=== PATIENT | male | born 1975 | race Caucasian/White ===

== ENCOUNTER → 2020-03-12 16:21 | Outpatient (BNVA) | payer OTHER, SELFPAY | PROVIDERS: PCP Physician Assistant; Referring Provider Physician Assistant; Visit Provider Nurse Practitioner | DX: K22.10 Ulcer of esophagus without bleeding (principal); R19.7 Diarrhea, unspecified; K29.40 Chronic atrophic gastritis without bleeding; F10.10 Alcohol abuse, uncomplicated; K92.1 Melena | CPT/HCPCS: 99214 ==

== ENCOUNTER 2020-07-31 14:32 | Outpatient (REF) | payer OTHER, SELFPAY ==
--- NOTE | ~2020-07-31 | US_ITS ---
EXAMINATION: US ABDOMEN LIMITED CLINICAL INFORMATION: Palpable fullness over right mid abdomen, best appreciated with the patient standing COMPARISON: None TECHNIQUE: Real-time imaging of the right periumbilical region FINDINGS: There is a small right periumbilical hernia which appears to contain bowel. This measures 1.6 cm. US/US abdomen limited IMPRESSION: Small right periumbilical hernia containing bowel.
== END 2020-07-31 14:33 | disposition home or self-care (01) ==
LOC: HO.HMGCX 14:32
PROVIDERS: PCP Physician Assistant; Visit Provider Physician Assistant
DX: K46.9 Unspecified abdominal hernia without obstruction or gangrene (principal)
CPT/HCPCS: 76705

== ENCOUNTER 2020-08-08 09:02 | Outpatient (REF) | payer OTHER, SELFPAY ==
[2020-08-08 09:59] LABS: MANUAL DIFF FLAG NO
[2020-08-08 10:14] LABS: INTERNATIONAL NORM RATIO 0.9 (0.9-1.1); Prothrombin Time 10.6 SEC (10.8-13.0)
[2020-08-08 10:27] LABS: Basophils Absolute Auto 0.1 X10*3/uL (0.0-0.2); Basophils Percent Auto 0.7 % (0-2); Eosinophils Absolute Auto 0.1 X10*3/uL (0.0-0.4); Hematocrit 51.9 % (42-52); Hemoglobin 17.4 g/dl (14.0-18.0); Imm Gran Abs Auto 0.09 X10*3/uL (0.00-0.03); Imm Gran Pct Auto 0.8 % (0.0-0.4); Lymphocytes Percent Auto 17.9 % (20-40); Mean Corpuscular HGB Conc 33.5 g/dl (31.0-36.0); Mean Corpuscular Volume 92.3 fL (80-98); Mean Platelet Volume 9.7 fL (9.4-12.4); Monocytes Absolute Auto 0.9 X10*3/uL (0.1-1.2); Monocytes Percent Auto 7.5 % (2-11); Neutrophils Absolute Auto 8.2 X10*3/uL (2.0-8.3); Neutrophils Percent Auto 72.1 % (45-73); Platelet Count 318 X10*3/uL (160-400); Red Blood Count 5.62 X10*6/uL (4.60-5.80); Red Cell Distribution Width 13.2 % (11.0-16.0); White Blood Count 11.4 X10*3/uL (4.8-10.8)
[2020-08-08 10:49] LABS: Alanine Aminotransferase 15 U/L (0-40); Albumin Level 4.3 g/dL (3.5-5.0); Alkaline Phosphatase 90 U/L (39-117); Anion Gap 14 (12-20); Aspartate Amino Transferase 27 U/L (5-37); Bilirubin Total 0.4 mg/dL (0.0-1.0); Blood Urea Nitrogen 5 mg/dL (9-16); Calcium 9.3 mg/dL (8.4-10.2); Carbon Dioxide 26 mmol/L (22-29); Chloride 101 mmol/L (96-108); Cholesterol 206 mg/dL; Estimated Glomerular Filt Rate > 60; Glucose Fasting 101 mg/dL (60-99); HDL Cholesterol 56 mg/dL; LDL Cholesterol Calculated 128 mg/dl; Potassium 5.6 mmol/L (3.3-5.1); Sodium 135 mmol/L (135-145); Total Protein 7.1 g/dL (6.5-8.0); Triglycerides 113 mg/dL
[2020-08-08 10:55] LABS: Ethanol < 10 mg/dL
[2020-08-08 11:13] LABS: TSH reflex Free T4 0.85 uIU/mL (0.32-4.0)
== END 2020-08-08 09:03 | disposition home or self-care (01) ==
LOC: HO.LAB 09:02
PROVIDERS: PCP Physician Assistant; Visit Provider Nurse Practitioner
DX: I10 Essential (primary) hypertension (principal); F10.10 Alcohol abuse, uncomplicated; K92.1 Melena; R19.7 Diarrhea, unspecified; Z13.29 Encounter for screening for other suspected endocrine disorder; Z13.220 Encounter for screening for lipoid disorders
CPT/HCPCS: 36415; 80053; 80061; 80320; 84443; 85025; 85027; 85610

== ENCOUNTER → 2020-08-12 13:47 | Outpatient (BNVA) | payer OTHER, SELFPAY | PROVIDERS: PCP Physician Assistant; Visit Provider Surgery | DX: K43.2 Incisional hernia without obstruction or gangrene (principal) | CPT/HCPCS: 99202 ==

== ENCOUNTER 2020-08-28 08:55 | Day surgery (SDC) | payer OTHER, SELFPAY ==
[2020-08-24 12:50] VITALS: BMI 25.0
--- NOTE | 2020-08-24 14:08 | HO.ANESPROP2 ---
Documented by User: Danni Roma 08/27/20 09:07 HPI - Anesthesia Eval Consult details Narrative: 45yo M for Hernia Repair Incisional with Mesh Hyperkalemia noted by pcp, questioning lab error? Repeat DOS. +ETOH PMFSH Active Problems Active Problems: All Active Problems (Updated 08/12/20 @ 14:21 by Cuate Blank MD) Incisional hernia (Acute) Peptic ulcer disease (Acute) Gastritis (Acute) Anxiety (Acute) Allergic (Acute) Annual physical exam (Acute) Screening for hypothyroidism (Acute) Screening for hypercholesterolemia (Acute) Abdominal hernia (Acute) Hematochezia (Acute) Diarrhea (Acute) Erosive gastritis (Acute) Atrophic gastritis (Acute) Anxiety (Acute) Genital warts (Acute) Erosive esophagitis (Acute) Smoker (Acute) Alcohol abuse (Acute) Lumbar disc disease with radiculopathy (Acute) Past Medical History Medical History Anxiety Foreign body in stomach Gastritis Incisional hernia Peptic ulcer disease Perforated duodenal ulcer Family History Family History Father CAD (coronary artery disease) NIDDY (non-insulin dependent diabetes mellitus in young) Hypertension Mother CAD (coronary artery disease) Hypertension Surgical History Surgical History H/O Spinal surgery History of esophagogastroduodenoscopy (EGD) History of gastric surgery Social History Social History Alcohol intake: current Alcohol intake frequency: a few times a month Smoking Status: Current every day smoker Advance Directives Information Provided: No Current occupational status: unemployed 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 Meds Allergies Allergy/AdvReac Type Severity Reaction Status Date / Time cat dander [cats] Allergy Unknown Unknown Verified 08/24/20 12:47 Home Medications Medication Instructions Recorded Confirmed Last Taken Type famotidine 40 mg tablet 40 mg PO DAILY 07/28/20 08/24/20 Unknown History Exam Exam Date and Time: August 24, 2020 1408 Height,Weight and Vital Signs: Height 6 ft Weight 83.915 kg Pertinent Lab Results Pertinent Lab Results: Laboratory Tests 08/08/20 09:38 WBC 11.4 H Hgb 17.4 Hct 51.9 Plt Count 318 Laboratory Tests 08/08/20 09:38 BUN 5 L Creatinine 0.81 Repeat lytes DOS Assessment and Plan Assessment Anesthesia Assessment: Chart Reviewed Documented by User: Shelby Rojo 08/28/20 13:03 PMFSH Past Medical History Medical History Anxiety Foreign body in stomach Gastritis Incisional hernia Peptic ulcer disease Perforated duodenal ulcer Family History Family History Father CAD (coronary artery disease) NIDDY (non-insulin dependent diabetes mellitus in young) Hypertension Mother CAD (coronary artery disease) Hypertension Surgical History Surgical History H/O Spinal surgery History of esophagogastroduodenoscopy (EGD) History of gastric surgery Social History Social History Alcohol intake: current Alcohol intake frequency: a few times a month Smoking Status: Current every day smoker Advance Directives Information Provided: No Current occupational status: unemployed 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 Meds Allergies Allergy/AdvReac Type Severity Reaction Status Date / Time cat dander [cats] Allergy Unknown Unknown Verified 08/24/20 12:47 Home Medications Medication Instructions Recorded Confirmed Last Taken Type famotidine 40 mg tablet 40 mg PO DAILY 07/28/20 08/24/20 Unknown History Exam Airway Mallampati Class: II TM Dist: >3cm Neck ROM: Full Assessment and Plan Assessment Anesthesia Assessment: Anesthesia Plan Discussed and Chart Reviewed Final Anesthetic Review NPO: Yes ASA Class: II Final Preanesthetic Review: No Changes in Pt Med Stat, Meds/Allgs Chart Reviewed and Consent Obtained/Reviewed Patient Risk: Low Procedure Risk: Low Assessment/Block/Sedation in SS: Assess/Block/Sedation-SS Anesthetic Plan Anesthetic Plan: GA Disposition: Standard PACU
[2020-08-28] VITALS (16 sets, daily range): BP systolic 117–146; BP diastolic 59–89; PULSE 51–65; RESP 16–20; TEMP 36.6–36.8; O2SAT 93–100
[2020-08-28 10:19] LABS: Anion Gap 17 (12-20); Carbon Dioxide 22 mmol/L (22-29); Chloride 101 mmol/L (96-108); Potassium 4.5 mmol/L (3.3-5.1); Sodium 135 mmol/L (135-145)
[2020-08-28] MEDS: Lactated Ringers 1,000 ML 100 ML IVCONT (11:00)
--- NOTE | 2020-08-28 13:15 | MHC.SHP ---
Pre-Procedural Eval Section B Chief Complaint: Incisional Hernia Allergies: Allergies Allergy/AdvReac Type Severity Reaction Status Date / Time cat dander [cats] Allergy Unknown Unknown Verified 08/24/20 12:47 Plan I have reviewed the history and physical and performed a pertinent physical examination on my patient. No changes have occurred unless specified.
--- NOTE | 2020-08-28 14:28 | PM.OP ---
Brief Operative Note Date of Service: 08/28/20 Pre-op diagnosis: incisional hernia Post-op diagnosis: same Procedure: repair of incisional hernia poss. mesh Implants: mesh Surgeon: Cuate Blank MD Anesthesia: GLMA Estimated blood loss (mL): 5 Pathology: other (sac) Condition: stable Disposition: PACU
--- NOTE | 2020-08-28 14:31 | P.OP_ITS ---
Operative Note Operative Note Date of Service: 08/28/20 Narrative: Preop diagnosis: Incisional hernia Postop diagnoses: Incisional hernia Procedure: Repair of incisional hernia with Ventralex mesh Surgeon: Cuate Blank MD cardiology physician assistant: CYRUS Kline The patient is a 45-year-old male with reducible mass to the right of the umbilicus consistent with a hernia. He has a long laparotomy incision from before for surgery for perforated ulcer. In view of symptoms with hernia, he wanted to proceed with repair. He understood the technique of the procedure as well as the risks, benefits and alternatives. He was brought to the operative room placed supine table under general anesthesia via laryngeal mask airway. The abdomen is prepped and draped in the usual sterile fashion. A surgical time-out was done and the patient received cefazolin 2 g IV preoperatively. I infiltrated the planned line of incision with lidocaine 1%. I had made incision in the skin using blade 15. This was carried down through the full- thickness of the skin and subcutaneous fat with sharp dissection using electrocautery until was able to visualize the hernia. Hernia sac was carefully dissected off of the rest of the subcutaneous layer sharply with Metzenbaum scissors. We continue to do careful dissection to define the hernia down to the fascia. The fascial edges were not well defined so I opened the hernia sac carefully with Metzenbaum scissors. The peritoneal cavity was therefore entered. I applied a grasper the fascial edge and carefully excised the hernia sac with electrocautery. This was sent as specimen. By doing so we were able to clearly define the fascial defect. The fascial defect was about 2.5 cm in diameter. I palpated the underside of the defect to make sure that there were no adhesions. There were no bowel loops adherent around the defect. This appeared clear so I used a small-sized Ventralex mesh. This was positioned under the fascia and flattened. I secured the mesh with Prolene 2-0 sutures the fascia using the Prolene straps. The straps on both sites were then trimmed flush on the fascial level. I then closed the fascial defect with a figure- eight Maxon 1 stitch. The subcutaneous layer was reapposed with Dexon 3-0 interrupted sutures. Skin closure was achieved with Dexon 4-0 subcuticular stitch. Steri-Strips and dressings were applied. The area was infiltrated with Marcaine 0.5% for postop analgesia. The procedure was then completed. The patient tolerated procedure well without complication noted. Initial and final counts of sponges and instruments were correct. Estimated blood loss about 5 cc. Basis extubated without difficulty and transferred to the recovery room with stable vital signs.
[2020-08-28] MEDS: Acetaminophen 325 MG TABLET 650 MG PO (14:37)
[2020-08-28] MEDS: oxyCODONE HCl Immed Release 5 MG TABLET PO ×2 (14:37→16:10)
[2020-08-28] MEDS: fentaNYL citrate/PF 100 MCG/2 ML VIAL 50 MCG IVPUSH ×4 (14:57→15:26)
== END 2020-08-28 11:25 | disposition home or self-care (01) ==
PROVIDERS: Nurse Practitioner; PCP Physician Assistant; Visit Provider Surgery
PROC: (CPT 49560; principal; 2020-08-28 12:50)
DX: K43.2 Incisional hernia without obstruction or gangrene (principal); K29.70 Gastritis, unspecified, without bleeding; Z87.11 Personal history of peptic ulcer disease; Z79.899 Other long term (current) drug therapy
CPT/HCPCS: 49560; 49568; 36415; 80051; 88302; C1781; J0690; J1100; J2250; J2405; J3010

== ENCOUNTER → 2020-09-10 12:50 | Outpatient (BNVA) | payer OTHER, SELFPAY | PROVIDERS: PCP Physician Assistant; Visit Provider Surgery | DX: K43.2 Incisional hernia without obstruction or gangrene (principal) | CPT/HCPCS: 99212 ==

== ENCOUNTER 2020-12-04 06:01 | Emergency (ER) | payer OTHER, SELFPAY ==
--- NOTE | ~2020-12-04 | CT_ITS ---
EXAMINATION: CT ABDOMEN AND PELVIS WITH CONTRAST CLINICAL INFORMATION: Vomiting. Right lower quadrant pain. Evaluate for small bowel obstruction. COMPARISON: None TECHNIQUE: Multidetector volumetric images were obtained from the superior aspect of the liver through the pubic symphysis following administration 85 mL of Omnipaque 350 intravenous contrast. Sagittal and coronal reformatted images were obtained on the technologist's workstation. Oral contrast: Yes This CT examination was performed using dose optimization techniques as appropriate, variously including the following: *Automated exposure control *Adjustment of mA and/or kV according to patient size (this includes techniques or standardized protocols for targeted exams where dose is matched to indication/reason for exam; i.e. extremities or head) *Use of iterative reconstruction technique DLP: 533 mGy-cm FINDINGS: LUNG BASES: The visualized lung bases are unremarkable. LIVER, GALLBLADDER, AND BILIARY TREE: The liver is normal in size, shape, and attenuation. No focal hepatic lesion or biliary ductal dilatation is present. The gallbladder is unremarkable with no evidence of radiopaque gallstones, gallbladder wall thickening, or obvious pericholecystic inflammatory changes. PANCREAS: Unremarkable. SPLEEN: Unremarkable. ADRENAL GLANDS: Unremarkable. KIDNEYS AND URETERS: There is a small left renal cyst. The kidneys are normal unremarkable. BLADDER: Unremarkable. GASTROINTESTINAL TRACT: There are fluid-filled loops of nondilated small bowel suggestive of an ileus. There are no dilated loops of bowel to suggest obstruction. There are postsurgical changes to the right periumbilical abdominal wall and small bowel loops about this region. No hernia in this area is seen. There is mild diverticulosis of the colon. Large bowel is otherwise unremarkable. The appendix is not seen. The stomach is normal. ABDOMINAL WALL: There is a small upper midline or supraumbilical hernia containing fat. This is 3 cm superior to the umbilicus. There are postsurgical changes to the abdominal wall in the periumbilical region slightly to the right of midline. There are small bowel loops seen just deep to this region. LYMPH NODES: Normal. VASCULAR: Unremarkable. PELVIC VISCERA: Unremarkable. OSSEOUS STRUCTURES: There may be a transitional vertebral body segment. There is lower lumbar spine spondylosis and degenerative disc disease. There is a lower thoracic spine and mild old compression fracture versus Schmorl's node. CT/CT abdomen pelvis w con IMPRESSION: Small bowel ileus. Postsurgical change to the abdominal wall in the periumbilical region to the right of midline. There are small bowel loops seen abutting this region. No hernia in this region is seen or evidence of bowel obstruction. Small 1 cm supraumbilical hernia containing fat. Centimeters above the umbilicus. Left renal cyst.
[2020-12-04 06:23] VITALS: BP 145/100; PULSE 73; RESP 16; TEMP 37; O2SAT 100; BMI 24.4
--- NOTE | 2020-12-04 07:02 | ED_ITS ---
HPI - Abdominal Pain General Chief Complaint: Abdominal Pain Stated Complaint: vomiting/ABD pain Time Seen by Provider: 12/04/20 06:47 Source: patient Mode of arrival: ambulatory Limitations: no limitations History of Present Illness HPI narrative: 45-year-old male who presents emergency department for evaluation nausea, vomiting, abdominal pain x9 days. Patient states that over the last 9 days he has had severe nausea. He states that he has not been able to eat or drink. States that he has vomiting up stomach acid . He has not been able to hold down food or fluid for 6 days. He has been taking ondansetron without relief his symptoms. he is also complaining of abdominal pain, he points to his right lower quadrant, describes the pain as a constant, nausea like pain that is moderate in intensity. States that he has had no bowel movement 6 days. He denies feeling distended. He has felt hot at home but did not take his fever, he has had sweats at home as well. He denied frequency urgency or dysuria. Past surgical history is significant for a hernia repair with mesh placed in the right lower quadrant [address] Hargrove. he also had a perforated stomach ulcer 2 years prior. He states that he had an appendectomy when he was a child. Related Data Home Medications Medication Instructions Recorded Confirmed famotidine 40 mg tablet 40 mg PO DAILY 07/28/20 09/22/20 Previous Rx's Medication Instructions Recorded sertraline 100 mg tablet 100 mg PO DAILY #30 tab 04/13/20 hydroxyzine HCl 25 mg tablet 25 mg PO BEDTIME PRN #60 tab 05/22/20 pantoprazole 40 mg tablet,delayed 40 mg PO DAILY #30 tab 05/22/20 release clonidine HCl 0.2 mg tablet 0.2 mg PO BID #60 tab 06/30/20 albuterol sulfate 90 mcg/actuation 1 inh INHALATION Q4-6H PRN 30 Days 08/12/20 breath activated powder #1 ea inhaler,sensor oxycodone-acetaminophen [Percocet] 1 - 2 tab PO Q4-6H PRN #30 tab 08/28/20 oxycodone-acetaminophen 5 mg-325 1 tab PO TID PRN #20 tab 09/10/20 mg tablet tramadol 50 mg tablet 50 mg PO Q8H 30 Days #90 tab 10/15/20 ondansetron HCl 4 mg tablet 4 mg PO Q8H 5 Days #15 tab 11/30/20 diphenhydramine HCl 50 mg PO Q6H #30 cap 12/04/20 metoclopramide HCl [Reglan] 10 mg PO Q6H PRN #14 tab 12/04/20 morphine 15 mg PO Q4-6H PRN #10 tab 12/04/20 Allergies Allergy/AdvReac Type Severity Reaction Status Date / Time cat dander [cats] Allergy Unknown Unknown Verified 08/24/20 12:47 Review of Systems Review of Systems Yes all other systems are reviewed and are negative Physical Exam Vital Signs: Vital Signs: Last Vital Signs Temp 98.6 F 12/04/20 06:23 Pulse 86 12/04/20 10:08 Resp 16 12/04/20 10:08 BP 145/100 H 12/04/20 06:23 Pulse Ox 96 12/04/20 10:08 Body Mass Index 24.4 Const: General: cooperative Orientation/consciousness: oriented to person and oriented to place Limitations: no limitations HENMT: Head: Yes normal to inspection, Yes normocephalic and Yes atraumatic Ears: external ears normal General nose exam: Normal external nose present Face and sinus: Yes normal facial exam Mouth: Normal oral and palatal mucosa present Throat: Yes posterior oropharynx normal Eyes: Periorbital: periorbital findings normal Eyelids: Yes eyelids normal Conjunctivae: conjunctivae normal Sclerae: sclerae normal Corneas: corneas normal Pupils: Equal, round and reactive pupils present Direct Ophthalmoscopy: normal light reflex Neck: Neck: Yes full ROM, Yes no lymphadenopathy, Yes no meningeal signs, Yes trachea midline and Yes supple Chest: Chest palpation & inspection: normal inspection of the chest and normal palpation of entire chest wall Resp: Effort & Inspection: normal respiratory effort and able to speak in complete sentences Auscultation: clear to auscultation bilaterally Cardio: Rate: regular rate Rhythm: regular rhythm Heart sounds: S1 normal heart sound present, S2 normal heart sound present and no murmurs GI: Inspection: Yes normal to inspection and No distended Palpation (GI): Soft to palpation, Tenderness to palpation present (GI) in the RLQ ( Moderate), no guarding, not rigid and No hepatosplenomegaly present Auscultation: Hypoactive bowel sounds present : General: Yes no CVA tenderness Back/Spine/Pelvis: Back: no CVA tenderness Cervical Spine: normal cervical lordosis Thoracic/Lumbar Spine: thoracic and lumbar spine normal to inspection Skin: Lesions: no lesions Rashes: no rashes Wounds: no wounds Neuro: General: oriented to person, oriented to place and no meningeal signs Cranial nerves: Yes CN's II-XII intact bilaterally and Yes Equal, round and reactive pupils present Cognition (Neuro): normal cognition Motor exam (neuro): 5/5 motor strength present throughout Extrem: General: Yes normal to inspection and Yes full ROM Psych: Appearance: well kempt Mental Status: mental status grossly normal Speech and movement: Normal speech and movement present Affect: normal affect Attitude: cooperative Thought process: Normal thought process present Thought content: Normal thought content present Course Course Course Narrative: 45-year-old male who presents emergency department for evaluation of 9 days of persistent nausea and 6 days vomiting, and no bowel movements with no oral intake. Vital signs revealed hypertension with a blood pressure of 145/100 otherwise unremarkable. the patient's physical examination did reveal right lower quadrant tenderness and hypoactive bowel sounds otherwise was unremarkable. Given the patient's history of perforation, appendectomy and right lower quadrant her her 3 months prior, I am concerned that the patient might have a small bowel obstruction. I ordered a CBC, CMP, lipase, lactic acid, PT / INR, PTT urinalysis and a CT scan of the abdomen pelvis with IV contrast. Patient's pain was treated with morphine 4 mg IV. Patient's nausea and vomiting was treated with Reglan 10 mg IV and Benadryl 50 mg IV. Patient was ordered to get normal saline IV x2 L. 11 11: The patient's pain improved after receiving 2 doses of morphine IV. He required a dose of Zofran 4 mg IV as well to help with his nausea. Laboratory evaluation was unremarkable except for slight elevation in his AST and ALT which is most likely caused by his alcohol use. CT scan of the abdomen pelvis is consistent with an ileus with no clear transition zone or bowel obstruction. The patient was able to drink fluid here in the emergency department hold it down. The patient would like to go home and does not want to be hospitalized. I did discuss this with the covering surgeon, and the patient will follow-up with the surgical office next week for re-evaluation. Patient was given a prescription for Reglan, Benadryl and morphine. Given his daily alcohol use, I do not think that Tylenol and ibuprofen be appropriate for his pain. The patient was given verbal and printed instructions prior to discharge. The patient was advised to follow-up with their PCP in 2 days and to return to the emergency department if their symptoms get worse or if they develop any new symptoms that are concerning to them. MDM - Abdominal Pain Lab Data Result diagrams: 12/04/20 07:14 12/04/20 07:14 Labs: Lab Results 12/04/20 12/04/20 12/04/20 Range/Units 07:13 07:14 07:14 WBC 7.5 (4.8-10.8) X10*3/uL RBC 5.49 (4.60-5.80) X10*6/uL Hgb 17.4 (14.0-18.0) g/dl Hct 50.1 (42-52) % MCV 91.3 (80-98) fL MCH 31.7 (27.0-33.0) pg MCHC 34.7 (31.0-36.0) g/dl RDW 13.4 (11.0-16.0) % Plt Count 290 (160-400) X10*3/uL MPV 9.3 L (9.4-12.4) fL Immature Gran % (Auto) 0.5 H (0.0-0.4) % Neut % (Auto) 64.2 (45-73) % Lymph % (Auto) 23.1 (20-40) % Twiggs % (Auto) 11.2 H (2-11) % Eos % (Auto) 0.5 (0-4) % Baso % (Auto) 0.5 (0-2) % Lymph # (Auto) 1.7 (1.2-4.9) X10*3/uL Twiggs # (Auto) 0.8 (0.1-1.2) X10*3/uL Eos # (Auto) 0.0 (0.0-0.4) X10*3/uL Baso # (Auto) 0.0 (0.0-0.2) X10*3/uL Abs Immat Gran (auto) 0.04 H (0.00-0.03) X10*3/uL Absolute Neuts (auto) 4.8 (2.0-8.3) X10*3/uL Absolute Nucleated RBC 0.000 (0.0-0.012) X10*3/uL Nucleated RBC % (auto) 0.0 (0.0-0.2) /100WBC PT 11.0 (10.8-13.0) SEC INR 0.9 (0.9-1.1) APTT 29.9 (24.1-38.0) SEC Sodium (135-145) mmol/L Potassium (3.3-5.1) mmol/L Chloride (96-108) mmol/L Carbon Dioxide (22-29) mmol/L Anion Gap (12-20) BUN (9-16) mg/dL Creatinine (0.5-1.4) mg/dL Estim Creat Clear Calc Estimated GFR Random Glucose (60-115) mg/dL Lactic Acid (0.5-2.0) mmol/L Calcium (8.4-10.2) mg/dL Total Bilirubin (0.0-1.0) mg/dL AST (5-37) U/L ALT (0-40) U/L Alkaline Phosphatase (39-117) U/L Total Protein (6.5-8.0) g/dL Albumin (3.5-5.0) g/dL Lipase (8-78) U/L Ethyl Alcohol < 10 mg/dL 12/04/20 12/04/20 Range/Units 07:14 07:14 WBC (4.8-10.8) X10*3/uL RBC (4.60-5.80) X10*6/uL Hgb (14.0-18.0) g/dl Hct (42-52) % MCV (80-98) fL MCH (27.0-33.0) pg MCHC (31.0-36.0) g/dl RDW (11.0-16.0) % Plt Count (160-400) X10*3/uL MPV (9.4-12.4) fL Immature Gran % (Auto) (0.0-0.4) % Neut % (Auto) (45-73) % Lymph % (Auto) (20-40) % Twiggs % (Auto) (2-11) % Eos % (Auto) (0-4) % Baso % (Auto) (0-2) % Lymph # (Auto) (1.2-4.9) X10*3/uL Twiggs # (Auto) (0.1-1.2) X10*3/uL Eos # (Auto) (0.0-0.4) X10*3/uL Baso # (Auto) (0.0-0.2) X10*3/uL Abs Immat Gran (auto) (0.00-0.03) X10*3/uL Absolute Neuts (auto) (2.0-8.3) X10*3/uL Absolute Nucleated RBC (0.0-0.012) X10*3/uL Nucleated RBC % (auto) (0.0-0.2) /100WBC PT (10.8-13.0) SEC INR (0.9-1.1) APTT (24.1-38.0) SEC Sodium 138 (135-145) mmol/L Potassium 5.4 H (3.3-5.1) mmol/L Chloride 102 (96-108) mmol/L Carbon Dioxide 26 (22-29) mmol/L Anion Gap 15 (12-20) BUN 6 L (9-16) mg/dL Creatinine 1.13 (0.5-1.4) mg/dL Estim Creat Clear Calc 88.7 Estimated GFR > 60 Random Glucose 107 (60-115) mg/dL Lactic Acid 1.9 (0.5-2.0) mmol/L Calcium 9.7 (8.4-10.2) mg/dL Total Bilirubin 1.0 (0.0-1.0) mg/dL AST 119 H (5-37) U/L ALT 54 H (0-40) U/L Alkaline Phosphatase 117 D (39-117) U/L Total Protein 7.2 (6.5-8.0) g/dL Albumin 4.1 (3.5-5.0) g/dL Lipase 28 (8-78) U/L Ethyl Alcohol mg/dL Discharge Plan Discharge Clinical Impression: Ileus, Vomiting, Dehydration Patient Disposition: Home, Self-Care Instructions: Ileus (ED) Additional Instructions: Your laboratory evaluation was unremarkable. The CT scan of your abdomen revealed an ileus ( increased gas in the small bowel ) with no clear bowel obstruction. Take Reglan ( metoclopramide ) 10 mg 1 pill every 6 hours as needed for nausea and vomiting. With Reglan take Benadryl 25 mg pills, 2 pills every 6 hours. For pain take morphine 15 mg pills, 1 pill every 4-6 hours as needed for pain. This is a narcotic medication and can be addicting. If your concerned about addiction do not get this prescription filled. Also you can ask the pharmacist for less pills than prescribed. This medication will make you sleepy, do not drive or work while taking this medication. Stop taking your tramadol and oxycodone while you are taking morphine. Follow-up with your Dr. Blank in 1 week, call today to make an appointment. Please return to the emergency department if your symptoms get worse or if you develop any symptoms that are concerning to you. Prescriptions: New morphine 15 mg tablet 15 mg PO Q4-6H PRN (Reason: pain) Qty: 10 RF: 0 metoclopramide HCl [Reglan] 10 mg tablet 10 mg PO Q6H PRN (Reason: nausea and vomiting) Qty: 14 RF: 0 diphenhydramine HCl 25 mg capsule 50 mg PO Q6H Qty: 30 RF: 0 No Action sertraline 100 mg tablet 100 mg PO DAILY Qty: 30 RF: 8 pantoprazole 40 mg tablet,delayed release (DR/EC) 40 mg PO DAILY Qty: 30 RF: 3 hydroxyzine HCl 25 mg tablet 25 mg PO BEDTIME PRN (Reason: sleep) Qty: 60 RF: 3 clonidine HCl 0.2 mg tablet 0.2 mg PO BID Qty: 60 RF: 6 tramadol 50 mg tablet 50 mg PO Q8H 30 Days Qty: 90 RF: 1 ondansetron HCl [Zofran] 4 mg tablet 4 mg PO Q8H 5 Days Qty: 15 RF: 0 oxycodone-acetaminophen [Percocet] 5-325 mg tablet 1 - 2 tab PO Q4-6H PRN (Reason: pain) Qty: 30 RF: 0 Proair Digihaler 90 mcg/actuation aero powdr breath act w/sensor 1 inh inhalation Q4-6H PRN (Reason: shortness of breath or wheezing) 30 Days Qty: 1 RF: 3 famotidine 40 mg tablet 40 mg PO DAILY RF: 0 oxycodone-acetaminophen [Percocet] 5-325 mg tablet 1 tab PO TID PRN (Reason: pain) Qty: 20 RF: 0 PMFSH Past Medical History PMFSH Narrative: Social history: The patient does smoke 1 pack of cigarettes per day times 30 years, he drinks 4 beers per day, he denies drug use. Medical History Anxiety Foreign body in stomach Gastritis Incisional hernia Peptic ulcer disease Perforated duodenal ulcer Surgical History H/O Spinal surgery History of esophagogastroduodenoscopy (EGD) History of gastric surgery Family History Family History Father CAD (coronary artery disease) NIDDY (non-insulin dependent diabetes mellitus in young) Hypertension Mother CAD (coronary artery disease) Hypertension Social History Social History Alcohol intake: current Alcohol intake frequency: 3 or more drinks per day Alcohol type: beer Patient Tobacco Use Status: Current everyday Tobacco user Use of substances other than those prescribed or required for medical reasons: No Advance Directives: No Current occupational status: unemployed 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
[2020-12-04 07:18] LABS: MANUAL DIFF FLAG NO
[2020-12-04 07:21] LABS: Basophils Percent Auto 0.5 % (0-2); Eosinophils Percent Auto 0.5 % (0-4); Hematocrit 50.1 % (42-52); Hemoglobin 17.4 g/dl (14.0-18.0); Imm Gran Abs Auto 0.04 X10*3/uL (0.00-0.03); Imm Gran Pct Auto 0.5 % (0.0-0.4); Lymphocytes Absolute Auto 1.7 X10*3/uL (1.2-4.9); Lymphocytes Percent Auto 23.1 % (20-40); Mean Corpuscular HGB Conc 34.7 g/dl (31.0-36.0); Mean Corpuscular Hemoglobin 31.7 pg (27.0-33.0); Mean Corpuscular Volume 91.3 fL (80-98); Mean Platelet Volume 9.3 fL (9.4-12.4); Monocytes Absolute Auto 0.8 X10*3/uL (0.1-1.2); Monocytes Percent Auto 11.2 % (2-11); Neutrophils Absolute Auto 4.8 X10*3/uL (2.0-8.3); Neutrophils Percent Auto 64.2 % (45-73); Platelet Count 290 X10*3/uL (160-400); Red Blood Count 5.49 X10*6/uL (4.60-5.80); Red Cell Distribution Width 13.4 % (11.0-16.0); White Blood Count 7.5 X10*3/uL (4.8-10.8)
[2020-12-04] MEDS: 0.9 % Sodium Chloride 1,000 ML 999 ML IV ×2 (07:21→07:22)
[2020-12-04] MEDS: diphenhydrAMINE HCL 50 MG/ML VIAL IVPUSH (07:22)
[2020-12-04] MEDS: Metoclopramide HCl 10 MG/2 ML VIAL IVPUSH (07:22)
[2020-12-04] MEDS: Morphine Sulfate 4 MG/ML CARTRIDGE IVPUSH ×2 (07:22→09:42)
[2020-12-04 07:27] LABS: INTERNATIONAL NORM RATIO 0.9 (0.9-1.1)
[2020-12-04 07:30] LABS: Partial Thromboplastin Time 29.9 SEC (24.1-38.0)
[2020-12-04 07:39] LABS: Lactic Acid 1.9 mmol/L (0.5-2.0)
[2020-12-04 07:41] LABS: Ethanol < 10 mg/dL
[2020-12-04 07:47] LABS: Alanine Aminotransferase 54 U/L (0-40); Albumin Level 4.1 g/dL (3.5-5.0); Alkaline Phosphatase 117 U/L (39-117); Anion Gap 15 (12-20); Aspartate Amino Transferase 119 U/L (5-37); Blood Urea Nitrogen 6 mg/dL (9-16); Calcium 9.7 mg/dL (8.4-10.2); Carbon Dioxide 26 mmol/L (22-29); Chloride 102 mmol/L (96-108); Creatinine Clr Calc Pharmacy 88.7; Estimated Glomerular Filt Rate > 60; Glucose Random 107 mg/dL (60-115); Lipase 28 U/L (8-78); Potassium 5.4 mmol/L (3.3-5.1); Sodium 138 mmol/L (135-145); Total Protein 7.2 g/dL (6.5-8.0)
[2020-12-04] MEDS: iohexoL 350 MG/ML 100 ML INFUS..BTL IV (09:36)
[2020-12-04] MEDS: ondansetron HCL 4 MG/2 ML VIAL IVPUSH (09:42)
[2020-12-04 10:08] VITALS: PULSE 86; RESP 16; O2SAT 96
== END 2020-12-04 13:16 | disposition home or self-care (01) ==
PROVIDERS: Emergency Provider Emergency Medicine Emergency Medical Services; PCP Physician Assistant
DX: K56.7 Ileus, unspecified (principal); R11.2 Nausea with vomiting, unspecified; E86.0 Dehydration; R10.9 Unspecified abdominal pain; F17.210 Nicotine dependence, cigarettes, uncomplicated
CPT/HCPCS: 36415; 74177; 80053; 82077; 83605; 83690; 85025; 85610; 85730; 96361; 96374; 96375; 96376; 99284; J1200; J2270; J2405; J2765; Q9967

== ENCOUNTER → 2021-02-23 14:16 | Outpatient (BNVA) | payer OTHER, SELFPAY | PROVIDERS: PCP Physician Assistant; Visit Provider Nurse Practitioner ==

== ENCOUNTER 2021-03-11 09:46 | Outpatient (REF) | payer OTHER, SELFPAY ==
--- NOTE | ~2021-03-11 | FL_ITS ---
PROCEDURE: XR UPPER GI SERIES WITH SMALL BOWEL CLINICAL INFORMATION: History of perforated ulcer. Ileus. COMPARISON: None. TECHNIQUE: Upper GI was performed using thin and thick barium and effervescent granules. Subsequently, small bowel follow-through was performed. FINDINGS: The esophagus is normal-appearing. No hernia or reflux is seen. There is diffuse fold thickening of the stomach and duodenum. No mass, stricture or ulcer is seen. There is normal small bowel transit with contrast reaching the large bowel at 1 hour and 45 minutes. There is fold thickening of the jejunum. The ileum is normal. No mass, stricture or fistula is seen. FLUOROSCOPY TIME: 1.7 minutes DOSE AREA PRODUCT: 19 uGycm2 SAVED FLUOROSCOPIC IMAGES: 24 FL/FL upper GI small bowel IMPRESSION: Fold thickening of the stomach, duodenum and proximal jejunum. Differential would include Marvin-Gomez syndrome, Menetrier's disease, eosinophilic gastroenteritis, and malabsorption.
== END 2021-03-11 09:47 | disposition home or self-care (01) ==
LOC: HO.XRAY 09:46
PROVIDERS: PCP Physician Assistant; Visit Provider Nurse Practitioner
DX: K56.7 Ileus, unspecified (principal)
CPT/HCPCS: 74240; 74248

== ENCOUNTER 2021-05-13 10:22 | Day surgery (SDC) | payer OTHER, SELFPAY ==
[2021-05-07 08:49] VITALS: BMI 25.0
--- NOTE | 2021-05-12 10:15 | HO.ANESPROP2 ---
Documented by User: Danni Brandon NP 05/12/21 10:18 HPI - Anesthesia Eval Consult details Narrative: 46yo M for Upper Endoscopy and Colonoscopy ETOH abuse PMFSH Active Problems Active Problems: All Active Problems (Updated 05/07/21 @ 08:48 by Polly Braden RN) Lumbar disc disease with radiculopathy (Acute) Alcohol abuse (Acute) Smoker (Acute) Erosive esophagitis (Acute) Genital warts (Acute) Anxiety (Acute) Atrophic gastritis (Acute) Erosive gastritis (Acute) Diarrhea (Acute) Hematochezia (Acute) Abdominal hernia (Acute) Screening for hypercholesterolemia (Acute) Screening for hypothyroidism (Acute) Annual physical exam (Acute) Allergic (Acute) Change in bowel habits (Acute) Ileus (Acute) Colon cancer screening (Acute) Incisional hernia (Acute) Anxiety (Acute) Past Medical History Medical History Anxiety Foreign body in stomach Incisional hernia Peptic ulcer disease Perforated duodenal ulcer Family History Family History Father CAD (coronary artery disease) NIDDY (non-insulin dependent diabetes mellitus in young) Hypertension Mother CAD (coronary artery disease) Hypertension Surgical History Surgical History H/O Spinal surgery History of esophagogastroduodenoscopy (EGD) History of gastric surgery History of incisional hernia repair Social History Social History Housing: House Alcohol intake: current Alcohol intake frequency: 3 or more drinks per day Alcohol type: beer Patient Tobacco Use Status: Current everyday Tobacco user Cigarettes Per Day: 5 e-Cigarette/Vaping Use: Never Used Second Hand Smoke Exposure: No Advance Directives: No Advance Directives Information Provided: Yes service: No Current occupational status: unemployed 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 [facility] Past Medical History Medical History Anxiety Foreign body in stomach Incisional hernia Peptic ulcer disease Perforated duodenal ulcer Functional capacity: independent ambulation Family History Family History Father CAD (coronary artery disease) NIDDY (non-insulin dependent diabetes mellitus in young) Hypertension Mother CAD (coronary artery disease) Hypertension Family history of problems with anesthesia: No Surgical History Surgical History H/O Spinal surgery History of esophagogastroduodenoscopy (EGD) History of gastric surgery History of incisional hernia repair History of Problems with Anesthesia: No Social History Social History Housing: House Alcohol intake: current Alcohol intake frequency: 3 or more drinks per day Alcohol type: beer Patient Tobacco Use Status: Current everyday Tobacco user Cigarettes Per Day: 5 e-Cigarette/Vaping Use: Never Used Second Hand Smoke Exposure: No Advance Directives: No Advance Directives Information Provided: Yes service: No Current occupational status: unemployed 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 Meds Allergies Allergy/AdvReac Type Severity Reaction Status Date / Time cat dander [cats] Allergy Unknown Unknown Verified 02/23/21 14:17 Exam Airway Mallampati Class: II TM Dist: >3cm Neck ROM: Full Partial: Lower Loose/Missing/Broken Teeth: Yes Heart: rrr Lungs: bl breath sounds Assessment and Plan Final Anesthetic Review Family History of Problems with Anesthesia: No History of Problems with Anesthesia: No NPO: Yes ASA Class: II Final Preanesthetic Review: Meds/Allgs Chart Reviewed Patient Risk: Intermediate Procedure Risk: Intermediate Anesthetic Plan Anesthetic Plan: MAC: Disposition: Standard PACU
--- NOTE | 2021-05-13 10:41 | MHC.SHP ---
Pre-Procedural Eval Section A Date of Service: 05/13/21 Section B Chief Complaint: Ileus,Unspecified, Screening Details of Present Illness: epigastric pain and hx of perforated duodenal ulcer Relevant Family History (Specify if Yes): No Relevant Social History: Tobacco Use (alcohol use as well) Present Medications: see Short Stay Collaborative assessment Medical History: Significant History (Anxiety Foreign body in stomach Incisional hernia Peptic ulcer disease Perforated duodenal ulcer) History of Previous Operations: Relevant previous surgery/procedure and date(s) (H/O Spinal surgery History of esophagogastroduodenoscopy (EGD) History of gastric surgery History of incisional hernia repair) Allergies: Allergies Allergy/AdvReac Type Severity Reaction Status Date / Time cat dander [cats] Allergy Unknown Unknown Verified 02/23/21 14:17 Review of Systems Sugical H&P ROS: Negative: Constitution, Cardiovascular, Respiratory, Neurological, Psychiatric, Hem-Onc, Allergic/Immunologic, Gastrointestinal, Genitourinary, Musculoskeletal, Integumentary, Endocrine and Eyes/Ears/Nose/Throat Exam Surgical H&P Exam: Normal: HEENT, Normal: Heart, Normal: Lungs, Normal: Extremities, Normal: Abdomen, Normal: Skin and Normal: Neurological Plan Diagnosis/Plan: Unchanged I have reviewed the history and physical and performed a pertinent physical examination on my patient. No changes have occurred unless specified. EGD and colonoscopy for assessment of abdominal pain, bloody stools.
[2021-05-13 11:01] LABS: Anion Gap 15 (12-20); Carbon Dioxide 24 mmol/L (22-29); Chloride 104 mmol/L (96-108); Potassium 5.3 mmol/L (3.3-5.1); Sodium 138 mmol/L (135-145)
[2021-05-13 11:09] VITALS: BP 118/83; PULSE 67; RESP 16; TEMP 36.6; O2SAT 97; BMI 24.4
[2021-05-13] MEDS: Lactated Ringers 1,000 ML 100 ML IVCONT (11:19)
--- NOTE | 2021-05-13 11:25 | PC.NURSE ---
Dr Garrido, Anesthesia, aware of lab results. Continue with IV LR for now, Anesthesia may change IV solution during procedure ( per Dr Garrido)
--- NOTE | 2021-05-13 11:54 | P.OP_ITS ---
Operative Note Operative Note Date of Service: 05/13/21 Narrative: Operative Information Procedure Description: EGD, Colonoscopy FLEXIBLE TRANSORAL UPPER GASTROINTESTINAL ENDOSCOPY AND COLONOSCOPY PROCEDURE NOTE UPPER ENDOSCOPY Consent: Indications for the procedure and potential complications of bleeding, perforation, reaction to medications and missed diagnosis were discussed with the patient and informed consent was obtained. Instrument: Olympus GIF H 190 J mid size upper endoscope Monitoring: Vital signs and clinical assessment, continuous EKG monitoring, Pulse oximetry, Carbon Dioxide monitoring and blood pressure monitoring were done throughout the procedure. Procedure: The patient was placed in the left lateral decubitis position and pre-procedure medications were administered and a bite block was placed. The endoscope was inserted into the mouth and advanced under direct vision to the third part of duodenum. A careful inspection was made as the upper endoscope was withdrawn including a retroflexed examination of the proximal stomach; Findings and interventions are described below. Findings: Larynx:normal Esophagus: GE junction at 40 cm, diaphragm hiatus at 43 cm, consistent with 3 cm sliding hiatal hernia. Erosive esophagitis noted as well as possible barretts esophagus, bx taken. also random esophageal bx taken due to ridging of mucosa. Schatzki ring noted. Stomach: Patchy atrophic gastritis. Biopsies were obtained. Grade 2 flap valve on retroflexed examination of the cardia. Duodenum: erosive duodenitis and patchy duodenitis, bx taken, x 2 retained sutures noted with erosions around the base of them. one of them was removed and the other dislodged with water jet. Jejunum: mild patchy erythema, bx taken Intervention: Biopsies as noted above COLONOSCOPY Instrument: Olympus variable stiffness pediatric scope 190L Colonoscopy Monitoring: Vital signs and clinical assessment, continuous EKG monitoring, Pulse oximetry, Carbon Dioxide monitoring and blood pressure monitoring were done throughout the procedure. Colon withdrawal time was 20 minutes. Procedure: The patient was placed in the left lateral decubitis position and pre-procedure medications were administered. After a digital rectal examination of the ano-rectum, the video colonoscope was inserted into the rectum and advanced through the colon to the cecum/TI. The colonoscope was slowly withdrawn in a retrograde panoramic fashion and the colon mucosa was carefully examined including a retroflexed view of the rectum. Findings and interventions are described below. Procedure Difficulty: easy Findings: Terminal Ileum- normal--bx taken Random bx taken in separate jars from right colon, left colon and rectum Cecum:normal Ascending Colon: normal Transverse Colon -normal Descending Colon:normal Sigmoid Colon:14 mm pedunculated polyp removed with cold snare and 4 clips applied for hemostasis Rectum: Retroflexion with moderate sized internal hemorrhoids, grade I Anorectum - normal Colon preparation: [place] Bowel Preparation Scale Right colon; 2 Transverse colon: 3 Left colon; 2 (0 = Unprepared colon segment with mucosa not seen due to solid stool that can not be cleared. 1 = Portion of mucosa of the colon segment seen, but other areas of the colon segment not well seen due to staining, residual stool and/or opaque liquid. 2 = Minor amount of residual staining, small fragments of stool and/or opaque liquid, but mucosa of colon segment seen well. 3 = Entire mucosa of colon segment seen well with no residual staining, small fragments of stool or opaque liquid) Impression and Post Procedure Diagnosis: Endoscopy Findings: schatzki ring erosive esophagitis hiatal hernia gastritis erosive duodenitis enteritis Colonoscopy Findings: polyp internal hemorrhoids Plan: Await Pathology results Repeat Colonoscopy in 3 years due to large polyp today or earlier if clinically indicated High fiber diet leaflet avoid straining at stool, epsom salts and sitz bath, anusol supps or cream ensure compliant with PPI, repeat EGD in 3 months after high dose PPI Above findings were reviewed with the patient and relevant handouts were provided if indicated.
--- NOTE | 2021-05-13 11:54 | P.BOP_ITS ---
Brief Operative Note Date of Service: 05/13/21 Pre-op diagnosis: abdo pain, blood in stools, hx of PUD Post-op diagnosis: same Procedure: see op note Surgeon: Jeffery Srivastava MD Anesthesia: MAC Was an Fence Manufacture Supervisor used for this Procedure?: No Estimated blood loss (mL): 0 Condition: stable Disposition: PACU
[2021-05-13 12:27] VITALS: BP 104/79; PULSE 93; RESP 18; TEMP 36.3; O2SAT 97
[2021-05-13 12:42] VITALS: BP 112/82; PULSE 84; RESP 18; O2SAT 96
[2021-05-13 12:57] VITALS: BP 118/86; PULSE 71; RESP 18; O2SAT 94
[2021-05-13 13:12] VITALS: BP 114/82; PULSE 72; RESP 18; O2SAT 95
[2021-05-13] MEDS: oxyCODONE HCl Immed Release 5 MG TABLET PO (13:21)
[2021-05-13 13:53] VITALS: TEMP 36.6
== END 2021-05-13 14:20 | disposition home or self-care (01) ==
PROVIDERS: Nurse Practitioner; PCP Physician Assistant; Visit Provider Internal Medicine Gastroenterology
PROC: (CPT 45385; principal; 2021-05-13 11:50)
DX: Z12.11 Encounter for screening for malignant neoplasm of colon (principal); D12.5 Benign neoplasm of sigmoid colon; K64.0 First degree hemorrhoids; R93.3 Abnormal findings on diagnostic imaging of other parts of digestive tract; K56.7 Ileus, unspecified; K22.2 Esophageal obstruction; K52.9 Noninfective gastroenteritis and colitis, unspecified; K29.40 Chronic atrophic gastritis without bleeding; K22.10 Ulcer of esophagus without bleeding; K27.9 Peptic ulcer, site unspecified, unspecified as acute or chronic, without hemorrhage or perforation; K29.80 Duodenitis without bleeding; Z18.89 Other specified retained foreign body fragments; K44.9 Diaphragmatic hernia without obstruction or gangrene; F10.10 Alcohol abuse, uncomplicated; F41.1 Generalized anxiety disorder; F17.210 Nicotine dependence, cigarettes, uncomplicated; Z79.899 Other long term (current) drug therapy
CPT/HCPCS: 45385; 45380; 43239; 36415; 80051; 88305; 88342; J2250

== ENCOUNTER 2021-07-07 15:17 | Outpatient (REF) | payer OTHER, SELFPAY ==
--- NOTE | ~2021-07-07 | XR_ITS ---
EXAMINATION: XR RIBS, RIGHT CLINICAL INFORMATION: Pleurodynia. COMPARISON: None. TECHNIQUE: 3 views of the right ribs were obtained. FINDINGS: Lungs are clear. No consolidation, pneumothorax, or pleural effusion. The cardiomediastinal silhouette and pulmonary vasculature are normal. Osseous structures are unremarkable. Ribs are intact. No fractures are identified. XR/XR ribs RT min 3V w CXR1V IMPRESSION: Unremarkable chest exam. Unremarkable right rib series.
== END 2021-07-07 15:18 | disposition home or self-care (01) ==
LOC: HO.XRAY 15:17
PROVIDERS: PCP Physician Assistant; Visit Provider Nurse Practitioner Family
DX: R07.81 Pleurodynia (principal)
CPT/HCPCS: 71101

== ENCOUNTER 2021-10-15 11:37 | Outpatient (REF) | payer OTHER, SELFPAY ==
[2021-10-15 12:31] LABS: C Reactive Protein 0.04 mg/dL (< or = 0.50); Cholesterol 183 mg/dL; HDL Cholesterol 59 mg/dL; LDL Cholesterol Calculated 84 mg/dl; Triglycerides 200 mg/dL
[2021-10-15 12:49] LABS: Erythrocyte Sedimentation Rate 1 MM/HR (0-15)
[2021-10-15 12:54] LABS: TSH reflex Free T4 1.25 uIU/mL (0.32-4.0)
[2021-10-20 07:55] LABS: Gliadin Deamidated IgA Ab 2.8 U/mL; Transglutaminase Ab IgG <1.0 U/mL; Transglutaminase IgA <1.0 U/mL
== END 2021-10-15 11:38 | disposition home or self-care (01) ==
LOC: HO.LAB 11:37
PROVIDERS: Absent Provider Physician Assistant; PCP Physician Assistant; Visit Provider Internal Medicine Gastroenterology
DX: Z13.220 Encounter for screening for lipoid disorders (principal); Z13.29 Encounter for screening for other suspected endocrine disorder; K56.7 Ileus, unspecified; G89.29 Other chronic pain; K29.80 Duodenitis without bleeding; R10.33 Periumbilical pain
CPT/HCPCS: 36415; 80061; 84443; 85652; 86140; 86258; 86364

== ENCOUNTER 2021-11-23 14:12 | Outpatient (REF) | payer OTHER, SELFPAY ==
--- NOTE | ~2021-11-23 | US_ITS ---
EXAMINATION: ULTRASOUND PENILE CLINICAL INFORMATION: Lump and pain. Rule out malignancy. COMPARISON: None TECHNIQUE: Doppler color and grayscale evaluation of the penis using a linear transducer. FINDINGS: There is a small 1 mm echogenic focus 5 mm deep to the skin questionable for small calcification. Small soft tissue foreign body could've similar appearance Surrounding this there is a hypoechoic area in the mid dorsal penis. This demonstrates minimal increased vascularity. This has ill-defined margins. This measures 1.5 x 0.4 x 2.4 cm. This is just deep to the skin. This may represent a small abscess. US/US penile IMPRESSION: 1 mm echogenic focus in the area of palpable abnormality just deep to the skin probably representing calcification. Soft tissue foreign body could have similar appearance. There is a subtle slightly hypoechoic area surrounding this measuring up to 1.5 x 0.4 x 2.4 cm with slight increased vascularity. Differential would include early Peyronie's disease and possible small abscess. Urology consultation recommended.
== END 2021-11-23 14:13 | disposition home or self-care (01) ==
LOC: HO.US 14:12
PROVIDERS: PCP Physician Assistant; Visit Provider Physician Assistant
DX: C60.2 Malignant neoplasm of body of penis (principal)
CPT/HCPCS: 76857

== ENCOUNTER 2022-01-19 13:51 | Outpatient (REF) | payer OTHER, SELFPAY ==
--- NOTE | ~2022-01-19 | XR_ITS ---
EXAMINATION: XR SPINE, THORACIC XR SPINE, LUMBAR CLINICAL INFORMATION: Degenerative disc changes COMPARISON: Cervical radiographs 01/19/2022, CT abdomen and pelvis 12/04/2020, radiographs lumbar spine 01/14/2020. TECHNIQUE: Thoracic spine is imaged in AP and lateral views. The lumbar spine is imaged in 3 views. There are total of 5 views. FINDINGS: Thoracic: There is normal thoracic segmentation with 12 rib-bearing thoracic vertebrae. There is normal thoracic kyphosis. Again, there is superior endplate depression at T11 consistent with Schmorl's node on prior CT. There is accentuated inferior endplate concavity at T12 since prior imaging. There is no destructive process or paraspinal soft tissue swelling. There is mild anterior vertebral spurring lower thoracic spine. Recommend correlation with patient's symptoms and clinical exam. No erosive changes or significant disc narrowing or spondylolisthesis. Lumbar: There is transitional vertebrae at S1 with right sarah lumbarization. Degenerative disc changes are again present at L5-S1 with vacuum disc, disc narrowing, and mild vertebral spurring. There is no lumbar vertebral compression or spondylolisthesis. No destructive process. The SI joints and visualized sacrum are unremarkable. XR/XR thoracic spine 2V IMPRESSION: Thoracic: -Accentuated endplate concavity T12, new from CT abdomen 2020. No paraspinal soft tissue swelling. Recommend correlation with patient's symptoms and clinical exam. -Mild depression superior endplate T11, stable and consistent with Schmorl's node. Lumbar: -Transitional vertebrae at S1 with right sarah lumbarization. -Degenerative disc changes again noted L5-S1. -No vertebral compression, spondylolisthesis, or vertebral compression.
--- NOTE | ~2022-01-19 | XR_ITS ---
EXAMINATION: XR CERVICAL SPINE CLINICAL INFORMATION: Degenerative disc changes. COMPARISON: None TECHNIQUE: 4 views of the cervical spine were obtained. FINDINGS: Vertebral bodies are normal in height and there is normal cervical lordosis. There is no cervical vertebral compression, destructive process, spondylolisthesis, or prevertebral soft tissue swelling. The odontoid appears intact. There are degenerative disc changes C3-C4 and C5-C6 with disc narrowing and anterior and posterior vertebral spurring. There are also some mild degenerative changes between anterior arch C1 and the dens. There is no perched facet. No cervical rib. XR/XR cervical spine 3V IMPRESSION: -Degenerative disc changes C3-C4 and C5-C6 with disc narrowing and anterior and posterior vertebral spurring.
--- NOTE | ~2022-01-19 | XR_ITS ---
EXAMINATION: XR SPINE, THORACIC XR SPINE, LUMBAR CLINICAL INFORMATION: Degenerative disc changes COMPARISON: Cervical radiographs 01/19/2022, CT abdomen and pelvis 12/04/2020, radiographs lumbar spine 01/14/2020. TECHNIQUE: Thoracic spine is imaged in AP and lateral views. The lumbar spine is imaged in 3 views. There are total of 5 views. FINDINGS: Thoracic: There is normal thoracic segmentation with 12 rib-bearing thoracic vertebrae. There is normal thoracic kyphosis. Again, there is superior endplate depression at T11 consistent with Schmorl's node on prior CT. There is accentuated inferior endplate concavity at T12 since prior imaging. There is no destructive process or paraspinal soft tissue swelling. There is mild anterior vertebral spurring lower thoracic spine. Recommend correlation with patient's symptoms and clinical exam. No erosive changes or significant disc narrowing or spondylolisthesis. Lumbar: There is transitional vertebrae at S1 with right sarah lumbarization. Degenerative disc changes are again present at L5-S1 with vacuum disc, disc narrowing, and mild vertebral spurring. There is no lumbar vertebral compression or spondylolisthesis. No destructive process. The SI joints and visualized sacrum are unremarkable. XR/XR lumbar spine 2-3V IMPRESSION: Thoracic: -Accentuated endplate concavity T12, new from CT abdomen 2020. No paraspinal soft tissue swelling. Recommend correlation with patient's symptoms and clinical exam. -Mild depression superior endplate T11, stable and consistent with Schmorl's node. Lumbar: -Transitional vertebrae at S1 with right sarah lumbarization. -Degenerative disc changes again noted L5-S1. -No vertebral compression, spondylolisthesis, or vertebral compression.
== END 2022-01-19 13:52 | disposition home or self-care (01) ==
LOC: HO.XRAY 13:51
PROVIDERS: PCP Physician Assistant; Visit Provider Physician Assistant
DX: M99.01 Segmental and somatic dysfunction of cervical region (principal); M51.35 Other intervertebral disc degeneration, thoracolumbar region
CPT/HCPCS: 72040; 72070; 72100

== ENCOUNTER 2022-04-15 14:44 | Outpatient (REF) | payer OTHER, SELFPAY ==
[2022-04-15 15:25] LABS: Hematocrit 48.3 % (42.0-52.0); Hemoglobin 16.1 g/dl (14.0-18.0); Mean Corpuscular HGB Conc 33.3 g/dl (31.0-36.0); Mean Corpuscular Hemoglobin 31.9 pg (27.0-33.0); Mean Corpuscular Volume 95.8 fL (80.0-98.0); Mean Platelet Volume 10.1 fL (9.4-12.4); Platelet Count 255 X10*3/uL (160-400); Red Blood Count 5.04 X10*6/uL (4.60-5.80); Red Cell Distribution Width 13.5 % (11.0-16.0); White Blood Count 12.7 X10*3/uL (4.8-10.8)
[2022-04-15 15:42] LABS: INTERNATIONAL NORM RATIO 0.8 (0.9-1.1); Prothrombin Time 9.6 SEC (10.0-13.1)
[2022-04-15 16:17] LABS: Anion Gap 19 (12-20); Blood Urea Nitrogen 5 mg/dL (9-16); Carbon Dioxide 19 mmol/L (22-29); Chloride 94 mmol/L (96-108); Estimated Glomerular Filt Rate > 60; Glucose Random 128 mg/dL (60-115); Potassium 5.3 mmol/L (3.3-5.1); Sodium 127 mmol/L (135-145)
== END 2022-04-15 14:45 | disposition home or self-care (01) ==
LOC: HO.LAB 14:44
PROVIDERS: PCP Physician Assistant; Visit Provider Physician Assistant
DX: I10 Essential (primary) hypertension (principal); E87.5 Hyperkalemia
CPT/HCPCS: 36415; 80048; 85027; 85610

== ENCOUNTER 2022-05-11 12:37 | Outpatient (REF) | payer OTHER, SELFPAY ==
--- NOTE | ~2022-05-11 | CT_ITS ---
EXAMINATION: CT CHEST WITHOUT CONTRAST CLINICAL INFORMATION: Pneumoconiosis COMPARISON: None TECHNIQUE: Multidetector volumetric CT imaging of the chest was done. Axial MIP volume rendering provided. Sagittal and coronal reformatted images were obtained. This CT examination was performed using dose optimization techniques as appropriate, variously including the following: *Automated exposure control *Adjustment of mA and/or kV according to patient size (this includes techniques or standardized protocols for targeted exams where dose is matched to indication/reason for exam; i.e. extremities or head) *Use of iterative reconstruction technique DLP: 337 mGy-cm FINDINGS: The heart is normal in size. There is no pericardial effusion. No appreciable coronary artery calcifications. A few normal-sized mediastinal lymph nodes are noted. No gross hilar lymphadenopathy appreciated on today's noncontrast imaging. No pathologically enlarged axillary lymph nodes. Central airways are patent. Lungs are well aerated. Mild to moderate emphysematous changes are noted. There is no lobar consolidation. There is some mild lingular atelectasis. No pleural effusion or pneumothorax. 5 mm subpleural nodule the medial right lower lobe (image 40/703, series 6). 3 mm right middle lobe pulmonary nodule (image 490). A few other smaller calcified and noncalcified pulmonary nodules are noted throughout the lungs. Visualized portions of the upper abdomen demonstrate a small inferior splenule. Mild diffuse degenerative changes of the spine. CT/CT chest wo IV con IMPRESSION: 1. Mild to moderate emphysematous changes of the lungs. 2. A few small pulmonary nodules are noted, largest measuring 5 mm. According to the UPDATED 2017 Fleischner Society recommendations, the advised follow-up imaging for solid nodules < 6 mm is: LOW RISK PATIENT: No routine follow-up. HIGH RISK PATIENT: Optional CT at 12 months.
== END 2022-05-11 12:38 | disposition home or self-care (01) ==
LOC: HO.CT 12:37
PROVIDERS: PCP Physician Assistant; Visit Provider Physician Assistant
DX: J62.8 Pneumoconiosis due to other dust containing silica (principal)
CPT/HCPCS: 71250

== ENCOUNTER → 2022-08-29 13:11 | Outpatient (BNVA) | payer OTHER, SELFPAY | PROVIDERS: PCP Physician Assistant; Visit Provider Internal Medicine | DX: M54.81 Occipital neuralgia (principal) | CPT/HCPCS: 99202 ==

== ENCOUNTER 2022-08-29 14:53 | Outpatient (REF) | payer OTHER, SELFPAY ==
--- NOTE | ~2022-08-29 | XR_ITS ---
EXAMINATION: XR HAND, RIGHT CLINICAL INFORMATION: Fracture. COMPARISON: None available. TECHNIQUE: PA, lateral, and oblique views of the right hand. FINDINGS: Bony mineralization is normal. An oblique, mildly displaced fracture is seen of the distal shaft of the right fifth metacarpal bone. Tiny comminution fragments are noted. There is slight overriding of fracture fragments. No dislocation is seen. There is adjacent soft tissue swelling. No foreign body is noted. XR/XR hand RT 2V IMPRESSION: Findings are consistent with an oblique, mildly displaced fracture of the distal right fifth metacarpal shaft.
== END 2022-08-29 14:54 | disposition home or self-care (01) ==
LOC: HO.XRAY 14:53
PROVIDERS: PCP Physician Assistant; Visit Provider Physician Assistant
DX: M54.81 Occipital neuralgia (principal); S62.91XA Unspecified fracture of right hand, initial encounter for closed fracture; X58.XXXA Exposure to other specified factors, initial encounter; Y93.9 Activity, unspecified; Y92.9 Unspecified place or not applicable; Y99.9 Unspecified external cause status; Z79.899 Other long term (current) drug therapy
CPT/HCPCS: 64405; 64450; 73120

== ENCOUNTER 2022-09-01 12:10 | Outpatient (REF) | payer OTHER, SELFPAY ==
--- NOTE | ~2022-09-01 | XR_ITS ---
EXAMINATION: XR HAND, RIGHT CLINICAL INFORMATION: Pain right hand. COMPARISON: Right hand the TECHNIQUE: PA, lateral, and oblique views of the right hand. FINDINGS: Again visualized is an oblique fracture distal fifth metacarpal with mild displacement. No dislocation. No additional fracture seen. The joints is maintained normal. The carpal bones are normal. Mild soft tissue swelling distal fifth metacarpal. XR/XR hand RT min 3V IMPRESSION: Mildly displaced oblique fracture distal fifth metacarpal with mild soft tissue swelling. No change compared to previous exam 08/29/2022.
== END 2022-09-01 12:11 | disposition home or self-care (01) ==
LOC: HO.HOSX 12:10
PROVIDERS: Visit Provider Physician Assistant
DX: S62.91XA Unspecified fracture of right hand, initial encounter for closed fracture (principal)
CPT/HCPCS: 73130; 99202

== ENCOUNTER 2022-09-05 07:51 | Day surgery (SDC) | payer OTHER, SELFPAY ==
--- NOTE | 2022-09-02 10:44 | HO.ANESPROP2 ---
HPI - Anesthesia Eval Consult details Narrative: 47yo M for Right Metacarpal CRPP vs ORIF ETOH daily +smoker PMFSH Active Problems Active Problems: All Active Problems (Updated 08/29/22 @ 14:29 by Lucas Yao PA-C) Right hand fracture (Acute) Cervical stenosis of spine (Acute) Silicosis (Acute) Hyperkalemia (Acute) Fungal dermatitis (Acute) Thoracic spine pain (Acute) Cervical (neck) region somatic dysfunction (Acute) HTN (hypertension) (Acute) Malignant neoplasm of shaft of penis (Acute) MDD (major depressive disorder), recurrent episode, moderate (Acute) GERD with esophagitis (Acute) Tobacco dependence (Acute) Alcohol dependence (Acute) Weak urinary stream (Acute) Lumbar degenerative disc disease (Acute) Rib pain on right side (Acute) Grief reaction (Acute) Duodenitis (Acute) Lumbar disc disease with radiculopathy (Acute) Alcohol abuse (Acute) Smoker (Acute) Erosive esophagitis (Acute) Genital warts (Acute) Anxiety (Acute) Atrophic gastritis (Acute) Erosive gastritis (Acute) Diarrhea (Acute) Hematochezia (Acute) Abdominal hernia (Acute) Screening for hypercholesterolemia (Acute) Screening for hypothyroidism (Acute) Annual physical exam (Acute) Allergic (Acute) Change in bowel habits (Acute) Ileus (Acute) Colon cancer screening (Acute) Incisional hernia (Acute) Anxiety (Acute) Past Medical History Medical History Anxiety Foreign body in stomach Incisional hernia Peptic ulcer disease Perforated duodenal ulcer Family History Family History Father CAD (coronary artery disease) NIDDY (non-insulin dependent diabetes mellitus in young) Hypertension Mother CAD (coronary artery disease) Hypertension Family history of problems with anesthesia: No Surgical History Surgical History H/O Spinal surgery History of colonoscopy History of endoscopy History of esophagogastroduodenoscopy (EGD) History of gastric surgery History of incisional hernia repair History of Problems with Anesthesia: No Social History Social History Housing: House Alcohol intake: current Alcohol intake frequency: a few times a week Alcohol type: beer Patient Tobacco Use Status: Current everyday Tobacco user Tobacco use type: Cigarette Cigarette Packs Per Day: 1 Cigarettes Per Day: 3 Years Smoked: 30 e-Cigarette/Vaping Use: Never Used Second Hand Smoke Exposure: No service: No Current occupational status: unemployed 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
[2022-09-05] VITALS (9 sets, daily range): BP systolic 106–147; BP diastolic 77–98; PULSE 66–73; RESP 10–16; TEMP 36.3–36.6; O2SAT 95–98; BMI 25.6
--- NOTE | ~2022-09-05 | FL_ITS ---
EXAMINATION: FL FLUOROSCOPY WITH IMAGES CLINICAL INFORMATION: 5th distal metacarpal fracture. COMPARISON: Right hand 09/01/2022 TECHNIQUE: Fluoroscopy Supervised By: Kalli Russo Fluoroscopy Time: 34.60 Cumulative Dose: 0.7916 mGy-cm DAP: 0.0478 Gy-cm2. Images: 5. FINDINGS: 5 digital images revealing stabilization of oblique fracture distal 5th metacarpal with pins in satisfactory alignment. No other bony abnormality seen. FL/FL guidance in OR IMPRESSION: Stabilized oblique fracture distal 5th metacarpal with 2 pins in satisfactory alignment.
[2022-09-05] MEDS: Lactated Ringers 1,000 ML 100 ML IVCONT (08:40)
[2022-09-05 08:58] LABS: Anion Gap 10 (12-20); Blood Urea Nitrogen 8 mg/dL (9-16); Calcium 9.3 mg/dL (8.4-10.2); Carbon Dioxide 26 mmol/L (22-29); Chloride 103 mmol/L (96-108); Creatinine Clr Calc Pharmacy 132.5; Estimated Glomerular Filt Rate > 60; Glucose Fasting 99 mg/dL (60-99); Potassium 4.5 mmol/L (3.3-5.1); Sodium 134 mmol/L (135-145)
--- NOTE | 2022-09-05 09:24 | P.CONAN_ITS ---
[facility] Active Problems Active Problems: All Active Problems (Updated 08/29/22 @ 14:29 by Lucas Yao PA-C) Right hand fracture (Acute) Cervical stenosis of spine (Acute) Silicosis (Acute) Hyperkalemia (Acute) Fungal dermatitis (Acute) Thoracic spine pain (Acute) Cervical (neck) region somatic dysfunction (Acute) HTN (hypertension) (Acute) Malignant neoplasm of shaft of penis (Acute) MDD (major depressive disorder), recurrent episode, moderate (Acute) GERD with esophagitis (Acute) Tobacco dependence (Acute) Alcohol dependence (Acute) Weak urinary stream (Acute) Lumbar degenerative disc disease (Acute) Rib pain on right side (Acute) Grief reaction (Acute) Duodenitis (Acute) Lumbar disc disease with radiculopathy (Acute) Alcohol abuse (Acute) Smoker (Acute) Erosive esophagitis (Acute) Genital warts (Acute) Anxiety (Acute) Atrophic gastritis (Acute) Erosive gastritis (Acute) Diarrhea (Acute) Hematochezia (Acute) Abdominal hernia (Acute) Screening for hypercholesterolemia (Acute) Screening for hypothyroidism (Acute) Annual physical exam (Acute) Allergic (Acute) Change in bowel habits (Acute) Ileus (Acute) Colon cancer screening (Acute) Incisional hernia (Acute) Anxiety (Acute) Past Medical History Medical History Anxiety Foreign body in stomach Incisional hernia Peptic ulcer disease Perforated duodenal ulcer Family History Family History Father CAD (coronary artery disease) NIDDY (non-insulin dependent diabetes mellitus in young) Hypertension Mother CAD (coronary artery disease) Hypertension Family history of problems with anesthesia: No Surgical History Surgical History H/O Spinal surgery History of colonoscopy History of endoscopy History of esophagogastroduodenoscopy (EGD) History of gastric surgery History of incisional hernia repair History of Problems with Anesthesia: No Social History Social History Housing: House Alcohol intake: current Alcohol intake frequency: a few times a week Alcohol type: beer Patient Tobacco Use Status: Current everyday Tobacco user Tobacco use type: Cigarette Cigarette Packs Per Day: 1 Cigarettes Per Day: 3 Years Smoked: 30 e-Cigarette/Vaping Use: Never Used Second Hand Smoke Exposure: No Use of substances other than those prescribed or required for medical reasons: Yes Substance Use Frequency: Occasionally Are you DNR?: No Advance Directives: No Advance Directives Information Provided: Yes Advance Directives on File: No service: No Current occupational status: unemployed 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, 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 Cognitive needs: No Hearing needs: No Vision needs: No Meds Allergies Allergy/AdvReac Type Severity Reaction Status Date / Time cat dander [cats] Allergy Unknown Unknown Verified 08/30/22 07:31 Active Medications: Current Medications Lactated Ringer's (Lr) 1,000 mls @ 100 mls/hr IVCONT .Q10H REBECCA Last Admin: 09/05/22 08:40 Dose: 100 mls/hr Exam Exam Date and Time: September 05, 2022 0924 Height,Weight and Vital Signs: Height 6 ft Weight 85.729 kg Last Vital Signs Temp 97.3 F 09/05/22 08:39 Pulse 70 09/05/22 08:39 Resp 16 09/05/22 08:39 BP 106/77 09/05/22 08:39 Pulse Ox 97 09/05/22 08:39 O2 Del Method Room Air 09/05/22 08:39 Pertinent Lab Results Pertinent Lab Results: Laboratory Tests 09/05/22 08:28 Sodium 134 L Potassium 4.5 Chloride 103 Carbon Dioxide 26 Anion Gap 10 L BUN 8 L Creatinine 0.74 Estim Creat Clear Calc 132.5 Estimated GFR > 60 Fasting Glucose 99 Calcium 9.3 Airway Mallampati Class: II TM Dist: >3cm Neck ROM: Full Denture: Upper and Lower Heart: RRR Lungs: CTA Assessment and Plan Final Anesthetic Review Family History of Problems with Anesthesia: No History of Problems with Anesthesia: No NPO: Yes ASA Class: III Final Preanesthetic Review: Meds/Allgs Chart Reviewed, Consent Obtained/Reviewed and Anes Risks/Benef Reviewed Patient Risk: Intermediate Procedure Risk: Low Anesthetic Plan Anesthetic Plan: GA Disposition: Standard PACU
[2022-09-05] MEDS: Albuterol Sulfate 90 MCG 8 GM INHALER 2 PUFF INHALE (09:27)
--- NOTE | 2022-09-05 09:42 | MHC.SHP ---
Pre-Procedural Eval Section A Date of Service: 09/05/22 The patient is an INPATIENT: No Changes since office visit: No Cold of Flu in the past 2 weeks, No New Medical Problems, No Changes in Medication and No Patient answered all questions The History & Physical has been completed within 30 days and I have reviewed it.: Yes Section B Chief Complaint: Right 5th metacarpal fracture Allergies: Allergies Allergy/AdvReac Type Severity Reaction Status Date / Time cat dander [cats] Allergy Unknown Unknown Verified 08/30/22 07:31 Exam Exam Comment: I met the patient in preop hold and evaluated his right hand injury. He has some swelling and resolving ecchymosis. Most tender about the distal aspect of the 5th metacarpal with visible deformity and focal swelling. He has a 2-3 mm diameter dried scab over the dorsal aspect of the distal 5th metacarpal. It is not clear whether this could have been an open injury. He can actively flex and extend the digit. Of interest, he has some kind of chronic injury to the skin of the dorsal aspect of the PIP joint. There is a chronic transverse cracking of the skin that he says was related to a blister about 3 months ago. There is no drainage in again he has good active extension of the joint. The skin around this area somewhat falcon in color.. There is no erythema warmth or drainage. The patient says it has had trouble healing. Plan I have reviewed the history and physical and performed a pertinent physical examination on my patient. No changes have occurred unless specified. Assessment and plan: 1. Right 5th metacarpal neck/ shaft fracture with displacement Date of injury estimated by patient to be 08/25/2022 Small scab in near area of injury, unclear if possible open fracture at time of injury. Patient does not recall being placed on antibiotics. No current evidence of infection. 2. Right small finger PIP joint dorsal skin chronic wound Estimated about 3 months following some kind of blister. Appears almost as a transverse laceration with difficulty healing. No erythema warmth or drainage. Good active extension I educated him about these conditions. I am recommending surgery and the patient agrees. The risks and benefits of operative treatment were discussed with the patient and the patient wishes to proceed with surgery. These risks include, but are not limited to risk of damage to blood vessels, nerves, tendons, infection, recurrence, incomplete relief of preoperative symptoms, persistent pain, possible need for further surgery and the risks associated with regional blocks and anesthesia. The plan is to take the patient to the operating room today for the following procedures: 1. Right 5th metacarpal fracture closed versus open reduction internal fixation All of the preoperative paperwork including the consent was filled out today and signed. All the patient's questions were answered. Time Spent With Patient Time: Total time managing care of this patient today ____ minutes.
--- NOTE | 2022-09-05 09:52 | W.PM.OPN ---
Operative Note Operative Note Date of Service: 09/05/22 Narrative: Operative Note Narrative: Preop diagnosis: 1. Right 5th Metacarpal neck/shaft fracture Postop diagnosis: 1.? Right open 5th?Metacarpal? neck/shaft? fracture Procedure: 1. Right 5th Metacarpal fracture open reduction internal fixation 2. I and D open 5th metacarpal fracture 50051 3. Ulnar nerve block Surgeon: Kalli Russo MD Anesthesia: General Anesthesia Findings: Right 5th Metacarpal fracture Scabbed over wound on dorsum of hand contiguous with deeper wound extending down to fracture site Watery fluid in area of fracture Patient also with chronic transverse wound over small finger PIP joint with no drainage or erythema, and good active extension in preop hold. Implants: 0.062 K-wires times 2 Tourniquet time: 32 minutes EBL: Minimal Specimen: Cultures taken of open fracture site Drains: None Complications: None Disposition: Brought to the recovery room in stable condition Plan: Oral Augmentin x7 days Follow-up in 10-14 days for a wound check, postop radiographs and to check culture results. Anticipate placement in a short-arm finger spica cast holding the small finger PIP in extension to facilitate healing of chronic wound over PIP joint Anticipate K-wire removal in 4 weeks based on interval bony healing Educate the patient that full fracture healing anticipated in approximately 8-12 weeks. Indications: The patient is 47 years old with a right 5th metacarpal neck/shaft fracture following a fall on 08/25/2022. The patient had a 2-3 mm diameter scab directly over the dorsal aspect of the fracture site, and it does not appear the patient had been placed on antibiotics. He also has an unrelated chronic wound over the dorsal aspect of the small finger PIP joint. He had good active extension of the joint, and no redness or drainage from any of the wounds. . The risks and benefits of operative treatment, including but not limited to risk of damage to blood vessels, nerves, tendons, infection, recurrence, delayed or nonunion of fracture, persistent pain or numbness, incomplete resolution of preoperative symptoms, or need for further surgery were discussed with the patient and they wished to proceed with surgery. Procedure: Once consent was obtained patient was brought back to the operating suite and placed in the operating table in a supine position. Perioperative antibiotics and general anesthesia was administered by the anesthesia team. A tourniquet was applied to the proximal aspect of the right upper extremity and the limb was prepped and draped in a standard surgical fashion. The FluoroScan was used during the case to assist with our fracture reduction and placement of all implants. Upon palpating over the scab to wound on the dorsal aspect of the 5th metacarpal while reducing the fracture, it was evident to me that there was fracture motion beneath this area and this was very likely an open fracture. At this point I decided to proceed with an open reduction internal fixation as well as an I and D of this open fracture. The limb was elevated and exsanguinated with an Esmarch bandage and the tourniquet inflated to 250 mmHg for a total tourniquet time of 32 minutes. I made a 2.5 cm dorsal longitudinal incision centered over though fracture site of the 5th metacarpal. I placed a Tegaderm over the dorsal aspect of the small finger PIP joint to protect our operative site from this chronic wound. An Incision was made through the skin the subcutaneous tissues using a 15. Blade. It was evident to me that this had been an open fracture as there was a wound passing directly from the healed scab area down to the fracture site through the layers of soft tissue. I followed this wound ulnar to the extensor tendon through the periosteal layer down to the fracture site. There was some watery fluid in this area and cultures were taken. An I and D of this open fracture was then performed by using a rongeur and a curette to clean the fracture site. The fracture was then copiously irrigated with normal saline. I then performed an open reduction of our 5th metacarpal fracture. I placed a single 0.062 K-wire retrograde through the head of the 5th metacarpal, advancing it proximally across the fracture site to the base of the metacarpal. A 2nd 0.062 K-wire was placed transversely through the neck of the 5th metacarpal extending into the head and neck of the 4th metacarpal. Fracture alignment was assessed for both angular and rotational malalignment. Once satisfied with our fracture reduction and implant placement, the K-wires were bent and cut short and pin caps applied. Final fluoroscopic images were then obtained. The wound was again copiously irrigated with normal saline. The skin edges were reapproximated with some 5 0 Prolene suture material. An ulnar nerve block was then performedby infiltrating about the ulnar nerve at the wrist with some 1% lidocaine with epinephrine for postop pain control. A Sterile dressing was applied. At this point the Tegaderm was removed from the dorsal aspect of the small finger PIP joint. That wound was again copiously irrigated and a small amount of antibiotic ointment and a dressing was applied. A volar splint extending from the tips of the small and ring fingers to the volar forearm was applied. The patient appears to have tolerated the procedure well and with no complications. All digits were well vascularized at the conclusion of the case.
--- NOTE | 2022-09-05 11:56 | HO.POSTANES ---
Post Anesthesia Evaluation Post Anesthesia Evaluation Vital Signs: Vital Signs Temp Pulse Resp BP Pulse Ox O2 Del Method O2 Flow Rate 09/05/22 11:20 73 10 L 126/89 95 Nasal Cannula with ETCO2 2 09/05/22 11:40 68 11 L 133/90 H 96 Nasal Cannula with ETCO2 2 09/05/22 11:25 70 10 L 126/90 H 96 Nasal Cannula with ETCO2 2 09/05/22 11:15 71 11 L 145/98 H 96 Nasal Cannula with ETCO2 2 09/05/22 11:10 97.7 F 70 16 147/93 H 98 Nasal Cannula with ETCO2 2 09/05/22 08:39 97.3 F 70 16 106/77 97 Room Air Anesthesia: General LMA Mental Status: Awake Pain Control: Satisfactory Nausea/Vomiting: None Hydration: Adequate Anesthesia-Related Issues: No Anes. Related Issues
== END 2022-09-05 13:00 | disposition home or self-care (01) ==
PROVIDERS: Nurse Practitioner; PCP Physician Assistant; Visit Provider Orthopaedic Surgery
PROC: (CPT 26615; principal; 2022-09-05 09:40)
DX: S62.396B Other fracture of fifth metacarpal bone, right hand, initial encounter for open fracture (principal); W01.0XXA Fall on same level from slipping, tripping and stumbling without subsequent striking against object, initial encounter; Y93.9 Activity, unspecified; Y92.9 Unspecified place or not applicable; Y99.8 Other external cause status; F10.90 Alcohol use, unspecified, uncomplicated; K27.9 Peptic ulcer, site unspecified, unspecified as acute or chronic, without hemorrhage or perforation; F41.1 Generalized anxiety disorder; M43.22 Fusion of spine, cervical region; Z98.890 Other specified postprocedural states; F17.210 Nicotine dependence, cigarettes, uncomplicated
CPT/HCPCS: 26615; 11012; 36415; 80048; 87070; 87205; J0690; J1100; J1885; J2250; J2405; J2795; J3010

== ENCOUNTER 2022-09-13 09:28 | Outpatient (REF) | payer OTHER, SELFPAY ==
--- NOTE | ~2022-09-13 | XR_ITS ---
EXAMINATION: XR HAND, RIGHT CLINICAL INFORMATION: Pain COMPARISON: Previous x-ray most recent intraoperative fluoroscopy fluoroscopy September 05 2022 TECHNIQUE: PA, lateral, and oblique views of the right hand. FINDINGS: There is a comminuted minimally displaced fracture of the distal shaft of the fifth metacarpal bone. Fracture line still seen. Alignment is unchanged. No appreciable bony callus formation. There is a single transverse K wire or pin across the distal fourth and fifth metacarpal bones that appears unchanged. The other a K wire or pin across the fifth MCP joint is not seen. No other fracture. Overlying soft tissue swelling.. XR/XR hand RT min 3V IMPRESSION: ORIF of right fifth metacarpal fracture.
== END 2022-09-13 09:29 | disposition home or self-care (01) ==
LOC: HO.HOSX 09:28
PROVIDERS: Visit Provider Orthopaedic Surgery
DX: L03.113 Cellulitis of right upper limb (principal); S62.306B Unspecified fracture of fifth metacarpal bone, right hand, initial encounter for open fracture
CPT/HCPCS: 73130; 99212

== ENCOUNTER 2022-09-13 17:11 | Inpatient (IN) | payer OTHER, SELFPAY ==
--- OUTSIDE RECORDS SUMMARY | 2022-09-13 18:56 | XMS_ITS | Continuity of Care Document ---
Author Name Unknown Organization [facility] Address [address] [place] [address]- Care Team Providers Care Chemical Dependency Therapist Name Role Phone Lucas Higginbotham Primary Care Physician Encounter [facility] Date(s): 09/11/22 - 09/12/[address] [address]- Discharge Disposition: A-D/C Home Attending Physician: Lucas Salazar MD Admitting Physician: Lucas Salazar MD Referring Physician: Not on Staff, Referring MD Allergies, Adverse Reactions, Alerts No Known Allergies Immunizations Given and Recorded Vaccine Date Status Refusal Reason tetanus/diphtheria/pertussis, acel(Tdap) 01/26/19 Given Medications cefadroxil 500 mg oral capsule 2 capsule = 1,000 mg, By Mouth, Every 12 hours, for 10 days, # 40 capsule, 0 Refills, Acute 09/21/22 23:48:00 EDT, 09/11/22 23:48:00 EDT, Capsule, [id number], Partial fill upon patient request if the prescription is for a schedule II opioid . Start Date: 09/11/22 Stop Date: 09/21/22 Status: Ordered Clonidine = 0.1 mg, By Mouth, 2 times a day, 0 Refills, Maintenance, 01/26/19 18:38:33 EDT Start Date: 01/26/19 Status: Ordered Gabapentin 300, By Mouth, 3 times a day, 0 Refills, Maintenance, 09/12/19 19:51:00 EDT Start Date: 09/12/19 Status: Ordered nicotine 14 mg/24 hr transdermal film, extended release 1 patch, Topically, Daily, Maintenance, 02/13/19 15:31:55 EDT, Patch Start Date: 02/13/19 Status: Ordered pantoprazole 20 mg oral delayed release tablet 1 tablet = 20 mg, By Mouth, Daily, # 30 tablet, 0 Refills, Maintenance, 04/16/20 17:54:00 EST, CR Tablet, 180, cm, 04/16/20 15:53:00 EST, Height, 82.4, kg, 04/16/20 15:53:00 EST, Dry Weight Start Date: 04/16/20 Status: Ordered sertraline 50 mg oral tablet 1 tablet = 50 mg, By Mouth, Daily, # 30 tablet, 0 Refills, Maintenance, 04/16/19 18:35:23 EST, Tablet Start Date: 04/16/19 Stop Date: 05/16/19 Status: Ordered traMADol 50 mg oral tablet 1 tablet = 50 mg, By Mouth, Every 4 hours, PRN as needed for pain, 0 Refills, Maintenance, 04/23/1910:34:02 EST, Tablet Start Date: 04/23/19 Status: Ordered Zofran ODT 4 mg oral tablet, disintegrating 1 tablet = 4 mg, By Mouth, Every 8 hours, PRN as needed for nausea/vomiting, # 15 tablet, 0 Refills, Maintenance, 04/16/19 18:35:36 EST, DIS Tablet Start Date: 04/16/19 Stop Date: 04/21/19 Status: Ordered Problem List Condition Confirmation Course Effective Dates Status Health St atus Informant Moderate alcohol use disorder Confirmed Active Chronic back pain Confirmed Active Tobacco abuse Confirmed Active Results Radiology Reports * Exam Date Time Procedure Performing Provider Status 09/11/22 11:04 PM Hand Min 3 Views Right Georgina Boucher T; Auth (Verified) Notes: (Hand Min 3 Views Right) Reason For Exam: Pain RESULT: Hand Min 3 Views Right Hand Min 3 Views Right, 3 views HX OF PRESENT ILLNESS: Pt reports that he had surgery on this past monday to repair his fractured hand. Pins placed and cast applied. Pt was washing dishes today when his cast 'fell apart' and came off. Also noticed some pus at incision site. Surgery was at [facility]; Reason: Pain; Clinical Question(s): Other: COMPARISON: 08/25/2022 FINDINGS: There is been interval fixation with 2 Gerri wires of the distal fifth metacarpal fracture. Thewires do not appear to adequately transfix the fracture fragments, both extending through the distal fracture fragment but not clearly through the proximal fracture fragment. Radial displacement of the distal fracture fragment is slightly increased from prior. A fracture line is still visible without significant callus formation. There is overlying soft tissue swelling. No new fracture. IMPRESSION: Postsurgical changes as above, the K wires do not appear to adequately transfix the fracture, with increased displacement compared to prior. WSN: [id number] Ordering Physician: Lucas Salazar Dictated By: Valente Barnes MD Dictated Date/Time: 09/11/22 11:10 p Reviewed By: Valente Barnes MD Signed By: Valente Barnes MD Signed Date/Time: 09/11/22 11:10 pm Transcribed By: NAOMY Transcribed Date/Time: 09/11/22 11:09 pm Vital Signs Most recent to oldest [Reference Range]: 1 2 3 Height 183 cm (09/12/22 12:14 AM) 183 cm (09/11/22 10:36 PM) Weight 83.8 kg (09/12/22 12:14 AM) 83.8 kg (09/11/22 10:36 PM) 83.8 kg (09/11/22 10:33 PM) Oxygen Saturation [94-100 %] 97 % (09/11/22 10:33 PM) Pulse Rate [55-90 bpm] 78 bpm (09/11/22 10:33 PM) Blood Pressure [90-138/55-84 mm Hg] 149/89mm Hg *H* (09/11/22 10:33 PM) Respiratory Rate [16-30 br/min] 18 br/min (09/11/22 10:33 PM) Temperature [96.8-100.4 DegF] 96.9 DegF (09/11/22 10:33 PM) Mode of Delivery (Oxygen) Room air (09/11/22 10:33 PM) Blood pressure sites Arm, left (09/11/22 10:33 PM) Temperature Route Temporal (09/11/22 10:33 PM) Dry Weight 83.8 kg (09/12/22 12:14 AM) 83.8 kg (09/11/22 10:36 PM) 83.8 kg (09/11/22 10:33 PM) Weight Obtained Via Standing scale (09/11/22 10:33 PM) Dry Weight Obtained Via Standing scale (09/11/22 10:33 PM) Social History Social History Type Response Tobacco Use: 4 or less cigar ettes(less than 1/4 pack)/day in last 30 days. Sex Note * Lucas Salazar MD: PERFORM Event Display: Patient Education Leaflets Authored Date: [id number] Fiberglass Splint Care ?? [id number] Fiberglass Splint Care Follow these guidelines when caring for your splint: ??? It will take up to??2??hours for your fiberglass splint to fully harden. Don???t put any pressure on it during that time or it may break. ??? To prevent swelling under the splint, do this for thefirst 2 days (48 hours): o For a splint on your??arm, keep it in a sling or raised to shoulder level when you are sitting or standing. Rest it on your chest or on a pillow at your side when you are lying down. o For a splint on your??foot, keep it propped up above the level of your heart when sitting or lying. Avoid crutch walking as much as possible during this time. ??? Keep the splint dry at all times. Bathe with your splint well out of the water. Protect it with 2 large plastic bags and tape each bag separately at the top end. If a fiberglass splint gets wet, you can dry it with a hairspring setter on the cool setting. ??? Put an ice pack on the injured area. Do this for 20 minutes every 1 to 2 hours the first day for pain relief. To make an ice pack, put ice cubes in a plastic bag that seals at the top. As the ice melts, be careful that the splint doesn???t get wet. Keep using the ice pack 3 to 4 times a day for the next 2 days. Then use it as needed to ease pain and swelling. ??? Your healthcare provider may prescribe medicines for pain or swelling. Follow your provider???s instructions for taking these medicines. If no pain medicine was prescribed, you may use acetaminophen or ibuprofen to control pain. If you have chronic liver or kidney disease, talk with your provider before using these medicines. Also talk with your provider if you???ve had a stomach ulcer, gastrointestinal bleeding, or take a blood thinner. ??? Don't stick anything inside the splint, such as a coat hangersmith. Don't apply any powders or creams. If itching continues, call your provider. ??? Look at the skin near the cast regularly. If skin becomes red or raw, call your provider. Follow-up care Follow up with your healthcare provider as advised. ?? When to get medical advice Call your healthcare provider right away??if any of these occur: ??? Bad odor from the splint or wound fluid stains the splint ??? The splint cracks or stays wet for more than 24 hours ??? Tightness or pressure under the splint gets worse ??? Fingers or toes become swollen, cold, blue, numb, or tingly ??? You can???t move your fingers or toes ??? Pain under the splint gets worse ??? The skin around the splint becomes red, irritated, or swollen ??? Fever of more than 100.4??F (38??C) or higher, or as advised ??? Chills ?? Last Reviewed Date: 2021 ?? [id number] [employer]. All rights reserved. This information is not intended as a substitute for professional medical care. Always follow your healthcare professional's instructions. ?? XR Hand - right GE 3 Views * BHSPowers[employer] , JOHN S: TRANSCRIBE Molly HEWITT, Valente S: VERIFY Event Display: Result: Authored Date: [id number] Hand Min 3 Views Right, 3 views HX OF PRESENT ILLNESS: Pt reports that he had surgery on this past monday to repair his fractured hand. Pins placed and cast applied. Pt was washing dishes today when his cast 'fell apart' and came off. Also noticed some pus at incision site. Surgery was at [facility]; Reason: Pain; Clinical Question(s): Other: COMPARISON: 08/25/2022 FINDINGS: There is been interval fixation with 2 Gerri wires of the distal fifth metacarpal fracture. Thewires do not appear to adequately transfix the fracture fragments, both extending through the distal fracture fragment but not clearly through the proximal fracture fragment. Radial displacement of the distal fracture fragment is slightly increased from prior. A fracture line is still visible without significant callus formation. There is overlying soft tissue swelling. No new fracture. IMPRESSION: Postsurgical changes as above, the K wires do not appear to adequately transfix the fracture, with increased displacement compared to prior. WSN: [id number] Ordering Physician: Lucas Salazar Dictated By: Valente Barnes MD Dictated Date/Time: 09/11/22 11:10 p Reviewed By: Valente Barnes MD Signed By: Valente Barnes MD Signed Date/Time: 09/11/22 11:10 pm Transcribed By: NAOMY Transcribed Date/Time: 09/11/22 11:09 pm Patient Care team information Care Team Personnel Name: Lucas Higginbotham Position: Reference Physician Member Role: PCP Address: Address: [address] [place] [address] [address] [place] [address]- Name: Taylor Rivero RN Position: [facility] RN Member Role: Primary Care Nurse Name: Crystal Caro RN Position: [facility] RN Member Role: Primary Care Nurse Name: Binat Guthrie Position: [facility] ED RN W/OE and Tasks Member Role: Patient Care Provider Name: Lucas Salazar MD Position: [facility] ED Medicine MD Member Role: ED Attending Physician Address: Address: [address] [place] [address]- [place] [address]- Name: Mayi Bonilla Position: [facility] ED OA Care Team Related Persons Name: RUDDY PEREZ Address: home [address] [place], [place] Name: ABRAHAM PEREZ Address: home [address] [place] [address]
--- OUTSIDE RECORDS SUMMARY | 2022-09-13 18:56 | XMS_ITS | Continuity of Care Document ---
Author Name Unknown Organization [facility] Address [address] [place] [address] [address] [place] [address]- Care Team Providers Care Impregnator Carbon Products Name Role Phone Lucas Higginbotham Primary Care Physician [phone] Encounter [facility] Date(s): 12/11/19 - 01/10/[address] [place] [address]- [facility] Attending Physician: Smiley Sal Admitting Physician: Smiley Sal Referring Physician: AdmtrSmiley Allergies, Adverse Reactions, Alerts Substance Reaction Severity Status Cats Active Immunizations Given and Recorded Vaccine Date Status Refusal Reason tetanus/diphtheria/pertussis, acel(Tdap) 01/26/19 Given Medications busPIRone 15 mg oral tablet 2 tablet = 30 mg, By Mouth, 2 times a day Start Date: 02/13/19 Status: Ordered Carafate 1 gm/10 ml oral suspension 10 mL = 1 Gm, By Mouth, 3 times a day before meals and bedtime, 0 Refills, Maintenance, 09/12/19 19:51:00 EDT Start Date: 09/12/19 Status: Ordered Carafate 1 gm/10 ml oral suspension 10 mL = 1 Gm, By Mouth, 3 times a day before meals and bedtime, # 400 mL, 3 Refills, Maintenance, 09/12/19 22:18:00 EDT, [facility]/pharmacy #[id number], 175, cm, 09/12/19 19:47:00 EDT, Height, 75, kg, 09/12/19 19:47:00 EDT, Dry Weight Start Date: 09/12/19 Stop Date: 10/22/19 Status: Ordered Clonidine = 0.1 mg, By Mouth, 2 times a day, 0 Refills, Maintenance, 01/26/19 18:38:33 EDT Start Date: 01/26/19 Status: Ordered Famotidine 0 Refills, Maintenance, 09/12/19 19:50:00 EDT Start Date: 09/12/19 Status: Ordered Gabapentin 300, By Mouth, 3 times a day, 0 Refills, Maintenance, 09/12/19 19:51:00 EDT Start Date: 09/12/19 Status: Ordered nicotine 14 mg/24 hr transdermal film, extended release 1 patch, Topically, Daily, Maintenance, 02/13/19 15:31:55 EDT, Patch Start Date: 02/13/19 Status: Ordered sertraline 50 mg oral tablet 1 tablet = 50 mg, By Mouth, Daily, # 30 tablet, 0 Refills, Maintenance, 04/16/19 18:35:23 EST, Tablet Start Date: 04/16/19 Stop Date: 05/16/19 Status: Ordered tiZANidine 4 mg oral tablet 8 mg, 2, tablet, By Mouth, Every 8 hours, Refills 0, Maintenance, 04/23/19 10:33:28 EST Start Date: 04/23/19 Status: Ordered traMADol 50 mg oral tablet [...] Date: 04/21/19 Status: Ordered Problem List Condition Effective Dates Status Health Status Inform ant Moderate alcohol use disorder(Confirmed) Active Chronic back pain(Confirmed) Active Tobacco abuse(Confirmed) Active Social History Social History Type Response Tobacco Use: 4 or less cigar ettes(less than 1/4 pack)/day in last 30 days. Sex
--- OUTSIDE RECORDS SUMMARY | 2022-09-13 18:56 | XMS_ITS | Continuity of Care Document ---
Author Name Unknown Organization [facility] Address [address] [place] [address]- Care Team Providers Care Radio Installer Automobile Name Role Phone Lucas Higginbotham Primary Care Physician Encounter [facility] Date(s): 09/02/20 - 09/02/[address] [address]- Discharge Disposition: A-D/C Home Attending Physician: Gutierrez HEWITT, Cori Nolasco Admitting Physician: Cori Whitley MD Referring Physician: Not on Staff, Referring MD Allergies, Adverse Reactions, Alerts Substance Reaction Severity Status Cats Active Immunizations Given and Recorded Vaccine Date Status Refusal Reason tetanus/diphtheria/pertussis, acel(Tdap) 01/26/19 Given Medications acetaminophen-oxyCODONE 325 mg-5 mg oral tablet 1, tablet, By Mouth, Every 4 hours, PRN, Causes sedation, do not drive or drink alcohol while taking., # 20 tablet, Refills 0, Tot. Refills 0, Acute, as needed for pain, 09/05/20 5:00:00 EDT, 09/02/20 5:26:00 EDT, [facility] Start Date: 09/[facility]20 Stop Date: 09/05/20 Status: Ordered busPIRone 15 mg oral tablet 2 tablet [...] mL, 3 Refills, Maintenance, 09/12/19 22:18:00 EDT, [facility]/pharmacy #[id number], 175, cm, 09/12/19 19:47:00 EDT, Height, 75, kg, 09/12/19 19:47:00 EDT, Dry Weight Start Date: 09/12/19 Stop Date: 10/22/19 Status: Ordered Clonidine = 0.1 mg, By Mouth, 2 times a day, 0 Refills, Maintenance, 01/26/19 18:38:33 EDT Start Date: 01/26/19 Status: Ordered Famotidine 0 Refills, Maintenance, 09/12/19 19:50:00 EDT Start Date: 09/12/19 Status: Ordered famotidine 20 mg oral tablet 20 mg, 1, tablet, By Mouth, Daily, take at a different time than pantoprazole, # 30 tablet, Refills0, Tot. Refills 0, Maintenance, 04/16/20 17:55:00 EST, Route to Pharmacy Electronically, [facility]/pharmacy #[id number], Partial fill upon patient request, 180, cm... Start Date: 04/16/20 Status: Ordered Gabapentin 300, By Mouth, 3 times a day, 0 Refills, Maintenance, 09/12/19 19:51:00 EDT Start Date: 09/12/19 Status: Ordered HYDROmorphone Inj 1 mg, Injection, IV Push Slowly, Every hour, Hold for: SBP <100, respiratory depression, AMS, PRN for Pain , Severe, DAMIÁN, 09/02/20 4:04:00 EDT Start Date: 09/02/20 Stop Date: 09/02/20 Status: Discontinued nicotine 14 mg/24 hr transdermal film, extended release 1 patch, Topically, Daily, Maintenance, 02/13/19 15:31:55 EDT, Patch Start Date: 02/13/19 Status: Ordered ondansetron 4 mg oral tablet, disintegrating 1 tablet = 4 mg, By Mouth, Every 8 hours, PRN Nausea & Vomiting, # 15 tablet, 0 Refills, Acute 09/05/20 5:00:00 EDT, 09/02/20 5:27:00 EDT, Tablet, [facility]/pharmacy #[id number], May substitute tablet form if necessary., 183, cm, 09/02/20 0:50:00 EDT, Height, 84.... Start Date: 09/02/20 Stop Date: 09/05/20 Status: Ordered pantoprazole 20 mg oral delayed [...] Chronic back pain(Confirmed) Active Tobacco abuse(Confirmed) Active Vital Signs Most recent to oldest [Reference Range]: 1 2 3 Height 183 cm (09/02/20 5:29 AM) 183 cm (09/02/20 12:50 AM) Weight 84.2 kg (09/02/20 5:29 AM) 84.2 kg (09/02/20 12:50 AM) Oxygen Saturation [94-100 %] 99 % (09/02/20 5:29 AM) 100 % (09/02/20 12:50 AM) Pulse Rate [55-90 bpm] 71 bpm (09/02/20 5:29 AM) 64 bpm (09/02/20 12:50 AM) Body Mass Index [18.5-24.99] 25.14 *H* (09/02/20 5:29 AM) Blood Pressure [90-138/55-84 mm Hg] 129/96mm Hg (09/02/20 5:29 AM) 154/109mm Hg *H* (09/02/20 12:50 AM) Respiratory Rate [16-30 br/min] 19 br/min (09/02/20 5:29 AM) 18 br/min (09/02/20 4:41 AM) 20 br/min (09/02/20 4:11 AM) Temperature [96.8-100.4 DegF] 97.8 DegF (09/02/20 12:50 AM) Liters per Minute 0 L/min (09/02/20:29 AM) Mode of Delivery (Oxygen) Room air (09/02/20 5:29 AM) Room air (09/02/20 12:50 AM) Blood pressure sites Arm, left (09/02/20 5:29 AM) Arm, right (09/02/20 12:50 AM) Temperature Route Oral (09/02/20 12:50 AM) Dry Weight 84.2 kg (09/02/20 5:29 AM) 84.2 kg (09/02/20 12:50 AM) Social History Social History Type Response Tobacco Use: 4 or less cigar ettes(less than 1/4 pack)/day in last 30 days. Sex
--- OUTSIDE RECORDS SUMMARY | 2022-09-13 18:56 | XMS_ITS | Continuity of Care Document ---
Author Name Unknown Organization [facility] Address [address] [place] [address] [address] [place] [address]- Care Team Providers Care Survey Technologist Name Role Phone Lucas Higginbotham Primary Care Physician Encounter [facility] Date(s): 12/11/19 - 12/18/[address] [place] [address]- [facility] Attending Physician: Lynda Henson MD Allergies, Adverse Reactions, Alerts Substance Reaction [...] mL, 3 Refills, Maintenance, 09/12/19 22:18:00 EDT[id number], 175, cm, 09/12/19 19:47:00 EDT, Height, [...]
--- OUTSIDE RECORDS SUMMARY | 2022-09-13 18:56 | XMS_ITS | Continuity of Care Document ---
Author Name Unknown Organization [facility] Address [address] [place] [address]- Care Team Providers Care Communication Signals Intelligence Name Role Phone Lucas Higginbotham Primary Care Physician [place] [facility] Date(s): 04/12/22 - 06/30/[address] [address] Attending Physician: Barney Ann MD Referring Physician: Barney Ann MD Allergies, Adverse Reactions, Alerts Substance Reaction [...] mL, 3 Refills, Maintenance, 09/12/19 22:18:00 EDT, [facility]/pharmacy #[id number], 175, cm, 09/12/19 19:47:00 EDT, Height, [...] 04/16/20 17:55:00 EST, Route to Pharmacy Electronically, [facility]/pharmacy #[id number], Partial fill upon patient request, 180, [...] 10:33:28 EST Start Date: 04/23/19 Status: Ordered Topamax Tablet By Mouth, 2 times a day, Refills 0, Maintenance, 11/12/21 22:51:00 EDT, Partial fill upon patient request if the prescription is for a schedule II opioid drug. Start Date: 11/12/21 Status: Ordered traMADol 50 mg oral tablet [...] pain Confirmed Active Tobacco abuse Confirmed Active Social History Social History Type Response Tobacco Use: 4 or less cigar ettes(less than 1/4 pack)/day in last 30 days. Sex Patient Care team information Care Team Personnel Name: Lucas Higginbotham Position: Reference Physician Member Role: PCP Address: Address: [address] [place] [address]- Name: Taylor Rivero RN Position: S RN Member Role: Primary Care Nurse Name: Crystal Caro RN Position: S RN Member Role: Primary Care Nurse Care Team Related Persons Name: RUDDY PREEZ Address: home [address] [place] [address] Name: ABRAHAM PEREZ Address: [address] [place] [address]
--- OUTSIDE RECORDS SUMMARY | 2022-09-13 18:56 | XMS_ITS | Continuity of Care Document ---
Author Name Unknown Organization [facility] Address [address] [place] [address]- Care Team Providers Care Forensic Ballistics Expert Name Role Phone Lucas Higginbotham Primary Care Physician Encounter [facility] Date(s): 11/12/21 - 11/13/[address] [address]- Discharge Disposition: A-D/C Home Attending Physician: Cori Whitley MD Admitting Physician: Cori Whitley MD Referring Physician: [...] 04/16/20 17:55:00 EST, Route to Pharmacy Electronically, [facility]/pharmacy #[id number], Partial fill upon patient request, 180, [...] oldest [Reference Range]: 1 2 3 Height 184 cm (11/13/21 12:37 AM) 184 cm (11/12/21 10:45 PM) 184 cm (11/12/21 10:44 PM) Weight 81.3 kg (11/12/21 10:45 PM) 81.3 kg (11/12/21 10:44 PM) Oxygen Saturation [94-100 %] 97 % (11/13/21 12:37 AM) 97 % (11/12/21 10:44 PM) Pulse Rate [55-90 bpm] 68 bpm (11/13/21 12:37 AM) 75 bpm (11/12/21 10:44 PM) Body Mass Index [18.5-24.99] 24.01 (11/12/21 10:44 PM) Blood Pressure [90-138/55-84 mm Hg] 118/94mm Hg (11/13/21 12:37 AM) 122/76mm Hg (11/12/21 10:44 PM) Respiratory Rate [16-30 br/min] 15 br/min *L* (11/12/21 10:44 PM) Temperature [96.8-100.4 DegF] 97.5 DegF (11/13/21 12:37 AM) 98.2 DegF (11/12/21 10:44 PM) Mode of Delivery (Oxygen) Room air (11/13/21 12:37 AM) Room air (11/12/21 10:44 PM) Blood pressure sites Arm, left (11/13/21 12:37 AM) Arm, right (11/12/21 10:44 PM) Temperature Route Oral (11/13/21 12:37 AM) Oral (11/12/21 10:44 PM) Dry Weight 81.3 kg (11/12/21 10:45 PM) 81.3 kg (11/12/21 10:44 PM) Social History Social History Type Response Tobacco Use: 4 or less cigar ettes(less than 1/4 pack)/day in last 30 days. Sex
[2022-09-13 20:23] VITALS: BMI 24.5
[2022-09-13] MEDS: oxyCODONE HCl Immed Release 5 MG TABLET PO (20:29)
[2022-09-13 20:42] LABS: COVID-19 Test Negative (Negative); IDNOW Serial# 08D9AD1C
[2022-09-13 20:48] LABS: Creatinine Clr Calc Pharmacy 127.3; Estimated Glomerular Filt Rate > 60
[2022-09-13 20:53] VITALS: BP 143/73; PULSE 79; RESP 18; TEMP 36.6; O2SAT 96
[2022-09-13] MEDS: vancomycin/NS 2,000 MG/500 ML PLAST..BAG 250 MG IV (21:57)
[2022-09-13 22:31] VITALS: BMI 24.5
[2022-09-14 03:47] VITALS: BP 132/82; PULSE 61; RESP 18; TEMP 36.1; O2SAT 98
[2022-09-14 07:24] VITALS: BP 136/84; PULSE 66; RESP 16; TEMP 36.2; O2SAT 97
[2022-09-14 08:38] LABS: Estimated Glomerular Filt Rate > 60
--- NOTE | 2022-09-14 09:34 | MHC.CM.PN ---
PATIENT LVIES WITH ADULT DAUGHTER BROTHER, ABRAHAM, IS REPORTEDLY HCP COPY REQUESTED AND THIS SUPERVISOR [employer] CAN ASSIST WITH NEW DOCUMENT HERE IF PATIENT CHOOSES NO DME OR VNA SERVICES POSSIBLE HOME WITH IV ABX FOLLOWING O.R. FOR HAND SURGERY. CASE MANAGEMENT FOLLOWING FOR DC PLANS.
[2022-09-14] MEDS: oxyCODONE HCl Immed Release 5 MG TABLET PO ×2 (09:46→19:28)
[2022-09-14] MEDS: vancomycin HCL 1,250 MG in 0.9 % Sodium Chloride 250 ML 166.67 MG IV (09:47)
--- NOTE | 2022-09-14 10:07 | PM.EVENT ---
Event Note Date of Service: 09/14/22 Event Note: Patient pending surgery with Dr. Russo tomorrow. Should be NPO after midnight Continue IV abx ID consult placed Splint is to be kept c/d/i Elevate throughout the day Perform gentle finger ROM Time Spent With Patient Time: Total time managing care of this patient today ____ minutes.
[2022-09-14] MEDS: Acetaminophen 325 MG TABLET 650 MG PO (11:41)
[2022-09-14 16:00] VITALS: BP 149/89; PULSE 60; RESP 18; TEMP 36.4; O2SAT 99
--- NOTE | 2022-09-14 16:06 | P.CNID_ITS ---
History of Present Illness Data of Consult Service Date: 09/14/22 Requesting physician: Kalli Russo Primary Care Provider: Lucas Yao PA-C HPI Reason for consult: concern over hand infection He presents to hospital with right hand pain. He was usual state of health until 08/25 when went to [facility] ER and saw Dr Bang Whiting ER doctor after falling on deck at home. He was using alcohol then. Area showed old wound dorsum right fifth finger and fracture right fifth metacarpal. Patient was given po Keflex 500 mg qid ,#28 which he didnt roller picker at pharmacy [facility]. [facility] went to [facility]opedic, Dr Kalli Russo,here. He had ORIF fifth metacarpal done here on 09/[address] Russo and received Vancomycin for surgery preop and then po Augmentin for a week which he did take. He had pins over fifth metacarpal and on 09/11 washing dishes in sink and splint fell apart and pin was sticking up he says over incision. [place] [facility] [place] pin unattached to bone fell out by their report. Proximal pin was still in place. He received presciption for Cefadroxil 1 g bid every 12 hours,forty and did take one dose he thinks but didnt finish since he was seeing Dr Russo on 09/13. He went to office yesterday and recommended come to hospital for admission concern over infection. He complains of pain up arm and discomfort incision,serous drainage. Review of Systems Review of Systems: Yes all other systems are reviewed and are negative PMFSH Past Medical History Medical History Anxiety Foreign body in stomach Incisional hernia Peptic ulcer disease Perforated duodenal ulcer Family History Family History Father CAD (coronary artery disease) NIDDY (non-insulin dependent diabetes mellitus in young) Hypertension Mother CAD (coronary artery disease) Hypertension Family history: reviewed and not pertinent Surgical History Surgical History H/O Spinal surgery History of colonoscopy History of endoscopy History of esophagogastroduodenoscopy (EGD) History of gastric surgery History of incisional hernia repair Social History Social History Household Members: Children Housing: Apartment Do you presently have visiting nurse or other home services: No Alcohol intake: current Alcohol intake frequency: a few times a week Alcohol type: beer Patient Tobacco Use Status: Former Tobacco user Quit Date: yesterday Tobacco use type: Cigarette Cigarette Packs Per Day: 1 Cigarettes Per Day: 3 Years Smoked: 30 e-Cigarette/Vaping Use: Never Used Second Hand Smoke Exposure: No Substance Use Type: Marijuana service: No Current occupational status: unemployed 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, 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 Cognitive needs: No Hearing needs: No Vision needs: No Meds Allergies Allergy/AdvReac Type Severity Reaction Status Date / Time cat dander [cats] Allergy Unknown Unknown Verified 09/13/22 15:10 Active Medications: Current Medications Acetaminophen (Acetaminophen 325 Mg Tablet) 650 mg PO Q6H PRN PRN Reason: Pain, Mild (Pain Scale 1-3) Last Admin: 09/14/22 11:41 Dose: 650 mg Albuterol Sulfate (Albuterol Sulfate 90 Mcg 8 Gm Inhaler) 1 puff INHALE RQID [facility] Last Admin: 09/14/22 15:59 Dose: Not Given Baclofen (Baclofen 20 Mg Tablet) 20 mg PO DAILY [facility] Clonidine HCl (Clonidine Hcl 0.2 Mg Tablet) 0.2 mg PO BID [facility]; Protocol Gabapentin (Gabapentin 400 Mg Capsule) 800 mg PO TID [facility] Vancomycin HCl 1,250 mg/ (Sodium Chloride) 250 mls @ 166.667 mls/hr IV Q12H [facility] Last Infusion: 09/14/22 11:19 Dose: Infused Morphine Sulfate (Morphine Sulfate 2 Mg/Ml Cartridge) 2 mg IVPUSH Q6H PRN; Protocol PRN Reason: Pain, Severe (Pain Scale 7-10) Oxycodone HCl (Oxycodone Hcl Immed Release 5 Mg Tablet) 5 mg PO Q6H PRN PRN Reason: Pain, Moderate (Pain Scale 4-6 Pharmacy Consult (Consult Rx Vancomycin Dosing) 1 each MISCELLANE DAILY PRN PRN Reason: Consult order Pharmacy Consult (Consult Rx Perform Med Rec) 1 each MISCELLANE ONCE PRN PRN Reason: Consult order Pharmacy Consult (Consult Rx Etoh Phenob Im/Po) 1 each MISCELLANE ONCE PRN; Protocol PRN Reason: Consult order Tramadol HCl (Tramadol Hcl 50 Mg Tablet) 100 mg PO TID [facility] Home Medications Medication Instructions Recorded Confirmed Last Taken Type cefadroxil 500 mg capsule 1,000 mg PO BID 09/13/22 09/13/22 Unknown History oxycodone-acetaminophen 5 mg-325 1 - 2 tab PO Q6H PRN pain 09/13/22 09/13/22 Unknown History mg tablet Physical Exam Vital Signs: Vital Signs: Last Vital Signs Temp 97.1 F 09/14/22 07:24 Pulse 66 09/14/22 07:24 Resp 16 09/14/22 07:24 BP 136/84 09/14/22 07:24 Pulse Ox 97 09/14/22 07:24 O2 Del Method Room Air 09/14/22 07:24 BMI result Body Mass Index 24.5 Const: General: cooperative HEENT: Head: Yes normal to inspection Face and sinus: Yes normal facial exam Mouth: Normal oral and palatal mucosa present Teeth and gingiva: dentition normal Eyes: General: appearance normal, both eyes and all related structures Pupils: Equal, round and reactive pupils present Resp: Effort & Inspection: normal respiratory effort Cardio: Rate: regular rate Rhythm: regular rhythm GI: Palpation (GI): Soft to palpation and nontender : General: Yes no CVA tenderness Back/Spine/Pelvis: Back: no CVA tenderness Skin: General skin exam: no rashes or lesions noted Neuro: General: moves all extremities Cranial nerves: Yes Equal, round and reactive pupils present Extrem: Other: right hand wrapped Psych: Appearance: grossly normal Results Labs 09/14/22 08:08 Labs: BMP 09/13/22 09/14/22 20:29 08:08 Creatinine 0.77 0.76 Assessment and Plan (1) Cellulitis of right hand: Status: Acute (2) Open fracture of fifth metacarpal bone of right hand: Status: Acute Organisms associated with open fracture could include staph or strep or gram negative or even anerobe Fungus is less likely. (3) Right hand fracture: Qualifiers: Encounter type: initial encounter Fracture type: closed Qualified Code(s): S62.91XA - Unspecified fracture of right wrist and hand, initial encounter for closed fracture Status: Acute Plan Would continue Vancomycin Add piperacillin/tazobactam or Cefepiime and metronidazole Await culture He may need IV or po course of antibiotics based on culture and sensitivities Time Spent With Patient Time: Total time managing care of this patient today ____ minutes.
--- NOTE | 2022-09-14 16:17 | HO.PM.IMCN ---
History of Present Illness Data of Consult Service Date: 09/14/22 Primary Care Provider: Lucas Yao PA-C HPI 47-year-old male with a past medical history significant for cervical stenosis, lumbar spine stenosis, hypertension, former smoker, peptic ulcer disease. He recently suffered a right hand injury due to a fall resulting in a fracture of his right 5th digit and mid hand. He is been followed by Ortho Review of Systems Review of Systems: no tremors, pain in the hand.. all other systems reviewed and negative [facility] Medical History Anxiety Foreign body in stomach Incisional hernia Peptic ulcer disease Perforated duodenal ulcer Family History Father CAD (coronary artery disease) NIDDY (non-insulin dependent diabetes mellitus in young) Hypertension Mother CAD (coronary artery disease) Hypertension Surgical History H/O Spinal surgery History of colonoscopy History of endoscopy History of esophagogastroduodenoscopy (EGD) History of gastric surgery History of incisional hernia repair Social History Household Members: Children Housing: Apartment Do you presently have visiting nurse or other home services: No Alcohol intake: current Alcohol intake frequency: does not drink Alcohol type: beer Patient Tobacco Use Status: Former Tobacco user Quit Date: yesterday Tobacco use type: Cigarette Cigarette Packs Per Day: 1 Cigarettes Per Day: 3 Years Smoked: 30 e-Cigarette/Vaping Use: Never Used Second Hand Smoke Exposure: No Substance Use Type: Marijuana service: No Current occupational status: unemployed 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, 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 Cognitive needs: No Hearing needs: No Vision needs: No Meds Allergies Allergy/AdvReac Type Severity Reaction Status Date / Time cat dander [cats] Allergy Unknown Unknown Verified 09/13/22 15:10 Active Medications: Current Medications Acetaminophen (Acetaminophen 325 Mg Tablet) 650 mg PO Q6H PRN PRN Reason: Pain, Mild (Pain Scale 1-3) Last Admin: 09/14/22 11:41 Dose: 650 mg Albuterol Sulfate (Albuterol Sulfate 90 Mcg 8 Gm Inhaler) 1 puff INHALE RQID [facility] Last Admin: 09/14/22 15:59 Dose: Not Given Baclofen (Baclofen 20 Mg Tablet) 20 mg PO DAILY [facility] Clonidine HCl (Clonidine Hcl 0.2 Mg Tablet) 0.2 mg PO BID [facility]; Protocol Gabapentin (Gabapentin 400 Mg Capsule) 800 mg PO TID [facility] Vancomycin HCl 1,250 mg/ (Sodium Chloride) 250 mls @ 166.667 mls/hr IV Q12H [facility] Last Infusion: 09/14/22 11:19 Dose: Infused Morphine Sulfate (Morphine Sulfate 2 Mg/Ml Cartridge) 2 mg IVPUSH Q6H PRN; Protocol PRN Reason: Pain, Severe (Pain Scale 7-10) Oxycodone HCl (Oxycodone Hcl Immed Release 5 Mg Tablet) 5 mg PO Q6H PRN PRN Reason: Pain, Moderate (Pain Scale 4-6 Pharmacy Consult (Consult Rx Vancomycin Dosing) 1 each MISCELLANE DAILY PRN PRN Reason: Consult order Pharmacy Consult (Consult Rx Perform Med Rec) 1 each MISCELLANE ONCE PRN PRN Reason: Consult order Pharmacy Consult (Consult Rx Etoh Phenob Im/Po) 1 each MISCELLANE ONCE PRN; Protocol PRN Reason: Consult order Tramadol HCl (Tramadol Hcl 50 Mg Tablet) 100 mg PO TID [facility] Home Medications Medication Instructions Recorded Confirmed Last Taken Type cefadroxil 500 mg capsule 1,000 mg PO BID 09/13/22 09/13/22 Unknown History oxycodone-acetaminophen 5 mg-325 1 - 2 tab PO Q6H PRN pain 09/13/22 09/13/22 Unknown History mg tablet Physical Exam Vital Signs and Narrative: Vital Signs: Last Vital Signs Temp 97.5 F 09/14/22 16:00 Pulse 60 09/14/22 16:00 Resp 18 09/14/22 16:00 BP 149/89 H 09/14/22 16:00 Pulse Ox 99 09/14/22 16:00 O2 Del Method Room Air 09/14/22 16:00 BMI result Body Mass Index 24.5 Const: Other: General: AO X 3, no acute distress Resp: CTA bilateral CVS: S1,S2,RRR GI: +BS, NT, no distention Skin: infected right hand Neuro: motor grossly intact Psych: appropriate affect Results Labs 09/14/22 08:08 Labs: Laboratory Results - last 24 hr 09/13/22 09/13/22 09/14/22 20:15 20:29 08:08 Estim Creat Clear Calc 127.3 129.0 Estimated GFR > 60 > 60 COVID-19 ([facility]EL) Negative COVID-19 Clin Com See Note Assessment and Plan (1) Cellulitis of right hand: Status: Acute (2) Open fracture of fifth metacarpal bone of right hand: Status: Acute Plan Infected hand.. IV Abx, ortho felipe operate on him. Pain control with morphine, oxycodone Concern of alcohol withdrawal--he presently is not exhibiting and sings of symptoms of alcohol withdrawal. Will maintain on CIWA and closely monitor Time Spent With Patient Time: Total time managing care of this patient today ____ minutes.
[2022-09-14] MEDS: cefEPime HCl 1 GM in 0.9 % Sodium Chloride 50 ML IV (16:51)
[2022-09-14] MEDS: Morphine Sulfate 2 MG/ML CARTRIDGE IVPUSH ×2 (16:52→23:17)
[2022-09-14] MEDS: metroNIDAZOLE/NS 500 MG/100 ML PIGGYBACK 100 MG IV (17:26)
[2022-09-14] MEDS: PHENobarbitaL sodium 130 MG/ML IM ONCE 248 MG IM (19:20)
[2022-09-14] MEDS: Albuterol Sulfate 90 MCG 8 GM INHALER 1 PUFF INHALE (19:41)
[2022-09-14 19:44] VITALS: PULSE 75; RESP 16
[2022-09-14 20:00] VITALS: BP 142/89; PULSE 58; RESP 18; TEMP 36.4; O2SAT 97
[2022-09-14 20:40] LABS: Vancomycin Random 8.4 mcg/mL (15-20)
[2022-09-14] MEDS: traMADoL HCL 50 MG TABLET 100 MG PO (22:03)
[2022-09-14] MEDS: cloNIDine HCL 0.2 MG TABLET PO (22:03)
[2022-09-14] MEDS: Gabapentin 400 MG CAPSULE 800 MG PO (22:04)
[2022-09-14] MEDS: vancomycin HCL 1,500 MG in 0.9 % Sodium Chloride 500 ML 333.33 MG IV (22:04)
[2022-09-14] MEDS: PHENobarbitaL sodium 130 MG/ML VIAL IM Q3Hx2 186 MG IM (22:04)
[2022-09-15] VITALS (13 sets, daily range): BP systolic 112–133; BP diastolic 63–92; PULSE 59–90; RESP 16–20; TEMP 36–36.6; O2SAT 94–99
[2022-09-15] MEDS: PHENobarbitaL sodium 130 MG/ML VIAL IM Q3Hx2 186 MG IM (01:14)
[2022-09-15] MEDS: cefEPime HCl 1 GM in 0.9 % Sodium Chloride 50 ML IV ×3 (01:15→21:10)
[2022-09-15] MEDS: metroNIDAZOLE/NS 500 MG/100 ML PIGGYBACK 100 MG IV ×3 (01:21→21:10)
[2022-09-15 07:03] LABS: Creatinine Clr Calc Pharmacy 134.3; Estimated Glomerular Filt Rate > 60
[2022-09-15] MEDS: PHENobarbitaL 30 MG TABLET 60 MG PO ×2 (07:25→21:11)
[2022-09-15] MEDS: Morphine Sulfate 2 MG/ML CARTRIDGE IVPUSH ×2 (07:25→15:50)
--- NOTE | 2022-09-15 08:16 | HO.ANESPROP2 ---
[facility] Active Problems Active Problems: All Active Problems (Updated 09/13/22 @ 17:40 by Kalli Russo MD) Cellulitis of right hand (Acute) Open fracture of fifth metacarpal bone of right hand (Acute) Right hand fracture (Acute) Cervical stenosis of spine (Acute) Silicosis (Acute) Hyperkalemia (Acute) Fungal dermatitis (Acute) Thoracic spine pain (Acute) Cervical (neck) region somatic dysfunction (Acute) HTN (hypertension) (Acute) Malignant neoplasm of shaft of penis (Acute) MDD (major depressive disorder), recurrent episode, moderate (Acute) GERD with esophagitis (Acute) Tobacco dependence (Acute) Alcohol dependence (Acute) Weak urinary stream (Acute) Lumbar degenerative disc disease (Acute) Rib pain on right side (Acute) Grief reaction (Acute) Duodenitis (Acute) Lumbar disc disease with radiculopathy (Acute) Alcohol abuse (Acute) Smoker (Acute) Erosive esophagitis (Acute) Genital warts (Acute) Anxiety (Acute) Atrophic gastritis (Acute) Erosive gastritis (Acute) Diarrhea (Acute) Hematochezia (Acute) Abdominal hernia (Acute) Screening for hypercholesterolemia (Acute) Screening for hypothyroidism (Acute) Annual physical exam (Acute) Allergic (Acute) Change in bowel habits (Acute) Ileus (Acute) Colon cancer screening (Acute) Incisional hernia (Acute) Anxiety (Acute) Past Medical History Medical History Anxiety Foreign body in stomach Incisional hernia Peptic ulcer disease Perforated duodenal ulcer Family History Family History Father CAD (coronary artery disease) NIDDY (non-insulin dependent diabetes mellitus in young) Hypertension Mother CAD (coronary artery disease) Hypertension Family history of problems with anesthesia: No Surgical History Surgical History H/O Spinal surgery History of colonoscopy History of endoscopy History of esophagogastroduodenoscopy (EGD) History of gastric surgery History of incisional hernia repair History of Problems with Anesthesia: No Social History Social History Household Members: Children Housing: Apartment Do you presently have visiting nurse or other home services: No Alcohol intake: current Alcohol intake frequency: does not drink Alcohol type: beer Patient Tobacco Use Status: Former Tobacco user Quit Date: yesterday Tobacco use type: Cigarette Cigarette Packs Per Day: 1 Cigarettes Per Day: 3 Years Smoked: 30 e-Cigarette/Vaping Use: Never Used Second Hand Smoke Exposure: No Substance Use Type: Marijuana service: No Current occupational status: unemployed 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, 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 Cognitive needs: No Hearing needs: No Vision needs: No Meds Allergies Allergy/AdvReac Type Severity Reaction Status Date / Time cat dander [cats] Allergy Unknown Unknown Verified 09/13/22 15:10 Active Medications: Current Medications Acetaminophen (Acetaminophen 325 Mg Tablet) 650 mg PO Q6H PRN PRN Reason: Pain, Mild (Pain Scale 1-3) Last Admin: 09/14/22 11:41 Dose: 650 mg Albuterol Sulfate (Albuterol Sulfate 90 Mcg 8 Gm Inhaler) 1 puff INHALE RQID [facility] Last Admin: 09/14/22 19:41 Dose: 1 puff Baclofen (Baclofen 20 Mg Tablet) 20 mg PO DAILY [facility] Clonidine HCl (Clonidine Hcl 0.2 Mg Tablet) 0.2 mg PO BID [facility]; Protocol Last Admin: 09/14/22 22:03 Dose: 0.2 mg Gabapentin (Gabapentin 400 Mg Capsule) 800 mg PO TID [facility] Last Admin: 09/14/22 22:04 Dose: 800 mg Cefepime HCl 1 gm/ Sodium (Chloride) 50 mls @ 100 mls/hr IV Q8H [facility] Last Infusion: 09/15/22 01:46 Dose: Infused Metronidazole (Flagyl) 500 mg in 100 mls @ 100 mls/hr IV Q8H [facility] Last Infusion: 09/15/22 02:47 Dose: Infused Vancomycin HCl 1,500 mg/ (Sodium Chloride) 500 mls @ 333.333 mls/hr IV Q12H [facility] Last Infusion: 09/14/22 23:39 Dose: Infused Morphine Sulfate (Morphine Sulfate 2 Mg/Ml Cartridge) 2 mg IVPUSH Q6H PRN; Protocol PRN Reason: Pain, Severe (Pain Scale 7-10) Last Admin: 09/15/22 07:25 Dose: 2 mg Oxycodone HCl (Oxycodone Hcl Immed Release 5 Mg Tablet) 5 mg PO Q6H PRN PRN Reason: Pain, Moderate (Pain Scale 4-6 Last Admin: 09/14/22 19:28 Dose: 5 mg Pharmacy Consult (Consult Rx Vancomycin Dosing) 1 each MISCELLANE DAILY PRN PRN Reason: Consult order Pharmacy Consult (Consult Rx Perform Med Rec) 1 each MISCELLANE ONCE PRN PRN Reason: Consult order Pharmacy Consult (Consult Rx Etoh Phenob Im/Po) 1 each MISCELLANE ONCE PRN; Protocol PRN Reason: Consult order Phenobarbital (Phenobarbital 30 Mg Tablet) 60 mg PO BID [facility] Stop: 09/16/22 21:01 Last Admin: 09/15/22 07:25 Dose: 60 mg Phenobarbital (Phenobarbital 30 Mg Tablet) 30 mg PO BID [facility] Stop: 09/18/22 21:01 Phenobarbital (Phenobarbital 15 Mg Tablet) 15 mg PO DAILY [facility] Stop: 09/20/22 09:01 Tramadol HCl (Tramadol Hcl 50 Mg Tablet) 100 mg PO TID [facility] Last Admin: 09/14/22 22:03 Dose: 100 mg Home Medications Medication Instructions Recorded Confirmed Last Taken Type cefadroxil 500 mg capsule 1,000 mg PO BID 09/13/22 09/13/22 Unknown History oxycodone-acetaminophen 5 mg-325 1 - 2 tab PO Q6H PRN pain 09/13/22 09/13/22 Unknown History mg tablet Exam Exam Date and Time: September 15, 2022 0816 Height,Weight and Vital Signs: Height 6 ft Weight 81.9 kg Last Vital Signs Temp 98 F 09/15/22 07:52 Pulse 78 09/15/22 07:52 Resp 20 09/15/22 07:52 BP 120/87 09/15/22 07:52 Pulse Ox 97 09/15/22 07:52 O2 Del Method Room Air 09/15/22 07:52 Pertinent Lab Results Pertinent Lab Results: Laboratory Tests 09/13/22 09/13/22 09/14/22 20:15 20:29 08:08 Creatinine 0.77 0.76 Estim Creat Clear Calc 127.3 129.0 Estimated GFR > 60 > 60 Random Vancomycin COVID-19 ([facility]) Negative COVID-19 Clin Com See Note 09/14/22 09/15/22 20:13 05:52 Creatinine 0.73 Estim Creat Clear Calc 134.3 Estimated GFR > 60 Random Vancomycin 8.4 L COVID-19 ([facility]) COVID-19 Clin Com Airway Mallampati Class: II TM Dist: >3cm Neck ROM: Full Heart: rrr Lungs: cta Assessment and Plan Assessment Anesthesia Assessment: Anesthesia Plan Discussed, Smoking Cess. Discussed and Chart Reviewed Final Anesthetic Review Family History of Problems with Anesthesia: No History of Problems with Anesthesia: No NPO: Yes ASA Class: III Final Preanesthetic Review: No Changes in Pt Med Stat, Meds/Allgs Chart Reviewed, Consent Obtained/Reviewed and Anes Risks/Benef Reviewed Patient Risk: Intermediate Procedure Risk: Low Anesthetic Plan Anesthetic Plan: GA Disposition: Standard PACU
--- NOTE | 2022-09-15 09:05 | MHC.SHP ---
Pre-Procedural Eval Section A Date of Service: 09/15/22 The patient is an INPATIENT: No Changes since office visit: No Cold of Flu in the past 2 weeks, No New Medical Problems, No Changes in Medication and No Patient answered all questions The History & Physical has been completed within 30 days and I have reviewed it.: Yes Section B Chief Complaint: right hand infection Allergies: Allergies Allergy/AdvReac Type Severity Reaction Status Date / Time cat dander [cats] Allergy Unknown Unknown Verified 09/13/22 15:10 Plan I have reviewed the history and physical and performed a pertinent physical examination on my patient. No changes have occurred unless specified. Time Spent With Patient Time: Total time managing care of this patient today ____ minutes.
--- NOTE | 2022-09-15 09:05 | W.PM.OPN ---
Operative Note Operative Note Date of Service: 09/15/22 Narrative: Operative Note Narrative: Preop diagnosis: 1. Right hand infection inpatient status post ORIF of open 5th metacarpal fracture 10 days ago Postop diagnosis: Same Procedure: 1. I&D right hand 2. I&D right 5th metacarpal fracture, and removal of implant Surgeon: Kalli Russo MD Anesthesia: General Anesthesia [plus regional block] Findings: Cloudy fluid found around fracture site and cultured. Implants: I removed the transverse K-wire, 0.062 Tourniquet time: 18 minutes EBL: 5.0 ml Specimen: cultures from 5th metacarpal fracture Drains: None Complications: None Disposition: Brought to the recovery room in stable condition Plan: admit back to the floor to continue IV antibiotics check cultures and remove drain tomorrow close follow-up after discharge once infection under control, will follow to see if may benefit from another procedure to assist with fracture healing. Indications: The patient is a [age] year old man who washed is dishes with his postop dressing about 5 days status post I&D of his open 5th metacarpal fracture and ORIF with K-wires in place. He went on to develop a right hand infection. . The risks and benefits of operative treatment, including but not limited to risk of damage to blood vessels, nerves, tendons, infection, recurrence, persistent pain or numbness, incomplete resolution of preoperative symptoms, or need for further surgery were discussed with the patient and they wished to proceed with surgery. Procedure: Once consent was obtained patient was brought back to the operating suite and placed in the operating table in a supine position. . Perioperative antibiotics and anesthesia was administered by the anesthesia team. A tourniquet was applied to the proximal aspect of the right upper extremity and the limb was prepped and draped in a standard surgical fashion. The limb was elevated exsanguinated with Esmarch bandage and the tourniquet inflated to 250 mm of mercury for a total tourniquet time of 18 minutes. I removed the sutures from his dorsal hand incision. The transverse K-wire was also removed and placed on the back table. We again passed just ulnar to the small finger extensor tendon down to the 5th metacarpal fracture. There was some cloudy fluid found in this area and it was cultured From about the 5th metacarpal fracture.. I used a curette to gently debride the edges of the bone. The wound including the 5th metacarpal fracture were copiously irrigated with normal saline. I did use an Angiocath and a 10 mL syringe to facilitate irrigation of the fracture site. At this point the tourniquet was deflated and hemostasis obtained with a brief period of local pressure. The wound was copiously irrigated with normal saline. The skin edges were loosely reapproximated with 5-0 nylon suture, and an iodoform drain was placed to facilitate wound drainage. an ulnar nerve block was performed by infiltrating about the ulnar nerve at the wrist with some 1% lidocaine with epinephrine for postop pain control and a sterile dressing and a volar splint was applied. The patient appears to have tolerated the procedure well and with no complications. All digits were well vascularized conclusion of the case.
[2022-09-15] MEDS: Baclofen 20 MG TABLET PO (11:20)
[2022-09-15] MEDS: Gabapentin 400 MG CAPSULE 800 MG PO ×3 (11:20→21:11)
[2022-09-15] MEDS: traMADoL HCL 50 MG TABLET 100 MG PO ×3 (11:20→21:11)
[2022-09-15] MEDS: cloNIDine HCL 0.2 MG TABLET PO ×2 (11:21→21:11)
[2022-09-15] MEDS: vancomycin HCL 1,500 MG in 0.9 % Sodium Chloride 500 ML 333.33 MG IV ×2 (11:21→22:43)
--- NOTE | 2022-09-15 17:11 | HO.PM.IMPN ---
Subjective Subjective Date of Service: 09/15/22 Interval History: s/p i and d of wound, doing fine after surgery, no withdrawal Review of Systems no tremors, pain in the hand.. all other systems reviewed and negative Physical Exam Vital Signs: Vital Signs: Last Vital Signs Temp 97.8 F 09/15/22 15:32 Pulse 81 09/15/22 15:32 Resp 18 09/15/22 15:32 BP 117/63 09/15/22 15:32 Pulse Ox 99 09/15/22 15:32 O2 Del Method Room Air 09/15/22 15:32 BMI result Body Mass Index 24.5 Const: Other: General: AO X 3, no acute distress Resp: CTA bilateral CVS: S1,S2,RRR GI: +BS, NT, no distention Skin: infected right hand Neuro: motor grossly intact Psych: appropriate affect Objective Data Active Medications Acetaminophen (Acetaminophen 325 Mg Tablet) 650 mg PO Q6H PRN PRN Reason: Pain, Mild (Pain Scale 1-3) Last Admin: 09/14/22 11:41 Dose: 650 mg Documented By: ENRIKE Albuterol Sulfate (Albuterol Sulfate 90 Mcg 8 Gm Inhaler) 1 puff INHALE RQID COUNT INCLUDES THE [facility] Last Admin: 09/15/22 16:09 Dose: Not Given Documented By: DRE Non-Admin Reason: Patient Asleep Baclofen (Baclofen 20 Mg Tablet) 20 mg PO DAILY COUNT INCLUDES THE [facility] Last Admin: 09/15/22 11:20 Dose: 20 mg Documented By: JANETTE Clonidine HCl (Clonidine Hcl 0.2 Mg Tablet) 0.2 mg PO BID COUNT INCLUDES THE [facility]; Protocol Last Admin: 09/15/22 11:21 Dose: 0.2 mg Documented By: JANETTE Fentanyl (Fentanyl Citrate/Pf 100 Mcg/2 Ml Vial) 25 mcg IVPUSH Q5M PRN; Protocol PRN Reason: Pain, Moderate (Pain Scale 4-6 Gabapentin (Gabapentin 400 Mg Capsule) 800 mg PO TID COUNT INCLUDES THE [facility] Last Admin: 09/15/22 14:18 Dose: 800 mg Documented By: JANETTE Vancomycin HCl 1,500 mg/ (Sodium Chloride) 500 mls @ 333.333 mls/hr IV Q12H COUNT INCLUDES THE [facility] Last Infusion: 09/15/22 13:51 Dose: 0 mls/hr Documented By: JANETTE Cefepime HCl 1 gm/ Sodium (Chloride) 50 mls @ 100 mls/hr IV Q8H COUNT INCLUDES THE [facility] Last Infusion: 09/15/22 14:29 Dose: 0 mls/hr Documented By: JANETTE Metronidazole (Flagyl) 500 mg in 100 mls @ 100 mls/hr IV Q8H COUNT INCLUDES THE [facility] Last Infusion: 09/15/22 15:28 Dose: 0 mls/hr Documented By: JANETTE Morphine Sulfate (Morphine Sulfate 2 Mg/Ml Cartridge) 2 mg IVPUSH Q6H PRN; Protocol PRN Reason: Pain, Severe (Pain Scale 7-10) Last Admin: 09/15/22 15:50 Dose: 2 mg Documented By: JANETTE Ondansetron HCl (Ondansetron Hcl 4 Mg/2 Ml Vial) 4 mg IVPUSH ONCE PRN PRN Reason: Nausea and Vomiting Oxycodone HCl (Oxycodone Hcl Immed Release 5 Mg Tablet) 5 mg PO Q6H PRN PRN Reason: Pain, Moderate (Pain Scale 4-6 Last Admin: 09/14/22 19:28 Dose: 5 mg Documented By: MORGAN Oxycodone HCl (Oxycodone Hcl Immed Release 5 Mg Tablet) 5 mg PO ONCE PRN PRN Reason: Pain, Severe (Pain Scale 7-10) Pharmacy Consult (Consult Rx Vancomycin Dosing) 1 each MISCELLANE DAILY PRN PRN Reason: Consult order Pharmacy Consult (Consult Rx Perform Med Rec) 1 each MISCELLANE ONCE PRN PRN Reason: Consult order Pharmacy Consult (Consult Rx Etoh Phenob Im/Po) 1 each MISCELLANE ONCE PRN; Protocol PRN Reason: Consult order Phenobarbital (Phenobarbital 30 Mg Tablet) 60 mg PO BID COUNT INCLUDES THE [facility] Stop: 09/16/22 21:01 Last Admin: 09/15/22 07:25 Dose: 60 mg Documented By: JANETTE Phenobarbital (Phenobarbital 30 Mg Tablet) 30 mg PO BID COUNT INCLUDES THE [facility] Stop: 09/18/22 21:01 Phenobarbital (Phenobarbital 15 Mg Tablet) 15 mg PO DAILY COUNT INCLUDES THE [facility] Stop: 09/20/22 09:01 Tramadol HCl (Tramadol Hcl 50 Mg Tablet) 100 mg PO TID COUNT INCLUDES THE [facility] Last Admin: 09/15/22 14:17 Dose: 100 mg Documented By: JANETTE Labs 09/15/22 05:52 Labs: Laboratory Results - last 24 hr 09/14/22 09/15/22 20:13 05:52 Estim Creat Clear Calc 134.3 Estimated GFR > 60 Random Vancomycin 8.4 L Microbiology Microbiology Results: Microbiology 09/15/22 Unknown Gram Stain - Final Hand Right Assessment and Plan (1) Cellulitis of right hand: Status: Acute Plan Infected hand.. IV Abx, s/p surgery Pain control with morphine, oxycodone Concern of alcohol withdrawal--he presently is not exhibiting and sings of symptoms of alcohol withdrawal, continue phenobarbital and monitor Time Spent With Patient Time: Total time managing care of this patient today ____ minutes. Quality Stroke Does the patient have a stroke diagnosis?: No VTE Prior VTE?: No VTE Risk Level:: Medical - low VTE Device Contraindication: Treatment Not Indicated VTE Drug Contraindication: Treatment Not Indicated
[2022-09-15] MEDS: Albuterol Sulfate 90 MCG 8 GM INHALER 1 PUFF INHALE (20:19)
[2022-09-15 20:24] LABS: Vancomycin Random 11.6 mcg/mL (15-20)
--- NOTE | 2022-09-15 20:28 | HE.PHANOTE ---
Vancomycin Dosing Addendum Patients level came back tonight at 11.6. Patients indication is skin infection. Will continue dose of 1500 mg Q12H. Predicted AUC 437 mg/L/hr. Will see if level increase by next draw n 09/16 @1999. If level remains the same Q8H dosing may be needed.
[2022-09-16] VITALS (8 sets, daily range): BP systolic 132–137; BP diastolic 81–91; PULSE 61–94; RESP 15–18; TEMP 36.1–36.8; O2SAT 95–99
[2022-09-16] MEDS: cefEPime HCl 1 GM in 0.9 % Sodium Chloride 50 ML IV ×3 (04:47→20:38)
[2022-09-16] MEDS: metroNIDAZOLE/NS 500 MG/100 ML PIGGYBACK 100 MG IV ×3 (04:47→21:28)
[2022-09-16] MEDS: Albuterol Sulfate 90 MCG 8 GM INHALER 1 PUFF INHALE ×4 (08:16→19:23)
[2022-09-16] MEDS: traMADoL HCL 50 MG TABLET 100 MG PO ×3 (08:44→20:46)
[2022-09-16] MEDS: Baclofen 20 MG TABLET PO (08:44)
[2022-09-16] MEDS: PHENobarbitaL 30 MG TABLET 60 MG PO ×2 (08:44→20:47)
[2022-09-16] MEDS: cloNIDine HCL 0.2 MG TABLET PO ×2 (08:45→20:47)
[2022-09-16] MEDS: vancomycin HCL 1,500 MG in 0.9 % Sodium Chloride 500 ML 333.33 MG IV ×2 (08:45→21:28)
[2022-09-16] MEDS: Gabapentin 400 MG CAPSULE 800 MG PO ×3 (08:45→20:47)
--- NOTE | 2022-09-16 09:31 | P.PNIM_ITS ---
Subjective Subjective Date of Service: 09/16/22 Physical Exam Vital Signs: Vital Signs: Last Vital Signs Temp 98.1 F 09/16/22 08:00 Pulse 79 09/16/22 08:16 Resp 16 09/16/22 08:16 BP 137/90 H 09/16/22 08:00 Pulse Ox 99 09/16/22 08:00 O2 Del Method Room Air 09/16/22 08:00 BMI result Body Mass Index 24.5 Objective Data Active Medications Acetaminophen (Acetaminophen 325 Mg Tablet) 650 mg PO Q6H PRN PRN Reason: Pain, Mild (Pain Scale 1-3) Last Admin: 09/14/22 11:41 Dose: 650 mg Documented By: ENRIKE Albuterol Sulfate (Albuterol Sulfate 90 Mcg 8 Gm Inhaler) 1 puff INHALE RQID [facility] Last Admin: 09/16/22 08:16 Dose: 1 puff Documented By: YUSRA Baclofen (Baclofen 20 Mg Tablet) 20 mg PO DAILY [facility] Last Admin: 09/16/22 08:44 Dose: 20 mg Documented By: ARTURO Clonidine HCl (Clonidine Hcl 0.2 Mg Tablet) 0.2 mg PO BID [facility]; Protocol Last Admin: 09/16/22 08:45 Dose: 0.2 mg Documented By: ARTURO Fentanyl (Fentanyl Citrate/Pf 100 Mcg/2 Ml Vial) 25 mcg IVPUSH Q5M PRN; Protocol PRN Reason: Pain, Moderate (Pain Scale 4-6 Gabapentin (Gabapentin 400 Mg Capsule) 800 mg PO TID [facility] Last Admin: 09/16/22 08:45 Dose: 800 mg Documented By: ARTURO Vancomycin HCl 1,500 mg/ (Sodium Chloride) 500 mls @ 333.333 mls/hr IV Q12H [facility] Last Admin: 09/16/22 08:45 Dose: 333.33 mls/hr Documented By: ARTURO Cefepime HCl 1 gm/ Sodium (Chloride) 50 mls @ 100 mls/hr IV Q8H [facility] Last Infusion: 09/16/22 05:17 Dose: 0 mls/hr Documented By: MORGAN Metronidazole (Flagyl) 500 mg in 100 mls @ 100 mls/hr IV Q8H [facility] Last Infusion: 09/16/22 06:17 Dose: 0 mls/hr Documented By: MORGAN Morphine Sulfate (Morphine Sulfate 2 Mg/Ml Cartridge) 2 mg IVPUSH Q6H PRN; Protocol PRN Reason: Pain, Severe (Pain Scale 7-10) Last Admin: 09/15/22 15:50 Dose: 2 mg Documented By: JANETTE Ondansetron HCl (Ondansetron Hcl 4 Mg/2 Ml Vial) 4 mg IVPUSH ONCE PRN PRN Reason: Nausea and Vomiting Oxycodone HCl (Oxycodone Hcl Immed Release 5 Mg Tablet) 5 mg PO Q6H PRN PRN Reason: Pain, Moderate (Pain Scale 4-6 Last Admin: 09/14/22 19:28 Dose: 5 mg Documented By: MORGAN Oxycodone HCl (Oxycodone Hcl Immed Release 5 Mg Tablet) 5 mg PO ONCE PRN PRN Reason: Pain, Severe (Pain Scale 7-10) Pharmacy Consult (Consult Rx Vancomycin Dosing) 1 each MISCELLANE DAILY PRN PRN Reason: Consult order Pharmacy Consult (Consult Rx Perform Med Rec) 1 each MISCELLANE ONCE PRN PRN Reason: Consult order Pharmacy Consult (Consult Rx Etoh Phenob Im/Po) 1 each MISCELLANE ONCE PRN; Protocol PRN Reason: Consult order Phenobarbital (Phenobarbital 30 Mg Tablet) 60 mg PO BID [facility] Stop: 09/16/22 21:01 Last Admin: 09/16/22 08:44 Dose: 60 mg Documented By: ARTURO Phenobarbital (Phenobarbital 30 Mg Tablet) 30 mg PO BID [facility] Stop: 09/18/22 21:01 Phenobarbital (Phenobarbital 15 Mg Tablet) 15 mg PO DAILY [facility] Stop: 09/20/22 09:01 Tramadol HCl (Tramadol Hcl 50 Mg Tablet) 100 mg PO TID [facility] Last Admin: 09/16/22 08:44 Dose: 100 mg Documented By: ARTURO Labs 09/15/22 05:52 Labs: Laboratory Results - last 24 hr 09/15/22 20:00 Random Vancomycin 11.6 L Microbiology Microbiology Results: Microbiology 09/15/22 Unknown Gram Stain - Final Hand Right Routine Culture - Preliminary Culture in progress. Assessment and Plan (1) Cellulitis of right hand: Status: Acute Plan Infected hand.. IV Abx, s/p 1.? I&D right hand ?2.? I&D right 5th metacarpal fracture, and removal of implant on 09/[address] Russo. Pain control with morphine, oxycodone. Cultures are negative, likely Doxy for discharge Concern of alcohol withdrawal--he presently is not exhibiting and sings of symptoms of alcohol withdrawal, continue phenobarbital and monitor, moderate use of alcohol dicussed medically ok to discharge, probably doxy 100 mg bid x 10 days Time Spent With Patient Time: Total time managing care of this patient today ____ minutes. Quality Stroke Does the patient have a stroke diagnosis?: No VTE Prior VTE?: No VTE Risk Level:: Medical - low VTE Device Contraindication: Treatment Not Indicated VTE Drug Contraindication: Treatment Not Indicated
[2022-09-16 10:37] LABS: Estimated Glomerular Filt Rate > 60
--- NOTE | 2022-09-16 13:43 | PM.PNORT ---
Subjective Subjective Date of Service: 09/16/22 Interval history: POD 1 s/p I&D right hand no overnight events resting with bandage intact. states pain has improved. Physical Exam Vital Signs: Vital Signs: Last Vital Signs Temp 98.1 F 09/16/22 08:00 Pulse 79 09/16/22 11:59 Resp 16 09/16/22 11:59 BP 137/90 H 09/16/22 08:00 Pulse Ox 99 09/16/22 08:00 O2 Del Method Room Air 09/16/22 08:00 BMI result Body Mass Index 24.5 Const: General: cooperative, healthy appearing and no acute distress Resp: Effort & Inspection: normal respiratory effort and able to speak in complete sentences Cardio: Rate: regular rate Peripheral pulses: Peripheral pulses 2+ throughout GI: Palpation (GI): Soft to palpation Skin: General skin exam: no rashes or lesions noted Extrem: Other: Right hand packing in place. Incision clean dry and intact. No drainage. NVi. Procedures Date of Service Date of Service: 09/16/22 Progress Note: A&P Assessment and plan (1) Cellulitis of right hand: Status: Acute Assessment and Plan: cotninue iv abx cultures pending-once final we can determine next course of abx continue with dressing and splint until f/u in ortho-ok to change if it becomes soiled packing was removed today d/c pending culture results. (2) Open fracture of fifth metacarpal bone of right hand: Status: Acute Time Spent With Patient Time: Total time managing care of this patient today ____ minutes. Quality Stroke Does the patient have a stroke diagnosis?: No VTE Prior VTE?: No VTE Risk Level:: Medical - low VTE Device Contraindication: Treatment Not Indicated VTE Drug Contraindication: Treatment Not Indicated
--- NOTE | 2022-09-16 15:13 | PC.NURSE ---
Assumed care of patient at this time.
--- NOTE | 2022-09-16 15:57 | MHC.CM.PN ---
ONCE CULTURES ARE FINAL, DC PLAN CAN BE DETERMINED.
[2022-09-16 20:22] LABS: Vancomycin Random 11.1 mcg/mL (15-20)
[2022-09-16] MEDS: oxyCODONE HCl Immed Release 5 MG TABLET PO (20:47)
[2022-09-16] MEDS: Acetaminophen 325 MG TABLET 650 MG PO (20:47)
[2022-09-17] VITALS (7 sets, daily range): BP systolic 138–156; BP diastolic 86–94; PULSE 53–71; RESP 16–18; TEMP 35.8–36.7; O2SAT 96–99
[2022-09-17] MEDS: cefEPime HCl 1 GM in 0.9 % Sodium Chloride 50 ML IV (05:40)
[2022-09-17] MEDS: Morphine Sulfate 2 MG/ML CARTRIDGE IVPUSH (06:53)
[2022-09-17 07:09] LABS: Creatinine Clr Calc Pharmacy 134.3; Estimated Glomerular Filt Rate > 60
[2022-09-17] MEDS: cloNIDine HCL 0.2 MG TABLET PO (07:49)
[2022-09-17] MEDS: Baclofen 20 MG TABLET PO (07:49)
[2022-09-17] MEDS: traMADoL HCL 50 MG TABLET 100 MG PO (07:49)
[2022-09-17] MEDS: Gabapentin 400 MG CAPSULE 800 MG PO (07:50)
[2022-09-17] MEDS: PHENobarbitaL 30 MG TABLET PO (07:50)
[2022-09-17] MEDS: metroNIDAZOLE/NS 500 MG/100 ML PIGGYBACK 100 MG IV (07:52)
[2022-09-17] MEDS: Albuterol Sulfate 90 MCG 8 GM INHALER 1 PUFF INHALE ×2 (08:10→11:29)
[2022-09-17] MEDS: oxyCODONE HCl Immed Release 5 MG TABLET PO (09:00)
[2022-09-17] MEDS: vancomycin HCL 1,500 MG in 0.9 % Sodium Chloride 500 ML 333.33 MG IV (10:04)
--- NOTE | 2022-09-17 12:58 | PM.DS ---
DS: Providers Provider Date of Service: 09/17/22 Date of admission: 09/13/22 17:11 Primary care physician: Lucas Yao PA-C Consults: 09/13/22 17:10 Consult to Infectious Diseases Stat Consulting Provider: [facility] Infectious Disease Reason for consultation: right hand infection 09/14/22 12:55 Consult to Hospitalist Routine Comment: Consulting Provider: Hospitalist Reason For Exam: ETOH abuse - eval for withdrawal DS: Diagnosis Discharge Diagnosis (1) Cellulitis of right hand: Status: Acute (2) Open fracture of fifth metacarpal bone of right hand: Status: Acute DS: Summary Hospital Course Hospital Course: 47 yo male admitted to orthopedic service for right hand infection s/p ORIF with Dr Russo on 09/05/22. Procedure:?09/15/22 ?1.? I&D right hand ?2.? I&D right 5th metacarpal fracture, and removal of implant Received: 09/18/22 Source: Blood Sp Desc: Venous Subm Dr: Jaja Anderson [employer] Ordered: Blood Cult(2nd) Procedure Result Verified Site Blood Culture (Second) Preliminary 09/20/22 No growth after 48 hours. Specimen: [id number] Collected: 09/15/22-UNK Status: COMP Req#: [id number] Received: 09/15/22 Source: Hand Rt Sp Desc: Subm Dr: Kalli Russo MD Ordered: Routine Cult GS Procedure Result Verified Site Gram stain Final 09/15/22153 Gram stain results: 1+ polys 3+ red blood cells No organisms seen Routine Culture Final 09/17/221116 Result: 2+ Mixed skin angela During his stay cultures were negative. He received daily, dry dressing changes, He was discharged home with Doxycycline x 10 days and scheduled to see us back in our office on 09/21/21. Time Spent with Patient Time attestation: Total time managing care of this patient today ____ minutes. Discharge coordination time: Less than 30 minutes Quality: Safe Use of Opioids Does Pt have an Active Cancer Diagnosis on the Problem List?: No Quality: Stroke Does the patient have a stroke diagnosis?: No Physical Exam Vital Signs: Vital Signs: Last Vital Signs Temp 97.1 F 09/17/22 07:46 Pulse 67 09/17/22 11:29 Resp 18 09/17/22 11:29 BP 138/94 H 09/17/22 07:46 Pulse Ox 99 09/17/22 08:00 O2 Del Method Room Air 09/17/22 08:00 BMI result Body Mass Index 24.5 Const: General: cooperative and no acute distress Orientation/consciousness: patient oriented x3 Resp: Effort & Inspection: normal respiratory effort and able to speak in complete sentences Cardio: Rate: regular rate Peripheral pulses: Peripheral pulses 2+ throughout GI: Palpation (GI): Soft to palpation Skin: Lesions: no lesions Rashes: no rashes Neuro: General: patient oriented x3 Extrem: Other: Right hand: Dorsal sided incision site over the 5th metacarpal is intact. Sutures intact. Slight erythema. No active drainage. Able to perform finger flexion and extension but slightly limited. Sensation intact. Capillary refill is brisk. Psych: Mental Status: mental status grossly normal DS: Data Data Completed and Pending Labs on day of discharge: Laboratory Results - last 24 hr 09/16/22 09/17/22 19:50 05:41 Creatinine 0.73 Estim Creat Clear Calc 134.3 Estimated GFR > 60 Random Vancomycin 11.1 L Discharge Plan Discharge Anticipated Discharge Date/Time: 09/17/22 12:53 Patient Disposition: Home, Self-Care Discharge Diagnosis: right hand cellulitis Referrals: Lucas Yao PA-C [Primary Care Provider] - 1 Week Bella Morillo PA-C [Physician Crude Oil Treater] - 1 Week (09/21/22 11:00 [facility] Surgeons Bella Morillo PA-C) Discharge Medications: New doxycycline hyclate 100 mg tablet 100 mg PO BID 10 Days Qty: 20 0RF oxycodone 5 mg tablet 5 mg PO Q8H PRN (Reason: pain) 7 Days Qty: 21 0RF Rx Instructions: Partial Fill upon patient request. Continued clonidine HCl 0.2 mg tablet 0.2 mg PO BID Qty: 60 6RF sertraline 100 mg tablet 150 mg PO DAILY 30 Days Qty: 45 3RF baclofen 20 mg tablet 20 mg PO DAILY 30 Days Qty: 30 2RF gabapentin 800 mg tablet 800 mg PO TID 30 Days Qty: 90 2RF albuterol sulfate [Ventolin HFA] 90 mcg/actuation HFA aerosol inhaler 1 inh inhalation QID Qty: 18 1RF tramadol 50 mg tablet 100 mg PO Q8H 30 Days Qty: 180 1RF oxycodone-acetaminophen 5-325 mg tablet 1 - 2 tab PO Q6H PRN (Reason: pain) Discontinued cefadroxil 500 mg capsule 1,000 mg PO BID No Action ondansetron 4 mg tablet,disintegrating 4 mg PO Q6H PRN (Reason: nausea and vomiting) Qty: 10 0RF Discharge Orders: Discharge Order (Routine); Ordered 09/17/22 Ordered By: Lillian Ascencio Diet: Regular diet Activity on Discharge: No heavy lifting Stand Alone Forms: Patient Portal Discharge page Care Plan Goals: Restore function of joint Health Concerns: none Plan of Treatment: Keep dressing on at all times do not get the hand wet no lifting take antibiotics as directed-do not miss a dose do not drink alcohol while taking medication Assessment: as above Discharge Date/Time: 09/17/22 13:52
--- NOTE | 2022-09-17 13:00 | MHC.CM.PN ---
pt dcd home no skilled servcies ordered by
== END 2022-09-17 13:52 | disposition home or self-care (01) | DRG 316 ==
PROVIDERS: Physician Assistant; Admitting Provider Orthopaedic Surgery; PCP Physician Assistant; Visit Provider Orthopaedic Surgery
PROC: 0PDT0ZZ Extraction of Right Finger Phalanx, Open Approach (ICD-10-PCS; principal; 2022-09-15 08:30)
DX: T84.69XA Infection and inflammatory reaction due to internal fixation device of other site, initial encounter (principal); L03.113 Cellulitis of right upper limb; Y79.8 Miscellaneous orthopedic devices associated with adverse incidents, not elsewhere classified; Z20.822 Contact with and (suspected) exposure to COVID-19; Z87.891 Personal history of nicotine dependence; Z79.899 Other long term (current) drug therapy
CPT/HCPCS: 36415; 80202; 82565; 87070; 87205; 87635; 94640; 94664; J0692; J1100; J1885; J2270; J2405; J2560; J3010; J3370; J3371

== ENCOUNTER 2022-09-18 04:53 | Emergency (ER) | payer OTHER, SELFPAY ==
--- NOTE | 2022-09-18 05:00 | MHC.EDTECH ---
pt arived via EMS vss
[2022-09-18 05:03] VITALS: BP 130/70; BP 145/98; PULSE 70; PULSE 80; RESP 16; TEMP 36.9; O2SAT 98; BMI 25.7
[2022-09-18 05:06] VITALS: BP 145/98; PULSE 78; RESP 16; TEMP 36.9; O2SAT 98
[2022-09-18 06:00] VITALS: PULSE 76; RESP 16; O2SAT 97
--- NOTE | 2022-09-18 06:22 | MHC.EDTECH ---
VSS pt up to restroom.
--- NOTE | 2022-09-18 06:49 | ED.NAVMDI ---
HPI - Nausea/Vomiting/Diarrhea General Chief complaint: Nausea/Vomiting/Diarrhea Stated complaint: NAUSEA,LY,RECENT SURG SITE PER EMS Time Seen by Provider: 09/18/22 06:31 Source: patient Mode of arrival: ambulatory Limitations: no limitations History of Present Illness HPI Narrative: This is a 47-year-old male who had a right 5th metacarpal fracture with subsequent cellulitis requiring I&D in the OR by Dr. Russo 09/15 sent home 09/16 on doxycycline here with complaints of nausea, vomiting, headache this morning. Patient reports this began several hours after taking his 1st dose of doxycycline. Patient also reports pain in his hand. Patient reports to the vomiting he has been unable to take his pain medication. He denies any abdominal pain, diarrhea, fevers, chills. MD elicited complaint: nausea and vomiting Associated nausea: Yes Related Data Home Medications Medication Instructions Recorded Confirmed oxycodone-acetaminophen 5 mg-325 1 - 2 tab PO Q6H PRN pain 09/13/22 09/13/22 mg tablet Previous Rx's Medication Instructions Recorded clonidine HCl 0.2 mg tablet 0.2 mg PO BID #60 tabs 04/14/22 sertraline 100 mg tablet 150 mg PO DAILY 30 days #45 tabs 06/09/22 baclofen 20 mg tablet 20 mg PO DAILY 30 days #30 tabs 06/28/22 gabapentin 800 mg tablet 800 mg PO TID 30 days #90 tabs 08/02/22 albuterol sulfate 90 mcg/actuation 1 inh inhalation QID #18 ea 08/26/22 aerosol inhaler (Ventolin HFA) tramadol 50 mg tablet 100 mg PO Q8H 30 days #180 tabs 08/31/22 doxycycline hyclate 100 mg tablet 100 mg PO BID cellulitis 10 days 09/17/22 #20 tabs oxycodone 5 mg tablet 5 mg PO Q8H PRN pain 7 days #21 09/17/22 tabs ondansetron 4 mg disintegrating 4 mg PO Q6H PRN nausea and 09/18/22 tablet vomiting #10 tabs Allergies Allergy/AdvReac Type Severity Reaction Status Date / Time cat dander [cats] Allergy Unknown Unknown Verified 09/13/22 15:10 Review of Systems Review of Systems: Yes all other systems are reviewed and are negative Constitutional: Constitutional: Reports no additional constitutional complaints, Denies body ache(s), Denies chills, Denies fever(s), Reports headache(s) and Denies weakness Eyes: Eyes: Reports no additional eye complaints and Denies change in vision ENT: Reports system reviewed and no additional complaints, except as documented, Denies dizziness, Reports headache(s), Denies nasal congestion, Denies nasal discharge and Denies neck pain Cardiovascular: Cardiovascular: Reports no additional cardiovascular complaints, Denies chest pain, Denies leg edema and Denies dyspnea Respiratory: Respiratory: Reports no additional respiratory complaints, Denies cough and Denies dyspnea Gastrointestinal: Gastrointestinal: Reports no additional gastrointestinal complaints, Denies abdominal pain, Denies diarrhea, Reports nausea and Reports vomiting Genitourinary: Genitourinary: Denies urinary incontinence Musculoskeletal: Musculoskeletal: Reports no additional musculoskeletal complaints, Denies back pain, Reports arthralgias, Denies joint swelling, Denies neck pain, Denies numbness and Denies tingling Integumentary/Breasts: Skin/Breast: Reports system reviewed and no additional complaints, except as docu and Denies rash Neurologic: Reports system reviewed and no additional complaints, except as documented, Denies Abnormal speech present, Denies dizziness, Reports headache(s), Denies numbness, Denies tingling and Denies weakness PMFSH Past Medical History Attestation statement: The following information was validated with the patient. Source: old records reviewed and nursing notes reviewed Medical History Anxiety Foreign body in stomach Incisional hernia Peptic ulcer disease Perforated duodenal ulcer Surgical History H/O Spinal surgery History of colonoscopy History of endoscopy History of esophagogastroduodenoscopy (EGD) History of gastric surgery History of incisional hernia repair Family History Family History Father CAD (coronary artery disease) NIDDY (non-insulin dependent diabetes mellitus in young) Hypertension Mother CAD (coronary artery disease) Hypertension Social History Social History Household Members: Children Housing: Apartment Do you presently have visiting nurse or other home services: No Alcohol intake: current Alcohol intake frequency: a few times a week Alcohol type: beer Patient Tobacco Use Status: Former Tobacco user Quit Date: yesterday Tobacco use type: Cigarette Cigarette Packs Per Day: 1 Cigarettes Per Day: 3 Years Smoked: 30 Smoked in Last 30 Days: Yes e-Cigarette/Vaping Use: Never Used Second Hand Smoke Exposure: No Use of substances other than those prescribed or required for medical reasons: Yes Substance Use Type: Marijuana Substance Use Frequency: Occasionally Advance Directives: No Advance Directives Information Provided: Yes service: No Current occupational status: unemployed 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, 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 Cognitive needs: No Hearing needs: No Vision needs: No Physical Exam Vital Signs: Vital Signs: Last Vital Signs Temp 98.5 F 09/18/22 07:37 Pulse 69 09/18/22 07:37 Resp 14 09/18/22 07:37 BP 137/91 H 09/18/22 07:37 Pulse Ox 99 09/18/22 07:37 O2 Del Method Room Air 09/18/22 07:37 BMI result Body Mass Index 25.7 Const: General: cooperative, healthy appearing, comfortable and no acute distress Orientation/consciousness: patient oriented x3 Limitations: no limitations HEENT: Head: Yes normal to inspection Ears: hearing grossly normal bilaterally General nose exam: Normal external nose present Face and sinus: Yes normal facial exam Mouth: Normal oral and palatal mucosa present Throat: Yes posterior oropharynx normal Eyes: General: appearance normal, both eyes and all related structures Pupils: Equal, round and reactive pupils present Neck: Neck: Yes normal visual inspection, Yes full ROM, Yes no lymphadenopathy and Yes no meningeal signs Chest: Chest palpation & inspection: normal inspection of the chest Resp: Effort & Inspection: normal respiratory effort Auscultation: clear to auscultation bilaterally Cardio: Rate: regular rate Rhythm: regular rhythm Peripheral pulses: Peripheral pulses 2+ throughout GI: Inspection: Yes normal to inspection Palpation (GI): Soft to palpation and nontender Auscultation: normal bowel sounds Back/Spine/Pelvis: Thoracic/Lumbar Spine: thoracic and lumbar spine normal to inspection Skin: General skin exam: no rashes or lesions noted Neuro: General: patient oriented x3, no meningeal signs, no focal motor deficits and normal sensation to monofilament Cranial nerves: Yes Equal, round and reactive pupils present Cognition (Neuro): normal cognition Speech: No Abnormal speech present Gait exam (Neuro): Normal gait present Motor exam (neuro): 5/5 motor strength present throughout Extrem: Other: Right hand is covered with a dressing and a splint Patient has some limited range of motion of his right 5th digit which he tells me he has had since the initial injury is not a new finding General: Yes normal to inspection Course Course Course Narrative: Patient feeling improved. Tolerating p.o.. Labs are unremarkable. I did take down his dressing and splint and looked at his wound. He tells me that it looks good overall and there is less swelling and redness and there have been before. A new dressing was placed as well as a splint. Plan for discharge home. Patient has a follow-up on 09/21 with his orthopedic. He to believe that his nausea and vomiting is likely secondary to his recent antibiotic use. Recommend he take this with food Reviewed worrisome signs and symptoms of when to return to the emergency room. Comfortable plan for discharge home. Medications Administered Discontinued Medications Generic Name Dose Route Start Last Admin Trade Name [place] PRN Reason Stop Dose Admin Sodium Chloride 1,000 mls @ 999 mls/hr 09/18/22 06:48 09/18/22 08:30 Ns IV 09/18/22 07:48 Infused .Q1H1M STA Infusion Ketorolac Tromethamine 30 mg 09/18/22 08:36 09/18/22 09:27 Ketorolac Tromethamine 30 Mg/Ml Vial IVPUSH 09/18/22 08:37 30 mg ONCE ONE Administration Morphine Sulfate 4 mg 09/18/22 06:47 09/18/22 07:26 Morphine Sulfate 4 Mg/Ml Cartridge IVPUSH 09/18/22 06:48 4 mg ONCE ONE Administration Protocol Ondansetron HCl 4 mg 09/18/22 06:47 09/18/22 07:26 Ondansetron Hcl 4 Mg/2 Ml Vial IVPUSH 09/18/22 06:48 4 mg ONCE ONE Administration Ondansetron HCl 4 mg 09/18/22 08:36 09/18/22 09:27 Ondansetron Hcl 4 Mg/2 Ml Vial IVPUSH 09/18/22 08:37 4 mg ONCE ONE Administration Procedures Orthopedic Splinting/Casting Injury #1: Side: right Upper Extremity Injury Location: hand Upper Extremity Immobilizer: ulnar gutter (modified) Medical Decision Making Medical Decision Making MDM Narrative: This is a 47-year-old male who suffered a right 5th metacarpal fracture with subsequent infection requiring incision and drainage in the OR on 09/15 sent home for 14 with oral doxycycline who presents to the ER with complaints of nausea, vomiting, headache in inability to take his pain medication at home. On arrival vitals are stable. Lungs are clear. No focal neurological deficits. No meningeal signs or lymphadenopathy. Patient is actively vomiting. Right upper extremity is in a splint and a bandage. Sensation is intact distally as well as range of motion. Will obtain lab. Will give IV fluids, antiemetic and analgesia and reassess Differential Diagnosis Differential Diagnoses: The differential diagnosis associated with the presentation includes Lab Data 09/18/22 07:47 09/18/22 07:47 Labs: Lab Results 09/18/22 09/18/22 09/18/22 Range/Units 07:47 07:47 07:47 WBC 8.9 (4.8-10.8) X10*3/uL RBC 5.51 (4.60-5.80) X10*6/uL Hgb 16.3 (14.0-18.0) g/dl Hct 48.0 (42.0-52.0) % MCV 87.1 (80.0-98.0) fL MCH 29.6 (27.0-33.0) pg MCHC 34.0 (31.0-36.0) g/dl RDW 14.3 (11.0-16.0) % Plt Count 284 (160-400) X10*3/uL MPV 9.5 (9.4-12.4) fL Immature Gran % (Auto) Cancelled Neut % (Auto) Cancelled Lymph % (Auto) Cancelled [place] % (Auto) Cancelled Eos % (Auto) Cancelled Baso % (Auto) Cancelled Lymph # (Auto) Cancelled [place] # (Auto) Cancelled Eos # (Auto) Cancelled Baso # (Auto) Cancelled Abs Immat Gran (auto) Cancelled Absolute Neuts (auto) Cancelled Absolute Nucleated RBC 0.000 (0.0-0.012) X10*3/uL Nucleated RBC % (auto) 0.0 (0.0-0.2) /100WBC Neutrophils % (Manual) 73 (45-73) % Band Neutrophils % 1 L (3-5) % Lymphocytes % (Manual) 22 (20-40) % Monocytes % (Manual) 3 (2-11) % Basophils % (Manual) 1 (0-2) % Abs Neuts (Manual) 6.6 (2.0-8.3) X10*3/uL Lymphocytes # (Manual) 2.0 (1.2-4.9) X10*3/uL Monocytes # (Manual) 0.3 (0.1-1.2) X10*3/uL Basophils # (Manual) 0.1 (0.0-0.2) X10*3/uL Platelet Estimate NORMAL (NORMAL) Large Platelets PRESENT Plt Morphology Comment NOTED RBC Morphology NORMAL Sodium 136 (135-145) mmol/L Potassium 4.3 (3.3-5.1) mmol/L Chloride 102 (96-108) mmol/L Carbon Dioxide 25 (22-29) mmol/L Anion Gap 13 (12-20) BUN 7 L (9-16) mg/dL Creatinine 0.72 (0.5-1.4) mg/dL Estim Creat Clear Calc 136.2 Estimated GFR > 60 Random Glucose 96 (60-115) mg/dL Lactic Acid 1.6 (0.5-2.0) mmol/L Calcium 8.9 (8.4-10.2) mg/dL Total Bilirubin 0.3 (0.0-1.0) mg/dL Direct Bilirubin 0.1 (0.0-0.5) mg/dL AST 26 (5-37) U/L ALT 22 (0-40) U/L Alkaline Phosphatase 82 (39-117) U/L Total Protein 6.6 (6.5-8.0) g/dL Albumin 4.1 (3.5-5.0) g/dL Discharge Plan Discharge Clinical Impression: Medication reaction Patient Disposition: Home, Self-Care Instructions: Acute Nausea and Vomiting (ED) Additional Instructions: Make sure that your taking your doxycycline with a full meal. Nausea and vomiting are common side of Keep your appointment with your orthopedic doctor this week Prescriptions: New ondansetron 4 mg tablet,disintegrating 4 mg PO Q6H PRN (Reason: nausea and vomiting) Qty: 10 0RF No Action clonidine HCl 0.2 mg tablet 0.2 mg PO BID Qty: 60 6RF sertraline 100 mg tablet 150 mg PO DAILY 30 Days Qty: 45 3RF baclofen 20 mg tablet 20 mg PO DAILY 30 Days Qty: 30 2RF gabapentin 800 mg tablet 800 mg PO TID 30 Days Qty: 90 2RF albuterol sulfate [Ventolin HFA] 90 mcg/actuation HFA aerosol inhaler 1 inh inhalation QID Qty: 18 1RF tramadol 50 mg tablet 100 mg PO Q8H 30 Days Qty: 180 1RF oxycodone-acetaminophen 5-325 mg tablet 1 - 2 tab PO Q6H PRN (Reason: pain) doxycycline hyclate 100 mg tablet 100 mg PO BID 10 Days Qty: 20 0RF oxycodone 5 mg tablet 5 mg PO Q8H PRN (Reason: pain) 7 Days Qty: 21 0RF Rx Instructions: Partial Fill upon patient request. Referrals: Lucas Yao PA-C [Primary Care Provider] - 1 week
[2022-09-18] MEDS: 0.9 % Sodium Chloride 1,000 ML 999 ML IV (07:26)
[2022-09-18] MEDS: Morphine Sulfate 4 MG/ML CARTRIDGE IVPUSH (07:26)
[2022-09-18] MEDS: ondansetron HCL 4 MG/2 ML VIAL IVPUSH ×2 (07:26→09:27)
[2022-09-18 07:37] VITALS: BP 137/91; PULSE 69; RESP 14; TEMP 36.9; O2SAT 99
[2022-09-18 07:56] LABS: Hemoglobin 16.3 g/dl (14.0-18.0); Mean Corpuscular Hemoglobin 29.6 pg (27.0-33.0); Mean Corpuscular Volume 87.1 fL (80.0-98.0); Mean Platelet Volume 9.5 fL (9.4-12.4); Platelet Count 284 X10*3/uL (160-400); Red Blood Count 5.51 X10*6/uL (4.60-5.80); Red Cell Distribution Width 14.3 % (11.0-16.0)
[2022-09-18 08:10] LABS: WBC ABN SCTR FOR CBC 1
[2022-09-18 08:15] LABS: Lactic Acid 1.6 mmol/L (0.5-2.0)
[2022-09-18 08:20] LABS: Alanine Aminotransferase 22 U/L (0-40); Albumin Level 4.1 g/dL (3.5-5.0); Alkaline Phosphatase 82 U/L (39-117); Anion Gap 13 (12-20); Aspartate Amino Transferase 26 U/L (5-37); Bilirubin Direct 0.1 mg/dL (0.0-0.5); Bilirubin Total 0.3 mg/dL (0.0-1.0); Blood Urea Nitrogen 7 mg/dL (9-16); Calcium 8.9 mg/dL (8.4-10.2); Carbon Dioxide 25 mmol/L (22-29); Chloride 102 mmol/L (96-108); Creatinine Clr Calc Pharmacy 136.2; Estimated Glomerular Filt Rate > 60; Glucose Random 96 mg/dL (60-115); Potassium 4.3 mmol/L (3.3-5.1); Sodium 136 mmol/L (135-145); Total Protein 6.6 g/dL (6.5-8.0)
[2022-09-18 08:21] LABS: Band Neutrophils Percent 1 % (3-5); Basophils Percent Manual 1 % (0-2); Lymphocytes Percent Manual 22 % (20-40); Monocytes Percent Manual 3 % (2-11); Neutrophils Percent Manual 73 % (45-73)
[2022-09-18 08:22] LABS: RBC Morphology NORMAL
[2022-09-18 08:23] LABS: Large Platelet PRESENT; Platelet Estimate NORMAL (NORMAL); Platelet Morphology Comment NOTED
[2022-09-18 08:29] LABS: Basophils Abs Manual 0.1 X10*3/uL (0.0-0.2); Monocytes Absolute Manual 0.3 X10*3/uL (0.1-1.2); Neutrophils Absolute Manual 6.6 X10*3/uL (2.0-8.3); White Blood Count 8.9 X10*3/uL (4.8-10.8)
[2022-09-18] MEDS: Ketorolac Tromethamine 30 MG/ML VIAL IVPUSH (09:27)
== END 2022-09-18 11:01 | disposition home or self-care (01) ==
PROVIDERS: Nurse Practitioner Family; Emergency Provider Emergency Medicine; PCP Physician Assistant
DX: S62.306A Unspecified fracture of fifth metacarpal bone, right hand, initial encounter for closed fracture (principal); T36.4X5A Adverse effect of tetracyclines, initial encounter; G44.40 Drug-induced headache, not elsewhere classified, not intractable; R11.2 Nausea with vomiting, unspecified; Y92.9 Unspecified place or not applicable; X58.XXXA Exposure to other specified factors, initial encounter; Y93.9 Activity, unspecified; Y99.9 Unspecified external cause status; Z87.891 Personal history of nicotine dependence; Z79.899 Other long term (current) drug therapy
CPT/HCPCS: 29125; 36415; 80048; 80076; 83605; 85007; 85025; 85027; 87040; 96374; 96375; 96376; 99284; 99285; J1885; J2270; J2405

== ENCOUNTER 2022-09-21 10:58 | Outpatient (REF) | payer OTHER, SELFPAY ==
--- NOTE | ~2022-09-21 | XR_ITS ---
EXAMINATION: XR HAND, RIGHT CLINICAL INFORMATION: Right hand pain COMPARISON: 09/13/2022 TECHNIQUE: PA, lateral, and oblique views of the right hand. FINDINGS: Interval removal of K wire affixes the fifth metacarpal fracture. Redemonstration of obliquely oriented fifth metacarpal fracture with volar angulation of the distal fracture fragment, with mild surrounding osteophytosis. Soft tissue swelling about the hand. XR/XR hand RT min 3V IMPRESSION: Interval removal of K wire affixes the fifth metacarpal fracture. Persistent volar angulation of the distal fracture fragment.
== END 2022-09-21 10:59 | disposition home or self-care (01) ==
LOC: HO.HOSX 10:58
PROVIDERS: PCP Physician Assistant; Visit Provider Physician Assistant
DX: S62.306D Unspecified fracture of fifth metacarpal bone, right hand, subsequent encounter for fracture with routine healing (principal); L03.113 Cellulitis of right upper limb; R20.0 Anesthesia of skin; R20.2 Paresthesia of skin; M25.531 Pain in right wrist; X58.XXXD Exposure to other specified factors, subsequent encounter
CPT/HCPCS: 73130; 99212

== ENCOUNTER 2022-09-21 10:58 | Outpatient (AMB) | payer OTHER, SELFPAY ==
--- NOTE | 2022-09-21 11:11 | MHC.OFFVIS ---
Intake Intake Visit Reasons: PO R Hand I&D 09/15/22 Infection check AR Intake Note: Delvis is a 47 year old right hand dominant male who presents today for a wound check s/p right hand I&D, 09/15/22 AR. Patient reports having a lot of pain. Having numbness and tingling on the last to fingers of his right hand. Having concerns of sharp pain on his right wrist. Allergies cat dander [cats] Allergy (Unknown, Verified 09/21/22 11:14) Unknown HPI PO R Hand I&D 09/15/22 Infection check AR HPI Details 47-year-old right hand dominant male who presents in the office today for a wound check; 5 days status post right hand I&D and right 5th metacarpal fracture and removal of implant, which was performed on 09/15/[address] Russo. The patient reports having a lot of pain. He claims to have numbness and tingling on the last digits of the right hand. He is also concerned about a sharp pain in his right wrist. [facility] Medical History Anxiety Foreign body in stomach Incisional hernia Peptic ulcer disease Perforated duodenal ulcer Right hand fracture Surgical History H/O Spinal surgery History of colonoscopy History of endoscopy History of esophagogastroduodenoscopy (EGD) History of gastric surgery History of incisional hernia repair Family History Father CAD (coronary artery disease) NIDDY (non-insulin dependent diabetes mellitus in young) Hypertension Mother CAD (coronary artery disease) Hypertension Social History Household Members: Children Housing: Apartment Do you presently have visiting nurse or other home services: No Alcohol intake: current Alcohol intake frequency: a few times a week Alcohol type: beer Patient Tobacco Use Status: Former Tobacco user Quit Date: yesterday Tobacco use type: Cigarette Cigarette Packs Per Day: 1 Cigarettes Per Day: 3 Years Smoked: 30 e-Cigarette/Vaping Use: Never Used Second Hand Smoke Exposure: No Substance Use Type: Marijuana service: No Current occupational status: unemployed 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, 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 Cognitive needs: No Hearing needs: No Vision needs: No Review of Systems Const All systems reviewed & are unremarkable except as noted in HPI and below Physical Exam Const General: cooperative and no acute distress Orientation/consciousness: patient oriented x3 Resp Effort & Inspection: normal respiratory effort and able to speak in complete sentences Cardio Rate: regular rate Peripheral pulses: Peripheral pulses 2+ throughout GI Palpation (GI): Soft to palpation Skin Lesions: no lesions Rashes: no rashes Neuro General: patient oriented x3 Extrem Other: Right hand: Dorsal sided incision site over the 5th metacarpal is intact. Sutures intact. Slight erythema. No active drainage. Able to perform finger flexion and extension but slightly limited. Sensation intact. Capillary refill is brisk. Psych Mental Status: mental status grossly normal Assessment & Plan Assessment & Plan (1) Open fracture of fifth metacarpal bone of right hand: Code(s): S62.306B - Unspecified fracture of fifth metacarpal bone, right hand, initial encounter for open fracture (2) Cellulitis of right hand: Code(s): L03.113 - Cellulitis of right upper limb Plan Mr. Hamlin is a 47-year-old right hand dominant male who presents in the office today for a wound check; 5 days status post right hand I&D and right 5th metacarpal fracture and removal of implant, which was performed on 09/15/[address] Russo. The patient reports having a lot of pain. He claims to have numbness and tingling on the last digits of the right hand. He is also concerned about a sharp pain in his right wrist. Dr. Russo was available to see the patient with me while in the office today and is in agreement with the plan of treatment. The patient will continue to take his PO antibiotics until he has completed his course. He will follow up in 1 week for a wound check, or sooner if needed. X-rays of the right hand which were obtained while in the office today and were reviewed by me, Bella Morillo PA-C, revealed bone callus formation noted around the fracture site. Orders: Orders XR hand RT min 3V Today M79.643 - Pain in unspecified hand Patient Instructions: Scribed for Bella Morillo PA-C by Josi Grayson medical records clerk, on 09/21/2022 at 10:59 am, EST. I, Bella Morillo PA-C, have personally reviewed and agreed with the information entered by the medical records clerk. Coding Level of Care Code Global (07529) Diagnoses Open fracture of fifth metacarpal bone of right hand S62.306B Cellulitis of right hand L03.113
== END 2022-09-21 12:19 | disposition home or self-care (01) ==
LOC: HO.HOS 10:58
PROVIDERS: PCP Physician Assistant; Visit Provider Physician Assistant
DX: M79.641 Pain in right hand (principal); L03.113 Cellulitis of right upper limb
CPT/HCPCS: 99024

== ENCOUNTER → 2022-09-27 11:12 | Outpatient (BNVA) | payer OTHER, SELFPAY | PROVIDERS: PCP Physician Assistant; Visit Provider Physician Assistant | DX: L03.113 Cellulitis of right upper limb (principal); S62.306D Unspecified fracture of fifth metacarpal bone, right hand, subsequent encounter for fracture with routine healing | CPT/HCPCS: 99212 ==

== ENCOUNTER → 2022-10-07 09:59 | Outpatient (BNVA) | payer OTHER, SELFPAY | PROVIDERS: PCP Physician Assistant; Visit Provider Internal Medicine | DX: M51.16 Intervertebral disc disorders with radiculopathy, lumbar region (principal); M54.81 Occipital neuralgia | CPT/HCPCS: 64405; 64450; 99212; J2795; J3301 ==

== ENCOUNTER 2022-10-11 08:17 | Outpatient (REF) | payer OTHER, SELFPAY ==
--- NOTE | ~2022-10-11 | XR_ITS ---
EXAMINATION: XR HAND, RIGHT CLINICAL INFORMATION: Pain in hand. COMPARISON: Right hand 09/21/2022 TECHNIQUE: PA, lateral, and oblique views of the right hand. FINDINGS: There is old oblique distal fifth metacarpal fracture with abundant callus formation. The fracture line is still visualized. There is a volar angulation. No new fracture seen. The soft tissues are normal. XR/XR hand RT min 3V IMPRESSION: Old oblique distal fifth metacarpal fracture with abundant callus formation. The fracture line is still visualized. There is mild volar angulation. No change from 09/21/2022 exam.
== END 2022-10-11 08:18 | disposition home or self-care (01) ==
LOC: HO.HOSX 08:17
PROVIDERS: Visit Provider Physician Assistant
DX: S62.306B Unspecified fracture of fifth metacarpal bone, right hand, initial encounter for open fracture (principal); L03.113 Cellulitis of right upper limb
CPT/HCPCS: 73130; 99212

== ENCOUNTER → 2022-10-24 08:22 | Outpatient (BNVA) | payer OTHER, SELFPAY | PROVIDERS: PCP Physician Assistant; Visit Provider Internal Medicine | DX: M48.02 Spinal stenosis, cervical region (principal) | CPT/HCPCS: 99212 ==

== ENCOUNTER 2022-10-24 14:54 | Emergency (ER) | payer OTHER, SELFPAY ==
[2022-10-24 15:08] VITALS: BP 158/105; PULSE 92; RESP 20; TEMP 36.9; O2SAT 97; BMI 23.7
--- NOTE | 2022-10-24 15:10 | ED.GENADULT ---
HPI - General Adult General Chief complaint: Headache Stated complaint: high bp Time Seen by Provider: 10/24/22 16:11 Source: patient Mode of arrival: ambulatory Limitations: no limitations History of Present Illness HPI narrative: Patient is a 47 year old assigned male at with a history of chronic pain presenting to the emergency department today with elevated blood pressure. Patient states that he was at his chronic pain providers office when he was told he had elevated blood pressure. Patient states that he was told to come here to have that evaluated. Patient states that he was in a lot of pain previously and used all of his medications. Patient denies any dizziness, lightheadedness, abdominal pain, nausea, vomiting, fever, chills, blurry vision, double vision, loss of vision, chest pain, difficulty breathing, shortness of breath, back pain, night sweats, pain with urination, increased urinary frequency, increased urinary urgency, blood in his urine or stool, syncope or a near syncopal episode, recent trauma or falls, bowel incontinence, bladder incontinence, bowel retention, bladder retention, or any other complaints at this time. Relieving factors: none Exacerbating factors: none Associated symptoms: denies other symptoms Treatments prior to arrival: none Related Data Previous Rx's Medication Instructions Recorded ondansetron 4 mg disintegrating 4 mg PO Q6H PRN nausea and 09/18/22 tablet vomiting #10 tabs clonidine HCl 0.2 mg tablet 0.2 mg PO BID #60 tabs 09/27/22 sertraline 100 mg tablet 150 mg PO DAILY 30 days #45 tabs 09/28/22 baclofen 20 mg tablet 20 mg PO DAILY 30 days #30 tabs 09/29/22 tramadol 50 mg tablet 100 mg PO Q8H 30 days #180 tabs 09/29/22 albuterol sulfate 90 mcg/actuation 1 inh inhalation QID #18 ea 10/05/22 aerosol inhaler (Ventolin HFA) pregabalin 200 mg capsule 200 mg PO TID #90 caps 10/24/22 Allergies Allergy/AdvReac Type Severity Reaction Status Date / Time cat dander [cats] Allergy Unknown Unknown Verified 10/24/22 08:27 Review of Systems Constitutional: Constitutional: Reports no additional constitutional complaints, Denies chills, Denies fever(s) and Denies night sweats Eyes: Eyes: Reports no additional eye complaints, Denies blurry vision, Denies change in vision, Denies diplopia, Denies eye discharge, Denies loss of vision and Denies eye pain ENT: Denies dizziness Cardiovascular: Cardiovascular: Reports no additional cardiovascular complaints, Denies chest pain, Denies lightheadedness, Denies Loss of Consciousness and Denies dyspnea Respiratory: Respiratory: Reports no additional respiratory complaints and Denies dyspnea Gastrointestinal: Gastrointestinal: Reports no additional gastrointestinal complaints, Denies abdominal pain, Denies melena, Denies hematochezia, Denies change in bowel habits and Denies change in stool character Genitourinary: Genitourinary: Reports no additional male genitourinary complaints, Denies hematuria, Denies oliguria, Denies difficulty urinating, Denies dysuria, Denies urinary frequency, Denies urinary hesitancy, Denies urinary incontinence and Denies urinary urgency Musculoskeletal: Musculoskeletal: Reports no additional musculoskeletal complaints, Denies numbness and Denies tingling Neurologic: Denies dizziness, Denies loss of vision, Denies numbness and Denies tingling Psychiatric: Psychiatric: Reports no additional psychiatric complaints Endocrine: Endocrine: Reports no additional endocrine complaints Hematologic/Lymphatic: Hematologic/Lymphatic: Reports no additional hematologic/lymphatic complaints Allergic/Immunologic: Allergic/Immunologic: Reports no additional allergic/immunologic complaints [facility] Past Medical History Attestation statement: The following information was validated with the patient. Source: old records reviewed and nursing notes reviewed Medical History Anxiety Foreign body in stomach Incisional hernia Peptic ulcer disease Perforated duodenal ulcer Right hand fracture Surgical History H/O Spinal surgery History of colonoscopy History of endoscopy History of esophagogastroduodenoscopy (EGD) History of gastric surgery History of incisional hernia repair Family History Family History Father CAD (coronary artery disease) NIDDY (non-insulin dependent diabetes mellitus in young) Hypertension Mother CAD (coronary artery disease) Hypertension Social History Social History Household Members: Children Housing: Apartment Do you presently have visiting nurse or other home services: No Alcohol intake: current Alcohol intake frequency: a few times a week Alcohol type: beer Patient Tobacco Use Status: Former Tobacco user Quit Date: yesterday Tobacco use type: Cigarette Cigarette Packs Per Day: 1 Cigarettes Per Day: 3 Years Smoked: 30 e-Cigarette/Vaping Use: Never Used Second Hand Smoke Exposure: No Substance Use Type: Marijuana Advance Directives: No Advance Directives Information Provided: Yes service: No Current occupational status: unemployed 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, 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 Cognitive needs: No Hearing needs: No Vision needs: No Physical Exam ED Vital Signs: Vital Signs - 24 hr 10/24/22 15:08 10/24/22 18:08 Temperature 98.4 F 97.9 F Pulse Rate 92 92 Respiratory Rate 20 18 Blood Pressure 158/105 H 135/98 H Pulse Oximetry 97 95 Oxygen Delivery Method Room Air Room Air BMI result Body Mass Index 23.7 Const General: cooperative, no acute distress, alert and awake Nutritional Appearance: well nourished Orientation/consciousness: patient oriented x3 Limitations: no limitations HENMT Head: Yes normal to inspection and Yes atraumatic Ears: hearing grossly normal bilaterally and external ears normal General nose exam: Normal external nose present, no nasal discharge noted and no epistaxis Face and sinus: Yes normal facial exam, No abrasion and No laceration Mouth: Normal oral and palatal mucosa present, no drooling and no muffled voice Eyes General: appearance normal, both eyes and all related structures Periorbital: periorbital findings normal Eyelids: Yes eyelids normal Conjunctivae: conjunctivae normal Pupils: Equal, round and reactive pupils present EOM: EOMs intact bilaterally Neck Neck: Yes normal visual inspection, Yes full ROM and Yes no lymphadenopathy Chest Chest palpation & inspection: normal inspection of the chest Resp Effort & Inspection: normal respiratory effort and able to speak in complete sentences Cardio Rate: regular rate Rhythm: regular rhythm GI Inspection: Yes normal to inspection Neuro General: patient oriented x3 and moves all extremities Cranial nerves: Yes Equal, round and reactive pupils present Cognition (Neuro): normal cognition Motor exam (neuro): 5/5 motor strength present throughout Sensory Exam: Normal double simultaneous stimulation for sensation Coordination: [id number] test normal Extrem General: Yes normal to inspection, Yes full ROM and Yes capillary refill normal Psych Appearance: grossly normal Mental Status: mental status grossly normal Affect: normal affect Attitude: cooperative Thought process: Normal thought process present Thought content: Normal thought content present Insight: Good insight present (Psych) Course Course Course Narrative: This is a rapid medical exam. Deferred additional HPI, ROS, PE to primary provider. 47 yo male here from pain management with concern for high blood pressure and headaches. patient denies history of HTN. is taking clonidine for anxiety but ran out of his meds and insurance wont refill them. bp 150/100 in triage. Will check labs, EKG Medical Decision Making Medical Decision Making [facility] Narrative: Patient is a 47 year old assigned male at with a history of chronic pain presenting to the emergency department today with elevated blood pressure. Patient's physical exam was unremarkable. Patient's blood work was unremarkable. Patient's EKG was unremarkable. I explained my physical exam findings as well as all test results to the patient. I answered all questions asked by the patient. I stressed the importance of the patient taking his medication as prescribed. I stressed the importance of the patient following up with his primary care provider and his chronic pain provider. I stressed the importance of the patient returning to the emergency department immediately if his symptoms were to worsen or if he were to develop any dizziness, shortness of breath, difficulty breathing, chest pain, blurry vision, loss of vision, nausea, vomiting, abdominal pain, fever, chills, back pain, or any other complaints. Patient verbalized agreement and understanding with this treatment plan and discharge. Differential Diagnosis Differential Diagnoses: The differential diagnosis associated with the presentation includes chronic pain, elevated blood pressure reading Lab Data [facility] Lab Attestation statement: I reviewed the patient's lab results. 10/24/22 17:12 10/24/22 17:12 Labs: Lab Results 10/24/22 10/24/22 10/24/22 Range/Units 17:12 17:12 17:12 WBC 10.2 (4.8-10.8) X10*3/uL RBC 5.57 (4.60-5.80) X10*6/uL Hgb 16.8 (14.0-18.0) g/dl Hct 48.2 (42.0-52.0) % MCV 86.5 (80.0-98.0) fL MCH 30.2 (27.0-33.0) pg MCHC 34.9 (31.0-36.0) g/dl RDW 15.0 (11.0-16.0) % Plt Count 271 (160-400) X10*3/uL MPV 9.0 L (9.4-12.4) fL Immature Gran % (Auto) 1.1 H (0.0-0.4) % Neut % (Auto) 62.5 (45-73) % Lymph % (Auto) 27.6 (20-40) % Archer % (Auto) 7.6 (2-11) % Eos % (Auto) 0.7 (0-4) % Baso % (Auto) 0.5 (0-2) % Lymph # (Auto) 2.8 (1.2-4.9) X10*3/uL Archer # (Auto) 0.8 (0.1-1.2) X10*3/uL Eos # (Auto) 0.1 (0.0-0.4) X10*3/uL Baso # (Auto) 0.1 (0.0-0.2) X10*3/uL Abs Immat Gran (auto) 0.11 H (0.00-0.03) X10*3/uL Absolute Neuts (auto) 6.4 (2.0-8.3) x10*3/uL Absolute Nucleated RBC 0.000 (0.0-0.012) X10*3/uL Nucleated RBC % (auto) 0.0 (0.0-0.2) /100WBC Sodium 133 L (135-145) mmol/L Potassium 4.1 (3.3-5.1) mmol/L Chloride 99 (96-108) mmol/L Carbon Dioxide 22 (22-29) mmol/L Anion Gap 16 (12-20) BUN 3 L (9-16) mg/dL Creatinine 0.65 (0.5-1.4) mg/dL Estim Creat Clear Calc 150.8 Estimated GFR > 60 Random Glucose 86 (60-115) mg/dL Calcium 9.4 (8.4-10.2) mg/dL Troponin I High Sens < 2.7 (<3.5-35.0) ng/L Independent Interpretation I performed an independent interpretation of an: EKG Interpretation: Ventricular rate: 77bpm VT interval: 146ms QRS Duration: 94ms QT/QTC-Baz: 398/450 P-R-T axes: 47 68 67 Normal sinus rhythm Performed at 1748 Discharge Plan Discharge Clinical Impression: Hypertension Patient Disposition: Home, Self-Care Instructions: Hypertension (ED) Additional Instructions: Follow up with your primary care provider and your chronic pain specialist. Return to the emergency department immediately if your symptoms worsen or if you develop any dizziness, shortness of breath, difficulty breathing, chest pain, blurry vision, loss of vision, nausea, vomiting, abdominal pain, fever, chills, back pain, or any other complaints. Prescriptions: No Action clonidine HCl 0.2 mg tablet 0.2 mg PO BID Qty: 60 6RF sertraline 100 mg tablet 150 mg PO DAILY 30 Days Qty: 45 3RF baclofen 20 mg tablet 20 mg PO DAILY 30 Days Qty: 30 6RF tramadol 50 mg tablet 100 mg PO Q8H 30 Days Qty: 180 1RF albuterol sulfate [Ventolin HFA] 90 mcg/actuation HFA aerosol inhaler 1 inh inhalation QID Qty: 18 3RF ondansetron 4 mg tablet,disintegrating 4 mg PO Q6H PRN (Reason: nausea and vomiting) Qty: 10 0RF pregabalin 200 mg capsule 200 mg PO TID Qty: 90 0RF Referrals: Lucas Yao PA-C [Primary Care Provider] - Stand Alone Forms: Work/School Release Print Language: Hungarian
[2022-10-24 17:18] LABS: MANUAL DIFF FLAG NO
[2022-10-24 17:27] LABS: Basophils Absolute Auto 0.1 X10*3/uL (0.0-0.2); Basophils Percent Auto 0.5 % (0-2); Eosinophils Absolute Auto 0.1 X10*3/uL (0.0-0.4); Eosinophils Percent Auto 0.7 % (0-4); Hematocrit 48.2 % (42.0-52.0); Hemoglobin 16.8 g/dl (14.0-18.0); Imm Gran Abs Auto 0.11 X10*3/uL (0.00-0.03); Imm Gran Pct Auto 1.1 % (0.0-0.4); Lymphocytes Absolute Auto 2.8 X10*3/uL (1.2-4.9); Lymphocytes Percent Auto 27.6 % (20-40); Mean Corpuscular HGB Conc 34.9 g/dl (31.0-36.0); Mean Corpuscular Hemoglobin 30.2 pg (27.0-33.0); Mean Corpuscular Volume 86.5 fL (80.0-98.0); Monocytes Absolute Auto 0.8 X10*3/uL (0.1-1.2); Monocytes Percent Auto 7.6 % (2-11); Neutrophils Absolute Auto 6.4 x10*3/uL (2.0-8.3); Neutrophils Percent Auto 62.5 % (45-73); Platelet Count 271 X10*3/uL (160-400); Red Blood Count 5.57 X10*6/uL (4.60-5.80); White Blood Count 10.2 X10*3/uL (4.8-10.8)
[2022-10-24 17:39] LABS: Anion Gap 16 (12-20); Blood Urea Nitrogen 3 mg/dL (9-16); Calcium 9.4 mg/dL (8.4-10.2); Carbon Dioxide 22 mmol/L (22-29); Chloride 99 mmol/L (96-108); Creatinine Clr Calc Pharmacy 150.8; Estimated Glomerular Filt Rate > 60; Glucose Random 86 mg/dL (60-115); Potassium 4.1 mmol/L (3.3-5.1); Sodium 133 mmol/L (135-145)
[2022-10-24 17:48] LABS: Troponin-I High Sensitivity < 2.7 ng/L (<3.5-35.0)
[2022-10-24 18:08] VITALS: BP 135/98; PULSE 92; RESP 18; TEMP 36.6; O2SAT 95
[2022-10-24] MEDS: traMADoL HCL 50 MG TABLET 100 MG PO (18:18)
== END 2022-10-24 18:27 | disposition home or self-care (01) ==
PROVIDERS: Nurse Practitioner Family; Emergency Provider Student in an Organized Health Care Education/Training Program; PCP Physician Assistant
DX: I10 Essential (primary) hypertension (principal); Z87.891 Personal history of nicotine dependence; F12.90 Cannabis use, unspecified, uncomplicated
CPT/HCPCS: 36415; 80048; 84484; 85025; 99283; 99284

== ENCOUNTER 2022-10-27 13:47 | Outpatient (REF) | payer OTHER, SELFPAY | END 2022-10-27 13:48 | disposition home or self-care (01) | LOC: HO.HOSX 13:47 | PROVIDERS: Visit Provider Orthopaedic Surgery | DX: Z13.89 Encounter for screening for other disorder (principal) ==

== ENCOUNTER 2022-11-01 08:05 | Outpatient (REF) | payer OTHER, SELFPAY | END 2022-11-01 08:06 | disposition home or self-care (01) | LOC: HO.HOSX 08:05 | PROVIDERS: Visit Provider Orthopaedic Surgery | DX: Z13.89 Encounter for screening for other disorder (principal) ==

== ENCOUNTER → 2022-11-16 11:33 | Outpatient (BNVA) | payer OTHER, SELFPAY | PROVIDERS: PCP Physician Assistant; Visit Provider Neurological Surgery | DX: M47.12 Other spondylosis with myelopathy, cervical region (principal); M47.22 Other spondylosis with radiculopathy, cervical region | CPT/HCPCS: 99202 ==

== ENCOUNTER → 2022-12-12 10:43 | Outpatient (BNV) | payer OTHER, SELFPAY | PROVIDERS: Absent Provider Physician Assistant; Admitting Provider Neurological Surgery; PCP Physician Assistant; Referring Provider Nurse Practitioner Family; Visit Provider Internal Medicine Cardiovascular Disease | DX: Z01.818 Encounter for other preprocedural examination (principal); M47.12 Other spondylosis with myelopathy, cervical region; M47.22 Other spondylosis with radiculopathy, cervical region | CPT/HCPCS: 93010 ==

== ENCOUNTER 2022-12-13 10:43 | Outpatient (REF) | payer OTHER, SELFPAY ==
--- NOTE | ~2022-12-13 | XR_ITS ---
EXAMINATION: XR HAND, RIGHT CLINICAL INFORMATION: Pain COMPARISON: 10/11/2022 TECHNIQUE: PA, lateral, and oblique views of the right hand. FINDINGS: Progressive healing of the distal fifth metacarpal fracture seen with prominent bony callus formation. The fracture lines are now less distinct from prior consistent with progressive healing. No additional acute fracture or dislocation XR/XR hand RT min 3V IMPRESSION: Progressive healing of the distal fifth metacarpal fracture.
== END 2022-12-13 10:44 | disposition home or self-care (01) ==
LOC: HO.HOSX 10:43
PROVIDERS: PCP Physician Assistant; Visit Provider Orthopaedic Surgery
DX: S62.306D Unspecified fracture of fifth metacarpal bone, right hand, subsequent encounter for fracture with routine healing (principal); M79.641 Pain in right hand; L03.113 Cellulitis of right upper limb; X58.XXXD Exposure to other specified factors, subsequent encounter
CPT/HCPCS: 73130; 99212

== ENCOUNTER 2022-12-13 10:43 | Outpatient (AMB) | payer OTHER, SELFPAY ==
--- NOTE | 2022-12-13 10:47 | A.OFFVIS_ITS ---
Intake Vital Signs 12/13/22 10:48 Height 6 ft Weight 175 lb BMI 23.7 Intake Visit Reasons: PO- R Hand I&D 09/15/22 AR Intake Note: Delvis, 47-year-old male presents today for his status post right hand I&D and right 5th metacarpal fracture and removal of implant, which was performed on 09/15/[address] Russo. Patient states his hand is very clumsy, weak, and difficulty picking items up. Xrays updated in office. Allergies cat dander [cats] Allergy (Unknown, Verified 12/13/22 11:02) Unknown HPI PO- R Hand I&D 09/15/22 AR HPI Details Delvis is a 47 year old right hand dominant man who presents S/P right hand I&D and small finger fracture I&D & removal of implant, DOS: 09/15/22. He complains of pain, weakness, and reported clumsiness of his right hand. He has difficulty picking up and grasping objects. He says his fingers refuse to cooperate with him. He says he is able to flower buncher or picker objects such as a barbell, but he has trouble with dexterity related tasks such as tying knots. He says it is difficult to attend OT as there is nothing close by for him to go to, and it is a long trip to [place]. He has been working on hand exercises at home. He reports some numbness in the small and ring fingers bilaterally. He says he has a hx of Cervical radiculopathy and is scheduled for a repeat ACDF with a laminectomy at the end of the month here at [place]. [facility] Medical History Alcohol dependence Anxiety Cervical disc disease Depression Foreign body in stomach GERD (gastroesophageal reflux disease) HTN (hypertension) Incisional hernia Lumbar disc disease Malignant neoplasm of shaft of penis Peptic ulcer disease Perforated duodenal ulcer Right hand fracture Surgical History H/O Spinal surgery History of colonoscopy History of endoscopy History of esophagogastroduodenoscopy (EGD) History of gastric surgery History of incision and drainage History of incisional hernia repair History of open reduction and internal fixation (ORIF) procedure Family History Father CAD (coronary artery disease) NIDDY (non-insulin dependent diabetes mellitus in young) Hypertension Mother CAD (coronary artery disease) Hypertension Social History Household Members: Children Housing: Apartment Are you a primary manager medicare to a significant other at home: No Do you presently have visiting nurse or other home services: No Alcohol intake: current Alcohol intake frequency: a few times a week Alcohol type: beer Patient Tobacco Use Status: Current everyday Tobacco user Tobacco use type: Cigarette Cigarette Packs Per Day: 1 Cigarettes Per Day: 2 Years Smoked: 35 e-Cigarette/Vaping Use: Never Used Second Hand Smoke Exposure: No Substance Use Type: Marijuana service: No Current occupational status: unemployed 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 His fracture is completely nontender to firm palpation. he can make a tight fist with good strength and no mal-rotation of the digit He can extend all his digits He has a bony bump on the dorsal aspect of the 5th metacarpal, non-tender to palpation He reports some clumsiness with fine motor skills He has dense numbness in the ulnar nerve distribution bilaterally Normal sensation in the median nerve distribution bilaterally He can abduct his fingers bilaterally. He can adduct his fingers, however has difficulty adduct ting the right small finger. This may be secondary to the position of his fracture healing. Cap refill is brisk Radiographs: 3 views of the right hand, with attention to the small finger, were taken and viewed by me today in clinic. They show some shortening of the 5th metacarpal, with good evidence of interval bony healing and no evidence of osteomyelitis Pathology report From 09/18/22 No sign of any culture growth Psych Appearance: grossly normal Affect: normal affect Attitude: cooperative Assessment & Plan Assessment & Plan (1) Open fracture of fifth metacarpal bone of right hand: Code(s): S62.306B - Unspecified fracture of fifth metacarpal bone, right hand, initial encounter for open fracture (2) Cellulitis of right hand: Code(s): L03.113 - Cellulitis of right upper limb Plan Assessment &Plan: 1. Right open 5th metacarpal neck/shaft fracture, S/P revision I&D due to cellulitis I&D removal of implant, DOS: 09/15/22 Patient got hand and operative site wet while washing dishes Longitudinal K-wire removed on 09/11/22 at [facility], and he did not flower buncher or picker the an tibiotics that were prescribed for him at [facility]. Original I&D, CRPP, DOS: 09/05/22 Radiographs show good evidence of interval bony healing and no evidence of osteomyelitis, though with some shorting of the 5th metacarpal He complains of some clumsiness of his hand, but he has not done any formal OT since his surgery I ordered OT hand therapy to work on ROM, strengthening, and normalizing hand fu nction 2. Right hand clumsiness & weakness particularly with opposition of his fingertips to the tip of his thumb 3. Bilateral ulnar nerve distribution numbness and tingling He has a hx of cervical radiculopathy He is scheduled for a repeat ACDF on 12/27/[address] [facility] He is going to follow-up with us in 2 months. If he continues to have numbness at his next appointment I would consider ordering a NCS to assess for peripheral neuropathy, to rule out a possible double-crush issue Scribed for Kalli Russo MD by Say Linares, medical billing representative, on 12/13/22 at 11:30 AM, EST. Orders: Orders XR hand RT min 3V Today M79.641 - Pain in right hand OT Evaluation and Treatment Today L03.113 - Cellulitis of right upper limb, S62.306B - Unspecified fracture of fifth metacarpal bone, right hand, initial encounter for open fracture Medications: Discontinued ondansetron 4 mg PO Q6H PRN 10 tabs 0RF nausea and vomiting baclofen 20 mg PO DAILY 30 days 30 tabs 6RF M48.02 - Spinal stenosis, cervical region tramadol 100 mg (2 x 50 mg) PO Q8H 30 days 180 tabs 1RF M51.16 - Intervertebral disc disorders with radiculopathy, lumbar region, M99.01 - Segmental and somatic dysfunction of cervical region sertraline 150 mg (1.5 x 100 mg) PO DAILY 30 days 45 tabs 3RF F41.9 - Anxiety disorder, unspecified Coding Level of Care Code Est Pt Level 3 (04125) Diagnoses Open fracture of fifth metacarpal bone of right hand S62.306B Cellulitis of right hand L03.113
[2022-12-13 10:48] VITALS: BMI 23.7
== END 2022-12-13 11:30 | disposition home or self-care (01) ==
PROVIDERS: PCP Physician Assistant; Visit Provider Orthopaedic Surgery
DX: S62.306D Unspecified fracture of fifth metacarpal bone, right hand, subsequent encounter for fracture with routine healing (principal); L03.113 Cellulitis of right upper limb
CPT/HCPCS: 99213

== ENCOUNTER 2022-12-13 13:32 | Outpatient (AMB) | payer OTHER, SELFPAY ==
[2022-12-13 13:23] VITALS: BP 122/74; PULSE 81; O2SAT 99; BMI 24.4
--- NOTE | 2022-12-13 13:23 | A.OFFPC_ITS ---
Vital Signs 12/13/22 13:23 Height 6 ft Weight 180 lb 4 oz BMI 24.4 BP 122/74 Blood Pressure Location Rt brachial Position Sitting Pulse 81 Pulse Source Pulse Oximeter Temp Source Skin Pulse Oximetry (%) 99 Oxygen Delivery Method Room Air Intake Visit Reasons: Cervical Spine Surgery 12/27 Intake Note: Patient is here for a Pre-op for Cervical SPine Surgery scheduled with on 12/27/22 [employer]op Punch [employer] Co[employer] Operator Required: No Allergies cat dander [cats] Allergy (Unknown, Verified 12/13/22 13:51) Unknown Medication List - Last Reconciled 12/13/22 by CHILO Rodriguez albuterol sulfate 90 mcg/actuation (Ventolin HFA) 1 inh inhalation QID baclofen 20 mg PO QAM buspirone 5 mg PO BID 30 days clonidine HCl 0.2 mg PO BID ondansetron 8 mg PO Q6H PRN pregabalin 200 mg PO TID sertraline 150 mg PO QAM tramadol 50 mg PO TID Tobacco use date assessed: 12/13/22 HPI HPI Comments History of Present Illness Details Patient is a 47-year-old male past medical history significant for cervical stenosis, lumbar spine stenosis, hypertension, smoker, peptic ulcer disease, alcohol dependence depression, cervical spine stenosis.Patient of Remi Yao last seen in August. Appointment for cervical spine surgery scheduled for 12/27/2022. Surgery to be complete under general anesthesia. Patient denies any previous complications to being under anesthesia in the past. Denies chest pain, palpitations, shortness of breath syncope. Laboratory Tests 12/12/22 12/12/22 12/12/22 10:46 10:46 10:46 WBC 9.7 RBC 4.92 Hgb 15.1 Hct 45.8 MCV 93.1 MCH 30.7 MCHC 33.0 RDW 14.1 Plt Count 272 MPV 10.1 Immature Gran % (A uto) 0.9 H Neut % (Auto) 71.6 Lymph % (Auto) 19.0 L [place] % (Auto) 7.2 Eos % (Auto) 0.8 Baso % (Auto) 0.5 Lymph # (Auto) 1.9 [place] # (Auto) 0.7 Eos # (Auto) 0.1 Baso # (Auto) 0.1 Abs Immat Gran (au to) 0.09 H Absolute Neuts (au to) 7.0 Absolute Nucleated RBC 0.000 Nucleated RBC % (a uto) 0.0 PT 9.7 L INR 0.9 Sodium Potassium Chloride Carbon Dioxide Anion Gap BUN 8 L Creatinine 0.76 Estimated GFR > 60 Random Glucose 117 H Calcium 10.0 D Total Bilirubin 0.5 AST 18 ALT 15 Alkaline Phosphata se 78 Total Protein 7.1 Albumin 4.1 TSH 12/12/22 10:46 WBC RBC Hgb Hct MCV MCH MCHC RDW Plt Count MPV Immature Gran % (A uto) Neut % (Auto) Lymph % (Auto) [place] % (Auto) Eos % (Auto) Baso % (Auto) Lymph # (Auto) [place] # (Auto) Eos # (Auto) Baso # (Auto) Abs Immat Gran (au to) Absolute Neuts (au to) Absolute Nucleated RBC Nucleated RBC % (a uto) PT INR Sodium 140 Potassium 5.0 Chloride 104 Carbon Dioxide 26 Anion Gap 15 BUN Creatinine Estimated GFR Random Glucose Calcium Total Bilirubin AST ALT Alkaline Phosphata se Total Protein Albumin TSH 1.35 EKG 12/12/22: Normal sinus rhythm Normal ECG When compared with ECG of 24-MAR-2019 22:22, No significant change was found PFSH Medical History Alcohol dependence Anxiety Arthritis Cervical disc disease Depression Foreign body in stomach GERD (gastroesophageal reflux disease) HTN (hypertension) Incisional hernia Lumbar disc disease Peptic ulcer disease Perforated duodenal ulcer Right hand fracture Smoker Surgical History H/O Spinal surgery History of colonoscopy History of endoscopy History of esophagogastroduodenoscopy (EGD) History of gastric surgery History of incision and drainage History of incisional hernia repair History of open reduction and internal fixation (ORIF) procedure Family History Father CAD (coronary artery disease) NIDDY (non-insulin dependent diabetes mellitus in young) Hypertension Mother CAD (coronary artery disease) Hypertension Social History Household Members: Children Housing: Apartment Are you a primary childcare center administrator to a significant other at home: No Do you presently have visiting nurse or other home services: No Alcohol intake: current Alcohol intake frequency: a few times a week Alcohol type: beer Patient Tobacco Use Status: Current everyday Tobacco user Tobacco use type: Cigarette Cigarette Packs Per Day: 1 Cigarettes Per Day: 2 Years Smoked: 35 e-Cigarette/Vaping Use: Never Used Second Hand Smoke Exposure: No Substance Use Type: Marijuana service: No Current occupational status: unemployed 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 How often do you have a drink containing alcohol?: 2-3 times a week 2. How many drinks containing alcohol do you have on a typical day when you are drinking?: 3 or 4 (light beer) 3. How often do you have six or more drinks on one occasion?: Never Total Score: 4 MAMIE-7 AMB Questionnaire MAMIE-7 Date MAMIE - 7 assessed: 08/29/22 Source: Developed by Drs. Barney Dunlap, Adeola Hanley, Waldo Webb and colleagues, with an educational mukesh from [employer]. Review of Systems Const Denies chills, Denies fatigue, Denies fever(s) and Denies poor appetite Eyes Denies no additional complaints ENT Reports Normal hearing present Card Denies chest pain, Denies syncope, Denies rapid heart rate and Denies dyspnea Resp Denies cough and Denies dyspnea GI Denies change in stool character, Denies constipation, Denies diarrhea, Denies nausea and Denies vomiting Denies dysuria, Denies urinary frequency and Denies urinary urgency Neuro Reports Normal hearing present, Denies confusion and Denies syncope Psych Denies confusion Endo Denies fatigue Physical exam (Primary Care) Vital Signs: Last Vital Signs Pulse 81 12/13/22 13:23 BP 122/74 12/13/22 13:23 Pulse Ox 99 12/13/22 13:23 Oxygen Delivery Method Room Air 12/13/22 13:23 BMI result Body Mass Index 24.4 Tobacco/Smoking Status: Tobacco use Status Tobacco use date assessed 12/13/22 12/13/22 13:24 Patient Tobacco Use Status Current everyday Tobacco 12/13/22 13:24 Tobacco use type Cigarette 12/13/22 13:24 e-Cigarette/Vaping Use Never Used 12/13/22 13:24 Thrive Assessment: Date of Thrive Assessment Date Thrive assessed 08/29/22 12/13/22 13:24 Const General: No confusion Orientation/consciousness: No confusion HENMT Head: Yes normocephalic and Yes atraumatic Eyes Conjunctivae: conjunctivae normal Chest Chest palpation & inspection: normal inspection of the chest Resp Effort & Inspection: normal respiratory effort Auscultation: clear to auscultation bilaterally, no crackles, no rhonchi and no wheezes Cardio Rate: regular rate Rhythm: regular rhythm Heart sounds: S1 normal heart sound present and S2 normal heart sound present GI Inspection: Yes normal to inspection Neuro General: No confusion Cranial nerves: Yes Normal hearing present Extrem General: No edema Assessment and Plan Assessment & Plan (1) Pre-op evaluation: Code(s): Z01.818 - Encounter for other preprocedural examination Plan: Based on above examination, normal ECG and unremarkable lab work. Patient is of average risk to undergo cervical spine surgery no further workup is needed at this time and patient can proceed with scheduled surgery. Ariza surgical risk: 0.0% (2) HTN (hypertension): Code(s): I10 - Essential (primary) hypertension Qualifiers: Hypertension type: primary hypertension Qualified Code(s): I10 - Essential (primary) hypertension Plan: Blood pressure optimal today at 122/74. Medications: Discontinued ondansetron 4 mg PO Q6H PRN 10 tabs 0RF nausea and vomiting baclofen 20 mg PO DAILY 30 days 30 tabs 6RF M48.02 - Spinal stenosis, cervical region tramadol 100 mg (2 x 50 mg) PO Q8H 30 days 180 tabs 1RF M51.16 - Intervertebral disc disorders with radiculopathy, lumbar region, M99.01 - Segmental and somatic dysfunction of cervical region sertraline 150 mg (1.5 x 100 mg) PO DAILY 30 days 45 tabs 3RF F41.9 - Anxiety disorder, unspecified Coding Level of Care Code Est Pt Level 3 (89169) Diagnoses Pre-op evaluation Z01.818 HTN (hypertension) I10 Hypertension type: primary hypertension
== END 2022-12-13 14:18 | disposition home or self-care (01) ==
PROVIDERS: PCP Physician Assistant; Visit Provider Nurse Practitioner Family
DX: Z01.818 Encounter for other preprocedural examination (principal); I10 Essential (primary) hypertension
CPT/HCPCS: 99213

== ENCOUNTER 2022-12-27 06:12 | Inpatient (IN) | payer OTHER, SELFPAY ==
[2022-12-12 12:11] LABS: Alanine Aminotransferase 15 U/L (0-40); Albumin Level 4.1 g/dL (3.5-5.0); Alkaline Phosphatase 78 U/L (39-117); Anion Gap 14 (12-20); Aspartate Amino Transferase 18 U/L (5-37); Bilirubin Total 0.5 mg/dL (0.0-1.0); Blood Urea Nitrogen 8 mg/dL (9-16); Carbon Dioxide 27 mmol/L (22-29); Chloride 104 mmol/L (96-108); Estimated Glomerular Filt Rate > 60; Glucose Random 117 mg/dL (60-115); Sodium 140 mmol/L (135-145); Total Protein 7.1 g/dL (6.5-8.0)
[2022-12-13 12:22] VITALS: BP 106/75; PULSE 74; RESP 20; O2SAT 99; BMI 24.0
--- NOTE | 2022-12-26 08:22 | P.CONAN_ITS ---
Documented by User: Danni Brandon NP 12/26/22 08:24 HPI - Anesthesia Eval Consult details Narrative: 47yo M for C3-4 Ant Cerv Discectomy w/ fusion,C3-6 Laminectomy with instrumentation Medically optimized ETOH dependance per hx PMFSH Active Problems Active Problems: All Active Problems (Updated 12/13/22 @ 12:56 by Polly Braden, RN) Lumbar disc disease with radiculopathy (Acute) Alcohol abuse (Acute) Smoker (Acute) Erosive esophagitis (Acute) Genital warts (Acute) Anxiety (Acute) Atrophic gastritis (Acute) Erosive gastritis (Acute) Diarrhea (Acute) Hematochezia (Acute) Abdominal hernia (Acute) Screening for hypercholesterolemia (Acute) Screening for hypothyroidism (Acute) Annual physical exam (Acute) Allergic (Acute) Change in bowel habits (Acute) Ileus (Acute) Colon cancer screening (Acute) Duodenitis (Acute) Grief reaction (Acute) Rib pain on right side (Acute) Lumbar degenerative disc disease (Acute) Weak urinary stream (Acute) Alcohol dependence (Acute) Tobacco dependence (Acute) GERD with esophagitis (Acute) MDD (major depressive disorder), recurrent episode, moderate (Acute) Malignant neoplasm of shaft of penis (Acute) HTN (hypertension) (Acute) Cervical (neck) region somatic dysfunction (Acute) Thoracic spine pain (Acute) Fungal dermatitis (Acute) Hyperkalemia (Acute) Silicosis (Acute) Cervical stenosis of spine (Acute) Open fracture of fifth metacarpal bone of right hand (Acute) Cellulitis of right hand (Acute) Occipital neuralgia of left side (Acute) Cervical spondylosis with myelopathy and radiculopathy (Acute) Pre-op evaluation (Acute) Incisional hernia (Acute) Anxiety (Acute) Past Medical History Medical History Alcohol dependence Anxiety Arthritis Cervical disc disease Depression Foreign body in stomach GERD (gastroesophageal reflux disease) HTN (hypertension) Incisional hernia Lumbar disc disease Peptic ulcer disease Perforated duodenal ulcer Right hand fracture Smoker Family History Family History Father CAD (coronary artery disease) NIDDY (non-insulin dependent diabetes mellitus in young) Hypertension Mother CAD (coronary artery disease) Hypertension Family history of problems with anesthesia: No Surgical History Surgical History H/O Spinal surgery History of colonoscopy History of endoscopy History of esophagogastroduodenoscopy (EGD) History of gastric surgery History of incision and drainage History of incisional hernia repair History of open reduction and internal fixation (ORIF) procedure History of Problems with Anesthesia: No Social History Social History Household Members: Children Housing: Apartment Are you a primary insurance healthcare representative to a significant other at home: No Do you presently have visiting nurse or other home services: No Alcohol intake: current Alcohol intake frequency: a few times a week Alcohol type: beer Patient Tobacco Use Status: Current everyday Tobacco user Tobacco use type: Cigarette Cigarette Packs Per Day: 1 Cigarettes Per Day: 2 Years Smoked: 35 e-Cigarette/Vaping Use: Never Used Second Hand Smoke Exposure: No Use of substances other than those prescribed or required for medical reasons: Yes Substance Use Type: Marijuana Substance Use Frequency: Weekly Have you been hit, kicked, punched, or otherwise hurt by someone within the past year? 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 Cognitive needs: No Hearing needs: No Vision needs: No Meds Allergies Allergy/AdvReac Type Severity Reaction Status Date / Time cat dander [cats] Allergy Unknown Unknown Verified 12/27/22 06:15 Home Medications Medication Instructions Recorded Confirmed Last Taken Type baclofen 20 mg tablet 20 mg PO DAILY 12/13/22 12/27/22 12/26/22 History sertraline 100 mg tablet 150 mg PO DAILY 12/13/22 12/27/22 12/27/22 05:00 History Exam Exam Date and Time: December 26, 2022 0822 Height,Weight and Vital Signs: Height 6 ft Weight 80.286 kg Last Vital Signs Pulse 74 12/13/22 12:22 Resp 20 12/13/22 12:22 BP 106/75 07/11/23 12:22 Pulse Ox 99 12/13/22 12:22 O2 Del Method Room Air 12/13/22 12:22 Pertinent Lab Results Pertinent Lab Results: Laboratory Tests 12/12/22 12/12/22 12/12/22 10:46 10:46 10:46 WBC 9.7 RBC 4.92 Hgb 15.1 Hct 45.8 MCV 93.1 MCH 30.7 MCHC 33.0 RDW 14.1 Plt Count 272 MPV 10.1 Immature Gran % (Auto) 0.9 H Neut % (Auto) 71.6 Lymph % (Auto) 19.0 L [place] % (Auto) 7.2 Eos % (Auto) 0.8 Baso % (Auto) 0.5 Lymph # (Auto) 1.9 [place] # (Auto) 0.7 Eos # (Auto) 0.1 Baso # (Auto) 0.1 Abs Immat Gran (auto) 0.09 H Absolute Neuts (auto) 7.0 Absolute Nucleated RBC 0.000 Nucleated RBC % (auto) 0.0 PT 9.7 L INR 0.9 Sodium 140 Potassium 5.0 D Chloride 104 Carbon Dioxide 27 Anion Gap 14 BUN 8 L Creatinine 0.76 Estim Creat Clear Calc TNP Estimated GFR > 60 Random Glucose 117 H Calcium 10.0 D Total Bilirubin 0.5 AST 18 ALT 15 Alkaline Phosphatase 78 Total Protein 7.1 Albumin 4.1 TSH 12/12/22 10:46 WBC RBC Hgb Hct MCV MCH MCHC RDW Plt Count MPV Immature Gran % (Auto) Neut % (Auto) Lymph % (Auto) [place] % (Auto) Eos % (Auto) Baso % (Auto) Lymph # (Auto) [place] # (Auto) Eos # (Auto) Baso # (Auto) Abs Immat Gran (auto) Absolute Neuts (auto) Absolute Nucleated RBC Nucleated RBC % (auto) PT INR Sodium 140 Potassium 5.0 Chloride 104 Carbon Dioxide 26 Anion Gap 15 BUN Creatinine Estim Creat Clear Calc Estimated GFR Random Glucose Calcium Total Bilirubin AST ALT Alkaline Phosphatase Total Protein Albumin TSH 1.35 Narrative Narrative: EKG 12/2022 Vent. Rate : 061 BPM ? ? Atrial Rate : 061 BPM ?? P-R Int : 156 ms? QRS Dur : 092 ms ? ? QT Int : 402 ms ? ? ? P-R-T Axes : 057 067 067 degrees ?? QTc Int : 404 ms ? Normal sinus rhythm Normal ECG When compared with ECG of 24-MAR-2019 22:22, No significant change was found Assessment and Plan Assessment Anesthesia Assessment: Chart Reviewed Final Anesthetic Review Family History of Problems with Anesthesia: No History of Problems with Anesthesia: No Documented by User: Dionicio Burrell MD 12/27/22 09:15 PMF Past Medical History Medical History Alcohol dependence Anxiety Arthritis Cervical disc disease Depression Foreign body in stomach GERD (gastroesophageal reflux disease) HTN (hypertension) Incisional hernia Lumbar disc disease Peptic ulcer disease Perforated duodenal ulcer Right hand fracture Smoker Family History Family History Father CAD (coronary artery disease) NIDDY (non-insulin dependent diabetes mellitus in young) Hypertension Mother CAD (coronary artery disease) Hypertension Surgical History Surgical History H/O Spinal surgery History of colonoscopy History of endoscopy History of esophagogastroduodenoscopy (EGD) History of gastric surgery History of incision and drainage History of incisional hernia repair History of open reduction and internal fixation (ORIF) procedure Social History Social History Household Members: Children Housing: Apartment Are you a primary insurance healthcare representative to a significant other at home: No Do you presently have visiting nurse or other home services: No Alcohol intake: current Alcohol intake frequency: a few times a week Alcohol type: beer Patient Tobacco Use Status: Current everyday Tobacco user Tobacco use type: Cigarette Cigarette Packs Per Day: 1 Cigarettes Per Day: 2 Years Smoked: 35 e-Cigarette/Vaping Use: Never Used Second Hand Smoke Exposure: No Use of substances other than those prescribed or required for medical reasons: Yes Substance Use Type: Marijuana Substance Use Frequency: Weekly Have you been hit, kicked, punched, or otherwise hurt by someone within the past year? 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 Cognitive needs: No Hearing needs: No Vision needs: No Meds Allergies Allergy/AdvReac Type Severity Reaction Status Date / Time cat dander [cats] Allergy Unknown Unknown Verified 12/27/22 06:15 Home Medications Medication Instructions Recorded Confirmed Last Taken Type baclofen 20 mg tablet 20 mg PO DAILY 12/13/22 12/27/22 12/26/22 History sertraline 100 mg tablet 150 mg PO DAILY 12/13/22 12/27/22 12/27/22 05:00 History Exam Airway Mallampati Class: II TM Dist: >3cm Neck ROM: Full Denture: Upper and Lower Loose/Missing/Broken Teeth: Yes Assessment and Plan Assessment Anesthesia Assessment: Anesthesia Plan Discussed Final Anesthetic Review NPO: Yes ASA Class: III Final Preanesthetic Review: No Changes in Pt Med Stat, Meds/Allgs Chart Reviewed, Consent Obtained/Reviewed and Anes Risks/Benef Reviewed Patient Risk: Intermediate Procedure Risk: Intermediate Anesthetic Plan Anesthetic Plan: GA Disposition: Standard PACU
[2022-12-27] VITALS (18 sets, daily range): BP systolic 123–160; BP diastolic 81–105; PULSE 59–85; RESP 11–19; TEMP 36.2–36.7; O2SAT 95–99
--- NOTE | ~2022-12-27 | FL_ITS ---
EXAMINATION: XR FLUOROSCOPIC-GUIDANCE, WITH IMAGES CLINICAL INFORMATION: C3-C4 ACDF with fusion. C3 through C6 laminectomy. COMPARISON: 02/02/2019 TECHNIQUE: FLUOROSCOPY SUPERVISED BY: Dr. Mckeon. FLUOROSCOPY TIME: Less than 10 seconds. DLP: 1.1 mGy-cm DAP: 3 uGy-cm2 FLUOROSCOPIC IMAGES: 3. FINDINGS: Intraoperative C-Arm views demonstrate C3-C4 ACDF with fusion as well as anterior plate and screw fixation C4 through C6. Visualized hardware appears unremarkable. FL/FL guidance in OR IMPRESSION: Intraoperative fluoroscopy for orthopedic procedure.
--- NOTE | ~2022-12-27 | XR_ITS ---
EXAMINATION: XR CHEST CLINICAL INFORMATION: Preoperative examination. COMPARISON: 07/07/2021 TECHNIQUE: 2 views of the chest were obtained. FINDINGS: The lungs are well expanded. No focal consolidation. No pleural effusion. Cardiac silhouette is unchanged. XR/XR chest 2V IMPRESSION: No acute abnormality.
[2022-12-27] MEDS: methocarbamoL 750 MG TABLET PO (06:35)
[2022-12-27] MEDS: Gabapentin 300 MG CAPSULE PO (06:35)
[2022-12-27] MEDS: Lactated Ringers 1,000 ML 100 ML IVCONT (06:52)
--- NOTE | 2022-12-27 07:01 | PHA.MEDREC ---
Pharmacy Consult ? Medication Reconciliation Pharmacy has completed the medication reconciliation. Reviewed med rec done by nursing
--- NOTE | 2022-12-27 07:08 | MHC.SHP ---
Pre-Procedural Eval Section A Date of Service: 12/27/22 The patient is an INPATIENT: No Changes since office visit: No Cold of Flu in the past 2 weeks, No New Medical Problems, No Changes in Medication and No Patient answered all questions The History & Physical has been completed within 30 days and I have reviewed it.: No Section B Chief Complaint: cervical fusion Allergies: Allergies Allergy/AdvReac Type Severity Reaction Status Date / Time cat dander [cats] Allergy Unknown Unknown Verified 12/27/22 06:15 Review of Systems Sugical H&P ROS: Negative: Constitution, Cardiovascular, Respiratory, Neurological, Psychiatric, Hem-Onc, Allergic/Immunologic, Gastrointestinal, Genitourinary, Musculoskeletal, Integumentary, Endocrine and Eyes/Ears/Nose/Throat Exam Surgical H&P Exam: Not Evaluated: HEENT, Not Evaluated: Heart, Not Evaluated: Lungs, Not Evaluated: Extremities, Not Evaluated: Abdomen, Not Evaluated: Skin and Not Evaluated: Neurological Plan Diagnosis/Plan: Unchanged I have reviewed the history and physical and performed a pertinent physical examination on my patient. No changes have occurred unless specified. C3-4 ACDF, C3-6 laminectomy with possible lateral mass screws Time Spent With Patient Time: Total time managing care of this patient today _10___ minutes.
[2022-12-27] MEDS: HYDROmorphone HCl 0.5 MG/0.5 ML SYRINGE 0.25 MG IVPUSH (11:44)
--- NOTE | 2022-12-27 13:00 | HO.NEUROPN_ITS ---
Neurosurgery Operative Note Date of Service: 12/27/22 Narrative: POD: 0 Procedure: C3-4 ACDF, C3-6 posterior laminectomy Patient is in recovery awake and in bed. Briskly responsive to questioning follows one-step commands. Sits upright and engages with providers. Reports mild pain but has good function of extremities. Afebrile, vital signs stable. Full strength 5/5 UE / LE, but shoulder abduction strength limited by pain, still symmetric and 4/5. Sensation grossly intact. Posterior / anterior neck dressings are C/D/I. No active sanguineous drainage. Area is dry and non- erythematous. POD: 0 Procedure: S/P C3-4 ACDF, C3-6 posterior laminectomy otherwise doing well. Reports some continued pain and weakness, will keep patient overnight for recovery, and reassess for discharge tomorrow.
[2022-12-27] MEDS: Cyclobenzaprine HCl 5 MG TABLET PO (13:17)
[2022-12-27] MEDS: oxyCODONE HCl Immed Release 5 MG TABLET 10 MG PO ×2 (13:17→20:06)
[2022-12-27] MEDS: 0.9 % Sodium Chloride 1,000 ML 75 ML IVCONT ×2 (13:21→23:51)
--- NOTE | 2022-12-27 13:53 | W.PM.OPN ---
Operative Note Operative Note Date of Service: 12/27/22 Narrative: Preoperative Diagnosis: Cervical myelopathy due to spinal cord compression Procedure: C3-C4 Anterior discectomy, arthrodesis and implantation cage ; C3-C4 anterior instrumentation ; local autograft; microscope Informed Consent was obtained for this operation. I have explained the nature, purpose and benefits of the operation. I have discussed the risks and benefit of the operation including possible complications or adverse events with patient/family. Alternative(s) were discussed with the patient with their relative benefits and risks as well as the consequences of not accepting the operation were included in obtaining consent. Surgeon: CARRIE ARROYO MD, PHD Procedure Assisted By: John Peña Description of Procedure: this 47-year-old male who had a previous C4-C6 anterior diskectomy and fusion done for cervical myelopathy at [facility]. He came to see me for 2nd opinion for ongoing symptoms. A repeat MRI shows severe spinal cord compression C3-C4 due to adjacent degenerative disc disease and moderate spinal stenosis from C4-C6. He was offered an anterior diskectomy fusion C3-C4 and a C4-C6 laminectomy. The procedure complications were explained. The patient was consented. The patient was brought to the operating room and endotracheally intubated. The patient was put in supine position with slight extension of the neck. Prep and drape was done followed by timeout. A mid cervical incision was made followed by opening of the platysma. The prevertebral fascia was reached following the natural planes while the physician corporate legal assistant provided manual retraction. The prevertebral fascia was opened to expose the proximal part over the anterior plate and the C3-C4 disc space. A spinal needle was placed in the disk space to confirm the correct level with xray. The longus colli muscles were released bilaterally and a self retaining retractor was inserted. Two [place] pins were placed in the C3 and C4 vertebral bodies and distraction was give over the interspace. The discectomy was completed toward the posterior annulus of the disc. The microscope was brought in. The remainder of the discectomy was completed. a large posterior osteophyte originating from the body of C3 was encountered that was drilled down with a high-speed drill to expose the posterior longitudinal ligament.The posterior ligament was opened and resected to expose the underlying dura. Osteophytes were resected from the body of C3 and saved for autograft. Bilateral foraminotomies were done. The endplates were prepared after which a 6 mm cage filled with autograft was inserted into the disc space. A separate attached plate was locked down with 2 x 14 mm screws as anterior instrumentation. Final x-rays in AP and lateral projection showed a satisfactory position of the implant. The physician corporate legal assistant took over. The [place] pin was removed. Hemostasis was done. He closed the incision in 2 layers with a 3-0 Vicryl. Steri-Strips used to approximate incision. An OpSite with Tegaderm was used to cover the incision. All sponge and needle counts were correct. This marked 1st part of procedure. Accordingly, the patient was turned prone with the head in the Brock clamp in preparation for cervical laminectomy. Prepping and draping was done followed by time-out. A midcervical incision was made. The dissection was carried down in the midline to avoid blood loss. The laminae of C4,5 and 6 were exposed bilaterally. The interspinous ligament between C5-C6 was resected. The flavum ligament was opened and with a 2. And 3 [place] a C5 and C4 laminectomy was done and C6 lamina was undercut the proximal to decompress the spinal cord. An x-ray confirmed that the C4 and C5 lamina were removed. Extensive hemostasis was done. The retractor was removed. The incision was closed in 2 layers. Skin cullen were used for skin closure. All sponge and needle counts were correct. Patient was extubated and transported in stable condition to recovery room Anesthesia: General Estimated Blood Loss (ml): 20 Duration of Surgery: 2 hours Postoperative Plan: admit to floor for observation Complications: None
[2022-12-27] MEDS: HYDROmorphone HCl 1 MG/ML SYRINGE IVPUSH ×3 (14:25→23:46)
[2022-12-27] MEDS: Pregabalin 200 MG CAPSULE PO ×2 (15:43→20:14)
[2022-12-27] MEDS: Acetaminophen 1,000 MG/100 ML PIGGYBACK 400 MG IV ×2 (17:45→23:37)
[2022-12-27] MEDS: cloNIDine HCL 0.2 MG TABLET PO (20:06)
[2022-12-27] MEDS: busPIRone HCl 5 MG TABLET PO (20:06)
[2022-12-28 00:33] VITALS: RESP 18
[2022-12-28] MEDS: HYDROmorphone HCl 1 MG/ML SYRINGE IVPUSH ×2 (04:20→08:05)
[2022-12-28] MEDS: Acetaminophen 1,000 MG/100 ML PIGGYBACK 400 MG IV (05:08)
[2022-12-28] MEDS: oxyCODONE HCl Immed Release 5 MG TABLET 10 MG PO (05:09)
[2022-12-28 06:16] VITALS: RESP 18
[2022-12-28 07:42] VITALS: BP 117/94; PULSE 95; RESP 18; TEMP 36.7; O2SAT 94
--- NOTE | 2022-12-28 07:51 | P.DS_ITS ---
DS: Providers Provider Date of Service: 12/28/22 Date of admission: 12/27/22 06:12 Primary care physician: Lucas Yao PA-C DS: Diagnosis Discharge Diagnosis (1) Cervicalgia: Start date: 12/28/22 Status: Acute DS: Summary Time Spent with Patient Time attestation: Total time managing care of this patient today ____ minutes. Discharge coordination time: Less than 30 minutes Quality: Safe Use of Opioids Does Pt have an Active Cancer Diagnosis on the Problem List?: No Quality: Stroke Does the patient have a stroke diagnosis?: No Physical Exam Vital Signs: Vital Signs: Last Vital Signs Temp 98.1 F 12/28/22 07:42 Pulse 95 12/28/22 07:42 Resp 18 12/28/22 07:42 BP 117/94 H 12/28/22 07:42 Pulse Ox 94 12/28/22 07:42 O2 Del Method Room Air 12/28/22 07:42 O2 Flow Rate 3 12/27/22 12:35 BMI result Body Mass Index 24.0 DS: Data Data Completed and Pending Completed studies during hospitalization [Text1]: Procedures Extraction of Right Finger Phalanx, Open Approach (09/13/22) Removal of Internal Fixation Device from Right Finger Phalanx, Open Approach (09/13/22) Discharge Plan Discharge Anticipated Discharge Date/Time: 12/28/22 08:00 Patient Disposition: Home, Self-Care Discharge Diagnosis: cervicalgia Referrals: Lucas Yao PA-C [Primary Care Provider] - 1 Week Discharge Medications: New hydromorphone [Dilaudid] 2 mg tablet 2 mg PO Q6H PRN (Reason: pain) Qty: 20 0RF Rx Instructions: Partial Fill upon patient request. sulfamethoxazole-trimethoprim [Bactrim DS] 800-160 mg tablet 1 tab PO BID 3 Days Qty: 6 0RF Continued clonidine HCl 0.2 mg tablet 0.2 mg PO BID Qty: 60 6RF albuterol sulfate [Ventolin HFA] 90 mcg/actuation HFA aerosol inhaler 1 inh inhalation QID Qty: 18 3RF buspirone 5 mg tablet 5 mg PO BID 30 Days Qty: 60 1RF ondansetron 4 mg tablet,disintegrating 8 mg PO Q6H PRN (Reason: nausea and vomiting) 5 Days Qty: 40 0RF pregabalin 200 mg capsule 200 mg PO TID Qty: 90 0RF tramadol 50 mg tablet 100 mg PO Q8H 28 Days Qty: 168 0RF sertraline 100 mg tablet 150 mg PO DAILY baclofen 20 mg tablet 20 mg PO DAILY Discharge Orders: Discharge Order (Routine); Ordered 12/28/22 Ordered By: Israel Magdaleno Diet: Advance to usual diet Activity on Discharge: As tolerated Stand Alone Forms: Patient Portal Discharge page Activity Restrictions/Additional Instructions: After your spinal surgery we ask you to observe the following restrictions/guidelines: Activity: It is normal to feel some discomfort as you increase your activity, but that will improve with time. We ask you avoid heavy lifting or acitivities that cause pain. As a general rule, 8lbs is a safe limit for lifting right after surgery. Walk as much as you feel comfortable but not to exhaustion. You will feel extra tired the first few days after surgery. Stay well hydrated. It is OK to walk up and down stairs You may return to driving when you are off narcotics (such as vicodin, oxycodone, dilaudid, etc), and you are back to normal functional capacity. If you have any concerns please check with office before driving. Return to work is specific to each patient and each surgery, so please speak with your doctor/PA at first follow up. Please bring paperwork such as FMLA at that time if you need it filled out. Medications: We will give you a short supply of narcotics after surgery (usually one weeks worth). If you need more please call the office but do not use more than prescribed. You will need to give our office 48 hours notice if you need narcotics refilled and we do not fill narcotics on weekends or evenings. If you are on a narcotic, it is a good idea to take a stool softener such as colace or senna to avoid constipation If you take blood thinner such as aspirin, Plavix, Coumadin, Effient, Eliquis etc for conditions such as Afib, DVT, Pulmonary embolus, coronary disease, stents etc please speak with your surgeon about specific details as to when you can resume these medications. You can resume NSAIDs on post op day 1 (eg: Motrin, Naproxen, etc). Follow up: Please call the office, , after surgery to arrange a 3 week follow up for wound check. Wound Care: You may remove your dressing on the first day after surgery. You may leave open to air. Please do not remove the steri strips underneath. they will fall off on their own in one week. IT IS NORMAL FOR THE WOUND TO OOZE OR BE BLOODY FOR A FEW DAYS AFTER SURGERY. IF THIS HAPPENS JUST PLACE NEW DRESSING OVER IT TO AVOID STAINING CLOTHES. You may shower on post op day # 1 We ask that you do not let the water soak the wound. If it does get wet, just towel dry lightly. Please do not scrub your incision or place any type of chemical/ointment on the wound. No tub baths, pools or jacuzzis for one month. If you have any leaking or redness from your wound, or fevers, please call office Care Plan Goals: POD: 1 Procedure: C3-4 ACDF, C3-6 posterior laminectomy Patient seen on the floor on 3 [address]. He presents as A&0X3, is awake, in bed sitting upright, conversing with nursing staff in [facility]. He was reportedly up and walking around this morning. He reports no mylepathic symptoms. He does endorse some soreness / pain in his postrerior neck, but otherwise feels well. He is agreeable to returning home today for recovery. He can have his father pick him up for transport home. Afebrile, vital signs stable. Full strength 5/5 UE / LE, but shoulder abduction strength limited by pain, still symmetric and 4/5. Sensation grossly intact. Anterior neck dressings is C/D/I. Posterior neck dressing had some serosanguineous drainage, which was changed by nursing staff post exam. No other active sanguineous drainage. Incision sites are non-edematous / non-erythematous. POD: 1 Procedure: S/P C3-4 ACDF, C3-6 posterior laminectomy otherwise doing well. Reports some continued pain and weakness, but is able to ambulate, tolerates all meals, voids, and interacts with staff. He is medically cleared to go home. A 3 day prescription of Bactrim will be sent to pharmacy. [facility] ([facility] Health Concerns: See above Plan of Treatment: See above Assessment: Stable
--- NOTE | 2022-12-28 07:57 | HO.POSTANES ---
Post Anesthesia Evaluation Post Anesthesia Evaluation Date of Service: 12/28/22 Vital Signs: Vital Signs Temp Pulse Resp BP Pulse Ox O2 Del Method 12/28/22 07:42 98.1 F 95 18 117/94 H 94 Room Air 12/28/22 06:16 18 12/28/22 00:33 18 12/27/22 23:52 97.7 F 77 16 152/89 H 95 Room Air 12/27/22 22:10 18 12/27/22 22:09 18 Anesthesia: General Endotracheal-GETA Mental Status: Awake Pain Control: Satisfactory Nausea/Vomiting: None Hydration: Adequate Anesthesia-Related Issues: No Anes. Related Issues
[2022-12-28] MEDS: Pregabalin 200 MG CAPSULE PO (08:02)
[2022-12-28] MEDS: busPIRone HCl 5 MG TABLET PO (08:02)
[2022-12-28] MEDS: Sertraline HCL 50 MG TABLET 150 MG PO (08:02)
[2022-12-28] MEDS: cloNIDine HCL 0.2 MG TABLET PO (08:02)
[2022-12-28] MEDS: Baclofen 20 MG TABLET PO (08:02)
--- NOTE | 2022-12-28 08:59 | MHC.CM.PN ---
Patient S/P cervical Fusion is discharged to home self care. Pt will arrange for transportation home.
== END 2022-12-28 09:16 | disposition home or self-care (01) | DRG 321 ==
LOC: HO.SSSA 06:20 → HO.S3 12:37
PROVIDERS: Absent Provider Physician Assistant; Admitting Provider Neurological Surgery; PCP Physician Assistant; Referring Provider Nurse Practitioner Family; Visit Provider Neurological Surgery
PROC: 0RG10A0 Fusion of Cervical Vertebral Joint with Interbody Fusion Device, Anterior Approach, Anterior Column, Open Approach (ICD-10-PCS; principal; 2022-12-27 07:30)
DX: M50.01 Cervical disc disorder with myelopathy, high cervical region (principal); F10.20 Alcohol dependence, uncomplicated; M48.02 Spinal stenosis, cervical region; K21.9 Gastro-esophageal reflux disease without esophagitis; Z87.891 Personal history of nicotine dependence; Z79.899 Other long term (current) drug therapy
CPT/HCPCS: 36415; 71046; 80051; 80053; 84443; 85025; 85027; 85610; 93005; 97116; 97161; C1713; J0131; J0690; J1170; J2250; J2405; J3010

== ENCOUNTER → 2022-12-27 06:12 | Outpatient (BNV) | payer OTHER, SELFPAY | PROVIDERS: Absent Provider Physician Assistant; Admitting Provider Neurological Surgery; PCP Physician Assistant; Referring Provider Nurse Practitioner Family; Visit Provider Physician Assistant | DX: M50.021 Cervical disc disorder at C4-C5 level with myelopathy (principal); M50.022 Cervical disc disorder at C5-C6 level with myelopathy | CPT/HCPCS: 20936; 22551; 22845; 22853; 63045; 63048; 99499 ==

== ENCOUNTER 2022-12-31 09:00 | Inpatient (IN) | payer OTHER, SELFPAY ==
[2022-12-31] VITALS (11 sets, daily range): BP systolic 115–147; BP diastolic 66–87; PULSE 66–89; RESP 14–28; TEMP 36.4–37.2; O2SAT 92–97; BMI 24.0; BMI 24.2
--- NOTE | ~2022-12-31 | XR_ITS ---
EXAMINATION: XR CHEST CLINICAL INFORMATION: Followup pneumonia. COMPARISON: CT chest of 12/31/2022 and chest x-ray of 12/12/2022. TECHNIQUE: AP portable view of the chest was obtained. FINDINGS: There is prominent interstitial and airspace disease seen within the lower lungs bilaterally and to a lesser extent within the right upper lobe. This does not have a perihilar distribution. No pneumothorax or significant pleural effusion is seen. The disease is new since chest x-ray of 12/12/2022 but was present on CT scan of 12/31/2022 likely due to infectious or inflammatory process which appears more likely than pulmonary edema. XR/XR chest 1V IMPRESSION: Continued bilateral interstitial and airspace disease.
--- NOTE | ~2022-12-31 | CT_ITS ---
EXAMINATION: CT CHEST, ABDOMEN AND PELVIS WITH CONTRAST CLINICAL INFORMATION: Weakness recent spine surgery fall loss of consciousness trauma shortness of breath COMPARISON: CT chest from 05/11/2022, CT abdomen and pelvis from 12/04/2020 TECHNIQUE: Multidetector volumetric CT imaging of the chest, abdomen, and pelvis was performed after the administration of 100 mL of Omnipaque 300 intravenous contrast without immediate adverse reactions. Axial MIP volume rendering provided. Sagittal and coronal reformatted images were obtained. This CT examination was performed using dose optimization techniques as appropriate, variously including the following: *Automated exposure control *Adjustment of mA and/or kV according to patient size (this includes techniques or standardized protocols for targeted exams where dose is matched to indication/reason for exam; i.e. extremities or head) *Use of iterative reconstruction technique DLP: 426.18 mGy-cm (Chest) 608.47 mGy-cm (abdomen pelvis) FINDINGS: CHEST: LUNGS/PLEURA: Respiratory motion artifact limits evaluation. Biapical pleural parenchymal scarring. Emphysematous changes. Interval development of confluent radiopacities throughout the bilateral lung monique suggesting infectious/inflammatory etiology versus pulmonary edema. 3 mm nodule in the right middle lobe (series 25, image 375), stable. Central airways are patent. No pneumothorax. No large pleural effusion. MEDIASTINUM: Heart is not enlarged. No pericardial effusion. Trace coronary artery calcifications. Aorta is nonaneurysmal main pulmonary artery is not enlarged. A few mildly prominent though nonenlarged peritracheal, precarinal and periaortic lymph nodes are noted. Visualized portions of the thyroid are unremarkable. AXILLA: No lymphadenopathy. ABDOMEN AND PELVIS: LIVER, GALLBLADDER, AND BILIARY TREE: Liver is mildly enlarged measuring 19.5 cm. No focal hepatic lesion or biliary ductal dilatation is present. The gallbladder is decompressed and unremarkable with no evidence of radiopaque gallstones, gallbladder wall thickening, or obvious pericholecystic inflammatory changes. PANCREAS: Unremarkable. SPLEEN: Unremarkable. ADRENAL GLANDS: Unremarkable. KIDNEYS AND URETERS: Left mildly exophytic renal hypodense focus along the posterior aspect of the interpolar/upper pole region statistically representing a cyst stable from prior imaging measuring up to 2.1 cm The kidneys are normal in size, shape, and attenuation. No hydronephrosis, hydroureter, or calculi seen. No perinephric stranding. BLADDER: Circumferential bladder wall thickening measuring up to 6 mm, nonspecific may reflect underlying cystitis. Correlation with symptomatology. GASTROINTESTINAL TRACT: The small and large bowel are unremarkable. The appendix is not definitively visualized. No secondary signs of appendicitis. ABDOMINAL WALL: Tiny fat filled ventral hernia. LYMPH NODES: Normal. VASCULAR: Unremarkable. PELVIC VISCERA: Prostate measures up to 4.2 cm with punctate calcification within its body. OSSEOUS STRUCTURES: Multilevel degenerative changes of the thoracolumbar lumbosacral spine greatest at L4-L5. Sclerotic focus in the left femoral proximal diaphysis nonspecific though statistically representing a bone island. Partially visualized lower cervical spinal hardware. CT/CT abdomen pelvis w IV con IMPRESSION: 1. Interval development of confluent radiopacities throughout the bilateral lung monique suggesting infectious/inflammatory etiology versus pulmonary edema. 2. Liver is mildly enlarged measuring 19.5 cm. 3. Left mildly exophytic renal hypodense focus along the posterior aspect of the interpolar/upper pole region statistically representing a cyst stable from prior imaging measuring up to 2.1 cm. 4. Circumferential bladder wall thickening measuring up to 6 mm, nonspecific may reflect underlying cystitis. Correlation with symptomatology.
--- NOTE | ~2022-12-31 | XR_ITS ---
EXAMINATION: XR CERVICAL SPINE CLINICAL INFORMATION: Neck pain COMPARISON: Cervical spine x-rays January 19, 2022 TECHNIQUE: 4 views of the cervical spine were obtained. Only the first through sixth cervical vertebral bodies are clearly visualized on lateral imaging and therefore C7 is not accurately evaluated on today's imaging. FINDINGS: Patient is status post ACDF at C3/4 with anterior fusion of C4-C6. There is no gross evidence of hardware failure. Alignment is within normal limits. There is no change in alignment with extension positioning although there does appear to be minimal anterolisthesis of C2 on C3 with flexion positioning. Cervical vertebral body heights are maintained. There is minimal prevertebral soft tissue swelling. Skin cullen noted posteriorly. Visualized lung apices are well aerated. XR/XR cervical spine 3V IMPRESSION: 1. Postsurgical changes of the cervical spine. 2. Minimal anterolisthesis of C2 on C3 is noted with flexion positioning only.
--- NOTE | ~2022-12-31 | CT_ITS ---
CT ANGIOGRAM NECK WITH CONTRAST CT ANGIOGRAM BRAIN WITH CONTRAST CLINICAL INFORMATION: Neck swelling and altered mental status. Status post laminectomy. COMPARISON: None available. TECHNIQUE: Test bolus sequences followed by intravenous administration 85 mL of Omnipaque 350. Helical imaging was performed in the axial plane from the thoracic inlet to the skull vertex. Delayed postcontrast imaging of the head was also performed. The data was processed at the geospatial information technologist workstation for generation of MIP sequences. Angled MIPs and volume rendered reformatted images were also generated at an offline 3D workstation under concurrent supervision. Stenoses are assessed in accordance with NASCET criteria unless otherwise indicated. This CT examination was performed using dose optimization techniques as appropriate, variously including the following: *Automated exposure control *Adjustment of mA and/or kV according to patient size (this includes techniques or standardized protocols for targeted exams where dose is matched to indication/reason for exam; i.e. extremities or head) *Use of iterative reconstruction technique FINDINGS: BRAIN: Mild chronic microangiopathy. [There is no intracranial hemorrhage, hydrocephalus, extra-axial surface collection, midline shift, or other herniation pattern. Guzman to white matter differentiation is diffusely maintained without evidence of an evolved acute territorial infarct. The basilar cisterns are preserved. No significant soft tissue abnormality. No acute osseous abnormality. The paranasal sinuses and the mastoid air cells are well aerated.] CERVICAL SOFT TISSUES AND LUNG APICES: There are postoperative changes following C4-C5 laminectomy and ACDF at the C3-C6 levels. The surgical hardware appears intact. The central canal is not diagnostically assessed due to artifact from the surgical hardware. There is a nonspecific fluid collection containing a few small foci of gas extending from the laminectomy beds along the dorsal midline incision. There is also soft tissue swelling within the right infrahyoid neck without any discrete peripherally enhancing fluid collections identified though assessment is limited by motion. Emphysema along with groundglass opacities and reticular markings throughout the imaged lungs are described in detail on the chest CT performed the same time as this study. Please see that report for further details. There is a displaced fracture involving the C7 spinous process. NECK CTA: [There is a classic 3 vessel configuration of the aortic arch. Proximal arch vessels are non-stenotic. The vertebral arteries are codominant. No significant ostial stenosis is visualized on either side. Both vertebral arteries are widely patent throughout their extracranial cervical course. Both common and internal carotid arteries are normal in course and caliber.] BRAIN CTA: [There is normal opacification of major intracranial arteries. No focal flow-limiting stenosis nor discrete proximal large artery occlusion. No aneurysm. Timing of the contrast bolus allows assessment of the major dural venous sinuses, which all opacify normally] CT/CT angio head neck IMPRESSION: - No acute intracranial findings. There is mild chronic microangiopathy. No acute arterial occlusions and no significant arterial stenoses within the head or neck. - There are postoperative changes following C4-C5 laminectomy and ACDF at the C3-C6 levels. The surgical hardware appears intact. The central canal is not diagnostically assessed due to artifact from the surgical hardware. There is a nonspecific fluid collection containing a few small foci of gas extending from the laminectomy beds along the dorsal midline incision. There is also soft tissue swelling within the right infrahyoid neck without any discrete peripherally enhancing fluid collections identified though assessment is limited by motion. If there is any clinical concern for mass effect on the cervical spinal cord, a cervical spine MRI could be obtained. - There is a displaced fracture involving the C7 spinous process.
--- NOTE | ~2022-12-31 | MR_ITS ---
MR CERVICAL SPINE WITHOUT AND WITH CONTRAST CLINICAL INFORMATION: Status post laminectomy postop neck pain. Altered mental status. COMPARISON: None available. TECHNIQUE: MRI of the cervical spine was obtained using routine sequences with and without contrast. Intravenous contrast: Gadavist 8 mL. FINDINGS: Redemonstrated postoperative changes following C4-C5 laminectomy and ACDF at the C3-C6 levels. The surgical hardware results in artifact at the postoperative levels in nondiagnostic assessment of bone marrow signal at these levels. There is a nonspecific peripherally enhancing fluid collection extending from the laminectomy beds along the dorsal midline incision measuring up to 6 cm AP by 3.1 cm TV by 3.1 cm CC. An infected collection cannot be excluded by imaging. Apparent T2 signal changes within the C3-C6 vertebral bodies and the right C5 posterior elements may be artifactually related to hardware or may reflect nonspecific marrow edema. No enhancing cervical cord lesions. The cervical arterial flow voids are maintained. Partially imaged intracranial compartment is unremarkable. No definite cord signal changes with assessment limited by artifact. C2-C3: Uncovertebral joint spurring and advanced facet arthropathy result in severe left-sided foraminal stenosis. No central canal stenosis. Mild right foraminal encroachment. C3-C4: ACDF. Laminectomy. Diffuse osteophytic ridging. Uncovertebral joint spurring and facet arthropathy result in severe bilateral foraminal stenosis. Mild narrowing of the central canal. C4-C5: ACDF changes. Laminectomy. No central canal stenosis. Osteophytic ridging results in moderate right and mild left foraminal stenosis. C5-C6: ACDF changes. Laminectomy. Postoperative decompression of the central canal. Advanced uncovertebral joint hypertrophy and hypertrophic facet arthropathy result in severe bilateral foraminal stenosis. C6-C7: Uncovertebral joint spurring and facet arthropathy result in mild to moderate bilateral foraminal stenosis. No central canal stenosis. C7-T1: Disc contour is normal. The central canal stenosis and no foraminal stenosis. MR/MR cervical spine wo/w con IMPRESSION: - Redemonstrated postoperative changes following C4-C5 laminectomy and ACDF at the C3-C6 levels. The surgical hardware results in artifact at the postoperative levels and nondiagnostic assessment of bone marrow signal at these levels. - There is a nonspecific peripherally enhancing fluid collection extending from the C4-C5 laminectomy beds along the dorsal midline incision measuring up to 6 cm AP by 3.1 cm TV by 3.1 cm CC. An infected collection cannot be excluded by imaging. - Apparent T2 signal changes within the C3-C6 vertebral bodies and the right C5 posterior elements may be artifactually related to hardware or may reflect nonspecific marrow edema. As per above, infection cannot be excluded and clinical correlation is advised. - Postoperative decompression of the central canal at the C3-C4, C4-C5, and C5-C6 levels. Multilevel foraminal stenosis throughout the cervical spine as discussed above.
--- NOTE | 2022-12-31 09:12 | ECG_ITS ---
Test Reason : cp, sob Blood Pressure : / mmHG Vent. Rate : 079 BPM Atrial Rate : 079 BPM P-R Int : 136 ms QRS Dur : 100 ms QT Int : 400 ms P-R-T Axes : 018 039 046 degrees QTc Int : 458 ms Normal sinus rhythm Normal ECG When compared with ECG of 12-DEC-2022 10:49, QT has lengthened Referred By: Bibiana Reid Electronically Signed By:HALIE TREADWELL MD
--- NOTE | 2022-12-31 09:28 | ED_ITS ---
HPI - General Adult General Chief complaint: General Medical Stated complaint: recent spine surgery, sob Time Seen by Provider: 12/31/22 09:11 Source: patient Mode of arrival: ambulatory Limitations: other (vague historian ) History of Present Illness HPI narrative: 47-year-old male history of anxiety, incisional hernia, peptic ulcer disease, perforated duodenal ulcer, , alcohol use disorder, current daily smoker, GERD, MDD, cervicalgia (s/p C4-C5, C5-C6 on May at [facility] and recently had a C3-C4 anterior disectomy, arthrodesis and implantation cage on 12/27/2022 here at [facility] [place] Mckeon) presenting here to the emergency department for multiple complaints patient reports decreased sensation from the neck down, with associated weakness, fatigue, malaise, subjective fevers, chills, shortness of breath, multiple falls. Patient states that since he got discharged from the hospital he has been falling, poor historian unclear if he lost consciousness or not, unclear how long he was on the ground for. He tells me just feels like he can not walk and he is too weak. Upon arrival patient is saturating 86% triage and was brought straight into an emergency department bed, patient vague hi storian however does state he had recent surgery here by Dr. winter and was DC home. Not on blood thinners, curent daily drinker and smoker. Related Data Home Medications Medication Instructions Recorded Confirmed baclofen 20 mg tablet 20 mg PO DAILY 12/13/22 12/31/22 sertraline 100 mg tablet 150 mg PO DAILY 12/13/22 12/31/22 albuterol sulfate 90 mcg/actuation 1 inh inhalation QID PRN Shortness 12/31/22 12/31/22 aerosol inhaler (Ventolin HFA) Of Breath Or Wheezing tramadol 50 mg tablet 100 mg PO Q8H PRN Pain 12/31/22 12/31/22 Previous Rx's Medication Instructions Recorded clonidine HCl 0.2 mg tablet 0.2 mg PO BID #60 tabs 09/27/22 buspirone 5 mg tablet 5 mg PO BID 30 days #60 tabs 11/21/22 ondansetron 4 mg disintegrating 8 mg PO Q6H PRN nausea and 12/19/22 tablet vomiting 5 days #40 tabs pregabalin 200 mg capsule 200 mg PO TID #90 caps 12/26/22 hydromorphone 2 mg tablet 2 mg PO Q6H PRN pain #20 tabs 12/28/22 (Dilaudid) sulfamethoxazole 800 1 tab PO BID wound closure 12/28/22 mg-trimethoprim 160 mg tablet infection prophylaxis 3 days #6 (Bactrim DS) tabs Allergies Allergy/AdvReac Type Severity Reaction Status Date / Time cat dander [cats] Allergy Unknown Unknown Verified 12/31/22 09:36 Review of Systems Review of Systems: Constitutional : No Weight loss, + Fever, + Chills, + Fatigue, + Malaise ENT/Mouth : No sore throat, No Rhinorrhea Eyes: No Eye Pain, No Swelling, No Redness Cardiovascular : No Chest Pain, + SOB, No Dyspnea on Exertion, No Orthopnea, No Edema, No Palpitations Respiratory : No Cough, No Sputum, No Wheezing Gastrointestinal : No Nausea, No Vomiting, No Diarrhea, No Constipation, No abdominal Pain, No Hematochezia, No Melena Genitourinary : No Dysuria, No Urinary Frequency, No Hematuria, Musculoskeletal : No joint pain, No Myalgias, No Joint Swelling Skin : No Skin Lesions, No rash Neuro : + Weakness, + Numbness, + Dizziness, No Headache Psych : No Anxiety/Panic, No Depression All other systems reviewed and are negative Yes all other systems are reviewed and are negative [facility] Past Medical History Attestation statement: The following information was validated with the patient. Source: old records reviewed and nursing notes reviewed Medical History Alcohol dependence Anxiety Arthritis Cervical disc disease Depression Foreign body in stomach GERD (gastroesophageal reflux disease) HTN (hypertension) Incisional hernia Lumbar disc disease Peptic ulcer disease Perforated duodenal ulcer Right hand fracture Smoker Surgical History H/O Spinal surgery History of colonoscopy History of endoscopy History of esophagogastroduodenoscopy (EGD) History of gastric surgery History of incision and drainage History of incisional hernia repair History of open reduction and internal fixation (ORIF) procedure Family History Family History Father CAD (coronary artery disease) NIDDY (non-insulin dependent diabetes mellitus in young) Hypertension Mother CAD (coronary artery disease) Hypertension Social History Social History Household Members: None Housing: House Are you a primary human services care specialist to a significant other at home: No Do you presently have visiting nurse or other home services: No Alcohol intake: never Patient Tobacco Use Status: Former Tobacco user Quit Date: yesterday Tobacco use type: Cigarette Cigarette Packs Per Day: 1 Cigarettes Per Day: 2 Years Smoked: 35 Smoked in Last 30 Days: No e-Cigarette/Vaping Use: Never Used Second Hand Smoke Exposure: No Substance Use Type: Marijuana Advance Directives: No service: No Current occupational status: unemployed 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 Patient does not use nasal cannula home Appearance: Alert.? Oriented X3.?Patient unwell appearing, uncomfortable, pale, lethargic. Head: Normocephalic, atraumatic, no step-offs or deformities Eyes: Pupils equal, round and reactive to light.?EOMI pain free. ENT: Pharynx normal.? At this time patient speaking in full sentences and controlling his secretions well. Maintaining on airway. Neck: Normal inspection.? Neck supple.?+ mass to the right side of neck around C4-C5 (US w/ visualized fluid collection) CVS: Normal heart rate and rhythm.? Pulses normal.? Respiratory: No respiratory distress.? Breath sounds normal.? Abdomen: Soft and nontender.? Skin: Skin warm and dry.? Normal skin color.? Normal skin turgor.? Extremities: No lower extremity edema.? No calf ttp. Global weakness. Back: No midline tenderness, no C-spine tenderness, full range of motion, no CVA tenderness bilaterally Neuro: Oriented X 3.? No motor deficit.? No sensory deficit. CN 2-12 intact Course Reevaluation(s) Reevaluation #1: CBC with leukocytosis 13.1, with a left shift. Chemistry with elevated anion gap, likely secondary to alcohol use. Patient's CRP noted to be markedly elevated 37.81 likely secondary to inflammatory state status post surgical pro cedure. Transaminases are noted to be elevated almost in a 2-1 fashion likely secondary to chronic alcohol abuse. EKG non ischemic, trop pending. Imaging pending. [place] text to Dr. Mckeon at [phone] for input, pending response Time: 10:13 Reevaluation #2: Spoke to Dr. Mckeon Neuro Spine who recommends MRI to rule out hematoma. Would like patient admitted to hospital, he will consult and follow. If hematoma present patient will likely require surgical intervention. Will reach back out time when imaging results. Time: 11:15 Reevaluation #3: Neuro spine also recommends obtaining an x-ray of cervical spine with AP/lateral/flexion/extension to look for cause of neck pain it could be that the construction is not holding. X-rays obtained and results pending. CT of chest abdomen pelvis with confluent radial P studies throughout bilateral lung monique concerning for infectious/inflammatory etiology versus pulmonary edema based off patient's exam a, hypoxia concerns for infection ceftriaxone ordered as well as fluids. No signs of sepsis. Circumferential bladder wall thickening measuring 6 mm nonspecific, possible underlying cystitis however patient without urinary symptoms. CT of head and neck with no acute intracranial findings. Mild chronic microangiopathy, no acute arterial occlusion or significant arterial stenosis within the head or neck. Postoperative changes following C4- C5 laminectomy an ACDF at the C3-C6 level. Surgical hardware appears to be intact. Central canal is not diagnostically assessed due to artifact from surgical hardware. Nonspecific fluid collection containing a few small foci in gas extending from the laminectomy bed along the dorsal midline incision. Soft tissue swelling within the right infrahyoid neck without any discrete peripherally enhancing fluid collection, C7 spinous process fracture MRI ordered and pending. These results were discussed with neuro spine, who would like patient admitted to hospital, they will follow. Reports these are normal postop findings. MRI pending, will admit patient to the hospitalist. Time: 11:51 Medications Administered Generic Name Dose Route Start Last Admin Trade Name Freq PRN Reason Stop Dose Admin Ceftriaxone Sodium 1 gm/ 50 mls @ 100 mls/hr 12/31/22 11:36 12/31/22 11:42 Sodium Chloride IV 07/29/23 12:05 100 mls/hr ONCE ONE Administration Discontinued Medications Generic Name Dose Route Start Last Admin Trade Name [place]ley PRN Reason Stop Dose Admin Iohexol 100 ml 12/31/22 11:11 12/31/22 11:11 Iohexol 350 Mg/Ml 100 Ml Infus..Btl IV 12/31/22 11:12 85 ml ONCE ONE Administration Morphine Sulfate 4 mg 12/31/22 10:33 12/31/22 10:44 Morphine Sulfate 4 Mg/Ml Cartridge IVPUSH 12/31/22 10:34 4 mg ONCE ONE Administration Protocol Ondansetron HCl 4 mg 12/31/22 10:33 12/31/22 10:44 Ondansetron Hcl 4 Mg/2 Ml Vial IVPUSH 12/31/22 10:34 4 mg ONCE ONE Administration Medical Decision Making Medical Decision Making [facility] Narrative: 47-year-old male presents status post S/P C3-4 ACDF, C3-6 posterior laminectomy on 12/27/2022 complaining of numbness, tingling, weakness, frequent falls, difficulty breathing for the past few days worsening today. Upon chart review it appears as though patient did have a C3 through C4 anterior diskectomy with arthrodesis and implantation cage C3-C4. This was done on 12/27/2022. Patient was discharged on 12/28/2022. At time of discharge on 12/28/2022 patient was ambulatory according to chart review. He was reporting no myelopathic symptoms. He did endorse soreness and pain in the posterior neck but otherwise was feeling well. He was picked up by his father and brought home on that day. At that time is vital signs were stable, he was afebrile. He had 5/5 strength upper and lower extremities. Shoulder abduction at that time was limited secondary to pain however still symmetric and he had 4/5 strength. Sensory was grossly intact at that time according to chart review. And he left within anterior neck dressing which was clean dry and intact. He also had a posterior neck dressing. Dc w/ three days of bactrim Physical exam with a mass the right side of neck with visible fluid collection on ultrasound. Patient appears unwell, pale, global weakness, 3/5 strength to upper and lower extremities. Decreased sensation per patient from the neck down. Difficult to assess reflexes at this time. Concerns for postop complication such as hematoma, infection. There is also some concerns of myelopathy, or cord compression. Immediately when patient arrived to did discuss this case with my attending who evaluated patient also did a bedside ultrasound. Patient shortness of breath is also concerning for possible PE as patient is status post operation. Unlikely that this is ACS. Breath sounds present unlikely that this is pneumothorax. There is concerns for cervical hematoma that is potentially affecting patient's airway however at this time patient is maintaining airway on his own, saturating well on 2 L nasal cannula. Patient is lethargic will rule out infection. Will rule out electrolyte abnormalities, dysrhythmias. I do not suspect acute stroke posterior stroke. Unlikely [place] as this is not ascending in nature. Plan at this time labs, imaging, CTA head and neck, CT of chest with contrast, CT abdomen pelvis due to recent falls. Will also obtain MRI of the neck. Differential Diagnosis Differential Diagnoses: The differential diagnosis associated with the presentation includes Concerns for postop complication such as hematoma, infection. There is also some concerns of myelopathy, or cord compression. Immediately when patient arrived to did discuss this case with my attending who evaluated patient also did a bedside ultrasound. Patient shortness of breath is also concerning for possible PE as patient is status post operation. Unlikely that this is ACS. Breath sounds present unlikely that this is pneumothorax. There is concerns for cervical hematoma that is potentially affecting patient's airway however at this time patient is maintaining airway on his own, saturating well on 2 L nasal cannula. Patient is lethargic will rule out infection. Will rule out electrolyte abnormalities, dysrhythmias. I do not suspect acute stroke posterior stroke. Unlikely [place] as this is not ascending in nature. Admission/Observation Consideration of admission/observation: Escalation of care including admission/observation considered High probability for hospital admission likely at tertiary facility Consult Healthcare Provider Management of the patient was discussed with: Hospitalist and Crowning Inspector (Neuro spine) Lab Data MDM Lab Attestation statement: I reviewed the patient's lab results. 12/31/22 09:30 12/31/22 09:30 Labs: Lab Results 12/31/22 12/31/22 12/31/22 Range/Units 09:25 09:30 09:30 WBC 13.1 H (4.8-10.8) X10*3/uL RBC 4.75 (4.60-5.80) X10*6/uL Hgb 14.8 (14.0-18.0) g/dl Hct 43.6 (42.0-52.0) % MCV 91.8 (80.0-98.0) fL MCH 31.2 (27.0-33.0) pg MCHC 33.9 (31.0-36.0) g/dl RDW 13.5 (11.0-16.0) % Plt Count 329 (160-400) X10*3/uL MPV 9.8 (9.4-12.4) fL Immature Gran % (Auto) 1.4 H (0.0-0.4) % Neut % (Auto) 88.0 H (45-73) % Lymph % (Auto) 4.2 L (20-40) % [place] % (Auto) 5.8 (2-11) % Eos % (Auto) 0.4 (0-4) % Baso % (Auto) 0.2 (0-2) % Lymph # (Auto) 0.6 L (1.2-4.9) X10*3/uL [place] # (Auto) 0.8 (0.1-1.2) X10*3/uL Eos # (Auto) 0.1 (0.0-0.4) X10*3/uL Baso # (Auto) 0.0 (0.0-0.2) X10*3/uL Abs Immat Gran (auto) 0.18 H (0.00-0.03) X10*3/uL Absolute Neuts (auto) 11.6 H (2.0-8.3) x10*3/uL Absolute Nucleated RBC 0.000 (0.0-0.012) X10*3/uL Nucleated RBC % (auto) 0.0 (0.0-0.2) /100WBC ESR (0-15) MM/HR Sodium 136 (135-145) mmol/L Potassium 3.4 D (3.3-5.1) mmol/L Chloride 97 (96-108) mmol/L Carbon Dioxide 17 L (22-29) mmol/L Anion Gap 25 H (12-20) BUN 9 (9-16) mg/dL Creatinine 0.68 (0.5-1.4) mg/dL Estim Creat Clear Calc 144.2 Estimated GFR > 60 POC Glucose 111 (60-115) mg/dL Random Glucose 104 (60-115) mg/dL Lactic Acid (0.5-2.0) mmol/L Calcium 10.3 H (8.4-10.2) mg/dL Magnesium 2.2 (1.6-2.6) mg/dL Total Bilirubin 0.6 (0.0-1.0) mg/dL AST 93 H (5-37) U/L ALT 52 H (0-40) U/L Alkaline Phosphatase 64 (39-117) U/L Total Creatine Kinase (38-174) U/L Troponin I High Sens (<3.5-35.0) ng/L C-Reactive Protein (< or = 0.50) mg/dL B-Natriuretic Peptide (<100) pg/mL Total Protein 7.3 (6.5-8.0) g/dL Albumin 3.7 (3.5-5.0) g/dL Urine Color Urine Appearance Urine pH (5.0-9.0) Ur Specific [place] (1.005-1.025) Urine Protein (Neg-Trace) mg/dL Urine Glucose (UA) (Negative) mg/dL Urine Ketones (Negative) mg/dL Urine Blood (Negative) Urine Nitrite (Negative) Ur Leukocyte Esterase (Negative) Urine RBC (0-2) /HPF Urine WBC (0-5) /HPF Ur Squamous Epith Cells (0-2) /HPF Urine Bacteria (None Seen) Hyaline Casts (0-2) /LPF Ethyl Alcohol < 10 mg/dL COVID-19 ([facility]) (Negative) COVID-19 Clin Com 12/31/22 12/31/22 12/31/22 Range/Units 09:30 09:30 09:30 WBC (4.8-10.8) X10*3/uL RBC (4.60-5.80) X10*6/uL Hgb (14.0-18.0) g/dl Hct (42.0-52.0) % MCV (80.0-98.0) fL MCH (27.0-33.0) pg MCHC (31.0-36.0) g/dl RDW (11.0-16.0) % Plt Count (160-400) X10*3/uL MPV (9.4-12.4) fL Immature Gran % (Auto) (0.0-0.4) % Neut % (Auto) (45-73) % Lymph % (Auto) (20-40) % [place] % (Auto) (2-11) % Eos % (Auto) (0-4) % Baso % (Auto) (0-2) % Lymph # (Auto) (1.2-4.9) X10*3/uL [place] # (Auto) (0.1-1.2) X10*3/uL Eos # (Auto) (0.0-0.4) X10*3/uL Baso # (Auto) (0.0-0.2) X10*3/uL Abs Immat Gran (auto) (0.00-0.03) X10*3/uL Absolute Neuts (auto) (2.0-8.3) x10*3/uL Absolute Nucleated RBC (0.0-0.012) X10*3/uL Nucleated RBC % (auto) (0.0-0.2) /100WBC ESR 62 H (0-15) MM/HR Sodium (135-145) mmol/L Potassium (3.3-5.1) mmol/L Chloride (96-108) mmol/L Carbon Dioxide (22-29) mmol/L Anion Gap (12-20) BUN (9-16) mg/dL Creatinine (0.5-1.4) mg/dL Estim Creat Clear Calc Estimated GFR POC Glucose (60-115) mg/dL Random Glucose (60-115) mg/dL Lactic Acid 1.1 (0.5-2.0) mmol/L Calcium (8.4-10.2) mg/dL Magnesium (1.6-2.6) mg/dL Total Bilirubin (0.0-1.0) mg/dL AST (5-37) U/L ALT (0-40) U/L Alkaline Phosphatase (39-117) U/L Total Creatine Kinase (38-174) U/L Troponin I High Sens < 2.7 (<3.5-35.0) ng/L C-Reactive Protein (< or = 0.50) mg/dL B-Natriuretic Peptide (<100) pg/mL Total Protein (6.5-8.0) g/dL Albumin (3.5-5.0) g/dL Urine Color Urine Appearance Urine pH (5.0-9.0) Ur Specific [place] (1.005-1.025) Urine Protein (Neg-Trace) mg/dL Urine Glucose (UA) (Negative) mg/dL Urine Ketones (Negative) mg/dL Urine Blood (Negative) Urine Nitrite (Negative) Ur Leukocyte Esterase (Negative) Urine RBC (0-2) /HPF Urine WBC (0-5) /HPF Ur Squamous Epith Cells (0-2) /HPF Urine Bacteria (None Seen) Hyaline Casts (0-2) /LPF Ethyl Alcohol mg/dL COVID-19 ([facility]) (Negative) COVID-19 Clin Com 12/31/22 12/31/22 12/31/22 Range/Units 09:30 09:30 11:09 WBC (4.8-10.8) X10*3/uL RBC (4.60-5.80) X10*6/uL Hgb (14.0-18.0) g/dl Hct (42.0-52.0) % MCV (80.0-98.0) fL MCH (27.0-33.0) pg MCHC (31.0-36.0) g/dl RDW (11.0-16.0) % Plt Count (160-400) X10*3/uL MPV (9.4-12.4) fL Immature Gran % (Auto) (0.0-0.4) % Neut % (Auto) (45-73) % Lymph % (Auto) (20-40) % [place] % (Auto) (2-11) % Eos % (Auto) (0-4) % Baso % (Auto) (0-2) % Lymph # (Auto) (1.2-4.9) X10*3/uL [place] # (Auto) (0.1-1.2) X10*3/uL Eos # (Auto) (0.0-0.4) X10*3/uL Baso # (Auto) (0.0-0.2) X10*3/uL Abs Immat Gran (auto) (0.00-0.03) X10*3/uL Absolute Neuts (auto) (2.0-8.3) x10*3/uL Absolute Nucleated RBC (0.0-0.012) X10*3/uL Nucleated RBC % (auto) (0.0-0.2) /100WBC ESR (0-15) MM/HR Sodium (135-145) mmol/L Potassium (3.3-5.1) mmol/L Chloride (96-108) mmol/L Carbon Dioxide (22-29) mmol/L Anion Gap (12-20) BUN (9-16) mg/dL Creatinine (0.5-1.4) mg/dL Estim Creat Clear Calc Estimated GFR POC Glucose (60-115) mg/dL Random Glucose (60-115) mg/dL Lactic Acid (0.5-2.0) mmol/L Calcium (8.4-10.2) mg/dL Magnesium (1.6-2.6) mg/dL Total Bilirubin (0.0-1.0) mg/dL AST (5-37) U/L ALT (0-40) U/L Alkaline Phosphatase (39-117) U/L Total Creatine Kinase 1458 H (38-174) U/L Troponin I High Sens (<3.5-35.0) ng/L C-Reactive Protein 37.81 H (< or = 0.50) mg/dL B-Natriuretic Peptide 90 (<100) pg/mL Total Protein (6.5-8.0) g/dL Albumin (3.5-5.0) g/dL Urine Color Urine Appearance Urine pH (5.0-9.0) Ur Specific [place] (1.005-1.025) Urine Protein (Neg-Trace) mg/dL Urine Glucose (UA) (Negative) mg/dL Urine Ketones (Negative) mg/dL Urine Blood (Negative) Urine Nitrite (Negative) Ur Leukocyte Esterase (Negative) Urine RBC (0-2) /HPF Urine WBC (0-5) /HPF Ur Squamous Epith Cells (0-2) /HPF Urine Bacteria (None Seen) Hyaline Casts (0-2) /LPF Ethyl Alcohol mg/dL COVID-19 ([facility]) Negative (Negative) COVID-19 Clin Com See Note 12/31/22 Range/Units 11:17 WBC (4.8-10.8) X10*3/uL RBC (4.60-5.80) X10*6/uL Hgb (14.0-18.0) g/dl Hct (42.0-52.0) % MCV (80.0-98.0) fL MCH (27.0-33.0) pg MCHC (31.0-36.0) g/dl RDW (11.0-16.0) % Plt Count (160-400) X10*3/uL MPV (9.4-12.4) fL Immature Gran % (Auto) (0.0-0.4) % Neut % (Auto) (45-73) % Lymph % (Auto) (20-40) % [place] % (Auto) (2-11) % Eos % (Auto) (0-4) % Baso % (Auto) (0-2) % Lymph # (Auto) (1.2-4.9) X10*3/uL [place] # (Auto) (0.1-1.2) X10*3/uL Eos # (Auto) (0.0-0.4) X10*3/uL Baso # (Auto) (0.0-0.2) X10*3/uL Abs Immat Gran (auto) (0.00-0.03) X10*3/uL Absolute Neuts (auto) (2.0-8.3) x10*3/uL Absolute Nucleated RBC (0.0-0.012) X10*3/uL Nucleated RBC % (auto) (0.0-0.2) /100WBC ESR (0-15) MM/HR Sodium (135-145) mmol/L Potassium (3.3-5.1) mmol/L Chloride (96-108) mmol/L Carbon Dioxide (22-29) mmol/L Anion Gap (12-20) BUN (9-16) mg/dL Creatinine (0.5-1.4) mg/dL Estim Creat Clear Calc Estimated GFR POC Glucose (60-115) mg/dL Random Glucose (60-115) mg/dL Lactic Acid (0.5-2.0) mmol/L Calcium (8.4-10.2) mg/dL Magnesium (1.6-2.6) mg/dL Total Bilirubin (0.0-1.0) mg/dL AST (5-37) U/L ALT (0-40) U/L Alkaline Phosphatase (39-117) U/L Total Creatine Kinase (38-174) U/L Troponin I High Sens (<3.5-35.0) ng/L C-Reactive Protein (< or = 0.50) mg/dL B-Natriuretic Peptide (<100) pg/mL Total Protein (6.5-8.0) g/dL Albumin (3.5-5.0) g/dL Urine Color Yellow Urine Appearance Clear Urine pH 6.5 (5.0-9.0) Ur Specific [place] >= 1.030 H (1.005-1.025) Urine Protein 30 (1+) H (Neg-Trace) mg/dL Urine Glucose (UA) Negative (Negative) mg/dL Urine Ketones >=160 (Negative) mg/dL Urine Blood Negative (Negative) Urine Nitrite Negative (Negative) Ur Leukocyte Esterase Negative (Negative) Urine RBC 0-2 (0-2) /HPF Urine WBC 0-5 (0-5) /HPF Ur Squamous Epith Cells 0-2 (0-2) /HPF Urine Bacteria None Seen (None Seen) Hyaline Casts 0-2 (0-2) /LPF Ethyl Alcohol mg/dL COVID-19 ([facility]) (Negative) COVID-19 Clin Com Independent Interpretation I performed an independent interpretation of an: Plain X-Ray and CT Scan (CT/CT angio head neck IMPRESSION: - No acute intracranial findings. There is mild chronic microangiopathy. No acute arterial occlusions and no significant arterial stenoses within the head or neck. - There are postoperative changes following C4-C5 laminectomy and ACDF at the C3-C6 levels. The surg) Interpretation: CT/CT abdomen pelvis w IV con IMPRESSION: 1.? Interval development of confluent radiopacities throughout the bilateral lung monique suggesting infectious/inflammatory etiology versus pulmonary edema. 2.? Liver is mildly enlarged measuring 19.5 cm. 3.? Left mildly exophytic renal hypodense focus along the posterior aspect of the interpolar/upper pole region statistically representing a cyst stable from prior imaging measuring up to 2.1 cm. 4.? Circumferential bladder wall thickening measuring up to 6 mm, nonspecific may reflect underlying cystitis. Correlation with symptomatology. Radiology Impression Discussion of test interpretation with radiology: I have reviewed the radiologi st's reading. Core Measures AMI core measures followed: Yes Measure exclusions: not indicated Critical Care Time Critical Care Time Critical Care Time: Yes Total Critical Care Time: 90 Attestation: I attest to this time spent taking care of the patient, obtaining history, physical, reviewing labs, imaging, speaking to my attending, speaking to specialist. Discharge Plan Discharge Clinical Impression: Pneumonia, Fracture of spinous process of cervical vertebra, Neck pain, Numbness, Frequent falls, Weakness, Hematoma Patient Disposition: Admitted As Inpatient Prescriptions: No Action clonidine HCl 0.2 mg tablet 0.2 mg PO BID Qty: 60 6RF buspirone 5 mg tablet 5 mg PO BID 30 Days Qty: 60 1RF ondansetron 4 mg tablet,disintegrating 8 mg PO Q6H PRN (Reason: nausea and vomiting) 5 Days Qty: 40 0RF pregabalin 200 mg capsule 200 mg PO TID Qty: 90 0RF sertraline 100 mg tablet 150 mg PO DAILY baclofen 20 mg tablet 20 mg PO DAILY sulfamethoxazole-trimethoprim [Bactrim DS] 800-160 mg tablet 1 tab PO BID 3 Days Qty: 6 0RF hydromorphone [Dilaudid] 2 mg tablet 2 mg PO Q6H PRN (Reason: pain) Qty: 20 0RF Rx Instructions: Partial Fill upon patient request. albuterol sulfate [Ventolin HFA] 90 mcg/actuation HFA aerosol inhaler 1 inh inhalation QID PRN (Reason: Shortness Of Breath Or Wheezing) tramadol 50 mg tablet 100 mg PO Q8H PRN (Reason: Pain)
[2022-12-31 09:30] LABS: Glucose, Whole Blood 111 mg/dL (60-115)
[2022-12-31 09:40] LABS: MANUAL DIFF FLAG NO
[2022-12-31 09:46] LABS: Basophils Percent Auto 0.2 % (0-2); Eosinophils Absolute Auto 0.1 X10*3/uL (0.0-0.4); Eosinophils Percent Auto 0.4 % (0-4); Hematocrit 43.6 % (42.0-52.0); Hemoglobin 14.8 g/dl (14.0-18.0); Imm Gran Abs Auto 0.18 X10*3/uL (0.00-0.03); Imm Gran Pct Auto 1.4 % (0.0-0.4); Lymphocytes Absolute Auto 0.6 X10*3/uL (1.2-4.9); Lymphocytes Percent Auto 4.2 % (20-40); Mean Corpuscular HGB Conc 33.9 g/dl (31.0-36.0); Mean Corpuscular Hemoglobin 31.2 pg (27.0-33.0); Mean Corpuscular Volume 91.8 fL (80.0-98.0); Mean Platelet Volume 9.8 fL (9.4-12.4); Monocytes Absolute Auto 0.8 X10*3/uL (0.1-1.2); Monocytes Percent Auto 5.8 % (2-11); Neutrophils Absolute Auto 11.6 x10*3/uL (2.0-8.3); Platelet Count 329 X10*3/uL (160-400); Red Blood Count 4.75 X10*6/uL (4.60-5.80); Red Cell Distribution Width 13.5 % (11.0-16.0); White Blood Count 13.1 X10*3/uL (4.8-10.8)
--- NOTE | 2022-12-31 09:52 | PC.NURSE ---
Addendum entered by Marycarmen Neal RN 12/31/22 10:00: POC obtained at bedside, pt denies being on any blood thinners at this time Original Note: Pt arrived in [facility] and brought back to room immediately. Pt recently underwent spinal surgery on Monday12/27/22 at [facility], pt reporting he verbalized he did not feel ready to go home but was sent home. Pt reports he felt okay day 1, however starting , he has felt off balance, has fallen multiple times, reporting he has hit his head, unsure of LOC. Pt currently reporting SOB, having a hard time swallowing food/liquid, but reports he is feeling like he can swallow his own saliva, numbness/tingling in all extremities, lump noted below incision on R side of neck. #20 L/R AC placed, labs obtained, pt remains on 2L O2 to maintain O2 sat >90%. Pt brought to CT for STAT CTA, MRI ordered, and screening faxed to MRI. EKG obtained. PT also reporting 9/10 neck/head pain at this time. Denies blurry vision.
[2022-12-31 09:54] LABS: Lactic Acid 1.1 mmol/L (0.5-2.0)
[2022-12-31 10:01] LABS: C Reactive Protein 37.81 mg/dL (< or = 0.50)
[2022-12-31 10:05] LABS: Alanine Aminotransferase 52 U/L (0-40); Albumin Level 3.7 g/dL (3.5-5.0); Alkaline Phosphatase 64 U/L (39-117); Anion Gap 25 (12-20); Aspartate Amino Transferase 93 U/L (5-37); Bilirubin Total 0.6 mg/dL (0.0-1.0); Blood Urea Nitrogen 9 mg/dL (9-16); Calcium 10.3 mg/dL (8.4-10.2); Carbon Dioxide 17 mmol/L (22-29); Chloride 97 mmol/L (96-108); Creatinine Clr Calc Pharmacy 144.2; Estimated Glomerular Filt Rate > 60; Glucose Random 104 mg/dL (60-115); Magnesium 2.2 mg/dL (1.6-2.6); Potassium 3.4 mmol/L (3.3-5.1); Sodium 136 mmol/L (135-145); Total Protein 7.3 g/dL (6.5-8.0)
[2022-12-31 10:12] LABS: Troponin-I High Sensitivity < 2.7 ng/L (<3.5-35.0)
--- NOTE | 2022-12-31 10:26 | PC.NURSE ---
pt return to room from CT; awaiting MRI. VSS. pain assessed; pt states 9/10 back/neck/LY pain & nausea; provider aware awaiting further orders.
[2022-12-31 10:31] LABS: Erythrocyte Sedimentation Rate 62 MM/HR (0-15)
[2022-12-31] MEDS: Morphine Sulfate 4 MG/ML CARTRIDGE IVPUSH (10:44)
[2022-12-31] MEDS: ondansetron HCL 4 MG/2 ML VIAL IVPUSH (10:44)
[2022-12-31 10:47] LABS: Ethanol < 10 mg/dL
[2022-12-31 10:48] LABS: B Type Natriuretic Peptide 90 pg/mL (<100)
--- NOTE | 2022-12-31 10:51 | PC.NURSE ---
pt reports continued numbness/tingling in extremities no worsening; reports continued sob no worsening. resting in stretcher; pt medicated per order. nsr on monitor 80 bpm sats 95% on 2L nc. awaiting MRI.
--- NOTE | 2022-12-31 11:00 | PHA.MEDREC ---
Pharmacy Consult ? Medication Reconciliation Pharmacy has completed the medication reconciliation. Spoke to patient to confirm meds. Patient states no changes to meds outside recent discharge. Patient unsure how many days they have left of Bactrim prophylaxis.
[2022-12-31] MEDS: iohexoL 350 MG/ML 100 ML INFUS..BTL IV (11:11)
[2022-12-31 11:28] LABS: COVID-19 Test Negative (Negative); IDNOW Serial# BCCEAD1C
[2022-12-31 11:37] LABS: Appearance Urine Clear; Color Urine Yellow; Glucose Urine UA Negative (Negative); Leukocyte Esterase Urine Negative (Negative); Nitrite Urine Negative (Negative); PH 6.5 (5.0-9.0); Specific Gravity - Urine >= 1.030 (1.005-1.025); UMIC TRIGGER UACC YES; Urine Blood Negative (Negative); Urine Ketones >=160 mg/dL (Negative); Urine Protein 30 (1+) mg/dL (Neg-Trace)
[2022-12-31 11:41] LABS: Bacteria Urine None Seen (None Seen); Hyaline Casts Urine 0-2 /LPF (0-2); RBC Urine 0-2 /HPF (0-2); Squamous Epithelial Cell Urine 0-2 /HPF (0-2); WBC Urine 0-5 /HPF (0-5)
[2022-12-31] MEDS: cefTRIAXone sodium 1 GM in 0.9 % Sodium Chloride 50 ML IV (11:42)
[2022-12-31] MEDS: 0.9 % Sodium Chloride 1,000 ML 999 ML IV ×2 (11:51→14:12)
--- NOTE | 2022-12-31 12:58 | PC.NURSE ---
Pt currently at MRI with nurse, pvc monitor and O2 remain in place
--- NOTE | 2022-12-31 13:15 | PC.NURSE ---
return from mri to room. vss. nsr on monitor 85 bpm. sats 96% 2L NC. no changes to numbness/tingling per pt. axox4. all needs met at this time. call shelton within reach.
[2022-12-31] MEDS: Azithromycin 500 MG in 0.9 % Sodium Chloride 250 ML 125 MG IV (14:11)
--- NOTE | 2022-12-31 14:22 | P.HPHOSP_ITS ---
History of Present Illness Date of Service: 12/31/22 Chief Complaint: Cough, neck pain A 47 years old male with PMH of PUD, Alcohol use disorder, smoking, Depression, cervicalgia (s/p C4-C5, C5-C6 on May at [facility]) with recent Neurosurgical neck procedure [resenting with cough, chills and neck pain presenting with SOB and lethargy. He reports the day after surgery he started feeling weakness, chills, difficulties breathing and started to cough with reported losing balance and falls. noted he is more short of breath. The patient recently had a C3-C4 anterior disectomy, arthrodesis and implan tation cage on 12/27/2022 here at [facility] by Dr. Mckeon. he reports decreased sensation in his neck and numbness in upper extremities. Denies any abdominal pain, nausea, vomiting, diarrhea, or urinary symptoms. In ED he was found hypoxic to 86%. started on IV antibiotics and fluids. Admitted for further management. Upon arrival patient is saturating 86% triage and was brought straight into an emergency department bed, patient vague historian however does state he had recent surgery here by Dr. winter and was DC home.? Not on blood thinners, curent daily drinker and smoker. Review of Systems Review of Systems: Neck pain reporting fever, chills and weakness No chest pain, palpitation having shortness of breath and coughing No abdominal pain, nausea or vomiting No urinary symptoms No any rash or wounds PMFSH Medical History Alcohol dependence Anxiety Arthritis Cervical disc disease Depression Foreign body in stomach GERD (gastroesophageal reflux disease) HTN (hypertension) Incisional hernia Lumbar disc disease Peptic ulcer disease Perforated duodenal ulcer Right hand fracture Smoker Family History Father CAD (coronary artery disease) NIDDY (non-insulin dependent diabetes mellitus in young) Hypertension Mother CAD (coronary artery disease) Hypertension Surgical History H/O Spinal surgery History of colonoscopy History of endoscopy History of esophagogastroduodenoscopy (EGD) History of gastric surgery History of incision and drainage History of incisional hernia repair History of open reduction and internal fixation (ORIF) procedure Social History Household Members: Family Household Members Other:: 1 Housing: House Are you a primary reservoir caretaker to a significant other at home: No Do you presently have visiting nurse or other home services: No Alcohol intake: never Patient Tobacco Use Status: Former Tobacco user Quit Date: yesterday Tobacco use type: Cigarette Cigarette Packs Per Day: 1 Cigarettes Per Day: 2 Years Smoked: 35 e-Cigarette/Vaping Use: Never Used Second Hand Smoke Exposure: No Substance Use Type: Marijuana service: No Current occupational status: unemployed 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, 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 Cognitive needs: No Hearing needs: No Vision needs: No Meds Allergies Allergy/AdvReac Type Severity Reaction Status Date / Time cat dander [cats] Allergy Unknown Unknown Verified 12/31/22 09:36 Active Medications: Current Medications Acetaminophen (Acetaminophen 325 Mg Tablet) 650 mg PO Q6H PRN PRN Reason: Pain, Mild (Pain Scale 1-3) Benzonatate (Benzonatate 100 Mg Capsule) 100 mg PO TID PRN PRN Reason: Cough Guaifenesin (Guaifenesin La 600 Mg Tab.Er.12h) 600 mg PO BID REBECCA Heparin Sodium (Porcine) (Heparin Sodium,Porcine 5,000 Unit/Ml Vial) 5,000 unit SUBCUT Q8H REBECCA Hydromorphone HCl (Hydromorphone Hcl 0.5 Mg/0.5 Ml Syringe) 1 mg IVPUSH Q4H PRN; Protocol PRN Reason: Pain, Severe (Pain Scale 7-10) Azithromycin 500 mg/ Sodium (Chloride) 250 mls @ 125 mls/hr IV ONCE ONE Stop: 12/31/22 15:30 Last Admin: 12/31/22 14:11 Dose: 125 mls/hr Azithromycin 500 mg/ Sodium (Chloride) 250 mls @ 125 mls/hr IV Q24H REBECCA Ceftriaxone Sodium 1 gm/ (Sodium Chloride) 50 mls @ 100 mls/hr IV Q24H REBECCA Naloxone HCl (Naloxone Hcl 0.4 Mg/Ml Vial) 0.1 mg IVPUSH Q2M PRN PRN Reason: Respiratory Rate < 10 Ondansetron HCl (Ondansetron Hcl 4 Mg/2 Ml Vial) 4 mg IVPUSH Q8H PRN PRN Reason: Nausea and Vomiting Pharmacy Consult (Consult Rx Perform Med Rec) 1 each MISCELLANE ONCE PRN PRN Reason: Consult order Pharmacy Consult (Consult Rx Vancomycin Dosing) 1 each MISCELLANE DAILY PRN PRN Reason: Consult order Sodium Chloride (0.9 % Sodium Chloride Flush 3 Ml Syringe) 3 ml IVFLUSH QSHIFT [facility] Home Medications Medication Instructions Recorded Confirmed Last Taken Type baclofen 20 mg tablet 20 mg PO DAILY 12/13/22 12/31/22 12/29/22 History sertraline 100 mg tablet 150 mg PO DAILY 12/13/22 12/31/22 12/29/22 History albuterol sulfate 90 mcg/actuation 1 inh inhalation QID PRN Shortness 12/31/22 12/31/22 Unknown History aerosol inhaler (Ventolin HFA) Of Breath Or Wheezing tramadol 50 mg tablet 100 mg PO Q8H PRN Pain 12/31/22 12/31/22 Unknown History Physical Exam Vital Signs and Narrative: Vital Signs: Last Vital Signs Pulse 78 12/31/22 14:15 Resp 16 12/31/22 14:15 BP 133/84 12/31/22 13:14 Pulse Ox 93 12/31/22 14:15 O2 Del Method Room Air 12/31/22 14:15 O2 Flow Rate 2 12/31/22 13:14 Oxygen Flow Rate 2 12/31/22 09:15 BMI result Body Mass Index 24.0 Const: Other: Constitutional : Awake, interactive, in mild distress from neck pain Neck : Normal inspection, Supple Cardiovascular : RRR, no JVP, no lower extremity edema Respiratory : good bilateral air entry, basal bilateral crackles Gastrointestinal: soft, lax, Normal bowel sounds, Non tender Skin : Warm, Dry Neurological : Alert & oriented x3, No focal deficit Results Labs 12/31/22 09:30 12/31/22 09:30 Labs: Laboratory Results - last 24 hr 12/31/22 12/31/22 12/31/22 09:25 09:30 09:30 MCV 91.8 MCH 31.2 MCHC 33.9 RDW 13.5 Plt Count 329 MPV 9.8 Immature Gran % (Auto) 1.4 H Neut % (Auto) 88.0 H Lymph % (Auto) 4.2 L Jay % (Auto) 5.8 Eos % (Auto) 0.4 Baso % (Auto) 0.2 Lymph # (Auto) 0.6 L Jay # (Auto) 0.8 Eos # (Auto) 0.1 Baso # (Auto) 0.0 Abs Immat Gran (auto) 0.18 H Absolute Neuts (auto) 11.6 H Absolute Nucleated RBC 0.000 Nucleated RBC % (auto) 0.0 ESR Anion Gap 25 H Estim Creat Clear Calc 144.2 Estimated GFR > 60 POC Glucose 111 Random Glucose 104 Lactic Acid Calcium 10.3 H Magnesium 2.2 Total Bilirubin 0.6 AST 93 H ALT 52 H Alkaline Phosphatase 64 Total Creatine Kinase C-Reactive Protein B-Natriuretic Peptide Total Protein 7.3 Albumin 3.7 Urine Color Urine Appearance Urine pH Ur Specific [place] Urine Protein Urine Glucose (UA) Urine Ketones Urine Blood Urine Nitrite Ur Leukocyte Esterase Urine RBC Urine WBC Ur Squamous Epith Cells Urine Bacteria Hyaline Casts Ethyl Alcohol < 10 COVID-19 (OSMEL) COVID-19 [employer] 12/31/22 12/31/22 12/31/22 09:30 09:30 09:30 MCV MCH MCHC RDW Plt Count MPV Immature Gran % (Auto) Neut % (Auto) Lymph % (Auto) Jay % (Auto) Eos % (Auto) Baso % (Auto) Lymph # (Auto) Jay # (Auto) Eos # (Auto) Baso # (Auto) Abs Immat Gran (auto) Absolute Neuts (auto) Absolute Nucleated RBC Nucleated RBC % (auto) ESR 62 H Anion Gap Estim Creat Clear Calc Estimated GFR POC Glucose Random Glucose Lactic Acid 1.1 Calcium Magnesium Total Bilirubin AST ALT Alkaline Phosphatase Total Creatine Kinase 1458 H C-Reactive Protein 37.81 H B-Natriuretic Peptide Total Protein Albumin Urine Color Urine Appearance Urine pH Ur Specific [place] Urine Protein Urine Glucose (UA) Urine Ketones Urine Blood Urine Nitrite Ur Leukocyte Esterase Urine RBC Urine WBC Ur Squamous Epith Cells Urine Bacteria Hyaline Casts Ethyl Alcohol COVID-19 (OSMEL) COVID-19 [employer] Com 12/31/22 12/31/22 12/31/22 09:30 11:09 11:17 MCV MCH MCHC RDW Plt Count MPV Immature Gran % (Auto) Neut % (Auto) Lymph % (Auto) Jay % (Auto) Eos % (Auto) Baso % (Auto) Lymph # (Auto) Jay # (Auto) Eos # (Auto) Baso # (Auto) Abs Immat Gran (auto) Absolute Neuts (auto) Absolute Nucleated RBC Nucleated RBC % (auto) ESR Anion Gap Estim Creat Clear Calc Estimated GFR POC Glucose Random Glucose Lactic Acid Calcium Magnesium Total Bilirubin AST ALT Alkaline Phosphatase Total Creatine Kinase C-Reactive Protein B-Natriuretic Peptide 90 Total Protein Albumin Urine Color Yellow Urine Appearance Clear Urine pH 6.5 Ur Specific [place] >= 1.030 H Urine Protein 30 (1+) H Urine Glucose (UA) Negative Urine Ketones >=160 Urine Blood Negative Urine Nitrite Negative Ur Leukocyte Esterase Negative Urine RBC 0-2 Urine WBC 0-5 Ur Squamous Epith Cells 0-2 Urine Bacteria None Seen Hyaline Casts 0-2 Ethyl Alcohol COVID-19 (OSMEL) Negative COVID-19 Clin Com See Note Imaging Radiologist's Impressions: Impressions Abdomen/Pelvis CT 12/31/22 11:09 IMPRESSION: 1. Interval development of confluent radiopacities throughout the bilateral lung monique suggesting infectious/inflammatory etiology versus pulmonary edema. 2. Liver is mildly enlarged measuring 19.5 cm. 3. Left mildly exophytic renal hypodense focus along the posterior aspect of the interpolar/upper pole region statistically representing a cyst stable from prior imaging measuring up to 2.1 cm. 4. Circumferential bladder wall thickening measuring up to 6 mm, nonspecific may reflect underlying cystitis. Correlation with symptomatology. Chest CT 12/31/22 11:09 IMPRESSION: 1. Interval development of confluent radiopacities throughout the bilateral lung monique suggesting infectious/inflammatory etiology versus pulmonary edema. 2. Liver is mildly enlarged measuring 19.5 cm. 3. Left mildly exophytic renal hypodense focus along the posterior aspect of the interpolar/upper pole region statistically representing a cyst stable from prior imaging measuring up to 2.1 cm. 4. Circumferential bladder wall thickening measuring up to 6 mm, nonspecific may reflect underlying cystitis. Correlation with symptomatology. Head/Neck CTA 12/31/22 11:09 IMPRESSION: - No acute intracranial findings. There is mild chronic microangiopathy. No acute arterial occlusions and no significant arterial stenoses within the head or neck. - There are postoperative changes following C4-C5 laminectomy and ACDF at the C3-C6 levels. The surgical hardware appears intact. The central canal is not diagnostically assessed due to artifact from the surgical hardware. There is a nonspecific fluid collection containing a few small foci of gas extending from the laminectomy beds along the dorsal midline incision. There is also soft tissue swelling within the right infrahyoid neck without any discrete peripherally enhancing fluid collections identified though assessment is limited by motion. If there is any clinical concern for mass effect on the cervical spinal cord, a cervical spine MRI could be obtained. - There is a displaced fracture involving the C7 spinous process. Cervical Spine X-Ray 12/31/22 11:25 IMPRESSION: 1. Postsurgical changes of the cervical spine. 2. Minimal anterolisthesis of C2 on C3 is noted with flexion positioning only. Cervical Spine MRI 12/31/22 13:00 IMPRESSION: - Redemonstrated postoperative changes following C4-C5 laminectomy and ACDF at the C3-C6 levels. The surgical hardware results in artifact at the postoperative levels and nondiagnostic assessment of bone marrow signal at these levels. - There is a nonspecific peripherally enhancing fluid collection extending from the C4-C5 laminectomy beds along the dorsal midline incision measuring up to 6 cm AP by 3.1 cm TV by 3.1 cm CC. An infected collection cannot be excluded by imaging. - Apparent T2 signal changes within the C3-C6 vertebral bodies and the right C5 posterior elements may be artifactually related to hardware or may reflect nonspecific marrow edema. As per above, infection cannot be excluded and clinical correlation is advised. - Postoperative decompression of the central canal at the C3-C4, C4-C5, and C5-C6 levels. Multilevel foraminal stenosis throughout the cervical spine as discussed above. Assessment and Plan (1) Pneumonia: Status: Acute (2) Fracture of spinous process of cervical vertebra: Status: Acute (3) Neck pain: Status: Acute (4) Frequent falls: Status: Acute (5) Smoker: Status: Acute (6) Alcohol abuse: Status: Acute Plan A 47 years old male with PMH of PUD, Alcohol use disorder, smoking, Depression, cervicalgia (s/p C4-C5, C5-C6 on May at [facility]) with recent Neurosurgical neck procedure [resenting with cough, chills and neck pain presenting with SOB and lethargy. # Acute hypoxic respiratory failure 2/[address] scan as reported Not septic Treat with IV Vancomycin and Ceftriaxone Cough medicine Wean O2 down as tolerated Blood culture # Elevated CPK no ALEX monitor # Neck pain Post op MRI and CTA did not show any acute finding to suggest spinal cord compression Concern for C4-C5 dorsal midline infected fluid collection reported C7 spinal # Neurosurgery consult # Metabolic acidosis w anion gap Check VBG # Transaminitis from infection, monitor # Smoker Nictotine patch # Alcohol use Hx CIWA # Bladder wall thickening , stable Lt renal mass [address] wall thickening, 2.1 cm stable mass no complaints at this stage, to follow as OP DVT PPx Heparin The patient will need at least 2 overnight hospital stay for treatment of HYpoxic failure, Pneumonia pending neurosurgery eval and recommendations Time Spent With Patient Time: Total time managing care of this patient today ____ minutes. Quality Stroke Does the patient have a stroke diagnosis?: No VTE Prior VTE?: No VTE Risk Level:: Medical - moderate - high VTE Device Contraindication: Treatment Not Indicated VTE Drug Contraindication: N/A - Med Ordered
[2022-12-31] MEDS: Heparin Sodium,Porcine 5,000 UNIT/ML VIAL 5000 UNIT SUBCUT ×2 (14:43→20:38)
[2022-12-31] MEDS: guaiFENesin LA 600 MG TAB.ER.12H PO ×2 (14:43→20:39)
[2022-12-31] MEDS: Benzonatate 100 MG CAPSULE PO (14:44)
[2022-12-31] MEDS: HYDROmorphone HCl 0.5 MG/0.5 ML SYRINGE 1 MG IVPUSH ×2 (14:44→20:38)
--- NOTE | 2022-12-31 15:54 | PC.NURSE ---
Report given to RN on [facility]. All further questions answered, pt to be brought up by Tech on cardiac cath lab radiology technologist.
[2022-12-31 16:09] LABS: Amphetamine Screen Urine Not Detected (Not Detect); Barbiturates, Urine Not Detected (Not Detect); Benzodiazepines Screen Urine Not Detected (Not Detect); Cannabinoid Screen Urine POSITIVE (Not Detect); Cocaine Screen Urine Not Detected (Not Detect); Fentanyl, urine Not Detected (Not Detect); Opiate Screen Urine POSITIVE (Not Detect); Phencyclidine Screen Urine Not Detected (Not Detect)
[2022-12-31] MEDS: Acetaminophen 325 MG TABLET 650 MG PO (16:50)
[2022-12-31] MEDS: Pregabalin 200 MG CAPSULE PO ×2 (16:51→20:38)
[2022-12-31] MEDS: 0.9 % Sodium Chloride Flush 3 ML SYRINGE IVFLUSH ×2 (16:54→20:39)
--- NOTE | 2022-12-31 16:55 | HO.NEURO.PN ---
Neurosurgery Operative Note Date of Service: 12/31/22 Narrative: Pt is 47 y/o alchoholic male h/o previous known myelopathy and ACDF at [facility] a few years ago, known to Dr Mckeon service from ACDF,cervical lami 4 days ago for persistent stenosis in setting of ongoing gait disturbances and neck pain. Pt had uneventful post op course, but came back to hospital with SOB, generalized weakness and fatigue. Found to have PNA on imaging. Being admitted for treatment of PNA. We were called bc patient c/o generalized weakness. He reports no change in his preop hand numbness. C/o neck pain, which was also one of his preop sxs as well. Denies any new sxs other than the generalized fatigue/weakness. On exam he is aao x 3, no stridor or resp distress, forgetful at times, does not want to participate in exam bc he is tired, able to show me movement of at least 3/5 or better in all major muscle groups, but defers good effort. Hands remain weak as they were at baseline. He remains spastic and hyperreflexic which is also his baseline. Ant incision clean and dry, small amount of swelling as would expect at this point. back wound cdi, cullen in place. no signs of hematoma or infection Imaging: cT of neck with small post op fluid collection anteriorly along surgical tract, no signs of tracheal shift. Hardware positioning excellent on xrays. MRI shows excellent decompression of spinal cord, no signs of residual stenosis. Imp: 47 y/o alcoholic male, known myelopathy at baseline from previsou spinal cord compression years ago, who had f/u surgery done by Dr Mckeon 4 days ago, ACDF and cervical lami for residual stenosis, who appears at neurological baseline, wounds look fine. He appears comfortable. wounds look fine, small amt of swelling around anterior neck incision but nothing more than typically expected. Imaging reviewed with dR Mckeon, all very reassuring. Pt found to have PNA and will be admitted for treatment of that. We do not expect his neurological sxs from preop to resolve given his long standing h/o myelopathy. His neck pain is expected and can be tx with narcotics and muscle relaxers similar to what he was discharged with. It is NORMAL to have post op pain after surgery, please do not escalate narcotics. Rec have PT, OT see him. please call if any ?'s. All the following reviewed with DR Mckeon.
[2022-12-31] MEDS: vancomycin/NS 2,000 MG/500 ML PLAST..BAG 250 MG IV (17:03)
[2022-12-31] MEDS: Lactated Ringers 1,000 ML 100 ML IVCONT (17:58)
[2022-12-31] MEDS: cloNIDine HCL 0.2 MG TABLET PO (20:39)
[2022-12-31] MEDS: busPIRone HCl 5 MG TABLET PO (20:39)
[2023-01-01] VITALS (8 sets, daily range): BP systolic 100–155; BP diastolic 51–80; PULSE 55–71; RESP 16–22; TEMP 36.4–36.9; O2SAT 91–98; BMI 24.8
[2023-01-01] MEDS: Lactated Ringers 1,000 ML 100 ML IVCONT ×3 (02:55→23:09)
[2023-01-01] MEDS: HYDROmorphone HCl 0.5 MG/0.5 ML SYRINGE 1 MG IVPUSH ×5 (02:56→22:03)
[2023-01-01] MEDS: ondansetron HCL 4 MG/2 ML VIAL IVPUSH ×3 (03:01→22:03)
[2023-01-01] MEDS: Heparin Sodium,Porcine 5,000 UNIT/ML VIAL 5000 UNIT SUBCUT ×3 (04:58→21:46)
[2023-01-01] MEDS: vancomycin HCL 1,500 MG in 0.9 % Sodium Chloride 500 ML 333.33 MG IV (04:58)
[2023-01-01 05:59] LABS: MANUAL DIFF FLAG NO
[2023-01-01 06:04] LABS: Basophils Absolute Auto 0.1 X10*3/uL (0.0-0.2); Basophils Percent Auto 0.4 % (0-2); Eosinophils Absolute Auto 0.3 X10*3/uL (0.0-0.4); Eosinophils Percent Auto 2.5 % (0-4); Hematocrit 36.3 % (42.0-52.0); Hemoglobin 12.2 g/dl (14.0-18.0); Imm Gran Abs Auto 0.15 X10*3/uL (0.00-0.03); Imm Gran Pct Auto 1.2 % (0.0-0.4); Lymphocytes Absolute Auto 1.1 X10*3/uL (1.2-4.9); Lymphocytes Percent Auto 9.3 % (20-40); Mean Corpuscular HGB Conc 33.6 g/dl (31.0-36.0); Mean Corpuscular Hemoglobin 31.1 pg (27.0-33.0); Mean Corpuscular Volume 92.6 fL (80.0-98.0); Mean Platelet Volume 10.1 fL (9.4-12.4); Monocytes Absolute Auto 0.8 X10*3/uL (0.1-1.2); Monocytes Percent Auto 6.9 % (2-11); Neutrophils Absolute Auto 9.7 x10*3/uL (2.0-8.3); Neutrophils Percent Auto 79.7 % (45-73); Platelet Count 282 X10*3/uL (160-400); Red Blood Count 3.92 X10*6/uL (4.60-5.80); Red Cell Distribution Width 13.8 % (11.0-16.0); White Blood Count 12.1 X10*3/uL (4.8-10.8)
[2023-01-01 06:23] LABS: Alanine Aminotransferase 35 U/L (0-40); Albumin Level 2.8 g/dL (3.5-5.0); Alkaline Phosphatase 45 U/L (39-117); Anion Gap 15 (12-20); Aspartate Amino Transferase 37 U/L (5-37); Bilirubin Total 0.3 mg/dL (0.0-1.0); Blood Urea Nitrogen 8 mg/dL (9-16); Calcium 8.6 mg/dL (8.4-10.2); Carbon Dioxide 17 mmol/L (22-29); Chloride 105 mmol/L (96-108); Creatinine Clr Calc Pharmacy 163.4; Estimated Glomerular Filt Rate > 60; Glucose Random 101 mg/dL (60-115); Potassium 3.3 mmol/L (3.3-5.1); Sodium 134 mmol/L (135-145); Total Protein 5.5 g/dL (6.5-8.0)
[2023-01-01] MEDS: cloNIDine HCL 0.2 MG TABLET PO ×2 (08:55→21:46)
[2023-01-01] MEDS: busPIRone HCl 5 MG TABLET PO ×2 (08:55→21:46)
[2023-01-01] MEDS: Sertraline HCL 50 MG TABLET 150 MG PO (08:55)
[2023-01-01] MEDS: Baclofen 20 MG TABLET PO (08:55)
[2023-01-01] MEDS: Benzonatate 100 MG CAPSULE PO ×2 (08:55→21:46)
[2023-01-01] MEDS: guaiFENesin LA 600 MG TAB.ER.12H PO ×2 (08:55→21:46)
[2023-01-01] MEDS: Pregabalin 200 MG CAPSULE PO ×3 (08:55→21:46)
[2023-01-01] MEDS: 0.9 % Sodium Chloride Flush 3 ML SYRINGE IVFLUSH ×3 (08:56→23:11)
--- NOTE | 2023-01-01 11:51 | MHC.CM.PN ---
Male 47 DX PNA Patient s/p cervical surgery last week. HX ETOH. He returns with PNA. He is independent. DP home self care. Patient will arrange for a ride home.
[2023-01-01] MEDS: Famotidine/PF 20 MG/2 ML VIAL IVPUSH (12:25)
[2023-01-01] MEDS: cefTRIAXone sodium 1 GM in 0.9 % Sodium Chloride 50 ML IV (12:25)
--- NOTE | 2023-01-01 13:15 | HO.PM.IMPN ---
Subjective Subjective Date of Service: 01/01/23 Interval History: Seen and evaluated this morning feeling weak and tired, complaining of neck pain No fever or chills Neurologically intact Cultures remain negative Review of Systems Neck pain weakness No chest pain, palpitation having shortness of breath and coughing No abdominal pain, nausea or vomiting No urinary symptoms No any rash or wounds Physical Exam Vital Signs: Vital Signs: Last Vital Signs Temp 98.3 F 01/01/23 11:13 Pulse 55 01/01/23 11:13 Resp 16 01/01/23 11:13 BP 134/73 01/01/23 11:13 Pulse Ox 97 01/01/23 11:13 O2 Del Method Nasal Cannula 01/01/23 11:13 O2 Flow Rate 2 01/01/23 11:13 Oxygen Flow Rate 2 12/31/22 09:15 BMI result Body Mass Index 24.8 Const: Other: Constitutional : Awake, interactive, in mild distress from neck pain Neck : Normal inspection, Supple Cardiovascular : RRR, no JVP, no lower extremity edema Respiratory : good bilateral air entry, basal bilateral crackles Gastrointestinal: soft, lax, Normal bowel sounds, Non tender Skin : Warm, Dry Neurological : Alert & oriented x3, No focal deficit Objective Data Active Medications Acetaminophen (Acetaminophen 325 Mg Tablet) 650 mg PO Q6H PRN PRN Reason: Pain, Mild (Pain Scale 1-3) Last Admin: 12/31/22 16:50 Dose: 650 mg Documented By: REINALDO Baclofen (Baclofen 20 Mg Tablet) 20 mg PO DAILY [facility] Last Admin: 01/01/23 08:55 Dose: 20 mg Documented By: CHIARA Benzonatate (Benzonatate 100 Mg Capsule) 100 mg PO TID PRN PRN Reason: Cough Last Admin: 01/01/23 08:55 Dose: 100 mg Documented By: CHIARA Buspirone HCl (Buspirone Hcl 5 Mg Tablet) 5 mg PO BID [facility] Last Admin: 01/01/23 08:55 Dose: 5 mg Documented By: CHIARA Clonidine HCl (Clonidine Hcl 0.2 Mg Tablet) 0.2 mg PO BID [facility]; Protocol Last Admin: 01/01/23 08:55 Dose: 0.2 mg Documented By: CHIARA Guaifenesin (Guaifenesin La 600 Mg Tab.Er.12h) 600 mg PO BID [facility] Last Admin: 01/01/23 08:55 Dose: 600 mg Documented By: CHIARA Heparin Sodium (Porcine) (Heparin Sodium,Porcine 5,000 Unit/Ml Vial) 5,000 unit SUBCUT Q8H [facility] Last Admin: 01/01/23 12:25 Dose: 5,000 unit Documented By: CHIARA Hydromorphone HCl (Hydromorphone Hcl 0.5 Mg/0.5 Ml Syringe) 1 mg IVPUSH Q4H PRN; Protocol PRN Reason: Pain, Severe (Pain Scale 7-10) Last Admin: 01/01/23 12:24 Dose: 1 mg Documented By: CHIARA Ceftriaxone Sodium 1 gm/ (Sodium Chloride) 50 mls @ 100 mls/hr IV Q24H [facility] Last Admin: 01/01/23 12:25 Dose: 100 mls/hr Documented By: CHIARA Lactated Ringer's (Lr) 1,000 mls @ 100 mls/hr IVCONT .Q10H [facility] Last Admin: 01/01/23 12:27 Dose: 100 mls/hr Documented By: CHIARA Vancomycin HCl 1,500 mg/ (Sodium Chloride) 500 mls @ 333.333 mls/hr IV Q12H [facility] Last Infusion: 01/01/23 06:29 Dose: 0 mls/hr Documented By: EVELYN Naloxone HCl (Naloxone Hcl 0.4 Mg/Ml Vial) 0.1 mg IVPUSH Q2M PRN PRN Reason: Respiratory Rate < 10 Nicotine (Nicotine 14 Mg Patch.Td24) 14 mg TRANSDERMA DAILY [facility] Last Admin: 01/01/23 09:00 Dose: Not Given Documented By: CHIARA Non-Admin Reason: Patient Refused Omeprazole (Omeprazole 20 Mg Capsule.) 20 mg PO BID@0630,1630 [facility] Ondansetron HCl (Ondansetron Hcl 4 Mg/2 Ml Vial) 4 mg IVPUSH Q8H PRN PRN Reason: Nausea and Vomiting Last Admin: 01/01/23 08:54 Dose: 4 mg Documented By: CHIARA Pharmacy Consult (Consult Rx Perform Med Rec) 1 each MISCELLANE ONCE PRN PRN Reason: Consult order Pharmacy Consult (Consult Rx Vancomycin Dosing) 1 each MISCELLANE DAILY PRN PRN Reason: Consult order Pregabalin (Pregabalin 200 Mg Capsule) 200 mg PO TID [facility] Last Admin: 01/01/23 08:55 Dose: 200 mg Documented By: CHIARA Sertraline HCl (Sertraline Hcl 50 Mg Tablet) 150 mg PO DAILY [facility] Last Admin: 01/01/23 08:55 Dose: 150 mg Documented By: CHIARA Sodium Chloride (0.9 % Sodium Chloride Flush 3 Ml Syringe) 3 ml IVFLUSH QSHIFT [facility] Last Admin: 01/01/23 08:56 Dose: 3 ml Documented By: CHIARA Labs 01/01/23 05:47 01/01/23 05:47 Labs: Laboratory Results - last 24 hr 12/31/22 01/01/23 01/01/23 11:17 05:47 05:47 MCV 92.6 MCH 31.1 MCHC 33.6 RDW 13.8 Plt Count 282 MPV 10.1 Immature Gran % (Auto) 1.2 H Neut % (Auto) 79.7 H Lymph % (Auto) 9.3 L [place] % (Auto) 6.9 Eos % (Auto) 2.5 Baso % (Auto) 0.4 Lymph # (Auto) 1.1 L [place] # (Auto) 0.8 Eos # (Auto) 0.3 Baso # (Auto) 0.1 Abs Immat Gran (auto) 0.15 H Absolute Neuts (auto) 9.7 H Absolute Nucleated RBC 0.000 Nucleated RBC % (auto) 0.0 Anion Gap 15 Estim Creat Clear Calc 163.4 Estimated GFR > 60 Random Glucose 101 Calcium 8.6 D Total Bilirubin 0.3 AST 37 ALT 35 Alkaline Phosphatase 45 Total Creatine Kinase 386 H Total Protein 5.5 L Albumin 2.8 L Urine Opiates Screen POSITIVE H Urine Fentanyl Screen Not Detected Ur Barbiturates Screen Not Detected Ur Phencyclidine Scrn Not Detected Ur Amphetamines Screen Not Detected U Benzodiazepines Scrn Not Detected Urine Cocaine Screen Not Detected U Marijuana (THC) Screen POSITIVE H Microbiology Microbiology Results: Microbiology 12/31/22 11:08 Blood Culture - Preliminary Blood - Venous No growth after 24 hours. 12/31/22 09:30 Blood Culture - Preliminary Blood - Venous No growth after 24 hours. Assessment and Plan (1) Pneumonia: Status: Acute (2) Acute respiratory failure with hypoxia: Status: Acute (3) Metabolic acidosis: Status: Acute (4) Transaminitis: Status: Acute Plan A 47 years old male with PMH of PUD, Alcohol use disorder, smoking, Depression, cervicalgia (s/p C4-C5, C5-C6 on May at [facility]) with recent Neurosurgical neck procedure [resenting with cough, chills and neck pain presenting with SOB and lethargy. # Acute hypoxic respiratory failure 2/[address] scan as reported Continue IV Vancomycin and Ceftriaxone Cough medicine Wean O2 down as tolerated Blood culture pending # Elevated CPK resolving on IVF # Neck pain Post op MRI and CTA did not show any acute finding to suggest spinal cord compression Concern for C4-C5 dorsal midline infected fluid collection reported C7 spinal # Neurosurgery consult appreciated # Metabolic acidosis w anion gap resolved # Transaminitis from infection, resolved # Smoker Nictotine patch # Alcohol use Hx CIWA # Bladder wall thickening , stable Lt renal mass [address] wall thickening, 2.1 cm stable mass no complaints at this stage, to follow as OP DVT PPx Heparin The patient will need overnight hospital stay for treatment of HYpoxic failure, Pneumonia pending neurosurgery eval and recommendations Time Spent With Patient Time: Total time managing care of this patient today ____ minutes. Quality Stroke Does the patient have a stroke diagnosis?: No VTE Prior VTE?: No VTE Risk Level:: Medical - moderate - high VTE Device Contraindication: Treatment Not Indicated VTE Drug Contraindication: N/A - Med Ordered
[2023-01-01 15:50] LABS: Vancomycin Random 7.8 mcg/mL (15-20)
[2023-01-01] MEDS: Omeprazole 20 MG CAPSULE.DR PO (16:13)
[2023-01-01] MEDS: vancomycin HCL 1,250 MG in 0.9 % Sodium Chloride 250 ML 166.67 MG IV (16:18)
[2023-01-01] MEDS: Acetaminophen 325 MG TABLET 650 MG PO (23:12)
[2023-01-02] VITALS (13 sets, daily range): BP systolic 145–166; BP diastolic 61–98; PULSE 56–78; RESP 12–20; TEMP 36.1–37.2; O2SAT 89–95; BMI 24.3
[2023-01-02] MEDS: vancomycin HCL 1,250 MG in 0.9 % Sodium Chloride 250 ML 166.67 MG IV ×3 (01:37→16:22)
[2023-01-02] MEDS: HYDROmorphone HCl 0.5 MG/0.5 ML SYRINGE 1 MG IVPUSH ×5 (02:05→19:52)
[2023-01-02] MEDS: Heparin Sodium,Porcine 5,000 UNIT/ML VIAL 5000 UNIT SUBCUT ×3 (06:34→19:54)
[2023-01-02] MEDS: Omeprazole 20 MG CAPSULE.DR PO ×2 (06:34→15:35)
[2023-01-02] MEDS: cloNIDine HCL 0.2 MG TABLET PO ×2 (08:56→19:53)
[2023-01-02] MEDS: Lactated Ringers 1,000 ML 100 ML IVCONT (08:57)
[2023-01-02] MEDS: guaiFENesin LA 600 MG TAB.ER.12H PO ×2 (08:58→19:52)
[2023-01-02] MEDS: Sertraline HCL 50 MG TABLET 150 MG PO (08:58)
[2023-01-02] MEDS: busPIRone HCl 5 MG TABLET PO ×2 (08:58→19:52)
[2023-01-02] MEDS: Baclofen 20 MG TABLET PO (08:58)
[2023-01-02] MEDS: 0.9 % Sodium Chloride Flush 3 ML SYRINGE IVFLUSH ×3 (09:03→19:53)
[2023-01-02] MEDS: Pregabalin 200 MG CAPSULE PO ×3 (09:04→19:53)
[2023-01-02] MEDS: Albuterol/Iprat 2.5/0.5MG 3 ML AMPUL.NEB INHALE ×3 (10:10→19:29)
[2023-01-02 10:47] LABS: Creatinine Clr Calc Pharmacy 163.4; Estimated Glomerular Filt Rate > 60
[2023-01-02] MEDS: cefTRIAXone sodium 1 GM in 0.9 % Sodium Chloride 50 ML IV (11:11)
--- NOTE | 2023-01-02 12:12 | MHC.CM.PN ---
EMR reviewed and per MD rounds, pt is not medically cleared for D/C today due to the process of weaning down his O2. CM will continue to follow.
--- NOTE | 2023-01-02 12:47 | P.PNIM_ITS ---
Subjective Subjective Date of Service: 01/02/23 Interval History: Seen and evaluated this morning Feels better today Neck pain is less still coughing and requiring O2 supplement No fever or chills Neurologically intact Cultures remain negative Review of Systems Neck pain weakness No chest pain, palpitation having shortness of breath and coughing No abdominal pain, nausea or vomiting No urinary symptoms No any rash or wounds Physical Exam Vital Signs: Vital Signs: Last Vital Signs Temp 98.8 F 01/02/23 11:01 Pulse 56 01/02/23 11:01 Resp 16 01/02/23 11:01 BP 151/83 H 01/02/23 11:01 Pulse Ox 93 01/02/23 11:01 O2 Del Method Nasal Cannula 01/02/23 11:01 O2 Flow Rate 2 01/02/23 11:01 Oxygen Flow Rate 2 12/31/22 09:15 BMI result Body Mass Index 24.3 Const: Other: Constitutional : Awake, interactive, in mild distress from neck pain Neck : Normal inspection, Supple Cardiovascular : RRR, no JVP, no lower extremity edema Respiratory : good bilateral air entry, basal bilateral crackles Gastrointestinal: soft, lax, Normal bowel sounds, Non tender Skin : Warm, Dry Neurological : Alert & oriented x3, No focal deficit Objective Data Active Medications Acetaminophen (Acetaminophen 325 Mg Tablet) 650 mg PO Q6H PRN PRN Reason: Pain, Mild (Pain Scale 1-3) Last Admin: 01/01/23 23:12 Dose: 650 mg Documented By: LAMAR Albuterol/Ipratropium (Albuterol/Iprat 2.5/0.5mg 3 Ml Ampul.Neb) 3 ml INHALE RQ4H WHILE AWAKE [facility] Last Admin: 01/02/23 11:08 Dose: Not Given Documented By: WIL Non-Admin Reason: pt had neb at 1015 Baclofen (Baclofen 20 Mg Tablet) 20 mg PO DAILY [facility] Last Admin: 01/02/23 08:58 Dose: 20 mg Documented By: RIOSCEL Benzonatate (Benzonatate 100 Mg Capsule) 100 mg PO TID PRN PRN Reason: Cough Last Admin: 01/01/23 21:46 Dose: 100 mg Documented By: LAMAR Buspirone HCl (Buspirone Hcl 5 Mg Tablet) 5 mg PO BID [facility] Last Admin: 01/02/23 08:58 Dose: 5 mg Documented By: CHIARA Clonidine HCl (Clonidine Hcl 0.2 Mg Tablet) 0.2 mg PO BID [facility]; Protocol Last Admin: 01/02/23 08:56 Dose: 0.2 mg Documented By: CHIARA Guaifenesin (Guaifenesin La 600 Mg Tab.Er.12h) 600 mg PO BID [facility] Last Admin: 01/02/23 08:58 Dose: 600 mg Documented By: CHIARA Heparin Sodium (Porcine) (Heparin Sodium,Porcine 5,000 Unit/Ml Vial) 5,000 unit SUBCUT Q8H [facility] Last Admin: 01/02/23 06:34 Dose: 5,000 unit Documented By: LAMAR Hydromorphone HCl (Hydromorphone Hcl 0.5 Mg/0.5 Ml Syringe) 1 mg IVPUSH Q4H PRN; Protocol PRN Reason: Pain, Severe (Pain Scale 7-10) Last Admin: 01/02/23 11:11 Dose: 1 mg Documented By: CHIARA Ceftriaxone Sodium 1 gm/ (Sodium Chloride) 50 mls @ 100 mls/hr IV Q24H [facility] Last Infusion: 01/02/23 11:56 Dose: 0 mls/hr Documented By: CHIARA Lactated Ringer's (Lr) 1,000 mls @ 100 mls/hr IVCONT .Q10H [facility] Last Admin: 01/02/23 08:57 Dose: 100 mls/hr Documented By: CHIARA Vancomycin HCl 1,250 mg/ (Sodium Chloride) 250 mls @ 166.667 mls/hr IV Q8H [facility] Last Infusion: 01/02/23 11:12 Dose: 0 mls/hr Documented By: CHIARA Naloxone HCl (Naloxone Hcl 0.4 Mg/Ml Vial) 0.1 mg IVPUSH Q2M PRN PRN Reason: Respiratory Rate < 10 Nicotine (Nicotine 14 Mg Patch.Td24) 14 mg TRANSDERMA DAILY [facility] Last Admin: 01/02/23 07:07 Dose: Not Given Documented By: CHIARA Non-Admin Reason: Patient Refused Omeprazole (Omeprazole 20 Mg Capsule.Dr) 20 mg PO BID@0630,1630 [facility] Last Admin: 01/02/23 06:34 Dose: 20 mg Documented By: LAMAR Ondansetron HCl (Ondansetron Hcl 4 Mg/2 Ml Vial) 4 mg IVPUSH Q8H PRN PRN Reason: Nausea and Vomiting Last Admin: 01/01/23 22:03 Dose: 4 mg Documented By: LAMAR Pharmacy Consult (Consult Rx Perform Med Rec) 1 each MISCELLANE ONCE PRN PRN Reason: Consult order Pharmacy Consult (Consult Rx Vancomycin Dosing) 1 each MISCELLANE DAILY PRN PRN Reason: Consult order Pregabalin (Pregabalin 200 Mg Capsule) 200 mg PO TID [facility] Last Admin: 01/02/23 09:04 Dose: 200 mg Documented By: CHIARA Sertraline HCl (Sertraline Hcl 50 Mg Tablet) 150 mg PO DAILY [facility] Last Admin: 01/02/23 08:58 Dose: 150 mg Documented By: CHIARA Sodium Chloride (0.9 % Sodium Chloride Flush 3 Ml Syringe) 3 ml IVFLUSH QSHIFT [facility] Last Admin: 01/02/23 09:03 Dose: 3 ml Documented By: CHIARA Labs 01/01/23 05:47 01/02/23 10:06 Labs: Laboratory Results - last 24 hr 01/01/23 01/02/23 14:53 10:06 Estim Creat Clear Calc 163.4 Estimated GFR > 60 Random Vancomycin 7.8 L Microbiology Microbiology Results: Microbiology 12/31/22 09:30 Blood Culture - Preliminary Blood - Venous No growth after 48 hours. 12/31/22 11:08 Blood Culture - Preliminary Blood - Venous No growth after 24 hours. Assessment and Plan (1) Transaminitis: Status: Acute (2) Acute respiratory failure with hypoxia: Status: Acute (3) Pneumonia: Status: Acute (4) Neck pain: Status: Acute Plan A 47 years old male with PMH of PUD, Alcohol use disorder, smoking, Depression, cervicalgia (s/p C4-C5, C5-C6 on May at [facility]) with recent Neurosurgical neck procedure [resenting with cough, chills and neck pain presenting with SOB and lethargy. # Acute hypoxic respiratory failure 2/[address] scan as reported Blood culture pending Continue IV Vancomycin and Ceftriaxone Cough medicine Wean O2 down as tolerated # Elevated CPK resolved DC IVF # Neck pain Post op MRI and CTA did not show any acute finding to suggest spinal cord compression Concern for C4-C5 dorsal midline infected fluid collection reported C7 spinal # Neurosurgery consult appreciated # Metabolic acidosis w anion gap resolved # Transaminitis from infection, resolved # Smoker Nictotine patch # Alcohol use Hx CIWA # Bladder wall thickening , stable Lt renal mass [address] wall thickening, 2.1 cm stable mass no complaints at this stage, to follow as OP DVT PPx Heparin The patient will need overnight hospital stay for treatment of HYpoxic failure, Pneumonia pending clinical improvement Time Spent With Patient Time: Total time managing care of this patient today ____ minutes. Quality Stroke Does the patient have a stroke diagnosis?: No VTE Prior VTE?: No VTE Risk Level:: Medical - moderate - high VTE Device Contraindication: Treatment Not Indicated VTE Drug Contraindication: N/A - Med Ordered
[2023-01-02] MEDS: Acetaminophen 325 MG TABLET 650 MG PO ×2 (13:15→19:52)
[2023-01-02 15:58] LABS: Vancomycin Random 14.2 mcg/mL (15-20)
--- NOTE | 2023-01-02 16:20 | HE.PHANOTE ---
re ganesh continue current dose in setting of stable renal function and apporpriate urine output. next level due 01/03 @1500 jose a
[2023-01-02] MEDS: oxyCODONE HCl Immed Release 5 MG TABLET 10 MG PO (18:26)
[2023-01-02] MEDS: Benzonatate 100 MG CAPSULE PO (19:53)
[2023-01-03] VITALS (11 sets, daily range): BP systolic 128–186; BP diastolic 73–94; PULSE 63–98; RESP 14–20; TEMP 36.1–36.8; O2SAT 89–98; BMI 25.0
[2023-01-03] MEDS: vancomycin HCL 1,250 MG in 0.9 % Sodium Chloride 250 ML 166.67 MG IV ×3 (00:20→15:57)
[2023-01-03] MEDS: HYDROmorphone HCl 0.5 MG/0.5 ML SYRINGE 1 MG IVPUSH ×3 (00:27→09:03)
[2023-01-03] MEDS: Heparin Sodium,Porcine 5,000 UNIT/ML VIAL 5000 UNIT SUBCUT ×3 (05:10→19:33)
[2023-01-03] MEDS: Omeprazole 20 MG CAPSULE.DR PO ×2 (05:11→15:56)
[2023-01-03 07:07] LABS: Hematocrit 37.6 % (42.0-52.0); Hemoglobin 12.9 g/dl (14.0-18.0); Mean Corpuscular HGB Conc 34.3 g/dl (31.0-36.0); Mean Corpuscular Hemoglobin 31.1 pg (27.0-33.0); Mean Corpuscular Volume 90.6 fL (80.0-98.0); Mean Platelet Volume 10.5 fL (9.4-12.4); Platelet Count 329 X10*3/uL (160-400); Red Blood Count 4.15 X10*6/uL (4.60-5.80); Red Cell Distribution Width 13.3 % (11.0-16.0)
[2023-01-03 07:23] LABS: Anion Gap 14 (12-20); Blood Urea Nitrogen 4 mg/dL (9-16); Calcium 8.9 mg/dL (8.4-10.2); Carbon Dioxide 24 mmol/L (22-29); Chloride 103 mmol/L (96-108); Creatinine Clr Calc Pharmacy 166.2; Estimated Glomerular Filt Rate > 60; Glucose Random 110 mg/dL (60-115); Potassium 3.2 mmol/L (3.3-5.1); Sodium 138 mmol/L (135-145)
[2023-01-03] MEDS: Albuterol/Iprat 2.5/0.5MG 3 ML AMPUL.NEB INHALE ×4 (07:43→19:32)
--- NOTE | 2023-01-03 08:16 | HO.NEURO.PN ---
Neurosurgery Operative Note Date of Service: 01/03/23 Narrative: Patient is postop day 7. C3-4 anterior cervical fusion with posterior cervical laminectomy. Admitted for pneumonia. I saw the patient at bedside with Dr. Mckeon today. He still on oxygen, still complaining of some shortness of breath. Overall on our exam, he is still demonstrating signs of myelopathy with hand weakness and hyperreflexia, this is his baseline. He still complaining of some neck pain but is anterior posterior incisions look great. We with the cullen out in 1 week. He should follow up in our office to have those removed. Our office will contact him to coordinate that appointment. Please call if we can be of any further assistance.
[2023-01-03] MEDS: Potassium Chloride Packet 20 MEQ PACKET 40 MEQ PO (08:43)
[2023-01-03] MEDS: cloNIDine HCL 0.2 MG TABLET PO ×2 (08:43→19:30)
[2023-01-03] MEDS: Sertraline HCL 50 MG TABLET 150 MG PO (08:43)
[2023-01-03] MEDS: Pregabalin 200 MG CAPSULE PO ×3 (08:43→19:29)
[2023-01-03] MEDS: Baclofen 20 MG TABLET PO (08:43)
[2023-01-03] MEDS: busPIRone HCl 5 MG TABLET PO ×2 (08:44→19:30)
[2023-01-03] MEDS: 0.9 % Sodium Chloride Flush 3 ML SYRINGE IVFLUSH ×3 (08:44→19:29)
[2023-01-03] MEDS: guaiFENesin LA 600 MG TAB.ER.12H PO ×2 (08:44→19:30)
[2023-01-03] MEDS: oxyCODONE HCl Immed Release 5 MG TABLET 10 MG PO ×3 (10:48→23:53)
[2023-01-03] MEDS: cefTRIAXone sodium 1 GM in 0.9 % Sodium Chloride 50 ML IV (10:48)
--- NOTE | 2023-01-03 12:15 | P.PNIM_ITS ---
Subjective Subjective Date of Service: 01/03/23 Interval History: Seen and evaluated this morning Feels better today but still coughing and requiring O2 supplement Neck pain is under fair control No fever or chills Neurologically intact Cultures remain negative Review of Systems Neck pain weakness No chest pain, palpitation having shortness of breath and coughing No abdominal pain, nausea or vomiting No urinary symptoms No any rash or wounds Physical Exam Vital Signs: Vital Signs: Last Vital Signs Temp 97.0 F 01/03/23 11:44 Pulse 72 01/03/23 11:44 Resp 20 01/03/23 11:44 BP 157/93 H 01/03/23 11:44 Pulse Ox 92 01/03/23 11:44 O2 Del Method Room Air 01/03/23 11:44 O2 Flow Rate 2 01/03/23 07:14 Oxygen Flow Rate 2 12/31/22 09:15 BMI result Body Mass Index 25.0 Const: Other: Constitutional : Awake, interactive, in mild distress from neck pain Neck : Normal inspection, Supple Cardiovascular : RRR, no JVP, no lower extremity edema Respiratory : good bilateral air entry, basal bilateral crackles Gastrointestinal: soft, lax, Normal bowel sounds, Non tender Skin : Warm, Dry Neurological : Alert & oriented x3, No focal deficit Objective Data Active Medications Acetaminophen (Acetaminophen 325 Mg Tablet) 650 mg PO Q6H PRN PRN Reason: Pain, Mild (Pain Scale 1-3) Last Admin: 01/02/23 19:52 Dose: 650 mg Documented By: ANTON Albuterol/Ipratropium (Albuterol/Iprat 2.5/0.5mg 3 Ml Ampul.Neb) 3 ml INHALE RQ4H WHILE AWAKE [facility] Last Admin: 01/03/23 11:35 Dose: 3 ml Documented By: CARMEN Baclofen (Baclofen 20 Mg Tablet) 20 mg PO DAILY [facility] Last Admin: 01/03/23 08:43 Dose: 20 mg Documented By: MATT Benzonatate (Benzonatate 100 Mg Capsule) 100 mg PO TID PRN PRN Reason: Cough Last Admin: 01/02/23 19:53 Dose: 100 mg Documented By: ANTON Buspirone HCl (Buspirone Hcl 5 Mg Tablet) 5 mg PO BID [facility] Last Admin: 01/03/23 08:44 Dose: 5 mg Documented By: MATT Clonidine HCl (Clonidine Hcl 0.2 Mg Tablet) 0.2 mg PO BID [facility]; Protocol Last Admin: 01/03/23 08:43 Dose: 0.2 mg Documented By: MATT Guaifenesin (Guaifenesin La 600 Mg Tab.Er.12h) 600 mg PO BID [facility] Last Admin: 01/03/23 08:44 Dose: 600 mg Documented By: MATT Heparin Sodium (Porcine) (Heparin Sodium,Porcine 5,000 Unit/Ml Vial) 5,000 unit SUBCUT Q8H [facility] Last Admin: 01/03/23 05:10 Dose: 5,000 unit Documented By: RONALD Ceftriaxone Sodium 1 gm/ (Sodium Chloride) 50 mls @ 100 mls/hr IV Q24H [facility] Last Infusion: 01/03/23 11:20 Dose: 0 mls/hr Documented By: ENRIQUE Vancomycin HCl 1,250 mg/ (Sodium Chloride) 250 mls @ 166.667 mls/hr IV Q8H [facility] Last Infusion: 01/03/23 10:45 Dose: 0 mls/hr Documented By: MATT Naloxone HCl (Naloxone Hcl 0.4 Mg/Ml Vial) 0.1 mg IVPUSH Q2M PRN PRN Reason: Respiratory Rate < 10 Nicotine (Nicotine 14 Mg Patch.Td24) 14 mg TRANSDERMA DAILY [facility] Last Admin: 01/03/23 08:44 Dose: Not Given Documented By: MATT Non-Admin Reason: Patient Refused Omeprazole (Omeprazole 20 Mg Kathy.) 20 mg PO BID@0630,1630 [facility] Last Admin: 01/03/23 05:11 Dose: 20 mg Documented By: RONALD Ondansetron HCl (Ondansetron Hcl 4 Mg/2 Ml Vial) 4 mg IVPUSH Q8H PRN PRN Reason: Nausea and Vomiting Last Admin: 01/01/23 22:03 Dose: 4 mg Documented By: LAMRA Oxycodone HCl (Oxycodone Hcl Immed Release 5 Mg Tablet) 10 mg PO Q6H PRN PRN Reason: Pain, Severe (Pain Scale 7-10) Last Admin: 01/03/23 10:48 Dose: 10 mg Documented By: MATT Pharmacy Consult (Consult Rx Perform Med Rec) 1 each MISCELLANE ONCE PRN PRN Reason: Consult order Pharmacy Consult (Consult Rx Vancomycin Dosing) 1 each MISCELLANE DAILY PRN PRN Reason: Consult order Pregabalin (Pregabalin 200 Mg Capsule) 200 mg PO TID [facility] Last Admin: 01/03/23 08:43 Dose: 200 mg Documented By: MATT Sertraline HCl (Sertraline Hcl 50 Mg Tablet) 150 mg PO DAILY [facility] Last Admin: 01/03/23 08:43 Dose: 150 mg Documented By: MATT Sodium Chloride (0.9 % Sodium Chloride Flush 3 Ml Syringe) 3 ml IVFLUSH QSHIFT [facility] Last Admin: 01/03/23 08:44 Dose: 3 ml Documented By: MATT Tramadol HCl (Tramadol Hcl 50 Mg Tablet) 100 mg PO Q8H PRN PRN Reason: Pain, Moderate(Pain Scale 4-6) Labs 01/03/23 06:20 01/03/23 06:20 Labs: Laboratory Results - last 24 hr 01/02/23 01/03/23 01/03/23 15:20 06:20 06:20 MCV 90.6 MCH 31.1 MCHC 34.3 RDW 13.3 Plt Count 329 MPV 10.5 Absolute Nucleated RBC 0.000 Nucleated RBC % (auto) 0.0 Anion Gap 14 Estim Creat Clear Calc 166.2 Estimated GFR > 60 Random Glucose 110 Calcium 8.9 Random Vancomycin 14.2 L Microbiology Microbiology Results: Microbiology 12/31/22 11:08 Blood Culture - Preliminary Blood - Venous No growth after 48 hours. 12/31/22 09:30 Blood Culture - Preliminary Blood - Venous No growth after 48 hours. Assessment and Plan (1) Acute respiratory failure with hypoxia: Status: Acute (2) Pneumonia: Status: Acute (3) Neck pain: Status: Acute Plan A 47 years old male with PMH of PUD, Alcohol use disorder, smoking, Depression, cervicalgia (s/p C4-C5, C5-C6 on May at [facility]) with recent Neurosurgical neck procedure [resenting with cough, chills and neck pain presenting with SOB and lethargy. # Acute hypoxic respiratory failure 2/[address] scan as reported Blood culture negative Continue IV Vancomycin and Ceftriaxone Cough medicine Wean O2 down as tolerated # Elevated CPK resolved # Neck pain Post op day 7.? C3-4 anterior cervical fusion with posterior cervical laminectomy. MRI and CTA did not show any acute finding to suggest spinal cord compression hand weakness and hyperreflexia, at his baseline Neurosurgery consult appreciated DC IV Dilaudid, start Oxycodone prn # Metabolic acidosis w anion gap resolved # Transaminitis from infection, resolved # Smoker Nictotine patch # Alcohol use Hx CIWA # Bladder wall thickening , stable Lt renal mass [address] wall thickening, 2.1 cm stable mass no complaints at this stage, to follow as OP DVT PPx Heparin The patient will need overnight hospital stay for treatment of HYpoxic failure, Pneumonia pending clinical improvement Time Spent With Patient Time: Total time managing care of this patient today ____ minutes. Quality Stroke Does the patient have a stroke diagnosis?: No VTE Prior VTE?: No VTE Risk Level:: Medical - moderate - high VTE Device Contraindication: Treatment Not Indicated VTE Drug Contraindication: N/A - Med Ordered
[2023-01-03] MEDS: traMADoL HCL 50 MG TABLET 100 MG PO (13:29)
[2023-01-03] MEDS: Acetaminophen 325 MG TABLET 650 MG PO ×2 (13:29→19:30)
[2023-01-03 15:21] LABS: Vancomycin Random 14.9 mcg/mL (15-20)
[2023-01-03] MEDS: Benzonatate 100 MG CAPSULE PO (19:30)
[2023-01-04] VITALS (11 sets, daily range): BP systolic 130–169; BP diastolic 86–91; PULSE 66–89; RESP 16–20; TEMP 36.3–36.7; O2SAT 90–99; BMI 25.7
[2023-01-04] MEDS: Melatonin 3 MG TABLET 6 MG PO ×2 (00:35→19:19)
[2023-01-04] MEDS: traMADoL HCL 50 MG TABLET 100 MG PO ×3 (00:37→20:09)
[2023-01-04] MEDS: Acetaminophen 325 MG TABLET 650 MG PO ×3 (06:32→19:13)
[2023-01-04] MEDS: Heparin Sodium,Porcine 5,000 UNIT/ML VIAL 5000 UNIT SUBCUT ×3 (06:32→21:38)
[2023-01-04] MEDS: oxyCODONE HCl Immed Release 5 MG TABLET 10 MG PO ×3 (06:32→19:14)
[2023-01-04] MEDS: Omeprazole 20 MG CAPSULE.DR PO ×2 (06:33→15:47)
[2023-01-04 07:20] LABS: Creatinine Clr Calc Pharmacy 158.1; Estimated Glomerular Filt Rate > 60
[2023-01-04] MEDS: Albuterol/Iprat 2.5/0.5MG 3 ML AMPUL.NEB INHALE ×4 (07:54→19:58)
[2023-01-04] MEDS: 0.9 % Sodium Chloride Flush 3 ML SYRINGE IVFLUSH ×2 (09:11→15:50)
[2023-01-04] MEDS: vancomycin HCL 1,250 MG in 0.9 % Sodium Chloride 250 ML 166.67 MG IV ×2 (09:12)
[2023-01-04] MEDS: Sertraline HCL 50 MG TABLET 150 MG PO (09:13)
[2023-01-04] MEDS: busPIRone HCl 5 MG TABLET PO ×2 (09:14→20:09)
[2023-01-04] MEDS: Baclofen 20 MG TABLET PO (09:14)
[2023-01-04] MEDS: cloNIDine HCL 0.2 MG TABLET PO ×2 (09:14→20:09)
[2023-01-04] MEDS: guaiFENesin LA 600 MG TAB.ER.12H PO ×2 (09:15→20:09)
[2023-01-04] MEDS: Pregabalin 200 MG CAPSULE PO ×3 (09:15→20:09)
[2023-01-04] MEDS: cefTRIAXone sodium 1 GM in 0.9 % Sodium Chloride 50 ML IV (11:38)
--- NOTE | 2023-01-04 12:21 | P.PNIM_ITS ---
Subjective Subjective Date of Service: 01/04/23 Interval History: still sob Physical Exam Vital Signs: Vital Signs: Last Vital Signs Temp 97.9 F 01/04/23 11:42 Pulse 75 01/04/23 11:42 Resp 20 01/04/23 11:42 BP 140/89 H 01/04/23 11:42 Pulse Ox 90 L 01/04/23 11:59 O2 Del Method Nasal Cannula 01/04/23 11:59 O2 Flow Rate 2 01/04/23 11:59 Oxygen Flow Rate 2 12/31/22 09:15 BMI result Body Mass Index 25.7 General: AO X 3, no acute distress Resp: CTA bilateral, no accessory muscles used CVS: S1,S2,RRR GI: soft, non tender, non distended Neuro: motor grossly intact, alert Psych: appropriate affect, appropriate insight Objective Data Active Medications Acetaminophen (Acetaminophen 325 Mg Tablet) 650 mg PO Q6H PRN PRN Reason: Pain, Mild (Pain Scale 1-3) Last Admin: 01/04/23 06:32 Dose: 650 mg Documented By: DEREK Albuterol/Ipratropium (Albuterol/Iprat 2.5/0.5mg 3 Ml Ampul.Neb) 3 ml INHALE RQ4H WHILE AWAKE [facility] Last Admin: 01/04/23 11:20 Dose: 3 ml Documented By: ORAL Baclofen (Baclofen 20 Mg Tablet) 20 mg PO DAILY [facility] Last Admin: 01/04/23 09:14 Dose: 20 mg Documented By: SHAILA Benzonatate (Benzonatate 100 Mg Capsule) 100 mg PO TID PRN PRN Reason: Cough Last Admin: 01/03/23 19:30 Dose: 100 mg Documented By: ANTON Buspirone HCl (Buspirone Hcl 5 Mg Tablet) 5 mg PO BID [facility] Last Admin: 01/04/23 09:14 Dose: 5 mg Documented By: SHAILA Clonidine HCl (Clonidine Hcl 0.2 Mg Tablet) 0.2 mg PO BID [facility]; Protocol Last Admin: 01/04/23 09:14 Dose: 0.2 mg Documented By: SHAILA Guaifenesin (Guaifenesin La 600 Mg Tab.Er.12h) 600 mg PO BID [facility] Last Admin: 01/04/23 09:15 Dose: 600 mg Documented By: SHAILA Heparin Sodium (Porcine) (Heparin Sodium,Porcine 5,000 Unit/Ml Vial) 5,000 unit SUBCUT Q8H [facility] Last Admin: 01/04/23 06:32 Dose: 5,000 unit Documented By: DEREK Ceftriaxone Sodium 1 gm/ (Sodium Chloride) 50 mls @ 100 mls/hr IV Q24H [facility] Last Admin: 01/04/23 11:38 Dose: 100 mls/hr Documented By: SHAILA Vancomycin HCl 1,250 mg/ (Sodium Chloride) 250 mls @ 166.667 mls/hr IV Q8H [facility] Last Admin: 01/04/23 09:12 Dose: 166.67 mls/hr Documented By: SHAILA Melatonin (Melatonin 3 Mg Tablet) 6 mg PO BEDTIME PRN PRN Reason: Insomnia Last Admin: 01/04/23 00:35 Dose: 6 mg Documented By: ANANDA Naloxone HCl (Naloxone Hcl 0.4 Mg/Ml Vial) 0.1 mg IVPUSH Q2M PRN PRN Reason: Respiratory Rate < 10 Nicotine (Nicotine 14 Mg Patch.Td24) 14 mg TRANSDERMA DAILY [facility] Last Admin: 01/04/23 09:20 Dose: Not Given Documented By: SHAILA Non-Admin Reason: Patient Refused Omeprazole (Omeprazole 20 Mg Capsule.Dr) 20 mg PO BID@0630,1630 [facility] Last Admin: 01/04/23 06:33 Dose: 20 mg Documented By: DEREK Ondansetron HCl (Ondansetron Hcl 4 Mg/2 Ml Vial) 4 mg IVPUSH Q8H PRN PRN Reason: Nausea and Vomiting Last Admin: 01/01/23 22:03 Dose: 4 mg Documented By: LAMAR Oxycodone HCl (Oxycodone Hcl Immed Release 5 Mg Tablet) 10 mg PO Q6H PRN PRN Reason: Pain, Severe (Pain Scale 7-10) Last Admin: 01/04/23 06:32 Dose: 10 mg Documented By: DEREK Pharmacy Consult (Consult Rx Perform Med Rec) 1 each MISCELLANE ONCE PRN PRN Reason: Consult order Pharmacy Consult (Consult Rx Vancomycin Dosing) 1 each MISCELLANE DAILY PRN PRN Reason: Consult order Potassium Chloride (Potassium Chloride Er 20 Meq Tab.Er.Prt) 40 meq PO ONCE ONE Stop: 01/04/23 12:21 Pregabalin (Pregabalin 200 Mg Capsule) 200 mg PO TID [facility] Last Admin: 01/04/23 09:15 Dose: 200 mg Documented By: SHAILA Sertraline HCl (Sertraline Hcl 50 Mg Tablet) 150 mg PO DAILY [facility] Last Admin: 01/04/23 09:13 Dose: 150 mg Documented By: SHAILA Sodium Chloride (0.9 % Sodium Chloride Flush 3 Ml Syringe) 3 ml IVFLUSH QSHIFT [facility] Last Admin: 01/04/23 09:11 Dose: 3 ml Documented By: SHAILA Tramadol HCl (Tramadol Hcl 50 Mg Tablet) 100 mg PO Q8H PRN PRN Reason: Pain, Moderate(Pain Scale 4-6) Last Admin: 01/04/23 09:13 Dose: 100 mg Documented By: SHAILA Labs 01/03/23 06:20 01/04/23 06:37 Labs: Laboratory Results - last 24 hr 01/03/23 01/04/23 14:48 06:37 Estim Creat Clear Calc 158.1 Estimated GFR > 60 Random Vancomycin 14.9 L Assessment and Plan (1) Acute respiratory failure with hypoxia: Status: Acute (2) Pneumonia: Status: Acute (3) Neck pain: Status: Acute Plan 47M PMH of PUD, Alcohol use disorder, smoking, Depression, cervicalgia (s/p C4- C5, C5-C6 on May at [facility]) with recent Neurosurgical neck procedure presentedwith SOB and lethargy. Acute hypoxic respiratory failure 2/2 Pneumonia Blood culture negative changed to azitrho and Ceftriaxone Wean O2 down as tolerated hypokalemia replace Neck pain Post op day 7.? C3-4 anterior cervical fusion with posterior cervical laminec cj. MRI and CTA did not show any acute finding to suggest spinal cord compression hand weakness and hyperreflexia, at his baseline Neurosurgery consult appreciated DC IV Dilaudid, started Oxycodone prn acute Metabolic acidosis w anion gap resolved Transaminitis from infection, resolved Smoker Nictotine patch Alcohol dependence stable Bladder wall thickening , stable Lt renal mass [address] wall thickening, 2.1 cm stable mass no complaints at this stage, to follow as OP PUD ppi DVT PPx Heparin full code reason for continued hospitalization:hypoxia Time Spent With Patient Time: Total time managing care of this patient today ____ minutes. Quality Stroke Does the patient have a stroke diagnosis?: No VTE Prior VTE?: No VTE Risk Level:: Medical - moderate - high VTE Device Contraindication: Treatment Not Indicated VTE Drug Contraindication: N/A - Med Ordered
[2023-01-04] MEDS: Potassium Chloride ER 20 MEQ TAB.ER.PRT 40 MEQ PO (12:43)
[2023-01-04] MEDS: Azithromycin 500 MG TABLET PO (12:43)
--- NOTE | 2023-01-04 14:10 | MHC.CM.PN ---
EMR reviewed and per MD rounds, pt is not medically cleared for D/C today due to continued hypoxia remaining on O2. CM will continue to follow.
[2023-01-04 16:16] LABS: Vancomycin Random 15.8 mcg/mL (15-20)
[2023-01-05] MEDS: Acetaminophen 325 MG TABLET 650 MG PO (01:44)
[2023-01-05] MEDS: oxyCODONE HCl Immed Release 5 MG TABLET 10 MG PO ×2 (01:44→08:50)
[2023-01-05 03:15] VITALS: BP 139/82; PULSE 68; RESP 18; TEMP 36.6; O2SAT 93
[2023-01-05] MEDS: Heparin Sodium,Porcine 5,000 UNIT/ML VIAL 5000 UNIT SUBCUT (05:38)
[2023-01-05] MEDS: traMADoL HCL 50 MG TABLET 100 MG PO (05:38)
[2023-01-05] MEDS: Omeprazole 20 MG CAPSULE.DR PO (05:39)
[2023-01-05 06:00] VITALS: BMI 24.9
[2023-01-05 07:11] VITALS: BP 128/79; PULSE 81; RESP 20; TEMP 36.4; O2SAT 94
[2023-01-05] MEDS: Albuterol/Iprat 2.5/0.5MG 3 ML AMPUL.NEB INHALE (07:32)
[2023-01-05 07:39] VITALS: PULSE 81; RESP 20; O2SAT 91
[2023-01-05] MEDS: Baclofen 20 MG TABLET PO (08:47)
[2023-01-05] MEDS: Nicotine 14 MG PATCH.TD24 TRANSDERMA (08:47)
[2023-01-05] MEDS: Sertraline HCL 50 MG TABLET 150 MG PO (08:47)
[2023-01-05] MEDS: guaiFENesin LA 600 MG TAB.ER.12H PO (08:47)
[2023-01-05] MEDS: busPIRone HCl 5 MG TABLET PO (08:47)
[2023-01-05] MEDS: cloNIDine HCL 0.2 MG TABLET PO (08:47)
[2023-01-05] MEDS: Pregabalin 200 MG CAPSULE PO (08:47)
[2023-01-05 09:22] LABS: Hematocrit 42.7 % (42.0-52.0); Hemoglobin 14.2 g/dl (14.0-18.0); Mean Corpuscular HGB Conc 33.3 g/dl (31.0-36.0); Mean Corpuscular Hemoglobin 31.5 pg (27.0-33.0); Mean Corpuscular Volume 94.7 fL (80.0-98.0); Mean Platelet Volume 10.6 fL (9.4-12.4); Platelet Count 425 X10*3/uL (160-400); Red Blood Count 4.51 X10*6/uL (4.60-5.80); White Blood Count 11.4 X10*3/uL (4.8-10.8)
[2023-01-05 09:39] VITALS: O2SAT 84
[2023-01-05 09:41] LABS: Anion Gap 17 (12-20); Blood Urea Nitrogen 5 mg/dL (9-16); Calcium 9.6 mg/dL (8.4-10.2); Carbon Dioxide 24 mmol/L (22-29); Chloride 100 mmol/L (96-108); Creatinine Clr Calc Pharmacy 144.2; Estimated Glomerular Filt Rate > 60; Glucose Fasting 111 mg/dL (60-99); Potassium 4.3 mmol/L (3.3-5.1); Sodium 137 mmol/L (135-145)
--- NOTE | 2023-01-05 10:34 | P.DS_ITS ---
DS: Providers Provider Date of Service: 01/05/23 Date of admission: 12/31/22 14:00 Primary care physician: Lucas Yao PA-C Consults: 12/31/22 13:59 Consult to Neurosurgery Routine Consulting Provider: Peter Mckeon Reason for consultation: Post op pain and numbness DS: Diagnosis Discharge Diagnosis (1) Acute respiratory failure with hypoxia: Status: Acute (2) Pneumonia: Status: Acute (3) Neck pain: Status: Acute DS: Summary Hospital Course Hospital Course: from initial hpi: 47 years old male with PMH of PUD, Alcohol use disorder, smoking, Depression, cervicalgia (s/p C4-C5, C5-C6 on May at [facility] with recent Neurosurgical neck procedure [resenting with cough, chills and neck pain presenting with SOB and lethargy. He reports the day after surgery he started feeling weakness, chills, difficulties breathing and started to cough with reported losing balance and falls. noted he is more short of breath. The patient recently had a C3-C4 anterior disectomy, arthrodesis and implantation cage on 12/27/2022 here at [facility] by Dr. Mckeon. he reports decreased sensation in his neck and numbness in upper extremities. Denies any abdominal pain, nausea, vomiting, diarrhea, or urinary symptoms. In ED he was found hypoxic to 86%. started on IV antibiotics and fluids. Admitted for further management. Upon arrival patient is saturating 86% triage and was brought straight into an emergency department bed, patient vague historian however does state he had recent surgery here by Dr. winter and was DC home.? Not on blood thinners, curent daily drinker and smoker. hospital course: Patient was admitted for acute hypoxic respiratory failure secondary to pneumonia. He was treated with ceftriaxone azithromycin. Blood cultures are negative. Patient's sob improved, he was weaned from oxygen and able to ambulate saturating mid 90s. will be dishcarged on 3 more days azithro. He had acute hypokalemia which was replaced. Firs recent neck surgery will follow-up with your surgery. He had acute metabolic acidosis which resolved. He has alcohol dependence but did not have withdrawal in hospital. Bladder wall thickening a left renal mass he will follow up outpatient. For peptic ulcer disease history with PPI patient is feeling better will be discharged home. Time Spent with Patient Time attestation: Total time managing care of this patient today ____ minutes. Discharge coordination time: Greater than 30 minutes Quality: Safe Use of Opioids Does Pt have an Active Cancer Diagnosis on the Problem List?: No Quality: Stroke Does the patient have a stroke diagnosis?: No Physical Exam Vital Signs: Vital Signs: Last Vital Signs Temp 97.5 F 01/05/23 07:11 Pulse 81 01/05/23 07:39 Resp 20 01/05/23 07:39 BP 128/79 01/05/23 07:11 Pulse Ox 84 L 01/05/23 09:39 O2 Del Method Nasal Cannula 01/05/23 07:11 O2 Flow Rate 2 01/05/23 07:11 Oxygen Flow Rate 2 12/31/22 09:15 BMI result Body Mass Index 24.9 General: AO X 3, no acute distress Resp: CTA bilateral, no accessory muscles used CVS: S1,S2,RRR GI: soft, non tender, non distended Neuro: motor grossly intact, alert Psych: appropriate affect, appropriate insight DS: Data Data Completed and Pending Completed studies during hospitalization [Text1]: Procedures Extraction of Right Finger Phalanx, Open Approach (09/13/22) Removal of Internal Fixation Device from Right Finger Phalanx, Open Approach (09/13/22) Labs on day of discharge: Laboratory Results - last 24 hr 01/04/23 01/05/23 01/05/23 15:26 08:38 08:38 WBC 11.4 H RBC 4.51 L Hgb 14.2 Hct 42.7 MCV 94.7 MCH 31.5 MCHC 33.3 RDW 14.0 Plt Count 425 H D MPV 10.6 Absolute Nucleated RBC 0.000 Nucleated RBC % (auto) 0.0 Sodium 137 Potassium 4.3 D Chloride 100 Carbon Dioxide 24 Anion Gap 17 BUN 5 L Creatinine 0.68 Estim Creat Clear Calc 144.2 Estimated GFR > 60 Fasting Glucose 111 H Calcium 9.6 D Random Vancomycin 15.8 Preliminary micro results at discharge 12/31/22 11:08 Blood Culture - Preliminary Blood - Venous No growth after 48 hours. 12/31/22 09:30 Blood Culture - Preliminary Blood - Venous No growth after 48 hours. Discharge Plan Discharge Anticipated Discharge Date/Time: 01/05/23 10:27 Patient Disposition: Home, Self-Care Discharge Diagnosis: pna Referrals: Lucas Yao PA-C [Primary Care Provider] - 1 Week (Call pcp office to schedule follow up visit ) Discharge Medications: New azithromycin 500 mg Tablet 500 mg PO Q24H Qty: 3 0RF Continued clonidine HCl 0.2 mg tablet 0.2 mg PO BID Qty: 60 6RF buspirone 5 mg tablet 5 mg PO BID 30 Days Qty: 60 1RF ondansetron 4 mg tablet,disintegrating 8 mg PO Q6H PRN (Reason: nausea and vomiting) 5 Days Qty: 40 0RF pregabalin 200 mg capsule 200 mg PO TID Qty: 90 0RF sertraline 100 mg tablet 150 mg PO DAILY baclofen 20 mg tablet 20 mg PO DAILY hydromorphone [Dilaudid] 2 mg tablet 2 mg PO Q6H PRN (Reason: pain) Qty: 20 0RF Rx Instructions: Partial Fill upon patient request. albuterol sulfate [Ventolin HFA] 90 mcg/actuation HFA aerosol inhaler 1 inh inhalation QID PRN (Reason: Shortness Of Breath Or Wheezing) tramadol 50 mg tablet 100 mg PO Q8H PRN (Reason: Pain) Discontinued sulfamethoxazole-trimethoprim [Bactrim DS] 800-160 mg tablet 1 tab PO BID 3 Days Qty: 6 0RF Discharge Orders: Discharge Order (Routine); Ordered 01/05/23 Ordered By: Dinh Roe Diet: Advance to usual diet Activity on Discharge: As tolerated Stand Alone Forms: Patient Portal Discharge page Care Plan Goals: recovery Health Concerns: pna Plan of Treatment: 3 more days [email or web address] Assessment: see above
--- NOTE | 2023-01-05 10:36 | MHC.CM.PN ---
Patient has been medically cleared for dc to home today, self care.
== END 2023-01-05 11:23 | disposition home or self-care (01) | DRG 139 ==
LOC: HO.ED 11:52 → HO.EDOVER 14:30 → HO.IMC 14:37
PROVIDERS: Physician Assistant; Admitting Provider Student in an Organized Health Care Education/Training Program; Emergency Provider Student in an Organized Health Care Education/Training Program; PCP Physician Assistant; Visit Provider Internal Medicine
DX: J18.9 Pneumonia, unspecified organism (principal); J96.01 Acute respiratory failure with hypoxia; E87.6 Hypokalemia; G89.18 Other acute postprocedural pain; F10.20 Alcohol dependence, uncomplicated; N28.89 Other specified disorders of kidney and ureter; N32.89 Other specified disorders of bladder; E87.20 Acidosis, unspecified; K27.9 Peptic ulcer, site unspecified, unspecified as acute or chronic, without hemorrhage or perforation; F17.210 Nicotine dependence, cigarettes, uncomplicated; Z71.6 Tobacco abuse counseling; F32.9 Major depressive disorder, single episode, unspecified; Z98.1 Arthrodesis status; Z20.822 Contact with and (suspected) exposure to COVID-19; Z79.899 Other long term (current) drug therapy
CPT/HCPCS: 36415; 70496; 70498; 71045; 71260; 72040; 72156; 74177; 80048; 80053; 80202; 80307; 81001; 82550; 82565; 82947; 83605; 83735; 83880; 84484; 85025; 85027; 85652; 86140; 87040; 87635; 93005; 94640; 97110; 97116; 97161; 97166; 97530; 99285; A9585; J0456; J0696; J1170; J1643; J2270; J2405; J3370; J3371; Q9967

== ENCOUNTER → 2022-12-31 09:12 | Outpatient (BNV) | payer OTHER, SELFPAY | PROVIDERS: Admitting Provider Student in an Organized Health Care Education/Training Program; Emergency Provider Student in an Organized Health Care Education/Training Program; PCP Physician Assistant; Visit Provider Internal Medicine Cardiovascular Disease | DX: R07.9 Chest pain, unspecified (principal) | CPT/HCPCS: 93010 ==

== ENCOUNTER → 2022-12-31 14:00 | Outpatient (BNV) | payer OTHER, SELFPAY | PROVIDERS: Admitting Provider Student in an Organized Health Care Education/Training Program; Emergency Provider Student in an Organized Health Care Education/Training Program; PCP Physician Assistant; Visit Provider Student in an Organized Health Care Education/Training Program | DX: J96.01 Acute respiratory failure with hypoxia (principal); J18.9 Pneumonia, unspecified organism; M54.2 Cervicalgia | CPT/HCPCS: 99223; 99233; 99239 ==

== ENCOUNTER 2023-01-10 13:24 | Outpatient (AMB) | payer OTHER, SELFPAY ==
--- NOTE | 2023-01-10 13:36 | HO.SPINEOV ---
Intake Intake Visit Reasons: Post op/Staple removal Intake Note: Mr. Hamlin is here today for his 1st post-op visit and suture removal. 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 Procedure: C3-4 anterior cervical fusion with posterior cervical laminectomy.? Exam: He reports that he does feel he has more strength today than when he saw John 1 week ago. Overall on our exam, he is still demonstrating signs of myelopathy with some decreased strength in his upper extremities. He still has hyper-reflexia in his upper extremities. Anterior and posterior incision sites C/D/I. No erythema, purulence, fluctuance, or edema. No serosanguineous drainage. No signs of hematoma. Posterior incision cullen were removed and incision site remained well approximated. After the exam was complete the cullen were removed, the patient was brought back into the office and shown imaging postoperatively. He asked that he be shown these images so that he can have a better idea of what was done, in addition to his prior surgery. His pain medication was also partially refilled today. Medications: Discontinued ondansetron 4 mg PO Q6H PRN 10 tabs 0RF nausea and vomiting baclofen 20 mg PO DAILY 30 days 30 tabs 6RF M48.02 - Spinal stenosis, cervical region tramadol 100 mg (2 x 50 mg) PO Q8H 30 days 180 tabs 1RF M51.16 - Intervertebral disc disorders with radiculopathy, lumbar region, M99.01 - Segmental and somatic dysfunction of cervical region sertraline 150 mg (1.5 x 100 mg) PO DAILY 30 days 45 tabs 3RF F41.9 - Anxiety disorder, unspecified albuterol sulfate 90 mcg/actuation 1 inh inhalation QID 18 ea 3RF F17.200 - Nicotine dependence, unspecified, uncomplicated tramadol 100 mg (2 x 50 mg) PO Q8H 28 days 168 tabs 0RF M51.16 - Intervertebral disc disorders with radiculopathy, lumbar region Coding Level of Care Code Est Pt Level 4 (19610) Diagnoses Neck pain M54.2
== END 2023-01-10 14:11 | disposition home or self-care (01) ==
PROVIDERS: PCP Physician Assistant; Visit Provider Neurological Surgery
DX: M54.2 Cervicalgia (principal)
CPT/HCPCS: 99214

== ENCOUNTER → 2023-01-10 13:24 | Outpatient (BNVA) | payer OTHER, SELFPAY | PROVIDERS: PCP Physician Assistant; Visit Provider Neurological Surgery | DX: Z48.02 Encounter for removal of sutures (principal); M54.2 Cervicalgia | CPT/HCPCS: 99212 ==

== ENCOUNTER 2023-02-15 17:13 | Outpatient (REF) | payer OTHER, SELFPAY | END 2023-02-15 17:14 | disposition home or self-care (01) | LOC: HO.HOSX 17:13 | PROVIDERS: Visit Provider Orthopaedic Surgery | DX: Z13.89 Encounter for screening for other disorder (principal) ==

== ENCOUNTER 2023-03-24 11:15 | Outpatient (REF) | payer OTHER, SELFPAY | END 2023-03-24 11:16 | disposition home or self-care (01) | LOC: HO.HOSX 11:15 | PROVIDERS: PCP Physician Assistant; Visit Provider Physician Assistant | DX: Z13.89 Encounter for screening for other disorder (principal) ==

== ENCOUNTER 2023-03-24 11:15 | Outpatient (AMB) | payer OTHER, SELFPAY ==
--- NOTE | 2023-03-24 11:57 | HO.SPINEOV ---
Intake Intake Visit Reasons: follow up Intake Note: Mr. Hamlin his here today for follow up. Allergies cat dander [cats] Allergy (Unknown, Verified 12/31/22 09:36) Unknown Assessment & Plan Assessment & Plan (1) Cervicalgia: Code(s): M54.2 - Cervicalgia (2) Lumbar disc disease with radiculopathy: Code(s): M51.16 - Intervertebral disc disorders with radiculopathy, lumbar region Plan Mr Hamlin is about 3 months out from his ACDF C3-4 with C4-6 laminectomy for cervical myelopathy. He reports that he is having some improvement in his arm strength. He still does drop things from time to time. He has still dealing with chronic neck issues and headaches related to his surgeries. He is also dealing with low back pain which has been chronic and was the original reason that he ended up here in our office. He has a severely collapsed disc at L4-[address] Mckeon has discussed surgery with him in the past. He does have a component of radiculopathy going down his right leg into his right foot. He had this prior to the diskectomy done by Dr. Matthew and it is significantly improved compared to before that surgery but is a still having lingering issues with that. I reviewed his MRI again with him from [place] and this shows a severely collapsed disc at L4-5 with Modic endplate changes. I suspect this is where his back pain is coming from. I will review his situation again with Dr. Mckeon about considering possible fusion surgery. We did briefly discuss the pros and cons of this. At this point, he is struggling because he is unable to return to work due to all the neck surgeries in limitations from the nerve damage in his neck as well as the ongoing degeneration in his leg. He is considering disability and this is certainly reasonable. I would like to get updated x-rays of his neck and his low back and I will call him I have after I have a chance to talk with Dr. Mckeon. John Mckeon MD, PhD [facility] Orders: Orders XR lumbar spine 4V min Today M51.16 - Intervertebral disc disorders with radiculopathy, lumbar region XR cervical spine 4V Today M54.2 - Cervicalgia Coding Level of Care Code Global (26660) Diagnoses Cervicalgia M54.2 Lumbar disc disease with radiculopathy M51.16
== END 2023-03-24 12:55 | disposition home or self-care (01) ==
PROVIDERS: PCP Physician Assistant; Visit Provider Physician Assistant
DX: M54.2 Cervicalgia (principal); M51.16 Intervertebral disc disorders with radiculopathy, lumbar region
CPT/HCPCS: 99024

== ENCOUNTER 2023-03-29 13:54 | Outpatient (REF) | payer OTHER, SELFPAY ==
--- NOTE | ~2023-03-29 | XR_ITS ---
EXAMINATION: XR cervical spine 4V CLINICAL INFORMATION: Cervicalgia COMPARISON: Cervical spine radiographs 12/31/2022 TECHNIQUE: 6 views of the cervical spine were obtained. FINDINGS: The cervical spine is visualized to the level of C6-C7 on the lateral view. Loss of the usual cervical spine lordosis. Status post C3-C4 and C4-C6 discectomy and anterior spinal fusion. No hardware fracture or complication. Mild anterolisthesis of C2 on C3 again seen. There is osseous fusion across C4-C6. Vertebral body heights are otherwise maintained. Lateral masses of C1 are well aligned on C2. Visualized portion of the dens is intact. Mild degenerative disc disease at C6-C7, with multilevel facet arthropathy. Uncovertebral hypertrophy and facet arthropathy results in bilateral multilevel neural foraminal narrowing worst on the right at T3 C4 where it is moderate and worse on the left at C3-C4 where it is severe. No prevertebral soft tissue swelling. XR/XR cervical spine 4V IMPRESSION: 1. Status post C3-C4 and C4-C6 discectomy and anterior spinal fusion. No hardware fracture or complication. 2. Mild spondylosis of the cervical spine, as above detailed. 3. Spondylolisthesis, as above detailed. 4. Multilevel bilateral neural foraminal narrowing, as above detailed.
--- NOTE | ~2023-03-29 | XR_ITS ---
EXAMINATION: XR LUMBOSACRAL SPINE CLINICAL INFORMATION: Reason for Exam M51.16 - Intervertebral disc disorders with radiculopathy, lumbar region COMPARISON: Lumbar spine radiographs 01/19/2022 TECHNIQUE: 5 views of the lumbar spine FINDINGS: Transitional lumbosacral anatomy in keeping with prior numbering the last disc space will be referred to as S1-S2. 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 Schmorl's node in the superior endplate of T11 partially imaged in unchanged. Vertebral body heights are otherwise maintained. Alignment is maintained. No pars defects. Moderate to advanced degenerative disc disease at L5-S1 with loss of disc space height and facet arthropathy likely contributing to degree of neural foraminal narrowing. Paravertebral soft tissues are unremarkable. XR/XR lumbar spine 4V min IMPRESSION: 1. Transitional lumbosacral anatomy in keeping with prior numbering the last disc space will be referred to as S1-S2. There are diminutive L1 ribs versus congenital nonunion of the transverse process apophyses with a broad-based left S1 transverse process fused with the sacrum. 2. Moderate to advanced degenerative disc disease at L5-S1 with loss of disc space height and facet arthropathy likely contributing to degree of neural foraminal narrowing.
== END 2023-03-29 13:55 | disposition home or self-care (01) ==
LOC: HO.XRAY 13:54
PROVIDERS: PCP Physician Assistant; Visit Provider Physician Assistant
DX: M54.2 Cervicalgia (principal); M51.16 Intervertebral disc disorders with radiculopathy, lumbar region
CPT/HCPCS: 72050; 72110

== ENCOUNTER 2023-04-03 14:32 | Outpatient (AMB) | payer OTHER, SELFPAY ==
--- NOTE | 2023-04-03 14:38 | A.OFFPC_ITS ---
Vital Signs 3 04/03/23 14:39 Height 6 ft Weight 178 lb 6 oz BMI 24.2 BP 136/72 Blood Pressure Location Lt brachial Position Sitting Pulse 73 Pulse Source Pulse Oximeter Pulse Oximetry (%) 97 Oxygen Delivery Method Room Air Intake Visit Reasons: PE Intake Note: Patient is here today for a physical and post Senior Product Consultant Required: No Timber Management Assistant: Not Required per policy Accompanied by: Self / Same As Patient Allergies cat dander [cats] Allergy (Unknown, Verified 04/03/23 15:04) Unknown Medication List - Last Reconciled 04/03/23 by Lucas Yao PA-C albuterol sulfate 90 mcg/actuation (Ventolin HFA) 1 inh inhalation QID PRN baclofen 20 mg PO DAILY buspirone 5 mg PO BID 30 days clonidine HCl 0.2 mg PO BID ondansetron 8 mg (2 x 4 mg) PO Q6H PRN 5 days pregabalin 200 mg PO TID sertraline 150 mg (1.5 x 100 mg) PO DAILY 90 days tramadol 100 mg (2 x 50 mg) PO Q8H 28 days Tobacco use date assessed: 04/03/23 Dental Screening Dental Screen Date: 04/03/23 Did you have a dental visit in the last 12 months?: Yes Did you have a dental problem in the last 6 months where you did not have access to dental care?: No Was dental information given to patient?: Patient has dentist HPI PE 2 HPI0 Details Patient is a 47-year-old male here today for an annual physical. Patient has a past medical history significant for hypertension, lumbar and cervical disc disease, tobacco dependency, GERD with erosive esophagitis. Cervical disc disease/ Lumbar disc disease : Has underwent an ACDF of his cervical spine disc which went well. His neuropathic pains have generally resolved in his upper extremities. He unfortunately suffered a fall going up stairs resulting in a break of his 5th metacarpal, this was complicated by infection which resulted in inability to fix the fracture. 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 He has also been seen by pain management here in [place] transition from gabapentin to pregabalin which has made a huge difference in his pain control. He has also recently got lumbar spine x-rays that did show multilevel degenerative discs and severe arthritis. He is due for lumbar spine surgery in needs preop evaluation and clearance. . Erosive esophagitis: Symptoms have been much better since reducing gluten in his diet. Also has been reducing his drinking. He has not had much abdominal discomfort as before. .. Hyperkalemia: Has a history of hyperkalemia thus will recheck nonfasting labs to assure appropriate. .. MDD: Continues on SSRI therapy , buspar and clonidine with good effect on his mood. .. Alcohol use disorder: He reports he has drastically reduced his drinking. Does not drink on a daily basis anymore. .. Tobacco dependency : still smokes a few cigs per day, has been expensive for and still is willing to quit smoking completely in near future. Vaccines: Will need a new pneumonia vaccine, up-to-date and tetanus vaccine. Needs flu vaccine Colonoscopy: Colonoscopy done in 2020, repeat 3 years due to tubular adenoma polyp found [facility] Medical History Arthritis Smoker Cervical disc disease Lumbar disc disease Depression Alcohol dependence GERD (gastroesophageal reflux disease) HTN (hypertension) Right hand fracture Incisional hernia Peptic ulcer disease Anxiety Foreign body in stomach Perforated duodenal ulcer Surgical History History of lumbosacral spine surgery History of incision and drainage History of open reduction and internal fixation (ORIF) procedure History of endoscopy History of colonoscopy History of incisional hernia repair History of esophagogastroduodenoscopy (EGD) H/O Spinal surgery History of gastric surgery Family History Father CAD (coronary artery disease) NIDDY (non-insulin dependent diabetes mellitus in young) Hypertension Mother CAD (coronary artery disease) Hypertension Social History Household Members: Family Household Members Other:: 1 Housing: House Are you a primary menagerie caretaker to a significant other at home: No Do you presently have visiting nurse or other home services: No Alcohol intake: never Patient Tobacco Use Status: Current everyday Tobacco user Tobacco use type: Cigarette Cigarette Packs Per Day: 1 Cigarettes Per Day: 2 Years Smoked: 35 e-Cigarette/Vaping Use: Never Used Second Hand Smoke Exposure: No Substance Use Type: Marijuana service: No Current occupational status: unemployed 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 Barney Dunlap, Adeola Hanley, Waldo Webb and colleagues, with an educational mukesh from [employer]. Review of Systems Const Denies body aches, Denies chills, Denies excessive sweating, Denies fatigue, Denies fever(s) and Denies headache(s) Eyes Denies blurry vision ENT Denies dysphagia, Denies vertigo, Denies dizziness, Denies headache(s), Denies hearing loss and Denies tinnitus Card Denies chest pain, Denies chest pain with activity, Denies syncope, Denies irregular heart rhythm and Denies dyspnea Resp Denies chest congestion, Denies cough, Denies hemoptysis, Denies dyspnea and Denies wheezing GI Denies abdominal pain, Denies melena, Denies hematochezia, Denies coffee ground emesis, Denies dysphagia, Denies diarrhea, Denies nausea and Denies vomiting Denies difficulty urinating, Denies dysuria, Denies urinary frequency, Denies urinary hesitancy and Denies urinary urgency Musc Denies arthralgias, Denies limited range of motion, Denies muscle cramps and Denies muscle weakness Skin/Breast Denies rash and Denies skin ulcer Neuro Denies Abnormal speech present, Denies confusion, Denies vertigo, Denies dizziness, Denies syncope, Denies headache(s), Denies memory loss and Denies seizure-like activity Psych Denies anxiety, Denies confusion, Denies depression, Denies memory loss, Denies panic attacks and Denies paranoia Endo Denies excessive sweating, Denies fatigue, Denies flushing, Denies polydipsia and Denies polyuria Elton/Lymph Denies easy bleeding and Denies easy bruising Aller/Immun Denies wheezing Physical exam (Primary Care) Vital Signs: Last Vital Signs Pulse 73 04/03/23 14:39 BP 136/72 04/03/23 14:39 Pulse Ox 97 04/03/23 14:39 Oxygen Delivery Method Room Air 04/03/23 14:39 BMI result Body Mass Index 24.2 Tobacco/Smoking Status: Tobacco use Status Tobacco use date assessed 04/03/23 04/03/23 14:51 Patient Tobacco Use Status Current everyday Tobacco 04/03/23 14:51 Tobacco use type Cigarette 04/03/23 14:49 e-Cigarette/Vaping Use Never Used 04/03/23 14:49 Thrive Assessment: Date of Thrive Assessment Date Thrive assessed 01/01/23 04/03/23 14:38 Const General: cooperative, comfortable, no acute distress, alert and awake; No confusion Nutritional Appearance: well nourished Orientation/consciousness: oriented to person, oriented to place, patient oriented x3 and No confusion HENMT Head: Yes normocephalic Head images: 2 1. WELL HEALED SURGICAL SCAR OVER THE POSTERIOR ASPECT NECK. SOME LIMITED RANGE OF MOTION OF THE CERVICAL SPINE Ears: external ears normal and TM's normal bilaterally General nose exam: Normal nasal mucous membranes and turbinates present Face and sinus: No sinus tenderness Mouth: Normal oral and palatal mucosa present and tongue normal Teeth and gingiva: dentition normal and gingiva normal Throat: Yes posterior oropharynx normal, Yes tonsils normal and Yes uvula midline Eyes Conjunctivae: conjunctivae normal Sclerae: sclerae normal Pupils: Equal, round and reactive pupils present EOM: EOMs intact bilaterally Direct Ophthalmoscopy: No no photophobia Neck Neck: Yes no lymphadenopathy, No tender and Yes no JVD Thyroid: Thyroid normal Carotids: no bruits Chest Chest palpation & inspection: no tenderness Resp Effort & Inspection: normal respiratory effort, no audible wheezes, not labored and no stridor Auscultation: no crackles, no rales, no rhonchi and no wheezes Cardio Jugular venous distension: no JVD Rate: regular rate, not bradycardic and not tachycardic Rhythm: regular rhythm Heart sounds: no murmurs and normal S1 and S2 Bruits: no carotid bruits Peripheral pulses: Peripheral pulses 2+ throughout GI Inspection: Yes normal to inspection, No abdominal wall ecchymosis and No visible herniation Palpation (GI): Soft to palpation, nontender, no guarding, not rigid and No hepatosplenomegaly present Auscultation: normoactive bowel sounds General: Yes no CVA tenderness Back/Spine/Pelvis Other: LIMITED RANGE OF MOTION OF THE LUMBAR SPINE DUE TO STIFFNESS AND PAIN. Back: no CVA tenderness and No back tenderness Cervical Spine: No cervical ROM normal Thoracic/Lumbar Spine: thoracic and lumbar spine normal to inspection, straight leg raise negative bilaterally, No thoraco-lumbar ROM limited and No lumbar spinal tenderness Skin General skin exam: no rashes or lesions noted and dry skin Lesions: no lesions Rashes: no rashes Wounds: no wounds Neuro General: oriented to person, oriented to place, patient oriented x3, CN's II-XI intact bilaterally and No confusion Cranial nerves: Yes Equal, round and reactive pupils present and Yes Normal accommodation reflex present Cognition (Neuro): normal cognition Speech: No Abnormal speech present Gait exam (Neuro): Normal gait present Motor exam (neuro): 5/5 motor strength present throughout Extrem Right upper extremity: full ROM; no cyanosis Left upper extremity: full ROM; no cyanosis Right lower extremity: no edema Left lower extremity: no edema Psych Appearance: grossly normal Mental Status: mental status grossly normal Speech and movement: Normal speech and movement present Affect: normal affect Attitude: cooperative Thought process: Normal thought process present Immunizations pneumoc 20-cat conj-dip cr(PF) 0.5 mL IM syringe Performing Provider: Lucas Yao PA-C Performing Location: [facility] Administered by: ONEL Vogel on 04/03/23 15:41 2 Dose Route Admin Location Dispensed Lot Number Expiration Date NDC Clerical Adjudicator 0.5 mL IM Left Deltoid 0.5 mL [id number] 03/05/24 7020-6162-06 [employer] 2 VIS Given Date VIS Provided VIS Publication Date 04/03/23 Single Vaccine 21 Eligibility Eligibility Date Funding Source Not [facility] Eligible 04/03/23 Private Assessment and Plan Assessment & Plan (1) Annual physical exam: Code(s): Z00.00 - Encounter for general adult medical examination without abnormal findings (2) Pre-op evaluation: Code(s): Z01.818 - Encounter for other preprocedural examination Plan: Patient's vitals today stable, most recent labs stable, does have slight hyponatremia like a due to SSRI therapy. Most recent EKG stable. Has a history of recent pneumonia status post surgery which was treated with antibiotics. X-ray showing infiltrates though are considered to be resolving. Patient is medically clear for needed procedure. (3) Lumbar degenerative disc disease: Code(s): M51.36 - Other intervertebral disc degeneration, lumbar region Plan: Patient's most recent x-ray showing multilevel disc disease and severe arthritis. He is speaking with neurosurgeon on getting surgery in near future. (4) Hyperkalemia: Code(s): E87.5 - Hyperkalemia Plan: Has history of hyperkalemia on occasion. Recent labs showing normalized potassium. (5) Cervical stenosis of spine: Comment: S/p C4/5, C5/6 ACDF Code(s): M48.02 - Spinal stenosis, cervical region Plan: He is status post cervical disc surgery and doing well. Has less neuropathic pain in his neck and upper extremities. (6) Anxiety: Code(s): F41.9 - Anxiety disorder, unspecified Plan: Has been fairly well controlled with current use of clonidine, BuSpar and sertraline. At this time not speaking with a mental health therapist or psychiatrist. (7) MDD (major depressive disorder), recurrent episode, moderate: Code(s): F33.1 - Major depressive disorder, recurrent, moderate Plan: Patient is still suffer with depression from time to time as he is had a lot of health issues that have arise which caused him to have a bit more depression. Otherwise denies any SI or HI. (8) Tobacco dependence: Code(s): F17.200 - Nicotine dependence, unspecified, uncomplicated Plan: Unfortunately still smokes a few cigarettes per day. He does understand he needs to completely quit smoking. Offered nicotine replacement though patient declines at this time. Orders: Orders 2 ECG 12 lead EKG 04/04/23 Z01.818 - Encounter for other preprocedural examination Complete Blood Count no Diff 04/03/23 E87.5 - Hyperkalemia Basic Metabolic Panel 04/03/23 E87.5 - Hyperkalemia Pneumococcal 20 Immunization 04/03/23 Z23 - Encounter for immunization, E87.5 - Hyperkalemia Coding Level of Care Code Est Pt Prev Care 40-64y(80043) Diagnoses Annual physical exam Z00.00 Pre-op evaluation Z01.818 Lumbar degenerative disc disease M51.36 Hyperkalemia E87.5 Cervical stenosis of spine M48.02 Anxiety F41.9 MDD (major depressive disorder), recurrent episode, moderate F33.1 Tobacco dependence F17.200
[2023-04-03 14:39] VITALS: BP 136/72; PULSE 73; O2SAT 97; BMI 24.2
== END 2023-04-03 15:43 | disposition home or self-care (01) ==
PROVIDERS: Visit Provider Physician Assistant
DX: Z23 Encounter for immunization (principal); E87.5 Hyperkalemia
CPT/HCPCS: 90471; 90677; 99396

== ENCOUNTER 2023-04-03 16:06 | Outpatient (REF) | payer OTHER, SELFPAY ==
[2023-04-03 16:38] LABS: Hematocrit 44.3 % (42.0-52.0); Hemoglobin 15.4 g/dl (14.0-18.0); Mean Corpuscular HGB Conc 34.8 g/dl (31.0-36.0); Mean Corpuscular Hemoglobin 29.9 pg (27.0-33.0); Mean Platelet Volume 9.3 fL (9.4-12.4); Platelet Count 334 X10*3/uL (160-400); Red Blood Count 5.15 X10*6/uL (4.60-5.80); Red Cell Distribution Width 14.6 % (11.0-16.0); White Blood Count 13.1 X10*3/uL (4.8-10.8)
[2023-04-03 16:44] LABS: INTERNATIONAL NORM RATIO 0.9 (0.9-1.1)
[2023-04-03 17:06] LABS: Anion Gap 12 (12-20); Blood Urea Nitrogen 4 mg/dL (9-16); Calcium 8.9 mg/dL (8.4-10.2); Carbon Dioxide 25 mmol/L (22-29); Chloride 95 mmol/L (96-108); Estimated Glomerular Filt Rate > 60; Glucose Random 102 mg/dL (60-115); Potassium 3.9 mmol/L (3.3-5.1); Sodium 128 mmol/L (135-145)
== END 2023-04-03 16:07 | disposition home or self-care (01) ==
LOC: HO.LAB 16:06
PROVIDERS: Nurse Practitioner Family; PCP Physician Assistant; Visit Provider Physician Assistant
DX: Z01.818 Encounter for other preprocedural examination (principal); E87.5 Hyperkalemia
CPT/HCPCS: 36415; 80048; 85027; 85610

== ENCOUNTER 2023-04-04 13:37 | Outpatient (REF) | payer OTHER, SELFPAY ==
--- NOTE | 2023-04-04 13:49 | ECG_ITS ---
Test Reason : preop Blood Pressure : / mmHG Vent. Rate : 066 BPM Atrial Rate : 066 BPM P-R Int : 164 ms QRS Dur : 100 ms QT Int : 382 ms P-R-T Axes : 064 061 054 degrees QTc Int : 400 ms Normal sinus rhythm RSR' or QR pattern in V1 suggests right ventricular conduction delay Otherwise normal ECG When compared with ECG of 31-DEC-2022 09:20, No significant changes seen Referred By: Lucas Yao Electronically Signed By:ESTEFANIA ROBLEDO MD
[2023-04-04 15:35] LABS: Potassium 4.5 mmol/L (3.3-5.1)
== END 2023-04-04 13:38 | disposition home or self-care (01) ==
LOC: HO.LAB 13:37
PROVIDERS: PCP Physician Assistant; Visit Provider Physician Assistant
DX: Z01.818 Encounter for other preprocedural examination (principal); M54.9 Dorsalgia, unspecified; M48.56XD Collapsed vertebra, not elsewhere classified, lumbar region, subsequent encounter for fracture with routine healing; E87.5 Hyperkalemia
CPT/HCPCS: 36415; 84132; 93005; 99212

== ENCOUNTER 2023-04-04 14:37 | Outpatient (AMB) | payer OTHER, SELFPAY ==
--- NOTE | 2023-04-04 15:16 | A.SPINEOV_ITS ---
Intake Intake Visit Reasons: discuss sx Intake Note: Mr. Hamlin is here to discuss surgical options. Director Industrial Relations Required: No Allergies cat dander [cats] Allergy (Unknown, Verified 04/03/23 15:04) Unknown Assessment & Plan Assessment & Plan (1) Back pain: Code(s): M54.9 - Dorsalgia, unspecified Plan Mr Hamlin is back today to review his surgical disc at L4-5 and to pick a surgical date. We had discussed at length during our previous conversation during my visit a few weeks back that he has a severely collapsed disc at this level and we think he would be a good surgical candidate. Specifically Dr. Mckeon recommended a L4-5 trans Kambin oblique lateral lumbar interbody fusion as opposed to an oblique lumbar interbody fusion with backup option of a left L4-5 transforaminal lumbar interbody fusion if the nerve does not cooperate with the trans Kambin approach. This was because of the difficult vascular anatomy near the L4-5 disc. Additionally has a previous history of abdominal surgery to repair a gastric ulcer and has a large incision. We reviewed all the surgical indications, risks and benefits and book to date for early June 2022. He just saw his PCP yesterday and was evaluated and have blood work so he should be good to go from an anesthesia clearance standpoint. Pt was given risk and benefits of surgery including but not limited to infection, hematoma , nerve injury,durotomy, weakness,bowel/bladder injury, persistent pain, hardware failure and the need for future surgery as well as the option to continue with conservative treatment and patient wishes to proceed with surgery. Pt is aware they should stop their motrin, aspirin 7 days prior to surgery. All questions were answered to the best of our ability. If there is anything about this patients medical history that we have overlooked or concerns you have about us proceeding with surgery we would appreciate any input you can offer. Total amount of time spent in this visit was 20 minutes in discussion of symptoms, lumbar imaging results and subsequent plan of care John Mckeon MD,PhD [facility] Coding Level of Care Code Est Pt Level 3 (27956) Diagnoses Back pain M54.9
== END 2023-04-04 15:49 | disposition home or self-care (01) ==
PROVIDERS: PCP Physician Assistant; Visit Provider Physician Assistant
DX: M54.9 Dorsalgia, unspecified (principal)
CPT/HCPCS: 99213

== ENCOUNTER 2023-04-05 12:43 | Outpatient (REF) | payer OTHER, SELFPAY ==
--- NOTE | ~2023-04-05 | XR_ITS ---
EXAMINATION: XR CHEST CLINICAL INFORMATION: Pneumonia COMPARISON: 01/05/2023 TECHNIQUE: 2 views of the chest were obtained. FINDINGS: Computer previous there is improvement. There is opacity in the left midlung consistent with small area of infiltrate and some ill-defined opacities and right midlung also consistent with subtle areas of infiltrate. There is no effusion. The cardiac silhouette is comparable. The hilar regions are felt to be comparable. XR/XR chest 2V IMPRESSION: Opacities left greater than the right midlung consistent with areas of infiltrate. Overall however as stated I believe there is improvement from the previous chest film
[2023-04-05 13:42] LABS: Hematocrit 45.9 % (42.0-52.0); Hemoglobin 15.6 g/dl (14.0-18.0); Mean Corpuscular Hemoglobin 30.2 pg (27.0-33.0); Mean Platelet Volume 10.4 fL (9.4-12.4); Platelet Count 315 X10*3/uL (160-400); Red Blood Count 5.16 X10*6/uL (4.60-5.80); Red Cell Distribution Width 14.9 % (11.0-16.0); White Blood Count 9.4 X10*3/uL (4.8-10.8)
[2023-04-05 14:12] LABS: Anion Gap 13 (12-20); Blood Urea Nitrogen 4 mg/dL (9-16); Calcium 9.1 mg/dL (8.4-10.2); Carbon Dioxide 26 mmol/L (22-29); Chloride 97 mmol/L (96-108); Estimated Glomerular Filt Rate > 60; Glucose Random 73 mg/dL (60-115); Potassium 4.5 mmol/L (3.3-5.1); Sodium 131 mmol/L (135-145)
== END 2023-04-05 12:44 | disposition home or self-care (01) ==
LOC: HO.XRAY 12:43
PROVIDERS: PCP Physician Assistant; Visit Provider Physician Assistant
DX: J18.9 Pneumonia, unspecified organism (principal)
CPT/HCPCS: 36415; 71046; 80048; 85027

== ENCOUNTER 2023-05-23 14:30 | Outpatient (REF) | payer OTHER, SELFPAY ==
[2023-05-23 15:47] LABS: Hemoglobin 19.1 g/dl (14.0-18.0); Mean Corpuscular Hemoglobin 29.2 pg (27.0-33.0); Mean Corpuscular Volume 88.2 fL (80.0-98.0); Mean Platelet Volume 10.3 fL (9.4-12.4); Platelet Count 343 X10*3/uL (160-400); Red Blood Count 6.55 X10*6/uL (4.60-5.80); Red Cell Distribution Width 16.3 % (11.0-16.0); White Blood Count 7.7 X10*3/uL (4.8-10.8)
[2023-05-23 16:01] LABS: Hematocrit 57.8 % (42.0-52.0)
== END 2023-05-23 14:31 | disposition home or self-care (01) ==
LOC: HO.LAB 14:30
PROVIDERS: PCP Physician Assistant; Visit Provider Physician Assistant
DX: D75.1 Secondary polycythemia (principal)
CPT/HCPCS: 36415; 82668; 85027

== ENCOUNTER → 2023-05-25 14:32 | Outpatient (BNV) | payer OTHER, SELFPAY | PROVIDERS: PCP Physician Assistant; Visit Provider Internal Medicine | DX: D75.1 Secondary polycythemia (principal) | CPT/HCPCS: 99204; 99214; G2211 ==

== ENCOUNTER 2023-05-26 11:58 | Outpatient (REF) | payer OTHER, SELFPAY | END 2023-05-26 11:59 | disposition home or self-care (01) | LOC: HO.BBR 11:58 | PROVIDERS: Visit Provider Internal Medicine | DX: D75.1 Secondary polycythemia (principal) | CPT/HCPCS: 85018; 99195 ==

== ENCOUNTER 2023-06-02 10:50 | Outpatient (REF) | payer OTHER, SELFPAY | END 2023-06-02 10:51 | disposition home or self-care (01) | LOC: HO.BBR 10:50 | PROVIDERS: PCP Physician Assistant; Visit Provider Internal Medicine | DX: D75.1 Secondary polycythemia (principal) | CPT/HCPCS: 85014; 85018; 99195 ==

== ENCOUNTER 2023-06-12 06:26 | Inpatient (IN) | payer OTHER, SELFPAY ==
[2023-06-01 13:35] VITALS: BP 115/77; PULSE 76; RESP 16; O2SAT 97; BMI 23.9
--- NOTE | 2023-06-01 13:49 | HO.ANESPROP2 ---
HPI - Anesthesia Eval Consult details Narrative: 47yo M for Transkambin Lumbar Interbody Fusion,(poss conversion to TLIF), 06/12/23 s/p Cerv Discectomy w/ fusion 12/2022 with GA-ETT 7.5. No issues with anesthesia Medically optimized prior. Stable at yearly physical 03/2023 No recent illness No CP/SOB with walking ETOH. 1-2 beers 2-3 x per week Erythrocytosis. Eval by heme 05/25/23. Therapeutic phlebotomy 05/26/23. Workload to Dr Baez for periop considerations. Smoker. Nicotine patch, rare cigarette GERD/PUD. No rx at this time. Gluten free. PMFSH Active Problems Active Problems: All Active Problems (Updated 06/01/23 @ 13:27 by Jolanta Win RN) Polycythemia (Acute) Erythrocytosis (Acute) Back pain (Acute) Transaminitis (Acute) Metabolic acidosis (Acute) Acute respiratory failure with hypoxia (Acute) Hematoma (Acute) Weakness (Acute) Frequent falls (Acute) Numbness (Acute) Neck pain (Acute) Fracture of spinous process of cervical vertebra (Acute) Pneumonia (Acute) Cervicalgia (Acute) Pre-op evaluation (Acute) Cervical spondylosis with myelopathy and radiculopathy (Acute) Occipital neuralgia of left side (Acute) Cellulitis of right hand (Acute) Open fracture of fifth metacarpal bone of right hand (Acute) Cervical stenosis of spine (Acute) Silicosis (Acute) Hyperkalemia (Acute) Fungal dermatitis (Acute) Thoracic spine pain (Acute) Cervical (neck) region somatic dysfunction (Acute) HTN (hypertension) (Acute) Malignant neoplasm of shaft of penis (Acute) MDD (major depressive disorder), recurrent episode, moderate (Acute) GERD with esophagitis (Acute) Tobacco dependence (Acute) Alcohol dependence (Acute) Weak urinary stream (Acute) Lumbar degenerative disc disease (Acute) Rib pain on right side (Acute) Grief reaction (Acute) Duodenitis (Acute) Colon cancer screening (Acute) Ileus (Acute) Change in bowel habits (Acute) Allergic (Acute) Annual physical exam (Acute) Screening for hypothyroidism (Acute) Screening for hypercholesterolemia (Acute) Abdominal hernia (Acute) Hematochezia (Acute) Diarrhea (Acute) Erosive gastritis (Acute) Atrophic gastritis (Acute) Anxiety (Acute) Genital warts (Acute) Erosive esophagitis (Acute) Smoker (Acute) Alcohol abuse (Acute) Lumbar disc disease with radiculopathy (Acute) Incisional hernia (Acute) Anxiety (Acute) Past Medical History Medical History (Updated 06/01/23 @ 13:27 by Jolanta Win RN) Polycythemia Asthma Arthritis Smoker Cervical disc disease Lumbar disc disease Depression Alcohol dependence GERD (gastroesophageal reflux disease) HTN (hypertension) Right hand fracture Incisional hernia Peptic ulcer disease Anxiety Foreign body in stomach Perforated duodenal ulcer Family History Family History Father CAD (coronary artery disease) NIDDY (non-insulin dependent diabetes mellitus in young) Hypertension Mother CAD (coronary artery disease) Hypertension Family history of problems with anesthesia: No Surgical History Surgical History (Updated 06/01/23 @ 13:29 by Jolanta Win RN) History of lumbosacral spine surgery History of incision and drainage History of open reduction and internal fixation (ORIF) procedure History of endoscopy History of colonoscopy History of incisional hernia repair History of esophagogastroduodenoscopy (EGD) H/O Spinal surgery History of gastric surgery History of Problems with Anesthesia: No Social History Social History (Updated 05/25/23 @ 14:39 by Chepe Lancaster) Household Members: Family Household Members Other:: 1 Housing: House Are you a primary caregivers non medical to a significant other at home: No Do you presently have visiting nurse or other home services: No Alcohol intake: never Comment: rotted tooth loss with expectorating and spitting Patient Tobacco Use Status: Former Tobacco user Quit Date: 04/01/23 Tobacco use type: Cigarette Cigarette Packs Per Day: 1 Years Smoked: 35 e-Cigarette/Vaping Use: Never Used Second Hand Smoke Exposure: No Use of substances other than those prescribed or required for medical reasons: Yes Substance Use Type: Marijuana Substance Use Frequency: Weekly Have you been hit, kicked, punched, or otherwise hurt by someone within the past year? 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 Cognitive needs: No Hearing needs: No Vision needs: No Meds Allergies Allergy/AdvReac Type Severity Reaction Status Date / Time cat dander [cats] Allergy Unknown Unknown Verified 05/25/23 14:39 Home Medications Medication Instructions Recorded Confirmed Last Taken Type baclofen 20 mg tablet 20 mg PO DAILY 12/13/22 06/01/23 12/29/22 History tramadol 50 mg tablet 100 mg PO Q8H PRN Pain 06/01/23 06/01/23 Unknown History Exam Height,Weight and Vital Signs: Height 6 ft Weight 79.832 kg Last Vital Signs Pulse 76 06/01/23 13:35 Resp 16 06/01/23 13:35 BP 115/77 06/01/23 13:35 Pulse Ox 97 06/01/23 13:35 O2 Del Method Room Air 06/01/23 13:35 Pertinent Lab Results Pertinent Lab Results: Laboratory Tests 05/25/23 15:02 WBC 9.5 Hgb 20.4 H Hct 60.7 H Plt Count 376 Sodium 137 Potassium 4.9 Chloride 101 Carbon Dioxide 26 BUN 6 L Creatinine 0.89 Narrative Narrative: EKG 03/2023 Vent. Rate : 066 BPM Atrial Rate : 066 BPM P-R Int : 164 ms QRS Dur : 100 ms QT Int : 382 ms P-R-T Axes : 064 061 054 degrees QTc Int : 400 ms Normal sinus rhythm RSR' or QR pattern in V1 suggests right ventricular conduction delay Otherwise normal ECG When compared with ECG of 31-DEC-2022 09:20, No significant changes seen Airway TM Dist: >3cm Neck ROM: Limited (post c spine surgery 12/2022) Denture: Upper and Lower Heart: RRR Lungs: CTAB Assessment and Plan Assessment Anesthesia Assessment: Anesthesia Plan Discussed, Smoking Cess. Discussed and PAT Visit Final Anesthetic Review Family History of Problems with Anesthesia: No History of Problems with Anesthesia: No
[2023-06-12] VITALS (25 sets, daily range): BP systolic 103–141; BP diastolic 60–93; PULSE 68–91; RESP 12–22; TEMP 36.6–37.1; O2SAT 93–100; BMI 24.7; BMI 24.2
--- NOTE | 2023-06-12 07:08 | PHA.MEDREC ---
Pharmacy Consult ? Medication Reconciliation Pharmacy has completed the medication reconciliation. Reviewed med rec done by nursing
--- NOTE | 2023-06-12 07:23 | MHC.SHP ---
Pre-Procedural Eval Section A Date of Service: 06/12/23 The patient is an INPATIENT: No Changes since office visit: No Cold of Flu in the past 2 weeks, No New Medical Problems, No Changes in Medication and No Patient answered all questions The History & Physical has been completed within 30 days and I have reviewed it.: No Section B Chief Complaint: Dorsalgia, unspecified Allergies: Allergies Allergy/AdvReac Type Severity Reaction Status Date / Time cat dander [cats] Allergy Unknown Unknown Verified 05/25/23 14:39 Review of Systems Sugical H&P ROS: Negative: Constitution, Cardiovascular, Respiratory, Neurological, Psychiatric, Hem-Onc, Allergic/Immunologic, Gastrointestinal, Genitourinary, Musculoskeletal, Integumentary, Endocrine and Eyes/Ears/Nose/Throat Exam Surgical H&P Exam: Not Evaluated: HEENT, Not Evaluated: Heart, Not Evaluated: Lungs, Not Evaluated: Extremities, Not Evaluated: Abdomen, Not Evaluated: Skin and Not Evaluated: Neurological Plan L4-5 Transkambin Lumbar interbody fusion, possible conversion to Transforminal fusion if needed Time Spent With Patient Time: Total time managing care of this patient today __7__ minutes.
[2023-06-12 07:48] LABS: Base Excess Bedside Calculated -2 mmol/L (-3-3); Glucose, i-STAT 104 mg/dL (60-115); HCO3 Bedside Calculated 23 mmol/L (22-26); Hematocrit Bedside 47 %PCV (42-52); Potassium Bedside 3.9 mmol/L (3.3-5.1); SO2 Bedside Calculated 86 %; Sodium Bedside 136 mmol/L (135-145); TCO2 Bedside 25 mmol/L (24-29); pCO2 Bedside 40 mmhg (35-48); pH Bedside 7.37 (7.35-7.45); pO2 Bedside 53 mmhg (83-108)
--- NOTE | 2023-06-12 08:48 | HO.ANESPROP2 ---
[facility] Active Problems Active Problems: All Active Problems (Updated 06/01/23 @ 13:27 by Jolanta Win RN) Polycythemia (Acute) Erythrocytosis (Acute) Back pain (Acute) Transaminitis (Acute) Metabolic acidosis (Acute) Acute respiratory failure with hypoxia (Acute) Hematoma (Acute) Weakness (Acute) Frequent falls (Acute) Numbness (Acute) Neck pain (Acute) Fracture of spinous process of cervical vertebra (Acute) Pneumonia (Acute) Cervicalgia (Acute) Pre-op evaluation (Acute) Cervical spondylosis with myelopathy and radiculopathy (Acute) Occipital neuralgia of left side (Acute) Cellulitis of right hand (Acute) Open fracture of fifth metacarpal bone of right hand (Acute) Cervical stenosis of spine (Acute) Silicosis (Acute) Hyperkalemia (Acute) Fungal dermatitis (Acute) Thoracic spine pain (Acute) Cervical (neck) region somatic dysfunction (Acute) HTN (hypertension) (Acute) Malignant neoplasm of shaft of penis (Acute) MDD (major depressive disorder), recurrent episode, moderate (Acute) GERD with esophagitis (Acute) Tobacco dependence (Acute) Alcohol dependence (Acute) Weak urinary stream (Acute) Lumbar degenerative disc disease (Acute) Rib pain on right side (Acute) Grief reaction (Acute) Duodenitis (Acute) Colon cancer screening (Acute) Ileus (Acute) Change in bowel habits (Acute) Allergic (Acute) Annual physical exam (Acute) Screening for hypothyroidism (Acute) Screening for hypercholesterolemia (Acute) Abdominal hernia (Acute) Hematochezia (Acute) Diarrhea (Acute) Erosive gastritis (Acute) Atrophic gastritis (Acute) Anxiety (Acute) Genital warts (Acute) Erosive esophagitis (Acute) Smoker (Acute) Alcohol abuse (Acute) Lumbar disc disease with radiculopathy (Acute) Incisional hernia (Acute) Anxiety (Acute) Past Medical History Medical History (Updated 06/01/23 @ 13:27 by Jolanta Win RN) Polycythemia Asthma Arthritis Smoker Cervical disc disease Lumbar disc disease Depression Alcohol dependence GERD (gastroesophageal reflux disease) HTN (hypertension) Right hand fracture Incisional hernia Peptic ulcer disease Anxiety Foreign body in stomach Perforated duodenal ulcer Family History Family History Father CAD (coronary artery disease) NIDDY (non-insulin dependent diabetes mellitus in young) Hypertension Mother CAD (coronary artery disease) Hypertension Family history of problems with anesthesia: No Surgical History Surgical History (Updated 06/01/23 @ 13:29 by Jolanta Win RN) History of lumbosacral spine surgery History of incision and drainage History of open reduction and internal fixation (ORIF) procedure History of endoscopy History of colonoscopy History of incisional hernia repair History of esophagogastroduodenoscopy (EGD) H/O Spinal surgery History of gastric surgery History of Problems with Anesthesia: No Social History Social History (Updated 05/25/23 @ 14:39 by Chepe Lancaster) Household Members: Family Household Members Other:: 1 Housing: House Are you a primary care management associate to a significant other at home: No Do you presently have visiting nurse or other home services: No Alcohol intake: never Comment: rotted tooth loss with expectorating and spitting Patient Tobacco Use Status: Former Tobacco user Quit Date: 04/01/23 Tobacco use type: Cigarette Cigarette Packs Per Day: 1 Years Smoked: 35 e-Cigarette/Vaping Use: Never Used Second Hand Smoke Exposure: No Use of substances other than those prescribed or required for medical reasons: No Substance Use Type: Marijuana Substance Use Frequency: Weekly Have you been hit, kicked, punched, or otherwise hurt by someone within the past year? 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 Cognitive needs: No Hearing needs: No Vision needs: No Meds Allergies Allergy/AdvReac Type Severity Reaction Status Date / Time cat dander [cats] Allergy Unknown Unknown Verified 05/25/23 14:39 Active Medications: Current Medications Albuterol Sulfate (Albuterol Sulfate (0.083%) 2.5 Mg/3 Ml Vial.Neb) 2.5 mg INHALE ONCE PRN PRN Reason: Shortness of Breath/Wheezing Lactated Ringer's (Lr) 1,000 mls @ 100 mls/hr IVCONT .Q10H REBECCA Last Admin: 06/12/23 06:53 Dose: 100 mls/hr Home Medications Medication Instructions Recorded Confirmed Last Taken Type baclofen 20 mg tablet 20 mg PO DAILY 12/13/22 06/12/23 06/11/23 History tramadol 50 mg tablet 100 mg PO Q8H PRN Pain 06/01/23 06/12/23 Unknown History Exam Height,Weight and Vital Signs: Height 6 ft Weight 82.639 kg Last Vital Signs Temp 98.5 F 06/12/23 06:53 Pulse 68 06/12/23 06:53 Resp 16 06/12/23 06:53 BP 103/66 06/12/23 06:53 Pulse Ox 94 06/12/23 06:53 O2 Del Method Room Air 06/12/23 06:53 Pertinent Lab Results Pertinent Lab Results: Laboratory Tests 06/01/23 06/12/23 14:15 07:42 POC Hgb (Calc) 16.0 POC Hct 47 POC Std Base Excess -2 POC O2 Sat (Calc) 86 POC ABG pO2 53 L POC ABG Total CO2 25 POC Capillary pH 7.37 POC Capillary pCO2 40 POC Cap HCO3 (Calc) 23 POC Sodium 136 POC Potassium 3.9 POC Glucose 104 Blood Type O Negative Antibody Screen NEGATIVE Airway Mallampati Class: II TM Dist: >3cm Neck ROM: Limited Denture: Upper and Lower Assessment and Plan Assessment Anesthesia Assessment: Anesthesia Plan Discussed and Chart Reviewed Final Anesthetic Review Family History of Problems with Anesthesia: No History of Problems with Anesthesia: No NPO: Yes ASA Class: III Final Preanesthetic Review: No Changes in Pt Med Stat, Meds/Allgs Chart Reviewed, Consent Obtained/Reviewed and Anes Risks/Benef Reviewed Patient Risk: Intermediate Procedure Risk: Intermediate Anesthetic Plan Anesthetic Plan: GA Disposition: Standard PACU
--- NOTE | 2023-06-12 10:06 | W.PM.OPN ---
Operative Note Operative Note Date of Service: 06/12/23 Narrative: Preoperative diagnosis: 1) lumbar degenerative disc disease L4-5 with back pain Postprocedure diagnosis: 1) same as above Procedure: 1) L4-5 oblique lateral lumbar interbody fusion with discectomy, preparation of the endplates and placement of a titanium bullet cage packed with allograft, anterior to the transverse process in modified prone position, with intraoperative biplanar fluoroscopy imaging and electrophysiological monitoring 2) L4-5 posterior minimally invasive pedicle screw placement and posterior lateral instrumentation and fusion with intraoperative biplanar fluoroscopic imaging and electrophysiological monitoring 3 injection of 0.75 Marcaine in paravertebral tissue for postop management Consent Informed Consent was obtained for this operation. I have explained the nature, purpose and benefits of the operation. I have discussed the risks and benefit of the operation including possible complications or adverse events with patient/family. Alternative(s) were discussed with the patient with their relative benefits and risks as well as the consequences of not accepting the operation were included in obtaining consent. Surgeon: CARRIE ARROYO MD, PHD Procedure Assisted By: krish Galvez Description of Procedure: This is a complex surgery on the lumbar spine and an inventory control assistant as needed for safety of the surgery for setup of instrumentation, retraction and closing. History: This 48-year-old male suffering from intractable low back pain. MRI shows severe lumbar degenerative disc disease L4-5. An anterior approach was not possible due to previous abdominal surgeries. The patient was offered an oblique lumbar lateral interbody fusion followed by a posterior lateral instrumented fusion L4-5. The procedure and complications were explained and the patient was consented. Procedure: The patient was brought to the operating room and endotracheally intubated. The patient was positioned on the Kevin spine table in a modified prone position for ease of access from the left side.. 2C arms were installed for fluoroscopy. Prepping and draping was done followed by timeout. The landmarks, including spinal processes, transverse processes, disc space, endplates and pedicles are identified and marked. The following steps are taken for each specified level: L4-5 level: Cage size 9 mm high and 33 mm long titanium . The patient was turned using the rotation of the surgical table so a near direct anterior lateral approach to the lumbar spine could be achieved. A small incision was then made superior to the mid iliac crest and then using biplanar fluoroscopy visualization, under electrophysiological monitoring and stimulation, we introduced an electrophysiological probe through the retroperitoneal space into the desired disc anterior to the transverse process and then passed it into the disc space after finding a silent window. The sleeve was retained and the probe was removed, then the K wire was passed sequentially into the disc space. A dilating tube was then passed along the same route. Following this, a working channel, a working channel was then passed sequentially into the disc space. The working channel was manually held in position while a series of disc cleaning tools were passed through the channel to remove the affected disc under clear and direct biplanar fluoroscopic visualization, decompress the nerve roots and equal corticated vertebral endplates at this segment. Arthrodesis of the intervertebral space via an anterior retroperitoneal exposure was achieved through Kambin's [place] and lateral extraforaminal space. Allograft was added into the anterior disc space. The working channel was then removed. A titanium interbody cage tightly packed with allograft was then inserted into the midportion of the intervertebral disc space over a K-wire under biplanar fluoroscopic visualization and intraoperative neuro monitoring. The inter pedicular and intradiscal space was significantly enlarged and disc height was restored to worked normal anatomy there for releasing pressure on the nerve roots visual largely the spinal canal and lateral recess as well as foramen were bilateral decompressed and all bones were confined to the borders of the disc space . The following steps are then taken for each specified level: L4-5 level: Bilateral L4, L5 screws with a diameter of 6.5 x 45 mm. The posterolateral fusion is initiated after the patient is rotated to a true prone position. The entry point to the pedicle is identified in the AP and lateral views and then the skin incision is injected with local anesthetic. We entered the pedicle with the pediguard tap after which a K-wire was introduced into the vertebral body. Additionally, I used a small periosteal decorticator along the screws to refresh the surface of the bone and facet and I put some amount of allograft for additional stability for the posterolateral fusion. Over the K-wire we insert pedicle screws bilaterally. After the screws were placed, we put the marlen in place and under fluoroscopic imaging, we locked the marlen in place and removed the screw tops and then each incision has been closed with 0 Vicryl for the fascia and a 3-0 Vicryl for the subdermal layer. Steri-Strips were used to approximate the incisions. An OpSite with Tegaderm was used to cover the incision. Final x-rays and AP and lateral projection showed good position of the interbody device and instrumentation. All sponge and needle counts were correct. The patient was extubated and transported in a stable condition to the recovery room. 2-0 Vicryl This procedure was done with the aid of a physician inventory control assistant as a qualified resident was not available. Anesthesia: General Estimated Blood Loss (ml): 50 mL Specimen: None Duration of Surgery: 1 hour 20 minutes Postoperative Plan: Admit to inpatient
[2023-06-12] MEDS: HYDROmorphone HCl 1 MG/ML SYRINGE IVPUSH ×2 (16:35→19:41)
[2023-06-12] MEDS: oxyCODONE HCl Immed Release 5 MG TABLET 10 MG PO ×2 (17:47→21:49)
[2023-06-12] MEDS: ceFAZolin Sodium/Dextrose,Iso 2 GM/50 ML PIGGYBACK IV (19:41)
[2023-06-12] MEDS: Melatonin 3 MG TABLET 6 MG PO (19:44)
[2023-06-12] MEDS: Pregabalin 200 MG CAPSULE PO (19:44)
[2023-06-12] MEDS: Gabapentin 300 MG CAPSULE PO (19:44)
[2023-06-12] MEDS: busPIRone HCl 5 MG TABLET PO (19:44)
[2023-06-12] MEDS: cloNIDine HCL 0.2 MG TABLET PO (19:44)
[2023-06-12] MEDS: Ketorolac Tromethamine 15 MG/ML VIAL IVPUSH (21:48)
[2023-06-12] MEDS: Acetaminophen 1,000 MG/100 ML PIGGYBACK 400 MG IV (21:49)
[2023-06-13] MEDS: ceFAZolin Sodium/Dextrose,Iso 2 GM/50 ML PIGGYBACK IV (02:03)
[2023-06-13] MEDS: HYDROmorphone HCl 1 MG/ML SYRINGE IVPUSH ×3 (02:18→11:20)
[2023-06-13 03:09] VITALS: BP 133/94; PULSE 65; RESP 18; TEMP 37.1; O2SAT 91
[2023-06-13] MEDS: Acetaminophen 1,000 MG/100 ML PIGGYBACK 400 MG IV ×2 (03:10→09:20)
[2023-06-13] MEDS: Ketorolac Tromethamine 15 MG/ML VIAL IVPUSH ×2 (03:42→09:21)
[2023-06-13] MEDS: oxyCODONE HCl Immed Release 5 MG TABLET 10 MG PO ×2 (04:33→09:21)
--- NOTE | 2023-06-13 07:34 | HO.NEURO.PN ---
Neurosurgery Operative Note Date of Service: 06/13/23 Narrative: Postop day 1. L4-5 trans Kambin lumbar interbody fusion Patient reports he is having back discomfort, as expected, has been up walking around the room. Reports a little bit a feeling of unsteadiness on his left leg but no weakness numbness or shooting pain. He is voiding okay tolerating a diet. Afebrile vital signs are stable Physical exam: Patient seen at bedside with Dr. Mckeon, he is awake alert oriented, full strength bilateral lower extremities no sensory changes, back dressings are clean and dry no signs of hematoma. . Postoperative day 1. L4-5 trans Kambin lumbar interbody fusion, patient clinically doing okay, as expected has back pain but no radicular pain or focal weakness or sensory changes. The patient is voiding okay, tolerating a diet. The plan will be to have a mobilize PT today and discharge home.
--- NOTE | 2023-06-13 07:37 | P.DS_ITS ---
DS: Providers Provider Date of Service: 06/12/23 Date of admission: 06/12/23 06:26 Date of discharge: 06/13/23 Primary care physician: Lucas Yao PA-C Admitting clinician: Peter Mckeon DS: Diagnosis Discharge Diagnosis (1) Back pain: Status: Acute DS: Summary Time Attestation Discharge coordination time: Less than 30 minutes Quality: Safe Use of Opioids Does Pt have an Active Cancer Diagnosis on the Problem List?: No Quality: Stroke Does the patient have a stroke diagnosis?: No Physical Exam Vital Signs: Vital Signs: Last Vital Signs Temp 98.7 F 06/13/23 03:09 Pulse 65 06/13/23 03:09 Resp 18 06/13/23 03:09 BP 133/94 H 06/13/23 03:09 Pulse Ox 91 L 06/13/23 03:09 O2 Del Method Room Air 06/13/23 03:09 O2 Flow Rate 2 06/12/23 12:25 BMI result Body Mass Index 24.2 DS: Data Data Completed and Pending Completed studies during hospitalization [Text1]: Procedures Extraction of Right Finger Phalanx, Open Approach (09/13/22) Fusion of Cervical Vertebral Joint with Interbody Fusion Device, Anterior Approach, Anterior Column, Open Approach (12/27/22) Removal of Internal Fixation Device from Right Finger Phalanx, Open Approach (09/13/22) Resection of Cervical Vertebral Disc, Open Approach (12/27/22) Labs on day of discharge: Laboratory Results - last 24 hr 06/12/23 07:42 POC Hgb (Calc) 16.0 POC Hct 47 POC Std Base Excess -2 POC O2 Sat (Calc) 86 POC ABG pO2 53 L POC ABG Total CO2 25 POC Capillary pH 7.37 POC Capillary pCO2 40 POC Cap HCO3 (Calc) 23 POC Sodium 136 POC Potassium 3.9 POC Glucose 104 Discharge Plan Discharge Anticipated Discharge Date/Time: 06/13/23 13:38 Patient Disposition: Home, Self-Care Discharge Diagnosis: Back pain Referrals: Lucas Yao PA-C [Primary Care Provider] - 1 Week Discharge Medications: New docusate sodium [Colace] 100 mg capsule 100 mg PO BID Qty: 20 0RF oxycodone 5 mg tablet See Rx Instructions .ROUTE .COMPLEX PRN (Reason: pain) Qty: 40 0RF Rx Instructions: 1-2 tabs po q 4 hours prn; Partial Fill upon patient request. gabapentin 300 mg capsule 300 mg PO TID Qty: 90 0RF Continued pregabalin 200 mg capsule 200 mg PO TID Qty: 90 3RF ondansetron 4 mg tablet,disintegrating 8 mg PO Q6H PRN (Reason: nausea and vomiting) 5 Days Qty: 40 3RF clonidine HCl 0.2 mg tablet 0.2 mg PO BID Qty: 60 6RF sertraline 100 mg tablet 150 mg PO DAILY 90 Days Qty: 135 1RF nicotine 21 mg/24 hr patch 24 hour 1 patch transdermal DAILY 14 Days Qty: 14 2RF albuterol sulfate [Ventolin HFA] 90 mcg/actuation HFA aerosol inhaler 1 inh inhalation QID PRN (Reason: Shortness Of Breath Or Wheezing) Qty: 8.5 3RF buspirone 5 mg tablet 5 mg PO BID 30 Days Qty: 60 3RF baclofen 20 mg tablet 20 mg PO DAILY tramadol 50 mg tablet 100 mg PO Q8H PRN (Reason: Pain) Discharge Orders: Discharge Order (Routine); Ordered 06/13/23 Ordered By: John Peña Diet: Advance to usual diet Activity on Discharge: As tolerated Stand Alone Forms: Patient Portal Discharge page Activity Restrictions/Additional Instructions: After your spinal surgery we ask you to observe the following restrictions/guidelines: Activity: It is normal to feel some discomfort as you increase your activity, but that will improve with time. We ask you avoid heavy lifting or acitivities that cause pain. As a general rule, 8lbs is a safe limit for lifting right after surgery. Walk as much as you feel comfortable but not to exhaustion. You will feel extra tired the first few days after surgery. Stay well hydrated. It is OK to walk up and down stairs You may return to driving when you are off narcotics (such as vicodin, oxycodone, dilaudid, etc), and you are back to normal functional capacity. If you have any concerns please check with office before driving. Return to work is specific to each patient and each surgery, so please speak with your doctor/PA at first follow up. Please bring paperwork such as FMLA at that time if you need it filled out. Medications: For optimum pain control, it is best to start with a combination of 500 mg of Tylenol every 4 hours with 600 mg of Motrin every 8 hours, and use narcotics as needed in between for breakthrough pain. We will give you a short supply of narcotics after surgery (usually one weeks worth). If you need more please call the office but do not use more than prescribed. You will need to give our office 48 hours notice if you need narcotics refilled and we do not fill narcotics on weekends or evenings. If you are on a narcotic, it is a good idea to take a stool softener such as colace or senna to avoid constipation If you take blood thinner such as aspirin, Plavix, Coumadin, Effient, Eliquis etc for conditions such as Afib, DVT, Pulmonary embolus, coronary disease, stents etc please speak with your surgeon about specific details as to when you can resume these medications. You can resume NSAIDs on post op day 1 (eg: Motrin, Naproxen, etc). Follow up: Please call the office, , after surgery to arrange a 3 week follow up for wound check. Wound Care: You may remove your dressing on the first day after surgery. ?You may ?leave open to air. Please do not remove the steri strips underneath. they will fall off on their own in one week. IT IS NORMAL FOR THE WOUND TO OOZE OR BE BLOODY FOR A FEW DAYS AFTER SURGERY. ?IF THIS HAPPENS JUST PLACE NEW DRESSING OVER IT TO AVOID STAINING CLOTHES. You may shower on post op day # 1 We ask that you do not let the water soak the wound. If it does get wet, just towel dry lightly. Please do not scrub your incision or place any type of chemical/ointment on the wound. No tub baths, pools or jacuzzis for one month. If you have any leaking or redness from your wound, or fevers, please call of [facility] expresse Care Plan Goals: Discharge home Health Concerns: None Plan of Treatment: Back surgery Assessment: Stable
[2023-06-13 07:56] VITALS: BP 132/80; PULSE 63; RESP 18; TEMP 36.5; O2SAT 95
[2023-06-13] MEDS: busPIRone HCl 5 MG TABLET PO (08:22)
[2023-06-13] MEDS: Nicotine 21 MG PATCH.TD24 TRANSDERMA (08:24)
[2023-06-13] MEDS: Baclofen 20 MG TABLET PO (08:24)
[2023-06-13] MEDS: cloNIDine HCL 0.2 MG TABLET PO (08:24)
[2023-06-13] MEDS: Gabapentin 300 MG CAPSULE PO (08:24)
[2023-06-13] MEDS: Pregabalin 200 MG CAPSULE PO (08:24)
[2023-06-13] MEDS: Sertraline HCL 50 MG TABLET 150 MG PO (08:24)
--- NOTE | 2023-06-13 09:41 | MHC.CM.PN ---
pt dcd home no servies needed
--- NOTE | 2023-06-13 10:34 | PM.DS ---
DS: Providers Provider Date of Service: 06/13/23 Date of admission: 06/12/23 06:26 Primary care physician: Lucas Yao PA-C DS: Diagnosis Discharge Diagnosis (1) Back pain: Status: Acute DS: Summary Time Attestation Discharge coordination time: Less than 30 minutes Quality: Safe Use of Opioids Does Pt have an Active Cancer Diagnosis on the Problem List?: No Quality: Stroke Does the patient have a stroke diagnosis?: No Physical Exam Vital Signs: Vital Signs: Last Vital Signs Temp 97.7 F 06/13/23 07:56 Pulse 63 06/13/23 07:56 Resp 18 06/13/23 07:56 BP 132/80 06/13/23 07:56 Pulse Ox 95 06/13/23 07:56 O2 Del Method Room Air 06/13/23 07:56 O2 Flow Rate 2 06/12/23 12:25 BMI result Body Mass Index 24.2 DS: Data Data Completed and Pending Completed studies during hospitalization [Text1]: Procedures Extraction of Right Finger Phalanx, Open Approach (09/13/22) Fusion of Cervical Vertebral Joint with Interbody Fusion Device, Anterior Approach, Anterior Column, Open Approach (12/27/22) Removal of Internal Fixation Device from Right Finger Phalanx, Open Approach (09/13/22) Resection of Cervical Vertebral Disc, Open Approach (12/27/22) Discharge Plan Discharge Anticipated Discharge Date/Time: 06/13/23 13:38 Patient Disposition: Home, Self-Care Discharge Diagnosis: Back pain Referrals: Lucas Yao PA-C [Primary Care Provider] - 1 Week Discharge Medications: New docusate sodium [Colace] 100 mg capsule 100 mg PO BID Qty: 20 0RF gabapentin 300 mg capsule 300 mg PO TID Qty: 90 0RF hydromorphone [Dilaudid] 2 mg tablet See Rx Instructions .ROUTE .COMPLEX PRN (Reason: pain) Qty: 40 0RF Rx Instructions: 1-2 tabs po q4 hours prn pain; Partial Fill upon patient request. Continued pregabalin 200 mg capsule 200 mg PO TID Qty: 90 3RF ondansetron 4 mg tablet,disintegrating 8 mg PO Q6H PRN (Reason: nausea and vomiting) 5 Days Qty: 40 3RF clonidine HCl 0.2 mg tablet 0.2 mg PO BID Qty: 60 6RF sertraline 100 mg tablet 150 mg PO DAILY 90 Days Qty: 135 1RF nicotine 21 mg/24 hr patch 24 hour 1 patch transdermal DAILY 14 Days Qty: 14 2RF albuterol sulfate [Ventolin HFA] 90 mcg/actuation HFA aerosol inhaler 1 inh inhalation QID PRN (Reason: Shortness Of Breath Or Wheezing) Qty: 8.5 3RF buspirone 5 mg tablet 5 mg PO BID 30 Days Qty: 60 3RF baclofen 20 mg tablet 20 mg PO DAILY tramadol 50 mg tablet 100 mg PO Q8H PRN (Reason: Pain) Discharge Orders: Discharge Order (Routine); Ordered 06/13/23 Ordered By: John Peña Diet: Advance to usual diet Activity on Discharge: As tolerated Stand Alone Forms: Patient Portal Discharge page Activity Restrictions/Additional Instructions: After your spinal surgery we ask you to observe the following restrictions/guidelines: Activity: It is normal to feel some discomfort as you increase your activity, but that will improve with time. We ask you avoid heavy lifting or acitivities that cause pain. As a general rule, 8lbs is a safe limit for lifting right after surgery. Walk as much as you feel comfortable but not to exhaustion. You will feel extra tired the first few days after surgery. Stay well hydrated. It is OK to walk up and down stairs You may return to driving when you are off narcotics (such as vicodin, oxycodone, dilaudid, etc), and you are back to normal functional capacity. If you have any concerns please check with office before driving. Return to work is specific to each patient and each surgery, so please speak with your doctor/PA at first follow up. Please bring paperwork such as FMLA at that time if you need it filled out. Medications: For optimum pain control, it is best to start with a combination of 500 mg of Tylenol every 4 hours with 600 mg of Motrin every 8 hours, and use narcotics as needed in between for breakthrough pain. We will give you a short supply of narcotics after surgery (usually one weeks worth). If you need more please call the office but do not use more than prescribed. You will need to give our office 48 hours notice if you need narcotics refilled and we do not fill narcotics on weekends or evenings. If you are on a narcotic, it is a good idea to take a stool softener such as colace or senna to avoid constipation If you take blood thinner such as aspirin, Plavix, Coumadin, Effient, Eliquis etc for conditions such as Afib, DVT, Pulmonary embolus, coronary disease, stents etc please speak with your surgeon about specific details as to when you can resume these medications. You can resume NSAIDs on post op day 1 (eg: Motrin, Naproxen, etc). Follow up: Please call the office, , after surgery to arrange a 3 week follow up for wound check. Wound Care: You may remove your dressing on the first day after surgery. ?You may ?leave open to air. Please do not remove the steri strips underneath. they will fall off on their own in one week. IT IS NORMAL FOR THE WOUND TO OOZE OR BE BLOODY FOR A FEW DAYS AFTER SURGERY. ?IF THIS HAPPENS JUST PLACE NEW DRESSING OVER IT TO AVOID STAINING CLOTHES. You may shower on post op day # 1 We ask that you do not let the water soak the wound. If it does get wet, just towel dry lightly. Please do not scrub your incision or place any type of chemical/ointment on the wound. No tub baths, pools or jacuzzis for one month. If you have any leaking or redness from your wound, or fevers, please call office Care Plan Goals: Discharge home Health Concerns: None Plan of Treatment: Back surgery Assessment: Stable
--- NOTE | 2023-06-13 14:55 | HO.POSTANES ---
Post Anesthesia Evaluation Post Anesthesia Evaluation Date of Service: 06/13/23 Vital Signs: Vital Signs Temp Pulse Resp BP Pulse Ox O2 Del Method 06/13/23 07:56 97.7 F 63 18 132/80 95 Room Air 06/13/23 03:09 98.7 F 65 18 133/94 H 91 L Room Air Anesthesia: General Endotracheal-GETA Mental Status: Awake Pain Control: Satisfactory Nausea/Vomiting: None Hydration: Adequate Anesthesia-Related Issues: No Anes. Related Issues
== END 2023-06-13 12:27 | disposition home or self-care (01) | DRG 304 ==
LOC: HO.SSSA 06:36 → HO.S3 11:07
PROVIDERS: Admitting Provider Neurological Surgery; PCP Physician Assistant; Visit Provider Neurological Surgery
PROC: 0SG00A0 Fusion of Lumbar Vertebral Joint with Interbody Fusion Device, Anterior Approach, Anterior Column, Open Approach (ICD-10-PCS; principal; 2023-06-12 07:30)
DX: M51.36 Other intervertebral disc degeneration, lumbar region (principal); Z79.899 Other long term (current) drug therapy; Z87.891 Personal history of nicotine dependence
CPT/HCPCS: 86850; 86900; 86901; 97162; 99024; C1713; J0131; J0690; J1100; J1170; J1596; J1885; J2250; J2405; J2704; J3010; L8699

== ENCOUNTER → 2023-06-12 06:26 | Outpatient (BNV) | payer OTHER, SELFPAY | PROVIDERS: Admitting Provider Neurological Surgery; PCP Physician Assistant; Visit Provider Neurological Surgery | DX: M54.9 Dorsalgia, unspecified (principal) | CPT/HCPCS: 20930; 22558; 22612; 22840; 22853; 63056; 99499 ==

== ENCOUNTER 2023-06-15 09:37 | Outpatient (REF) | payer OTHER, SELFPAY | END 2023-06-15 09:38 | disposition home or self-care (01) | LOC: HO.BBR 09:37 | PROVIDERS: Visit Provider Internal Medicine | DX: D75.1 Secondary polycythemia (principal) | CPT/HCPCS: 85014; 85018; 99195 ==

== ENCOUNTER 2023-06-17 11:51 | Emergency (ER) | payer OTHER, SELFPAY ==
--- NOTE | ~2023-06-17 | XR_ITS ---
EXAMINATION: XR CHEST CLINICAL INFORMATION: Shortness of breath COMPARISON: Chest radiograph 04/05/2023. TECHNIQUE: 2 views of the chest were obtained. FINDINGS: Mild biapical pleural parenchymal scarring. No focal consolidation. No pleural effusion or pneumothorax. Cardiomediastinal silhouette is unchanged. Redemonstrated, partially visualized lower cervical spinal fusion hardware. XR/XR chest 2V IMPRESSION: No acute cardiopulmonary abnormality.
[2023-06-17 13:32] VITALS: BP 123/85; PULSE 78; RESP 18; TEMP 36.6; O2SAT 98; BMI 23.7
--- NOTE | 2023-06-17 13:33 | ED.GENADULT ---
HPI - General Adult General Chief complaint: Back Pain/Injury Stated complaint: surgery 06/12, weakness Time Seen by Provider: 06/17/23 14:29 History of Present Illness HPI narrative: The patient is a 48-year-old male who had lumbar surgery 5 days ago on MondayJune 12. He had L4-5 lumbar interbody fusion with diskectomy and placement of a titanium bullet cage packed with allograft. The patient was discharged from the hospital the next day on Monday. The patient says that 2 days ago on he started to feel considerably worse. He had worsening pain going down both legs. He says he contacted his surgeon Dr. Haider yesterday and was advised that his pain was likely part of the normal postoperative course. He had been taking oral hydromorphone. He is run out of his hydromorphone and is in great pain and is concerned that something is very wrong. He has been sweaty but he has not had a fever. Related Data Home Medications Medication Instructions Recorded Confirmed baclofen 20 mg tablet 20 mg PO DAILY 12/13/22 06/12/23 tramadol 50 mg tablet 100 mg PO Q8H PRN Pain 06/01/23 06/12/23 Previous Rx's Medication Instructions Recorded pregabalin 200 mg capsule 200 mg PO TID #90 caps 03/02/23 ondansetron 4 mg disintegrating 8 mg (2 x 4 mg) PO Q6H PRN nausea 03/21/23 tablet and vomiting 5 days #40 tabs clonidine HCl 0.2 mg tablet 0.2 mg PO BID #60 tabs 04/12/23 nicotine 21 mg/24 hr daily 1 patch transdermal DAILY 14 days 05/02/23 transdermal patch #14 ea sertraline 100 mg tablet 150 mg (1.5 x 100 mg) PO DAILY 90 05/02/23 days #135 tabs albuterol sulfate 90 mcg/actuation 1 inh inhalation QID PRN Shortness 05/10/23 aerosol inhaler (Ventolin HFA) Of Breath Or Wheezing #8.5 grams buspirone 5 mg tablet 5 mg PO BID 30 days #60 tabs 05/15/23 docusate sodium 100 mg capsule 100 mg PO BID #20 caps 06/13/23 (Colace) gabapentin 300 mg capsule 300 mg PO TID #90 caps 06/13/23 hydromorphone 4 mg tablet See Rx Instructions PO Q6H PRN 06/16/23 (Dilaudid) severe pain (scale score 7-10) 10 days #20 tabs Allergies Allergy/AdvReac Type Severity Reaction Status Date / Time cat dander [cats] Allergy Unknown Unknown Verified 06/17/23 13:32 Review of Systems Review of Systems: Yes all other systems are reviewed and are negative PMFSH Past Medical History Onset Date is defined in the Problem List Problems that require an onset date and time if occurred within 24 hrs of arrival to the ED Aortic Dissection and Rupture; Neurologic impairment; Cardiopulmonary Arrest; Endotracheal Intubation; Insertion or Replacement of Mechanical Circulatory Assist Device Medical History (Updated 06/17/23 @ 18:37 by Tre Michael MD) Polycythemia Asthma Arthritis Smoker Cervical disc disease Lumbar disc disease Depression Alcohol dependence GERD (gastroesophageal reflux disease) HTN (hypertension) Right hand fracture Incisional hernia Peptic ulcer disease Anxiety Foreign body in stomach Perforated duodenal ulcer Surgical History (Updated 06/01/23 @ 13:29 by Jolanta Win RN) History of lumbosacral spine surgery History of incision and drainage History of open reduction and internal fixation (ORIF) procedure History of endoscopy History of colonoscopy History of incisional hernia repair History of esophagogastroduodenoscopy (EGD) H/O Spinal surgery History of gastric surgery Family History Family History Father CAD (coronary artery disease) NIDDY (non-insulin dependent diabetes mellitus in young) Hypertension Mother CAD (coronary artery disease) Hypertension Social History Social History (Updated 05/25/23 @ 14:39 by Chepe Lancaster) Household Members: Family Household Members Other:: 1 Housing: House Are you a primary home health aide caregiver to a significant other at home: No Do you presently have visiting nurse or other home services: No Alcohol intake: never Comment: rotted tooth loss with expectorating and spitting Patient Tobacco Use Status: Former Tobacco user Quit Date: 04/01/23 Tobacco use type: Cigarette Cigarette Packs Per Day: 1 Years Smoked: 35 e-Cigarette/Vaping Use: Never Used Second Hand Smoke Exposure: No Substance Use Type: Marijuana Advance Directives: No Advance Directives Information Provided: Yes service: No Current occupational status: unemployed 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 He looks uncomfortable. HENMT Other: Face is symmetrical. Tongue is midline. Eyes Other: Pupils are round equal, conjunctivae are clear, extraocular movements intact Neck Other: No cervical adenopathy, moving his neck easily. Resp Other: Lungs are clear bilaterally. Cardio Other: The patient has a regular rate and rhythm with no murmur GI Other: Abdomen is soft and nontender. He has a well-healed large midline scar. The abdomen is benign. No suprapubic fullness. Skin Other: The patient was mildly diaphoretic. Neuro Other: The patient is awake and alert. Cranial nerves are intact. Seems to have intact strength in his lower extremities. He has 2+ reflexes at the knees and ankles. Toes go down bilaterally. Extrem Other: No peripheral edema. No calf swelling or asymmetry or tenderness. Course Course Course Narrative: This is an RME: Additional HPI, ROS, PE not included below will be deferred to primary provider. This is a [id number], with a recent history of extensive back surgery on 06/[address] Mckeon, presenting to the ER with complaints of weakness, worsening back pain, diaphoresis x 2 days. Experiencing nausea, vomiting, sweats. No recent alcohol use. Was on dilaudid several days ago. Decreased urination - has not urinated today. Plan: Labs, UA, CXR, EKG Medications Administered Discontinued Medications Generic Name Dose Route Start Last Admin Trade Name Freq PRN Reason Stop Dose Admin Gabapentin 900 mg 06/17/23 17:08 06/17/23 18:12 Gabapentin 300 Mg Capsule PO 06/17/23 17:09 900 mg ONCE ONE Administration Hydromorphone HCl 1 mg 06/17/23 14:39 06/17/23 15:41 Hydromorphone Hcl 1 Mg/Ml Syringe IVPUSH 06/17/23 14:40 1 mg ONCE ONE Administration Protocol Hydromorphone HCl 1 mg 06/17/23 17:08 06/17/23 18:11 Hydromorphone Hcl 1 Mg/Ml Syringe IVPUSH 06/17/23 17:09 1 mg ONCE ONE Administration Protocol Hydromorphone HCl 2 mg 06/17/23 17:09 06/17/23 18:12 Hydromorphone Hcl 2 Mg Tablet PO 06/17/23 17:10 2 mg ONCE ONE Administration Sodium Chloride 1,000 mls @ 999 mls/hr 06/17/23 14:45 06/17/23 15:41 Ns IV 06/17/23 15:45 999 mls/hr .Q1H1M REBECCA Administration Sodium Chloride 1,000 mls @ 999 mls/hr 06/17/23 16:30 06/17/23 16:33 Ns IV 06/17/23 17:30 999 mls/hr .Q1H1M REBECCA Administration Ketorolac Tromethamine 15 mg 06/17/23 16:23 06/17/23 16:33 Ketorolac Tromethamine 15 Mg/Ml Vial IVPUSH 06/17/23 16:24 15 mg ONCE ONE Administration Medical Decision Making Medical Decision Making [facility] Narrative: The patient is a 48-year-old male who is 5 days postoperative from lumbar surgery at the L4-L5 level. He has been on hydromorphone for pain. He says that 2 nights ago his pain got much worse and he felt unwell. He looks somewhat sweaty but he is afebrile. He has not tachycardic. He says he has run out of his hydromorphone. The patient's vital signs are unremarkable. He is able to urinate. A bladder scan done at the bedside an hour after his last urination here showed a bladder volume of 218 indicating he has not retaining urine. I spoke with Dr. Mckeon, the patient's surgeon, who felt that this degree of pain this many days after surgery was not an unexpected and he did not feel that there was any significant likelihood of infection. He did not feel there was an indication for an MRI. He recommended treatment of the patient's pain. The patient was given IV hydromorphone as well as IV ketorolac. He was given a 2nd dose of IV hydromorphone and also oral hydromorphone. Ultimately I explained that he would be discharged. He has a prescription for additional hydromorphone waiting for him at a [facility] tomorrow. He will be given 20 mg of oxycodone a discharge to help manage his pain throughout the night. Lab Data 06/17/23 15:31 06/17/23 15:31 Labs: Lab Results 06/17/23 Range/Units 15:31 WBC 9.4 (4.8-10.8) X10*3/uL RBC 4.93 D (4.60-5.80) X10*6/uL Hgb 14.2 D (14.0-18.0) g/dl Hct 42.1 D (42.0-52.0) % MCV 85.4 (80.0-98.0) fL MCH 28.8 (27.0-33.0) pg MCHC 33.7 (31.0-36.0) g/dl RDW 14.6 (11.0-16.0) % Plt Count 277 D (160-400) X10*3/uL MPV 10.1 (9.4-12.4) fL Immature Gran % (Auto) 1.0 H (0.0-0.4) % Neut % (Auto) 73.2 H (45-73) % Lymph % (Auto) 18.0 L (20-40) % Emmet % (Auto) 6.4 (2-11) % Eos % (Auto) 1.0 (0-4) % Baso % (Auto) 0.4 (0-2) % Lymph # (Auto) 1.7 (1.2-4.9) X10*3/uL Emmet # (Auto) 0.6 (0.1-1.2) X10*3/uL Eos # (Auto) 0.1 (0.0-0.4) X10*3/uL Baso # (Auto) 0.0 (0.0-0.2) X10*3/uL Abs Immat Gran (auto) 0.09 H (0.00-0.03) X10*3/uL Absolute Neuts (auto) 6.9 (2.0-8.3) x10*3/uL Absolute Nucleated RBC 0.000 (0.0-0.012) X10*3/uL Nucleated RBC % (auto) 0.0 (0.0-0.2) /100WBC Sodium 132 L (135-145) mmol/L Potassium 4.4 (3.3-5.1) mmol/L Chloride 100 (96-108) mmol/L Carbon Dioxide 21 L (22-29) mmol/L Anion Gap 15 (12-20) BUN 7 L (9-16) mg/dL Creatinine 0.74 (0.5-1.4) mg/dL Estim Creat Clear Calc 131.0 Estimated GFR > 60 Random Glucose 95 (60-115) mg/dL Calcium 9.3 D (8.4-10.2) mg/dL Magnesium 1.7 (1.6-2.6) mg/dL Total Bilirubin 0.4 (0.0-1.0) mg/dL Direct Bilirubin 0.2 (0.0-0.5) mg/dL AST 15 (5-37) U/L ALT 10 (0-40) U/L Alkaline Phosphatase 67 (39-117) U/L Troponin I High Sens < 2.7 (<3.5-35.0) ng/L Total Protein 6.8 (6.5-8.0) g/dL Albumin 3.7 (3.5-5.0) g/dL Lipase 18 (8-78) U/L COVID-19 (OSMEL) Negative (Negative) COVID-19 Clin Com See Note Influenza Type A (SUE) Negative (Negative) Influenza Type B (SUE) Negative (Negative) Influenza A & B Note See Note Discharge Plan Discharge Clinical Impression: Post-operative pain Patient Disposition: Home, Self-Care Additional Instructions: Your testing in the emergency room today was reassuring. I spoke to your surgeon who feels that this degree of pain is not that unexpected this many days after the surgery. 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 Stay in touch with your surgeon as needed. Return to the emergency department if you develop a fever or are significantly worse in any other way. Prescriptions: No Action pregabalin 200 mg capsule 200 mg PO TID Qty: 90 3RF ondansetron 4 mg tablet,disintegrating 8 mg PO Q6H PRN (Reason: nausea and vomiting) 5 Days Qty: 40 3RF clonidine HCl 0.2 mg tablet 0.2 mg PO BID Qty: 60 6RF sertraline 100 mg tablet 150 mg PO DAILY 90 Days Qty: 135 1RF nicotine 21 mg/24 hr patch 24 hour 1 patch transdermal DAILY 14 Days Qty: 14 2RF albuterol sulfate [Ventolin HFA] 90 mcg/actuation HFA aerosol inhaler 1 inh inhalation QID PRN (Reason: Shortness Of Breath Or Wheezing) Qty: 8.5 3RF buspirone 5 mg tablet 5 mg PO BID 30 Days Qty: 60 3RF hydromorphone [Dilaudid] 4 mg tablet See Rx Instructions PO Q6H PRN (Reason: severe pain (scale score 7-10)) 10 Days Qty: 20 0RF Rx Instructions: Take 1/2 tab orally every 6 hours PRN; Partial Fill upon patient request. baclofen 20 mg tablet 20 mg PO DAILY tramadol 50 mg tablet 100 mg PO Q8H PRN (Reason: Pain) docusate sodium [Colace] 100 mg capsule 100 mg PO BID Qty: 20 0RF gabapentin 300 mg capsule 300 mg PO TID Qty: 90 0RF Referrals: Peter Mckeon MD, PhD [Physician] - (Postoperative pain)
--- NOTE | 2023-06-17 13:36 | ECG_ITS ---
Test Reason : NUMBNESS Blood Pressure : / mmHG Vent. Rate : 067 BPM Atrial Rate : 067 BPM P-R Int : 170 ms QRS Dur : 098 ms QT Int : 418 ms P-R-T Axes : 063 070 067 degrees QTc Int : 441 ms Normal sinus rhythm Normal ECG When compared with ECG of 04-APR-2023 13:45, No significant change was found Referred By: Kendal Miller Electronically Signed By:HALIE TREADWELL MD
[2023-06-17 15:38] LABS: MANUAL DIFF FLAG NO
[2023-06-17 15:39] LABS: Basophils Percent Auto 0.4 % (0-2); Eosinophils Absolute Auto 0.1 X10*3/uL (0.0-0.4); Hematocrit 42.1 % (42.0-52.0); Hemoglobin 14.2 g/dl (14.0-18.0); Imm Gran Abs Auto 0.09 X10*3/uL (0.00-0.03); Lymphocytes Absolute Auto 1.7 X10*3/uL (1.2-4.9); Mean Corpuscular HGB Conc 33.7 g/dl (31.0-36.0); Mean Corpuscular Hemoglobin 28.8 pg (27.0-33.0); Mean Corpuscular Volume 85.4 fL (80.0-98.0); Mean Platelet Volume 10.1 fL (9.4-12.4); Monocytes Absolute Auto 0.6 X10*3/uL (0.1-1.2); Monocytes Percent Auto 6.4 % (2-11); Neutrophils Absolute Auto 6.9 x10*3/uL (2.0-8.3); Neutrophils Percent Auto 73.2 % (45-73); Platelet Count 277 X10*3/uL (160-400); Red Blood Count 4.93 X10*6/uL (4.60-5.80); Red Cell Distribution Width 14.6 % (11.0-16.0); White Blood Count 9.4 X10*3/uL (4.8-10.8)
[2023-06-17 15:41] VITALS: RESP 22
[2023-06-17] MEDS: 0.9 % Sodium Chloride 1,000 ML 999 ML IV ×2 (15:41→16:33)
[2023-06-17] MEDS: HYDROmorphone HCl 1 MG/ML SYRINGE IVPUSH ×2 (15:41→18:11)
[2023-06-17 15:58] LABS: Alanine Aminotransferase 10 U/L (0-40); Albumin Level 3.7 g/dL (3.5-5.0); Alkaline Phosphatase 67 U/L (39-117); Anion Gap 15 (12-20); Aspartate Amino Transferase 15 U/L (5-37); Bilirubin Direct 0.2 mg/dL (0.0-0.5); Bilirubin Total 0.4 mg/dL (0.0-1.0); Blood Urea Nitrogen 7 mg/dL (9-16); Calcium 9.3 mg/dL (8.4-10.2); Carbon Dioxide 21 mmol/L (22-29); Chloride 100 mmol/L (96-108); Estimated Glomerular Filt Rate > 60; Glucose Random 95 mg/dL (60-115); IDNOW Serial# 6674DD1D; Influenza A Negative (Negative); Influenza B2 Negative (Negative); Lipase 18 U/L (8-78); Magnesium 1.7 mg/dL (1.6-2.6); Potassium 4.4 mmol/L (3.3-5.1); Sodium 132 mmol/L (135-145); Total Protein 6.8 g/dL (6.5-8.0)
[2023-06-17 15:59] LABS: COVID-19 Test Negative (Negative); IDNOW Serial# 58CA691E
[2023-06-17 16:08] LABS: Troponin-I High Sensitivity < 2.7 ng/L (<3.5-35.0)
[2023-06-17 16:15] VITALS: BP 121/77; PULSE 68; RESP 18; O2SAT 97
[2023-06-17] MEDS: Ketorolac Tromethamine 15 MG/ML VIAL IVPUSH (16:33)
[2023-06-17 18:00] VITALS: TEMP 36.4
[2023-06-17] MEDS: HYDROmorphone HCl 2 MG TABLET PO (18:12)
[2023-06-17] MEDS: Gabapentin 300 MG CAPSULE 900 MG PO (18:12)
[2023-06-17] MEDS: oxyCODONE HCl ER 10 MG TAB.ER.12H 20 MG PO (19:20)
== END 2023-06-17 19:33 | disposition home or self-care (01) ==
PROVIDERS: Physician Assistant Medical; Emergency Provider Emergency Medicine; PCP Physician Assistant
DX: G89.18 Other acute postprocedural pain (principal); Z98.1 Arthrodesis status; Z11.52 Encounter for screening for COVID-19; I10 Essential (primary) hypertension; Z79.899 Other long term (current) drug therapy
CPT/HCPCS: 71046; 80048; 80076; 83690; 83735; 84484; 85025; 87502; 87635; 93005; 96374; 96375; 96376; 99284; 99285; J1170; J1885

== ENCOUNTER → 2023-06-17 13:36 | Outpatient (BNV) | payer OTHER, SELFPAY | PROVIDERS: Emergency Provider Emergency Medicine; PCP Physician Assistant; Visit Provider Internal Medicine Cardiovascular Disease | DX: R20.2 Paresthesia of skin (principal) | CPT/HCPCS: 93010 ==

== ENCOUNTER 2023-06-23 15:07 | Outpatient (REF) | payer OTHER, SELFPAY ==
--- NOTE | ~2023-06-23 | XR_ITS ---
EXAMINATION: XR LUMBOSACRAL SPINE CLINICAL INFORMATION: Dorsalgia, unspecified COMPARISON: Lumbar spine 03/29/2023, 01/20/2022 TECHNIQUE: Standing AP and lateral views of the lumbar spine FINDINGS: Transitional lumbosacral anatomy in keeping with prior numbering the last disc space will be referred to as S1-S2. 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 The height of the lumbar vertebral bodies is well-maintained. There are bilateral transpedicular screws and fusion rods at L5-S1 with disc spacer. The hardware appears intact. XR/XR lumbar spine 4V min IMPRESSION: Satisfactory appearance of L5-S1 posterior fusion without evidence of hardware complication.
== END 2023-06-23 15:08 | disposition home or self-care (01) ==
LOC: HO.HOSX 15:07
PROVIDERS: Visit Provider Physician Assistant
DX: M54.9 Dorsalgia, unspecified (principal); Z47.89 Encounter for other orthopedic aftercare; Z98.1 Arthrodesis status
CPT/HCPCS: 72110; 99212

== ENCOUNTER 2023-06-23 15:45 | Outpatient (AMB) | payer OTHER, SELFPAY ==
--- NOTE | 2023-06-23 16:19 | HO.SPINEOV ---
Intake Intake Visit Reasons: post op pain Allergies cat dander [cats] Allergy (Unknown, Verified 06/17/23 13:32) Unknown Assessment & Plan Assessment & Plan (1) S/P spinal fusion: Code(s): Z98.1 - Arthrodesis status Plan Procedure: L4-5 oblique lateral lumbar interbody fusion HPI: Delvis called the office today and reported that he wanted to be evaluated as he had some concerns for a potential infection at his incision sites. We asked him to try and make it in before we left the office today and he was able to get her before we closed, so we added to the schedule. We had Delvis go and obtain a set of standing lumbar x-rays. He states that his pain has been continually difficult to tolerate since his surgery. He reports that his left leg as diffuse paresthesias, which is extremely concerning for him. He also reports that he feels he may have an infection in his low back near the incision sites. Exam: The patient has 3/5 strength elicited on exam of his left lower extremity. He has 5/5 elsewhere. He reports sensational deficits diffusely over his left lower extremity. The rest of his sensation is intact. His reflexes are 2+ intact, no significant hyperreflexia. The patient is able to ambulate relatively well with a somewhat antalgic gait. He does not need assistance in order to ambulate. (-) clonus, (-) Brooks's. His incision site is clean, dry, and well healing there is very slight edema over his left-sided incision sites but this is normal postoperative inflammation and is not associated with any erythema, dehiscence, fluctuance, or purulence. Plan: The patient's x-rays were reviewed and compared to his intraoperative x-rays with CYRUS Peña and Dr. Mckeon. Our consensus as a surgical team is that the patient has stable cage placement, with no acute instrumental or osseous pathology that would be causing his symptoms. We will order the patient a CT scan of the lumbar spine to review precise anatomical location of all instrumentation. We will follow up with the patient once we review the CT scan. Of note he also asked that his Dilaudid be refilled today. Unfortunately this medication is not due to be refilled until Monday, and we will not be able to refill it until that time. Additionally, Delvis reports that he has not been utilizing Tylenol at all and has been relying completely on his Dilaudid and Lyrica. He was strongly advised to start taking 1000 mg of Tylenol 3 times a day scheduled and supplementing that medication with his other prescription medications for pain relief as needded. Israel Mckeon MD,PhD [facility] Orders: Orders CT lumbar spine wo IV con Today Z98.1 - Arthrodesis status Coding Level of Care Code Global (72340) Diagnoses S/P spinal fusion Z98.1
== END 2023-06-23 16:21 | disposition home or self-care (01) ==
PROVIDERS: PCP Physician Assistant; Visit Provider Physician Assistant
DX: Z98.1 Arthrodesis status (principal)
CPT/HCPCS: 99024

== ENCOUNTER 2023-06-28 12:48 | Outpatient (AMB) | payer OTHER, SELFPAY ==
[2023-06-28 13:01] VITALS: BP 124/82; PULSE 78; O2SAT 99; BMI 24.1
--- NOTE | 2023-06-28 13:01 | MHC.PC.OV ---
Vital Signs 06/28/23 13:01 Height 6 ft Weight 80.513 kg BMI 24.1 BP 124/82 Blood Pressure Location Lt brachial Position Sitting Pulse 78 Pulse Source Pulse Oximeter Pulse Oximetry (%) 99 Oxygen Delivery Method Room Air Intake Visit Reasons: [facility]G 06/13/23 Soda Worker Required: No Marksmanship Instructor: Not Required per policy Accompanied by: Self / Same As Patient Allergies cat dander [cats] Allergy (Unknown, Verified 06/28/23 13:02) Unknown Medication List - Last Reconciled 06/28/23 by CYRUS Miranda albuterol sulfate 90 mcg/actuation (Ventolin HFA) 1 inh inhalation QID PRN baclofen 20 mg PO DAILY buspirone 5 mg PO BID 30 days clonidine HCl 0.2 mg PO BID docusate sodium (Colace) 100 mg PO BID hydromorphone (Dilaudid) Take 1/2 tab orally every 8 to 12 hours PRN; Partial Fill upon patient request. 8 days omeprazole 20 mg PO DAILY ondansetron 8 mg (2 x 4 mg) PO Q6H PRN 5 days prednisone 20 mg PO DAILY pregabalin 200 mg PO TID sertraline 150 mg (1.5 x 100 mg) PO DAILY 90 days tramadol 100 mg (2 x 50 mg) PO Q8H 28 days Tobacco use date assessed: 06/28/23 Dental Screening Dental Screen Date: 06/28/23 Did you have a dental visit in the last 12 months?: No Did you have a dental problem in the last 6 months where you did not have access to dental care?: No Was dental information given to patient?: Patient has dentist HPI HPI Comments History of Present Illness Details 48-year-old male with history of hypertension, tobacco dependence, alcohol abuse, history of perforated gastric ulcer presented to the office today for hospital discharge follow-up. He was admitted to neuro surgery at [facility] from 06/12-06/13 for management of lumbar degenerative disc disease at L4-5 s/p L4-5 oblique lateral lumbar interbody fusion with diskectomy. Procedure was uncomplicated and patient was discharged home on hydromorphone 2 mg, gabapentin 300 mg t.i.d., and advised to continue baclofen. He is also given lifting restrictions along with activity restrictions. He has followed up in the office with neuro surgery but continues to report severe pain primarily in the left lower extremity. He is reporting radicular pain that started 2 days postop. He states the midback remains sore but feels overall is improved. He reports the sciatica in the left lower extremity is an 8/10 burning/ache with associated weakness and a tingling/throbbing sensation. Denies any bowel/bladder dysfunction, saddle anesthesia. He continues taking 2mg hydromorphone BID, tramadol 100 mg, and Tylenol and Motrin. He has not yet doing physical therapy. He states that he has not used any cigarettes since April 03 and has been using nicotine patches with good effect. He also has cut back significantly on alcohol use. Reports 2 beers about twice weekly. No longer a daily drinker. [facility] Medical History Polycythemia Asthma Arthritis Smoker Cervical disc disease Lumbar disc disease Depression Alcohol dependence GERD (gastroesophageal reflux disease) HTN (hypertension) Right hand fracture Incisional hernia Peptic ulcer disease Anxiety Foreign body in stomach Perforated duodenal ulcer Surgical History History of lumbosacral spine surgery History of incision and drainage History of open reduction and internal fixation (ORIF) procedure History of endoscopy History of colonoscopy History of incisional hernia repair History of esophagogastroduodenoscopy (EGD) H/O Spinal surgery History of gastric surgery Family History Father CAD (coronary artery disease) NIDDY (non-insulin dependent diabetes mellitus in young) Hypertension Mother CAD (coronary artery disease) Hypertension Social History Household Members: Family Household Members Other:: 1 Housing: House Are you a primary long term care phlebotomist to a significant other at home: No Do you presently have visiting nurse or other home services: No Alcohol intake: never Comment: rotted tooth loss with expectorating and spitting Patient Tobacco Use Status: Former Tobacco user Quit Date: 04/01/23 Tobacco use type: Cigarette Cigarette Packs Per Day: 1 Years Smoked: 35 e-Cigarette/Vaping Use: Never Used Second Hand Smoke Exposure: No Substance Use Type: Marijuana service: No Current occupational status: unemployed 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 1. Little interest or pleasure in doing things: not at all 2. Feeling down, depressed, or hopeless: not at all 3. Trouble falling or staying asleep, or sleeping too much: more than half the days 4. Feeling tired or having little energy: more than half the days 5. Poor appetite or overeating: not at all 6. Feeling bad about yourself - or that you are a failure or have let yourself or your family down: not at all 7. Trouble concentrating on things, such as reading the newspaper or watching television: not at all 8. Moving or speaking so slowly that other people could have noticed. Or the opposite - being so fidgety or restless that you have been moving around a lot more than usual: not at all 9. Thoughts that you would be better off or of hurting yourself in some way: not at all Total score: 4 Depression Screening Interpretation: Negative Depression Screening Done: Yes Source: Developed by Drs. Barney Dunlap, Adeola Hanley, Waldo Webb and colleagues, with an educational mukesh from [employer]. Thrive Questionnaire Date Thrive assessed: 06/28/23 I am a: Patient What is your living situation today?: I have a steady place to live Within the past 12 months, did the food you bought not last and you didn't have the money to get more?: Never true Within the past 12 months, did you worry whether your food would run out before you got money to buy more?: Never true Do you have trouble paying for medicines?: No Do you have trouble getting transportation to medical appointments?: No Do you have trouble paying your heating and electricity bill?: No Do you have trouble taking care of your child, family member or friend?: No Do you have trouble with day-to-day activities such as bathing, preparing meals, shopping, managing finances, etc.?: No Are you currently unemployed and looking for a job?: No Are you interested in more education?: No Please select the resources that you would like help with: None THRIVE Score: 0 AUDIT C Alcohol Use Questionnaire (AUDIT-C) 1. How often do you have a drink containing alcohol?: 2-3 times a week 2. How many drinks containing alcohol do you have on a typical day when you are drinking?: 3 or 4 (light beer) 3. How often do you have six or more drinks on one occasion?: Never Total Score: 4 MAMIE-7 AMB Questionnaire MAMIE-7 Date MAMIE - 7 assessed: 06/28/23 Feeling nervous, anxious, or on edge: 1 = Several days Not being able to stop or control worryin = Several days Worrying too much about different things: 0 = Not at all Trouble relaxin = Not at all Being so restless that it is hard to sit still: 0 = Not at all Becoming easily annoyed or irritable: 0 = Not at all Feeling afraid as if something awful might happen: 0 = Not at all Total MAMIE-7 score (0-4 normal; 5-9 mild; 10-14 moderate; 15-21 severe): 2 Source: Developed by Drs. Barney Dunlap, Adeola Hanley, Waldo Webb and colleagues, with an educational mukesh from [employer]. Review of Systems Const All systems reviewed & are unremarkable except as noted in HPI and below Physical exam (Primary Care) Vital Signs: Last Vital Signs Pulse 78 06/28/23 13:01 BP 124/82 06/28/23 13:01 Pulse Ox 99 06/28/23 13:01 Oxygen Delivery Method Room Air 06/28/23 13:01 BMI result Body Mass Index 24.1 Tobacco/Smoking Status: Tobacco use Status Tobacco use date assessed 06/28/23 06/28/23 13:03 Patient Tobacco Use Status Former Tobacco user 06/28/23 13:03 Tobacco use type Cigarette 06/28/23 13:03 e-Cigarette/Vaping Use Never Used 06/28/23 13:03 PHQ-9: PHQ-9 Score PHQ-9: Total score 4 06/28/23 14:21 Depression Screening Interpretation: Negative Thrive Assessment: Date of Thrive Assessment Date Thrive assessed 06/28/23 06/28/23 13:03 Const Other: Constitutional - Awake and Alert, No apparent distress Eyes - PERRLA, EOMI Cardiovascular - S1S2, RRR, No edema Respiratory - Normal lung expansion, Normal respiratory effort, No respiratory distress, CTA bilaterally Extremities - no calf tenderness bilaterally, no swelling Musculoskeletal - Normal inspection. Mild ttp and left sided ttp around L4-S1, positive L sided straight leg raise. Skin - Warm/Dry Neurological - Alert & oriented x3, 5/5 strength BLE, hyperreactive 3+ symmetric patellar reflexes Results Reviewed Results Reviewed: cbc, discahrge summary, operative note, mri lumbar spine Assessment and Plan Assessment & Plan (1) S/P spinal fusion: Code(s): Z98.1 - Arthrodesis status Plan: Overall improvement in pain and mobility. Continue following with neurosurgery as scheduled. Recommended starting to increase time between hydromorphone doses and use tylenol or tramadol prn for breakthrough pain. Primary pain source at this time seems to be more related to sciatica below. Continue lyrica, baclofen. (2) Sciatica: Code(s): M54.30 - Sciatica, unspecified side Plan: Prescribed prednisone taper 60mg daily x 3 days, 40mg daily x 3 days, 20mg daily x 3 day. Discussed with neurosurgery PA, John Peña. Warm compresses, lidocaine patches. Continue ppi while taking systemic steroid. Avoid nsaids while on prednisone. Physical therapy per neurosurgery. (3) Lumbar degenerative disc disease: Code(s): M51.36 - Other intervertebral disc degeneration, lumbar region Plan: As above. Medications: New prednisone Take 60mg every morning x 3 days, then 40mg every morning x3 days, then 20mg every morning x3 days. Take with food and pp 20 mg PO DAILY 18 tabs 0RF omeprazole 20 mg PO DAILY 14 caps 0RF Discontinued hydromorphone (Dilaudid) Discontinued Reason: Doctor's Order Take 1/2 tab orally every 8 to 12 hours PRN; Partial Fill upon patient request. 8 days 10 tabs 0RF severe pain (scale score 7-10) Coding Level of Care Code Est Pt Level 5 (66799) Diagnoses S/P spinal fusion Z98.1 Sciatica M54.30 Lumbar degenerative disc disease M51.36 Time Spent (min) 43 Comment time spent reviewing, discussion with neurosurg PA, interview w/ pt, documentation
== END 2023-06-28 14:26 | disposition home or self-care (01) ==
PROVIDERS: PCP Physician Assistant; Visit Provider Physician Assistant
DX: M51.36 Other intervertebral disc degeneration, lumbar region (principal); M54.30 Sciatica, unspecified side; Z98.1 Arthrodesis status
CPT/HCPCS: 99215

== ENCOUNTER 2023-07-05 10:40 | Outpatient (AMB) | payer OTHER, SELFPAY ==
--- NOTE | 2023-07-05 11:05 | MHC.OFFVIS ---
Intake Intake Visit Reasons: 1st post op Intake Note: Pt here for his first post op Subject Scientific Research Required: No Allergies cat dander [cats] Allergy (Unknown, Verified 06/28/23 13:02) Unknown [facility] Medical History (Updated 07/05/23 @ 11:45 by CYRUS Ford) Polycythemia Asthma Arthritis Smoker Cervical disc disease Lumbar disc disease Depression Alcohol dependence GERD (gastroesophageal reflux disease) HTN (hypertension) Right hand fracture Incisional hernia Peptic ulcer disease Anxiety Foreign body in stomach Perforated duodenal ulcer Surgical History History of lumbosacral spine surgery History of incision and drainage History of open reduction and internal fixation (ORIF) procedure History of endoscopy History of colonoscopy History of incisional hernia repair History of esophagogastroduodenoscopy (EGD) H/O Spinal surgery History of gastric surgery Family History Father CAD (coronary artery disease) NIDDY (non-insulin dependent diabetes mellitus in young) Hypertension Mother CAD (coronary artery disease) Hypertension Social History Household Members: Family Household Members Other:: 1 Housing: House Are you a primary palliative care nurse to a significant other at home: No Do you presently have visiting nurse or other home services: No Alcohol intake: never Comment: rotted tooth loss with expectorating and spitting Patient Tobacco Use Status: Former Tobacco user Quit Date: 04/01/23 Tobacco use type: Cigarette Cigarette Packs Per Day: 1 Years Smoked: 35 e-Cigarette/Vaping Use: Never Used Second Hand Smoke Exposure: No Substance Use Type: Marijuana service: No Current occupational status: unemployed 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 He has had a complicated postoperative course. He reports that he has had continued pain in his left leg starting in his left posterior buttocks radiating around the lateral aspect of his left thigh down the lateral side of his left leg terminating in the ankle. He states the pain is constant/throbbing. He is attempted to utilize his prescription Lyrica and Prescription pain medications with only minimal relief of symptoms. He states that he has some associated weakness as well. He has been ambulating daily and completing his ADLs at home. 4/5 strength with L sided dorsiflexion and knee extension Rest of strength in UE / LE is 5/5. He does have some intermittent hyper-reflexia which is longstanding from his cervical spine surgery. Some decreased sensation reported diffusely throughout L leg as well. Rest of sensation is intact. Incision sites are closed, well healing, with no signs of drainage. Dr. Mckeon examined this patient alongside this scenario writer, and recommended that he be sent for a left-sided L4 TFE injection for interval relief while the irritated nerve root heals post-operatively. The patient will be switched to oxycodone from Dilaudid per his request. He was encouraged to follow up with our office for a follow-up appointment after his injection with pain management. Israel Mckeon MD,PhD [facility] Orders: Referrals Pain Management Referral M79.2 - Neuralgia and neuritis, unspecified Coding Level of Care Code Global (49321) Diagnoses S/P spinal fusion Z98.1
== END 2023-07-05 11:46 | disposition home or self-care (01) ==
PROVIDERS: PCP Physician Assistant; Visit Provider Physician Assistant
DX: Z98.1 Arthrodesis status (principal)
CPT/HCPCS: 99024

== ENCOUNTER → 2023-07-05 10:40 | Outpatient (BNVA) | payer OTHER, SELFPAY | PROVIDERS: PCP Physician Assistant; Visit Provider Physician Assistant | DX: Z48.89 Encounter for other specified surgical aftercare (principal); Z98.1 Arthrodesis status | CPT/HCPCS: 99212 ==

== ENCOUNTER 2023-07-11 11:01 | Outpatient (REF) | payer OTHER, SELFPAY | END 2023-07-11 11:02 | disposition home or self-care (01) | LOC: HO.BBR 11:01 | PROVIDERS: PCP Physician Assistant; Visit Provider Internal Medicine | DX: D75.1 Secondary polycythemia (principal) | CPT/HCPCS: 85018; 99195 ==

== ENCOUNTER 2023-07-12 13:28 | Outpatient (REF) | payer OTHER, SELFPAY ==
--- NOTE | ~2023-07-12 | CT_ITS ---
EXAMINATION: CT LUMBAR SPINE WITHOUT CONTRAST CLINICAL INFORMATION: Arthrodesis COMPARISON: MRI lumbar spine 11/21/2018 TECHNIQUE: A multidetector CT acquisition of the lumbar spine is obtained without contrast. This CT examination was performed using dose optimization techniques as appropriate, variously including the following: *Automated exposure control *Adjustment of mA and/or kV according to patient size (this includes techniques or standardized protocols for targeted exams where dose is matched to indication/reason for exam; i.e. extremities or head) *Use of iterative reconstruction technique DLP: 443 mGy-cm FINDINGS: Redemonstrated transitional lumbosacral anatomy with partial lumbarization of the S1 vertebral segment, well-formed S1-S2 disc space, and osseous fusion across the left S1-S2 articulation. For the purposes of this examination the L5-S1 disc space can be seen on image 243, series 8. New postsurgical changes following right L5 laminotomy and instrumented posterior interbody fusion spanning L5-S1 with bilateral vertical stabilization rods, bilateral transpedicular screws at the surgical levels, and interbody disc cage. The hardware is intact with the left L5 screw encroaching upon the medial cortex of the lateral recess. No periprosthetic lucency. No bridging interbody bone fusion mass or solid posterolateral osseous fusion. There is increased subchondral sclerosis at L5-S1 more pronounced at S1 with redemonstrated chronic osseous remodeling along the posterior S1 upper endplate. Normal lumbar lordosis is preserved. No significant spondylolisthesis. Vertebral body heights are maintained. There is no suspicious osseous lesion. The intervertebral disc space heights are normal. Please not canal patency is not well assessed on this examination due to inherent limitations of CT without intrathecal contrast. Additionally, streak artifact results in nondiagnostic assessment of the spinal canal at the surgical level. L1-L2: No spinal canal or neural foraminal stenosis. L2-L3: No spinal canal or neural foraminal stenosis. L3-L4: No spinal canal or neural foraminal stenosis. L4-L5: Redemonstrated annular disc bulge and mild bilateral facet hypertrophy. No spinal canal stenosis. Stable mild bilateral neural foraminal encroachment. L5-S1: Nondiagnostic assessment of the spinal canal, noting osteophytic ridging extending into the bilateral neural foramina in conjunction with bilateral facet hypertrophy likely contributing to stable to increased severe neural foraminal stenosis with compression of the exiting L5 nerve roots. S1:S2: No spinal canal stenosis. Patent neural foramina, noting impingement along the far extraforaminal left S1 nerve root between the S1-S2 disc space and hypertrophic osseous ridging across the fused S1-S2 synchondrosis. Left midpole renal cyst again seen. The mild calcific plaque of the common iliac arteries. The abdominal aorta is of normal contour and caliber. CT/CT lumbar spine wo IV con IMPRESSION: New postsurgical changes following right L5 laminotomy and L5-S1 instrumented posterior interbody fusion. The hardware is intact. No bridging interbody bone fusion mass or solid posterolateral osseous fusion. Increased subchondral sclerosis at L5-S1 more pronounced at S1. Within limitations of CT and streak artifact, there is stable to increased severe bilateral neural foraminal stenosis with compression of the exiting L5 nerve roots. Redemonstrated impingement along the far extraforaminal left S1 nerve root between the S1-S2 disc space and hypertrophic osseous ridging across the fused left S1-S2 synchondrosis.
== END 2023-07-12 13:29 | disposition home or self-care (01) ==
LOC: HO.CT 13:28
PROVIDERS: PCP Physician Assistant; Visit Provider Physician Assistant
DX: Z98.1 Arthrodesis status (principal)
CPT/HCPCS: 72132

== ENCOUNTER 2023-07-14 08:34 | Outpatient (AMB) | payer OTHER, SELFPAY ==
[2023-07-14 08:59] VITALS: BP 128/77; PULSE 74; RESP 12; O2SAT 98; BMI 22.9
--- NOTE | 2023-07-14 08:59 | MHC.OFFVIS ---
Intake Vital Signs 07/14/23 08:59 Height 6 ft Weight 169 lb BMI 22.9 BP 128/77 Blood Pressure Location Lt brachial Position Sitting Respiration 12 Pulse 74 Pulse Source Pulse Oximeter Pulse Oximetry (%) 98 Oxygen Delivery Method Room Air Intake Visit Reasons: NERVE BLOCK PROCEDURE DISCUSSION Allergies cat dander [cats] Allergy (Unknown, Verified 07/14/23 09:00) Unknown Medication List - Last Reconciled 07/14/23 by Rehana Mai LPN albuterol sulfate 90 mcg/actuation (Ventolin HFA) 1 inh inhalation QID PRN baclofen 20 mg PO DAILY 30 days buspirone 5 mg PO BID 30 days clonidine HCl 0.2 mg PO BID omeprazole 20 mg PO DAILY ondansetron 8 mg (2 x 4 mg) PO Q6H PRN 5 days pregabalin 200 mg PO TID sertraline 150 mg (1.5 x 100 mg) PO DAILY 90 days tramadol 100 mg (2 x 50 mg) PO Q8H 28 days HPI NERVE BLOCK PROCEDURE DISCUSSION HPI Details 48-year-old male who presents today for consideration of a lumbar transforaminal injection. He had L4-5 oblique lateral lumbar interbody fusion on 06/12/23 for right-sided pain. Following the surgery, he reports a new left-sided low back pain that radiates down to his leg into the foot. He states that his right side is stable. He had a CT scan completed on 07/12/2023. He is currently taking lyrica 400 mg T.I.D, which is not touching it . He also continues to report neck pain. Past Procedures: 10/07/22: Greater and Lesser Occipital Nerve Block, Left: % relief. 08/29/2022: Greater and Lesser Occipital Nerve Block, Left: 100% relief for about a month. [facility] Medical History Polycythemia Asthma Arthritis Smoker Cervical disc disease Lumbar disc disease Depression Alcohol dependence GERD (gastroesophageal reflux disease) HTN (hypertension) Right hand fracture Incisional hernia Peptic ulcer disease Anxiety Foreign body in stomach Perforated duodenal ulcer Surgical History History of lumbosacral spine surgery History of incision and drainage History of open reduction and internal fixation (ORIF) procedure History of endoscopy History of colonoscopy History of incisional hernia repair History of esophagogastroduodenoscopy (EGD) H/O Spinal surgery History of gastric surgery Family History Father CAD (coronary artery disease) NIDDY (non-insulin dependent diabetes mellitus in young) Hypertension Mother CAD (coronary artery disease) Hypertension Social History Household Members: Family Household Members Other:: 1 Housing: House Are you a primary respiratory care specialist to a significant other at home: No Do you presently have visiting nurse or other home services: No Alcohol intake: never Comment: rotted tooth loss with expectorating and spitting Patient Tobacco Use Status: Former Tobacco user Quit Date: 04/01/23 Tobacco use type: Cigarette Cigarette Packs Per Day: 1 Years Smoked: 35 e-Cigarette/Vaping Use: Never Used Second Hand Smoke Exposure: No Substance Use Type: Marijuana service: No Current occupational status: unemployed 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 Alert and oriented. Mood and affect appropriate. Follows and participates in conversation appropriately. Respiratory effort is unlabored. Able to transition from sit to stand unassisted. Ambulates with bilaterally normal heel strike and toe off. Straight leg raise is positive on the left side. Results Reviewed Results Reviewed: CT of the lumbar spine shows some narrowing of the left L4 foramen with a small bony projection into the foramen. Assessment & Plan Assessment & Plan (1) Lumbar disc disease with radiculopathy: Code(s): M51.16 - Intervertebral disc disorders with radiculopathy, lumbar region Plan Will schedule him for a left-sided L4 TFESI for lumbar radiculopathy symptoms. Discussed the risks and benefits of the procedure with the patient in detail. All questions were answered. The patient is on board with the plan. A refill of Lyrica was provided to the patient today. Justification for interventional therapy: ? Patient with average pain > 6/10 ? Patient has exhausted conservative therapy oral medications including NSAIDs, neuropathic and narcotics. Scribed for Dr. Burrell by Joesph Rodriguez, medical imaging technologist, on 07/14/2023. I, Dr. Burrell, have personally reviewed and agree with the information entered by the scribe. Medications: Refilled pregabalin 200 mg PO TID 90 caps 3RF Coding Level of Care Code Est Pt Level 4 (17640) Diagnoses Lumbar disc disease with radiculopathy M51.16
== END 2023-07-14 09:19 | disposition home or self-care (01) ==
PROVIDERS: PCP Physician Assistant; Visit Provider Internal Medicine
DX: M51.16 Intervertebral disc disorders with radiculopathy, lumbar region (principal)
CPT/HCPCS: 99214

== ENCOUNTER → 2023-07-14 08:34 | Outpatient (BNVA) | payer OTHER, SELFPAY | PROVIDERS: PCP Physician Assistant; Visit Provider Internal Medicine | DX: M51.16 Intervertebral disc disorders with radiculopathy, lumbar region (principal) | CPT/HCPCS: 99212 ==

== ENCOUNTER 2023-07-18 11:53 | Outpatient (REF) | payer OTHER, SELFPAY | END 2023-07-18 11:54 | disposition home or self-care (01) | LOC: HO.BBR 11:53 | PROVIDERS: PCP Physician Assistant; Visit Provider Internal Medicine | DX: D75.1 Secondary polycythemia (principal) | CPT/HCPCS: 85018; 99195 ==

== ENCOUNTER 2023-07-19 15:23 | Outpatient (AMB) | payer OTHER, SELFPAY ==
[2023-07-19 15:28] VITALS: BP 100/64; PULSE 123; O2SAT 98; BMI 22.4
--- NOTE | 2023-07-19 15:28 | A.OFFPC_ITS ---
Vital Signs 07/19/23 15:28 Height 6 ft Weight 165 lb 6 oz BMI 22.4 BP 100/64 Blood Pressure Location Lt brachial Position Sitting Pulse 123 H Pulse Source Pulse Oximeter Pulse Oximetry (%) 98 Oxygen Delivery Method Room Air Intake Visit Reasons: Back surgery F/U Allergies cat dander [cats] Allergy (Unknown, Verified 07/19/23 15:34) Unknown Medication List - Last Reconciled 07/19/23 by Lucas Yao PA-C albuterol sulfate 90 mcg/actuation (Ventolin HFA) 1 inh inhalation QID PRN baclofen 20 mg PO DAILY 30 days buspirone 5 mg PO BID 30 days clonidine HCl 0.2 mg PO BID omeprazole 20 mg PO DAILY ondansetron 8 mg (2 x 4 mg) PO Q6H PRN 5 days pregabalin 200 mg PO TID sertraline 150 mg (1.5 x 100 mg) PO DAILY 90 days tramadol 100 mg (2 x 50 mg) PO Q8H 28 days Tobacco use date assessed: 06/28/23 HPI Back surgery F/U HPI Details Patient is a 48-year-old male here today for a follow-up visit. Patient has a past medical history significant for hypertension, lumbar and cervical disc disease, polycythemia, tobacco dependency, GERD with erosive esophagitis. Cervical disc disease/ Lumbar disc disease : Has underwent an ACDF of his cervical spine disc which went well. His neuropathic pains have generally resolved in his upper extremities. Did undergo a lumbar disc surgery on June 12 2023, remains in chronic pain particularly down left lower extremity thus followed up with pain management and is due for an injection. He has gotten repeat CT of his lumbar spine showing--> L5-S1: Nondiagnostic assessment of the spinal canal, noting osteophytic ridging extending into the bilateral neural foramina in conjunction with bilateral facet hypertrophy likely contributing to stable to increased severe neural foraminal stenosis with compression of the exiting L5 nerve roots ---> Pain management medication--> Miko nues with the use pregabalin 200 mg t.i.d., tramadol 100 mg t.i.d. and baclofen. . CHRONIC MEDICAL CONDITIONS--> Erosive esophagitis: Symptoms have been much better since reducing gluten in his diet. Also has been reducing his drinking. He has not had much abdominal discomfort as before. .. Polycythemia: Was recently found to have polycythemia at a recent hospital admission. Now seeing a die maker trim in getting therapeutic phlebotomies. He reports his NATHALY testing was negative .. MDD: Continues on SSRI therapy , buspar and clonidine with good effect on his mood. .. Alcohol use disorder: He reports he has drastically reduced his drinking. --> seems he has started to drink again, (does smell of alcohol on his breath today in office). .. Tobacco dependency : still smokes a few cigs per day, has been expensive for and still is willing to quit smoking completely in near future. [facility] Medical History (Updated 07/19/23 @ 15:40 by Lucas aYo PA-C) Polycythemia Asthma Arthritis Smoker Cervical disc disease Lumbar disc disease Depression Alcohol dependence GERD (gastroesophageal reflux disease) HTN (hypertension) Right hand fracture Incisional hernia Peptic ulcer disease Anxiety Foreign body in stomach Perforated duodenal ulcer Surgical History History of lumbosacral spine surgery History of incision and drainage History of open reduction and internal fixation (ORIF) procedure History of endoscopy History of colonoscopy History of incisional hernia repair History of esophagogastroduodenoscopy (EGD) H/O Spinal surgery History of gastric surgery Family History Father CAD (coronary artery disease) NIDDY (non-insulin dependent diabetes mellitus in young) Hypertension Mother CAD (coronary artery disease) Hypertension Social History Household Members: Family Household Members Other:: 1 Housing: House Are you a primary respiratory care assistant to a significant other at home: No Do you presently have visiting nurse or other home services: No Alcohol intake: never Comment: rotted tooth loss with expectorating and spitting Patient Tobacco Use Status: Former Tobacco user Quit Date: 04/01/23 Tobacco use type: Cigarette Cigarette Packs Per Day: 1 Years Smoked: 35 e-Cigarette/Vaping Use: Never Used Second Hand Smoke Exposure: No Substance Use Type: Marijuana service: No Current occupational status: unemployed 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 Barney Dunlap, Adeola Hanley, Waldo Webb and colleagues, with an educational mukesh from [employer]. Review of Systems Const Denies headache(s) Eyes Denies loss of vision ENT Denies vertigo, Denies dizziness, Denies headache(s) and Denies sore throat Card Denies chest pain, Denies leg edema and Denies lightheadedness Resp Denies cough, Denies hemoptysis and Denies wheezing GI Denies abdominal pain, Denies melena, Denies constipation, Denies diarrhea and Denies vomiting Denies dysuria, Denies urinary frequency and Denies urinary urgency Musc Denies arthralgias, Denies joint swelling, Denies numbness and Denies tingling Neuro Denies Abnormal speech present, Denies behavioral changes, Denies vertigo, Denies dizziness, Denies headache(s), Denies loss of vision, Denies memory loss, Denies numbness and Denies tingling Psych Denies anxiety, Denies behavioral changes, Denies depression, Denies memory loss and Denies panic attacks Elton/Lymph Denies easy bleeding and Denies easy bruising Aller/Immun Denies wheezing Physical exam (Primary Care) Vital Signs: Last Vital Signs Pulse 123 H 07/19/23 15:28 BP 100/64 07/19/23 15:28 Pulse Ox 98 07/19/23 15:28 Oxygen Delivery Method Room Air 07/19/23 15:28 BMI result Body Mass Index 22.4 Tobacco/Smoking Status: Tobacco use Status Tobacco use date assessed 06/28/23 07/19/23 15:32 Patient Tobacco Use Status Former Tobacco user 07/19/23 15:32 Tobacco use type Cigarette 07/19/23 15:32 e-Cigarette/Vaping Use Never Used 07/19/23 15:32 Thrive Assessment: Date of Thrive Assessment Date Thrive assessed 06/28/23 07/19/23 15:32 Const Other: APPEARS SOMEWHAT DISHEVELED TODAY IN OFFICE General: healthy appearing, no acute distress, alert and awake Nutritional Appearance: well nourished Orientation/consciousness: oriented to person, oriented to place and oriented to time HENMT Ears: TM's normal bilaterally General nose exam: Normal nasal mucous membranes and turbinates present Eyes Conjunctivae: conjunctivae normal Sclerae: sclerae normal Pupils: Equal, round and reactive pupils present Neck Neck: Yes no lymphadenopathy and Yes no JVD Thyroid: Thyroid normal Carotids: no bruits Resp Effort & Inspection: normal respiratory effort and not tachypneic Auscultation: no crackles, no rales, no rhonchi and no wheezes Cardio Rate: regular rate Rhythm: regular rhythm Heart sounds: no murmurs and normal S1 and S2 GI Palpation (GI): Soft to palpation, nontender, no hepatomegaly and no splenomegaly Auscultation: normal bowel sounds Back/Spine/Pelvis Other: LIMITED RANGE OF MOTION LUMBAR SPINE DUE TO PAIN AND STIFFNESS. HE AMBULATING WITH AN ANTALGIC GAIT Skin General skin exam: no rashes or lesions noted and dry skin Neuro General: oriented to person, oriented to place and oriented to time Cranial nerves: Yes Equal, round and reactive pupils present Speech: No Abnormal speech present Gait exam (Neuro): Normal gait present Motor exam (neuro): no tremor noted Extrem Right upper extremity: full ROM Left upper extremity: full ROM Right lower extremity: full ROM; no edema Left lower extremity: full ROM; no edema Psych Mental Status: mental status grossly normal Speech and movement: Normal speech and movement present Affect: normal affect Attitude: cooperative Thought process: Normal thought process present Assessment and Plan Assessment & Plan (1) Lumbar disc disease: Code(s): M51.9 - Unspecified thoracic, thoracolumbar and lumbosacral intervertebral disc disorder Plan: Patient is 1 month postop lumbar spine surgery which has helped him with his right-sided lower back and radicular symptoms. Unfortunately now has been having left-sided radicular symptoms that have been unbearable. He is now seeing [facility] and has upcoming visit with his neurosurgeon specialist. He is interested in another surgery due to the increase severe neural foraminal stenosis with compression of the L5 exiting nerve root CT of lumbar spine showing:L5-S1: Nondiagnostic assessment of the spinal canal, noting osteophytic ridging extending into the bilateral neural foramina in conjunction with bilateral facet hypertrophy likely contributing to stable to increased severe neural foraminal stenosis with compression of the exiting L5 nerve roots (2) Cyst of left kidney: Code(s): N28.1 - Cyst of kidney, acquired Plan: In past records there was note of a left kidney cyst that has not had any surveillance or follow-up. Will send for dedicated renal left ultrasound. (3) Polycythemia: Code(s): D75.1 - Secondary polycythemia Plan: Continues to have symptoms of pruritus and fatigue.. Patient is getting phlebotomies every week. Followed by [facility]. Hemoglobin has been trending in the right direction. Orders: Orders US renal LT 07/19/23 N28.1 - Cyst of kidney, acquired Coding Level of Care Code Est Pt Level 4 (99165) Diagnoses Lumbar disc disease M51.9 Cyst of left kidney N28.1 Polycythemia D75.1
== END 2023-07-19 16:00 | disposition home or self-care (01) ==
PROVIDERS: PCP Physician Assistant; Visit Provider Physician Assistant
DX: M51.9 Unspecified thoracic, thoracolumbar and lumbosacral intervertebral disc disorder (principal); F10.20 Alcohol dependence, uncomplicated; F33.1 Major depressive disorder, recurrent, moderate; N28.1 Cyst of kidney, acquired; D75.1 Secondary polycythemia; F17.210 Nicotine dependence, cigarettes, uncomplicated; I10 Essential (primary) hypertension
CPT/HCPCS: 99214

== ENCOUNTER 2023-07-20 11:04 | Outpatient (AMB) | payer OTHER, SELFPAY ==
--- NOTE | 2023-07-20 10:54 | HO.SPINEOV ---
Intake Intake Visit Reasons: ct follow up Allergies cat dander [cats] Allergy (Unknown, Verified 07/19/23 15:34) Unknown Assessment & Plan Assessment & Plan (1) S/P lumbar fusion: Code(s): Z98.1 - Arthrodesis status Plan Delvis is a pleasant 48-year-old male who comes in today for another follow-up visit to review his CT imaging. To recap he is s/p L4-5 oblique lateral lumbar interbody fusion which was performed on 06/12/2023. He has had consistent pain since his surgery that is in a left sided L4 dermatomal distribution. He has been evaluated by pain management, and they have scheduled him for left-sided L4 T if he injections. He is currently going through the prior authorization process, and will have a date for injections within the next week or so. We reviewed his CT imaging today which shows stable placement of his instrumentation and no obvious postsurgical changes that would explain his symptoms. He was seen during his last office visit alongside Dr. Mckeon, who believes that his continued pain is likely due to left-sided L4 nerve root irritation. Of note, Delvis is currently prescribed a monthly course of opiates from his primary care care provider, and has a prescription for Lyrica that was recently filled. I believe that the postoperative pain medication regimen that we are able to provide has been exhausted for an acute postoperative pain syndrome. He was encouraged to continue taking his opiate medication that is primary care provider prescribed for him alongside is Lyrica. Any other pain management issues will need to be handled by his primary care provider or our Pain Management department, who he is currently established with. Lastly, Delvis requested that he have an appointment made with Dr. Mckeon in order to discuss the possibility for another surgery. I did discuss with him that Dr. Mckeon and I have already reviewed his imaging and did not believe there was a surgical intervention that could help resolve his issue at this time, however he seemed adamant about having a conversation regarding another surgery to fix his left lower extremity issue. Israel Mckeon MD,PhD [facility] Coding Level of Care Code Global (33375) Diagnoses S/P lumbar fusion Z98.1
== END 2023-07-20 11:41 | disposition home or self-care (01) ==
PROVIDERS: PCP Physician Assistant; Visit Provider Physician Assistant
DX: Z98.1 Arthrodesis status (principal)
CPT/HCPCS: 99024

== ENCOUNTER → 2023-07-20 11:04 | Outpatient (BNVA) | payer OTHER, SELFPAY | PROVIDERS: PCP Physician Assistant; Visit Provider Physician Assistant | DX: Z98.1 Arthrodesis status (principal) | CPT/HCPCS: 99212 ==

== ENCOUNTER 2023-07-26 11:51 | Outpatient (REF) | payer OTHER, SELFPAY | END 2023-07-26 11:52 | disposition home or self-care (01) | LOC: HO.BBR 11:51 | PROVIDERS: PCP Physician Assistant; Visit Provider Internal Medicine | DX: D75.1 Secondary polycythemia (principal) | CPT/HCPCS: 85014; 85018; 99195 ==

== ENCOUNTER 2023-07-28 10:27 | Outpatient (REF) | payer OTHER, SELFPAY ==
--- NOTE | ~2023-07-28 | US_ITS ---
EXAMINATION: US RETROPERITONEAL LIMITED (RENAL ONLY) CLINICAL INFORMATION: Cyst of kidney, acquired. COMPARISON: CT abdomen and pelvis 12/31/2022. TECHNIQUE: Real-time imaging of the left kidney. Limited visualization due to bowel gas. FINDINGS: LEFT KIDNEY: 11.8 x 5.2 x 6.3 cm (SAG x AP x TRV). No hydronephrosis. No renal calculi. Renal cortical thickness is normal. Limited visualization. US/US renal LT IMPRESSION: No hydronephrosis. No renal calculi. Renal cortical thickness is normal. Limited visualization. Left midpole 1.5 x 2.2 x 1.6 cm exophytic cortical cyst is stable compare with exam of 12/31/2022 CT abdomen and pelvis. There is no specific indication for follow-up imaging at this time.
== END 2023-07-28 10:28 | disposition home or self-care (01) ==
LOC: HO.HMGCX 10:27
PROVIDERS: PCP Physician Assistant; Visit Provider Physician Assistant
DX: N28.1 Cyst of kidney, acquired (principal)
CPT/HCPCS: 76775

== ENCOUNTER 2023-08-02 12:00 | Outpatient (REF) | payer OTHER, SELFPAY | END 2023-08-02 12:01 | disposition home or self-care (01) | LOC: HO.BBR 12:00 | PROVIDERS: PCP Physician Assistant; Visit Provider Internal Medicine | DX: D75.1 Secondary polycythemia (principal) | CPT/HCPCS: 85014; 85018; 99195 ==

== ENCOUNTER 2023-08-02 12:53 | Outpatient (RCR) | payer OTHER, SELFPAY ==
--- NOTE | 2023-08-02 15:34 | MHC.PT.EP ---
[facility] [place] Office [place] Office [place] Office [address] Chung Bass [address] [phone] F: [phone] F: [phone] F: [phone] F: [phone] Physical Therapy Plan of Care Date of Evaluation: 08/02/23 Date of Surgery: 06/12/23 Diagnosis: Unspecified thoracic, thoracolumbar and lumbosacral intervertebral disc disorder Assessment: Delvis is a 48 year old male who is referred to PT for Unspecified thoracic, thoracolumbar and lumbosacral intervertebral disc disorder . He reports of having h/o chronic low back pain with R sided sciatica for which he underwent lumbar fusion surgery on 06/12/23. Post surgery per pt he started having sciatic pain in L LE. On PT examination he presents with constant pain of 8/10 pain in his low back and B LE, TTP over scar tissue on R lumbar paraspinals, pain with trunk ROM, decreased muscle strength in core, altered posture, impaired balance and gait. He lives with his father and is independent with all ADLS but has pain with them. He is unemployed. He would benefit from skilled PT to address the aforementioned impairments and improve tolerance to functional activities. Frequency and Duration: The patient will be seen 2/week for 5 weeks Short Term Goals: 1. Pt will demonstrate 50% decrease in pain which will enable him to tolerate sitting and sleeping without pain in 2 weeks. 2. Pt will be able to move his trunk through all planes of motion with a pain no more than 2/10 which will enable him to dress his lower body without pain in 3 weeks. Trauma Program Manager Goals: 1. Pt will demonstrate an increase in muscle strength by 1 grade which will enable him to tolerate standing and walking with a pain no more than 2/10 in 5 weeks. 2. Pt will be independent with all HEP for symptom management and maintenance following d/c in 5 weeks. Treatment Plan: Modalities to reduce pain, spasms and effusion. Manual therapy to restore motion and function. Therapeutic exercise to improve strength and flexibility. Neuromuscular re-education for posture and balance. Therapeutic activities to return to functional activities of daily living. Electronically signed by: Lizz Murphy PT DPT Please sign and return to therapist. Thank you for your referral.
--- NOTE | 2023-08-16 15:14 | MHC.PT.DC ---
[facility] [place] [facility] [place] [facility] [place] [facility] [address] Chung Bass [address] [facility] [phone] F: [phone] F: [phone] F: [phone] F: [phone] Physical Therapy Discharge Report Diagnosis: Unspecified thoracic, thoracolumbar and lumbosacral intervertebral disc disorder Date of Surgery: 06/12/23 Date of Evaluation: 08/02/23 Date of Discharge: 08/16/23 Treatments to Date: 1 Cancellations to Date: 0 No Shows to Date: 3 Discharge Status: Visit Non-compliance Discharge Summary: Delvis ann showed for 3 appointments after his evaluation. He is therefore being d/c from PT for non compliance. Electronically signed by: Lizz Murphy PT DPT Please sign and return to therapist. Thank you for your referral.
== END 2023-08-16 15:15 | disposition home or self-care (01) ==
LOC: HO.PT 12:53
PROVIDERS: PCP Physician Assistant; Visit Provider Physician Assistant
DX: M51.9 Unspecified thoracic, thoracolumbar and lumbosacral intervertebral disc disorder (principal); Z98.1 Arthrodesis status
CPT/HCPCS: 97112; 97161

== ENCOUNTER 2023-08-03 06:07 | Outpatient (REF) | payer OTHER, SELFPAY ==
--- NOTE | ~2023-08-03 | FL_ITS ---
CLINICAL INDICATION: Back pain. FINDINGS: Technical assistance and equipment were provided by the Department of Radiology during intraoperative fluoroscopy for presumed percutaneous injection. 2, limited fluoroscopic spot images are submitted. A radiologist was not present during the procedure. Is difficult to ascertain the levels of the images submitted due to incomplete anatomical landmarks. There are bilateral transpedicular screws, rods, and disc spacing device across to adjacent levels. No evidence of hardware fracture or loosening. On one of the images, the tip of a percutaneous needle projects over the left posterior elements at this level. The images are available for review on PACS. TOTAL FLUOROSCOPY TIME: 0.7 minutes. DOSE AREA PRODUCT: 0.09 mGy-m2 (milligray-meter squared) FL/FL guidance in treatment room IMPRESSION: Technical assistance and equipment provided by the Department of Radiology during intraoperative fluoroscopy, as above. Please see operative report for further details.
== END 2023-08-03 06:08 | disposition home or self-care (01) ==
LOC: CF 06:07
PROVIDERS: Visit Provider Internal Medicine
DX: M51.36 Other intervertebral disc degeneration, lumbar region (principal); M51.16 Intervertebral disc disorders with radiculopathy, lumbar region
CPT/HCPCS: 64493; J1100; Q9967

== ENCOUNTER 2023-08-03 07:52 | Outpatient (AMB) | payer OTHER, SELFPAY ==
[2023-08-03 08:02] VITALS: BP 122/78; PULSE 72; RESP 18; O2SAT 98; BMI 22.4
--- NOTE | 2023-08-03 08:02 | MHC.OFFVIS ---
Intake Vital Signs 08/03/23 08:02 08/03/23 09:15 Height 6 ft 6 ft Weight 165 lb 165 lb BMI 22.4 22.4 BP 122/78 122/78 Blood Pressure Location Lt brachial Lt brachial Position Sitting Sitting Respiration 18 16 Pulse 72 82 Pulse Source Pulse Oximeter Pulse Oximeter Pulse Oximetry (%) 98 96 Oxygen Delivery Method Room Air Room Air Comment Pre-Op Post-Op Intake Visit Reasons: Left L4 TFESI Allergies cat dander [cats] Allergy (Unknown, Verified 07/19/23 15:34) Unknown HPI Left L4 TFESI HPI Details Patient presents for scheduled procedure. Denies any recent cough, cold, infection, fever or other significant changes in medical history since last office visit. [facility] Medical History (Updated 07/19/23 @ 15:40 by Lucas Yao PA-C) Polycythemia Asthma Arthritis Smoker Cervical disc disease Lumbar disc disease Depression Alcohol dependence GERD (gastroesophageal reflux disease) HTN (hypertension) Right hand fracture Incisional hernia Peptic ulcer disease Anxiety Foreign body in stomach Perforated duodenal ulcer Surgical History History of lumbosacral spine surgery History of incision and drainage History of open reduction and internal fixation (ORIF) procedure History of endoscopy History of colonoscopy History of incisional hernia repair History of esophagogastroduodenoscopy (EGD) H/O Spinal surgery History of gastric surgery Family History Father CAD (coronary artery disease) NIDDY (non-insulin dependent diabetes mellitus in young) Hypertension Mother CAD (coronary artery disease) Hypertension Social History Household Members: Family Household Members Other:: 1 Housing: House Are you a primary career placement specialist to a significant other at home: No Do you presently have visiting nurse or other home services: No Alcohol intake: never Comment: rotted tooth loss with expectorating and spitting Patient Tobacco Use Status: Former Tobacco user Quit Date: 04/01/23 Tobacco use type: Cigarette Cigarette Packs Per Day: 1 Years Smoked: 35 e-Cigarette/Vaping Use: Never Used Second Hand Smoke Exposure: No Substance Use Type: Marijuana service: No Current occupational status: unemployed 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 The patient was placed in the prone position on the fluoroscopy table. The lumbosacral area was prepped with chloraprep, allowed to dry and draped in sterile fashion. Using fluoroscopy, the skin overlying our target was anesthetized with 0.5% lidocaine. A 22 gauge 3.5 inch spinal needle was advanced to the safe triangle in the upper pole of the left L4/5 foramen. No paresthesias were elicited with needle placement and aspiration was negative for blood and CSF. Correct needle position was confirmed with approximately 1 ml contrast dye (Omnipaque 180 mg/ml) injected under real-time fluoroscopy. No evidence of vascular or intrathecal uptake was seen and there was both epidural and peripheral spread of the contrast agent. 10 mg dexamethasone plus 1 ml containing 0.5% lidocaine was slowly injected. The needle was flushed and removed. The skin was cleansed and a sterile bandages were applied. The patient tolerated the procedure well and no complications were encountered. Following the procedure the patient's vital signs were stable. The patient was discharged home in good condition with post-procedural instructions. Time Out: Immediately prior to the procedure, the following was verbally confirmed that there is a signed consent form and that the correct patient, planned procedure, site and side are consistent with documentation and that necessary equipment and/or blood products are available prior to the start of the case. Complications: none EBL: <5 cc 78844 - second level, with Fluoroscopy Procedure code (CPT) selection complete Assessment & Plan Assessment & Plan (1) Lumbar disc disease with radiculopathy: Code(s): M51.16 - Intervertebral disc disorders with radiculopathy, lumbar region Plan Patient is status post left L4/5 TFESI. Patient tolerated procedure well and was discharged home in stable condition with discharge instructions. All questions were answered. We will follow-up via telephone or in clinic to assess response to therapy. A follow-up appointment was made during today's visit. Coding Level of Care Code Procedure Only Diagnoses Lumbar disc disease with radiculopathy M51.16 CPT Codes Facet Injection-Lumbar/Sacral - CPT: 92300 - second level, with Fluoroscopy ([id number])
[2023-08-03 09:15] VITALS: BP 122/78; PULSE 82; RESP 16; O2SAT 96; BMI 22.4
== END 2023-08-03 09:15 | disposition home or self-care (01) ==
LOC: HO.PMCPRC 07:53
PROVIDERS: PCP Physician Assistant; Visit Provider Internal Medicine
DX: M51.16 Intervertebral disc disorders with radiculopathy, lumbar region (principal)
CPT/HCPCS: 64493

== ENCOUNTER 2023-08-08 13:59 | Outpatient (REF) | payer OTHER, SELFPAY | END 2023-08-08 14:00 | disposition home or self-care (01) | LOC: HO.BBR 13:59 | PROVIDERS: PCP Physician Assistant; Visit Provider Internal Medicine | DX: D75.1 Secondary polycythemia (principal) | CPT/HCPCS: 85014; 85018; 99195 ==

== ENCOUNTER 2023-09-20 14:06 | Outpatient (REF) | payer OTHER, SELFPAY | END 2023-09-20 14:07 | disposition home or self-care (01) | LOC: HO.BBR 14:06 | PROVIDERS: PCP Physician Assistant; Visit Provider Internal Medicine | DX: D75.1 Secondary polycythemia (principal) | CPT/HCPCS: 85018; 99195 ==

== ENCOUNTER 2023-09-26 14:40 | Outpatient (AMB) | payer OTHER, SELFPAY ==
[2023-09-26 14:54] VITALS: BP 110/64; PULSE 75; O2SAT 95; BMI 24.2
--- NOTE | 2023-09-26 14:54 | MHC.PC.OV ---
Vital Signs 09/26/23 14:54 Height 6 ft Weight 178 lb 6 oz BMI 24.2 BP 110/64 Blood Pressure Location Lt brachial Position Sitting Pulse 75 Pulse Source Pulse Oximeter Pulse Oximetry (%) 95 Oxygen Delivery Method Room Air Intake Visit Reasons: 3 month f/u [place] Spr[facility] Required: No Accompanied by: Self / Same As Patient Allergies cat dander [cats] Allergy (Unknown, Verified 09/26/23 15:12) Unknown Medication List - Last Reconciled 09/26/23 by Lucas Yao PA-C albuterol sulfate 90 mcg/actuation (Ventolin HFA) 1 inh inhalation QID PRN baclofen 20 mg PO DAILY 30 days buspirone 5 mg PO BID 30 days clonidine HCl 0.2 mg PO BID omeprazole 20 mg PO DAILY ondansetron 8 mg (2 x 4 mg) PO Q6H PRN 5 days pregabalin 200 mg PO TID sertraline 150 mg (1.5 x 100 mg) PO DAILY 90 days tramadol 100 mg (2 x 50 mg) PO Q8H 28 days Tobacco use date assessed: 06/28/23 Dental Screening Dental Screen Date: 06/28/23 HPI 3 month f/u HPI Details Patient is a 48-year-old male here today for a follow-up visit. Patient has a past medical history significant for hypertension, lumbar and cervical disc disease, polycythemia, tobacco dependency, GERD with erosive esophagitis. Cervical disc disease/ Lumbar disc disease : Has underwent an ACDF of his cervical spine disc which went well. His neuropathic pains have generally resolved in his upper extremities. Did undergo a lumbar disc surgery on June 12 2023, remains in chronic pain particularly down left lower extremity thus followed up with pain management and is due for an injection. He has gotten repeat CT of his lumbar spine showing--> L5-S1: Nondiagnostic assessment of the spinal canal, noting osteophytic ridging extending into the bilateral neural foramina in conjunction with bilateral facet hypertrophy likely contributing to stable to increased severe neural foraminal stenosis with compression of the exiting L5 nerve roots ---> Pain management medication--> Continues with the use pregabalin 200 mg t.i.d., tramadol 100 mg t.i.d. and baclofen. 09/26/2023-- > unfortunately continues to have left posterior neck pain worse when rotating and flexing his neck. He reports he feels the hardware is neck is malaligned. Will send for x-ray of the cervical spine. We did discuss possibly starting physical therapy again though he declines at this time. PEYRONIE'S: Giving continues to be concerned about his Peyronie's which significantly hinders his sexual life. He reports his penis is significantly angulated during erection. Has seen local urologist though no treatment could be done by the office. He is considering intralesiona injections and would like a 2nd opinion from a urologist. . CHRONIC MEDICAL CONDITIONS--> Erosive esophagitis: Symptoms have been much better since reducing gluten in his diet. Also has been reducing his alcohol drinking. He has not had much abdominal discomfort as before. .. Polycythemia: Was recently found to have polycythemia at a recent hospital admission. Now seeing a street sprinkler in getting therapeutic phlebotomies. He reports his NATHALY testing was negative. .. MDD: Continues on SSRI therapy , buspar and clonidine with good effect on his mood. He is interested in higher dose of BuSpar for better control of his anxiety .. Alcohol use disorder: He reports he has drastically reduced his drinking. --> seems he has started to drink again, (does smell of alcohol on his breath today in office). .. Tobacco dependency : still smokes a few cigs per day, has been expensive for and still is willing to quit smoking completely in near future. [facility] Medical History (Updated 09/28/23 @ 07:26 by Lucas Yao PA-C) Silicosis Hyperkalemia Polycythemia Asthma Arthritis Smoker Cervical disc disease Lumbar disc disease Depression Alcohol dependence GERD (gastroesophageal reflux disease) HTN (hypertension) Right hand fracture Incisional hernia Peptic ulcer disease Anxiety Foreign body in stomach Perforated duodenal ulcer Surgical History History of lumbosacral spine surgery History of incision and drainage History of open reduction and internal fixation (ORIF) procedure History of endoscopy History of colonoscopy History of incisional hernia repair History of esophagogastroduodenoscopy (EGD) H/O Spinal surgery History of gastric surgery Family History Father CAD (coronary artery disease) NIDDY (non-insulin dependent diabetes mellitus in young) Hypertension Mother CAD (coronary artery disease) Hypertension Social History Household Members: Family Household Members Other:: 1 Housing: House Are you a primary date night caregiver to a significant other at home: No Do you presently have visiting nurse or other home services: No Alcohol intake: never Comment: rotted tooth loss with expectorating and spitting Patient Tobacco Use Status: Former Tobacco user Quit Date: 04/01/23 Tobacco use type: Cigarette Cigarette Packs Per Day: 1 Years Smoked: 35 e-Cigarette/Vaping Use: Never Used Second Hand Smoke Exposure: No Substance Use Type: Marijuana service: No Current occupational status: unemployed 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 Barney Dunlap, Adeola Hanley, Waldo Webb and colleagues, with an educational mukesh from [employer]. Review of Systems Const Denies headache(s) Eyes Denies loss of vision ENT Denies vertigo, Denies dizziness, Denies headache(s) and Denies sore throat Card Denies chest pain, Denies leg edema and Denies lightheadedness Resp Denies cough, Denies hemoptysis and Denies wheezing GI Denies abdominal pain, Denies melena, Denies constipation, Denies diarrhea and Denies vomiting Denies dysuria, Denies urinary frequency and Denies urinary urgency Musc Denies arthralgias, Denies joint swelling, Denies numbness and Denies tingling Neuro Denies Abnormal speech present, Denies behavioral changes, Denies vertigo, Denies dizziness, Denies headache(s), Denies loss of vision, Denies memory loss, Denies numbness and Denies tingling Psych Denies anxiety, Denies behavioral changes, Denies depression, Denies memory loss and Denies panic attacks Elton/Lymph Denies easy bleeding and Denies easy bruising Aller/Immun Denies wheezing Physical exam (Primary Care) Vital Signs: Last Vital Signs Pulse 75 09/26/23 14:54 BP 110/64 09/26/23 14:54 Pulse Ox 95 09/26/23 14:54 Oxygen Delivery Method Room Air 09/26/23 14:54 BMI result Body Mass Index 24.2 Tobacco/Smoking Status: Tobacco use Status Tobacco use date assessed 06/28/23 09/26/23 14:56 Patient Tobacco Use Status Former Tobacco user 09/26/23 14:56 Tobacco use type Cigarette 09/26/23 14:56 e-Cigarette/Vaping Use Never Used 09/26/23 14:56 Thrive Assessment: Date of Thrive Assessment Date Thrive assessed 06/28/23 09/26/23 14:56 Const General: healthy appearing, no acute distress, alert and awake Nutritional Appearance: well nourished Orientation/consciousness: oriented to person, oriented to place and oriented to time HENMT Ears: TM's normal bilaterally General nose exam: Normal nasal mucous membranes and turbinates present Eyes Conjunctivae: conjunctivae normal Sclerae: sclerae normal Pupils: Equal, round and reactive pupils present Neck Neck: Yes no lymphadenopathy and Yes no JVD Thyroid: Thyroid normal Carotids: no bruits Resp Effort & Inspection: normal respiratory effort and not tachypneic Auscultation: no crackles, no rales, no rhonchi and no wheezes Cardio Rate: regular rate Rhythm: regular rhythm Heart sounds: no murmurs and normal S1 and S2 GI Palpation (GI): Soft to palpation, nontender, no hepatomegaly and no splenomegaly Auscultation: normal bowel sounds Skin General skin exam: no rashes or lesions noted and dry skin Neuro Other: *BILATERAL LOWER EXTREMITY DEEP TENDON REFLEXES HYPERREFLEXIC General: oriented to person, oriented to place and oriented to time Cranial nerves: Yes Equal, round and reactive pupils present Speech: No Abnormal speech present Gait exam (Neuro): Normal gait present Motor exam (neuro): no tremor noted Extrem Right upper extremity: full ROM Left upper extremity: full ROM Right lower extremity: full ROM; no edema Left lower extremity: full ROM; no edema Psych Mental Status: mental status grossly normal Speech and movement: Normal speech and movement present Affect: normal affect Attitude: cooperative Thought process: Normal thought process present Assessment and Plan Assessment & Plan (1) Cervical stenosis of spine: Comment: S/p C4/5, C5/6 ACDF Code(s): M48.02 - Spinal stenosis, cervical region Plan: Patient is status post cervical spine disc repair. Unfortunately does still pain with certain movements of his neck. Will send for x-ray to evaluate for any hardware alignment. (2) Erosive esophagitis: Code(s): K22.10 - Ulcer of esophagus without bleeding Plan: He continues with PPI therapy, unfortunately still drinks and smokes and does understand that this can be caustic to his GI lining. (3) Tobacco dependence: Code(s): F17.200 - Nicotine dependence, unspecified, uncomplicated Plan: He does understand he needs to quit smoking and will try to do it on his own. Not interested in nicotine replacement or medication at this time. (4) Polycythemia: Code(s): D75.1 - Secondary polycythemia Plan: Continues to follow hematology. Is getting therapeutic phlebotomies every 2 weeks. (5) Peyronie disease: Code(s): N48.6 - Induration penis plastica Plan: As per HPI patient would like a 2nd opinion with Urology. His Peyronie's disease is significantly impacting his sexual life and quality of life.. He is interested in intralesional injections to help his Peyronie's disease. (6) Anxiety: Code(s): F41.9 - Anxiety disorder, unspecified Plan: Patient reports his anxiety has been worse lately due to his medical and physical conditions. He is interested in higher dose of BuSpar to help control anxiety bit more. Will increase his BuSpar 50 mg b.i.d.. Orders: Orders XR cervical spine 3V 09/26/23 M48.02 - Spinal stenosis, cervical region Referrals Urology Referral N48.6 - Induration penis plastica Medications: New buspirone 15 mg PO BID 60 tabs 3RF 30 days F41.9 - Anxiety disorder, unspecified Discontinued buspirone Discontinued Reason: Doctor's Order 5 mg PO BID 30 days 60 tabs 6RF F41.9 - Anxiety disorder, unspecified Coding Level of Care Code Est Pt Level 4 (07148) Diagnoses Cervical stenosis of spine M48.02 Erosive esophagitis K22.10 Tobacco dependence F17.200 Polycythemia D75.1 Peyronie disease N48.6 Anxiety F41.9
== END 2023-09-26 15:42 | disposition home or self-care (01) ==
PROVIDERS: PCP Physician Assistant; Visit Provider Physician Assistant
DX: M48.02 Spinal stenosis, cervical region (principal); K22.10 Ulcer of esophagus without bleeding; F17.200 Nicotine dependence, unspecified, uncomplicated; D75.1 Secondary polycythemia; N48.6 Induration penis plastica; F41.9 Anxiety disorder, unspecified
CPT/HCPCS: 99214

== ENCOUNTER 2023-09-26 15:56 | Outpatient (REF) | payer OTHER, SELFPAY ==
--- NOTE | ~2023-09-26 | XR_ITS ---
EXAMINATION: XR CERVICAL SPINE CLINICAL INFORMATION: Left-sided posterior cervical pain, spinal stenosis cervical region. COMPARISON: 03/29/2023. TECHNIQUE: 3 views of the cervical spine were obtained. FINDINGS: C7 partially obscured by overlying soft tissues. Redemonstration of C3-C4 and C4-C6 discectomy and anterior spinal fusion. Hardware appears intact. Redemonstration of osseous fusion across C4-C6. Redemonstration of mild grade 1 anterolisthesis of C2 on C3. Mild spondylosis at C6-C7. Multilevel facet arthropathy. XR/XR cervical spine 3V IMPRESSION: 1. Redemonstration of C3-C4 and C4-C6 discectomy and anterior spinal fusion. Hardware appears intact. Redemonstration of osseous fusion across C4-C6. 2. Redemonstration of mild grade 1 anterolisthesis of C2 on C3.
== END 2023-09-26 15:57 | disposition home or self-care (01) ==
LOC: HO.XRAY 15:56
PROVIDERS: PCP Physician Assistant; Visit Provider Physician Assistant
DX: M48.02 Spinal stenosis, cervical region (principal)
CPT/HCPCS: 72040

== ENCOUNTER 2023-10-05 12:03 | Outpatient (REF) | payer OTHER, SELFPAY | END 2023-10-05 12:04 | disposition home or self-care (01) | LOC: HO.BBR 12:03 | PROVIDERS: PCP Physician Assistant; Visit Provider Internal Medicine | DX: D75.1 Secondary polycythemia (principal) | CPT/HCPCS: 85018 ==

== ENCOUNTER 2023-10-19 11:58 | Outpatient (REF) | payer OTHER, SELFPAY | END 2023-10-19 11:59 | disposition home or self-care (01) | LOC: HO.BBR 11:58 | PROVIDERS: PCP Physician Assistant; Visit Provider Internal Medicine | DX: D75.1 Secondary polycythemia (principal) | CPT/HCPCS: 85014; 85018; 99195 ==

== ENCOUNTER 2023-11-27 11:54 | Outpatient (REF) | payer OTHER, SELFPAY | END 2023-11-27 11:55 | disposition home or self-care (01) | LOC: HO.BBR 11:54 | PROVIDERS: PCP Physician Assistant; Visit Provider Internal Medicine | DX: D75.1 Secondary polycythemia (principal) | CPT/HCPCS: 85014; 85018; 99195 ==

== ENCOUNTER 2023-12-20 12:08 | Outpatient (REF) | payer OTHER, SELFPAY | END 2023-12-20 12:09 | disposition home or self-care (01) | LOC: HO.BBR 12:08 | PROVIDERS: PCP Physician Assistant; Visit Provider Internal Medicine | DX: D75.1 Secondary polycythemia (principal) | CPT/HCPCS: 85018; 99195 ==

== ENCOUNTER 2024-01-11 06:51 | Outpatient (REF) | payer OTHER, SELFPAY ==
--- NOTE | ~2024-01-11 | MR_ITS ---
EXAMINATION: MRI ABDOMEN WITHOUT CONTRAST, MRCP CLINICAL INFORMATION: CT abdomen and pelvis showing 8 mm hypodensity in the pancreatic head. The images and the report from this prior examination are not available for comparison at the moment of this dictation. COMPARISON: Renal ultrasound 07/28/2023. CT abdomen/pelvis 12/21/2022. TECHNIQUE: Multiple routine MRI sequences through the abdomen were obtained without intravenous contrast. 3D MRCP images were processed on an independent workstation under concurrent supervision. FINDINGS: LUNG BASES: Lung bases are clear. LIVER: The liver is normal in size, signal and morphology. No liver lesion. GALLBLADDER AND BILIARY TREE: Gallbladder normal. No intrahepatic or extrahepatic biliary ductal dilation. SPLEEN: Normal. PANCREAS: Homogeneous signal intensity. A 0.5 cm well-defined, T2 hyperintense cystic appearing observation in the pancreatic neck (image 13 series 6) in continuity with the main pancreatic duct, unchanged compared to 12/31/2022. No main ductal dilatation. No peripancreatic inflammatory changes. ADRENAL GLANDS: Normal. KIDNEYS AND URETERS: Simple appearing cortical cyst in the posterior upper left kidney, for which no routine imaging follow-up is recommended. Otherwise, normal kidneys. GASTROINTESTINAL: No bowel obstruction or ascites. LYMPHOVASCULAR STRUCTURES: Normal caliber aorta. No pathologically enlarged abdominal or retroperitoneal lymphadenopathy by short axis size criteria. OSSEOUS STRUCTURES: Unchanged mild superior endplate compression deformity in the T10 vertebral body. Susceptibility artifacts from posterior fusion hardware at L4 and L5 are partially seen. MR/MR MRCP IMPRESSION: 1. A 0.5 cm cystic appearing observation in the pancreatic neck in continuity with the main pancreatic duct, unchanged compared to 12/31/2022. This could represent a side branch intraductal papillary mucinous neoplasm. Recommend follow-up MRCP every other year to ensure stability. 2. No additional significant abnormality. Electronically signed by: Leida Posey MD 02/02/2024 08:31 AM EDT
== END 2024-01-11 06:52 | disposition home or self-care (01) ==
LOC: HO.MRI 06:51
PROVIDERS: PCP Physician Assistant; Visit Provider Physician Assistant
DX: K86.89 Other specified diseases of pancreas (principal)
CPT/HCPCS: 74181

== ENCOUNTER 2024-02-13 09:32 | Outpatient (AMB) | payer OTHER, SELFPAY ==
--- NOTE | 2024-02-13 09:33 | A.OFFPC_ITS ---
Vital Signs 02/13/24 09:37 Height 6 ft Weight 170 lb 4 oz BMI 23.1 BP 110/80 Blood Pressure Location Lt brachial Position Sitting Pulse 78 Pulse Source Pulse Oximeter Pulse Oximetry (%) 97 Oxygen Delivery Method Room Air Intake Visit Reasons: med F/U Family Preservation Worker Required: No Accompanied by: Self / Same As Patient Allergies cat dander [cats] Allergy (Unknown, Verified 02/13/24 09:41) Unknown Medication List - Last Reconciled 02/13/24 by Lucas Yao PA-C albuterol sulfate 90 mcg/actuation (Ventolin HFA) 1 inh inhalation QID PRN baclofen 20 mg PO DAILY 30 days buspirone 15 mg PO BID 30 days clonidine HCl 0.2 mg PO BID omeprazole 20 mg PO DAILY ondansetron 8 mg (2 x 4 mg) PO Q6H PRN 5 days pregabalin 200 mg PO TID sertraline 150 mg (1.5 x 100 mg) PO DAILY 90 days tramadol 100 mg (2 x 50 mg) PO Q8H 28 days Tobacco use date assessed: 06/28/23 Dental Screening Dental Screen Date: 06/28/23 HPI med F/U HPI Details Patient is a 48-year-old male here today for a follow-up visit. Patient has a past medical history significant for hypertension, lumbar and cervical disc disease, polycythemia, tobacco dependency, GERD with erosive esophagitis. Concern--> reports he has been having some nausea vomiting and diarrhea the last few weeks. He reports cleaning out a barrel in the back yd and noted a did squirrel he may been in contact with. He feels he may have a E coli infection. He otherwise denies any fever or chills. .. --CHRONIC MEDICAL CONDITIONS----> Cervical disc disease/ Lumbar disc disease : Has underwent an ACDF of his cervical spine disc which went well. His neuropathic pains have generally resolved in his upper extremities. Did undergo a lumbar disc surgery on June 12 2023, remains in chronic pain particularly down left lower extremity thus followed up with pain management and is due for an injection. He has gotten repeat CT of his lumbar spine showing--> L5-S1: Nondiagnostic assessment of the spinal canal, noting osteophytic ridging extending into the bilateral neural foramina in conjunction with bilateral facet hypertrophy likely contributing to stable to increased severe neural foraminal stenosis with compression of the exiting L5 nerve roots ---> Pain management medication--> Miko nues with the use pregabalin 200 mg t.i.d., tramadol 100 mg t.i.d. and baclofen. 09/26/2023-- > unfortunately continues to have left posterior neck pain worse when rotating and flexing his neck. He reports he feels the hardware is neck is malaligned. Will send for x-ray of the cervical spine. We did discuss possibly starting physical therapy again though he declines at this time. Erosive esophagitis: Symptoms have been much better since reducing gluten in his diet. Also has been reducing his alcohol drinking. He has not had much abdominal discomfort as before. .. Polycythemia: Was recently found to have polycythemia at a recent hospital admission. Now seeing a manager business information in getting therapeutic phlebotomies. NATHALY testing has been negative. Phlebotomies have been placed on hold as his hemoglobin dropped to anemic level. .. MDD: Continues on SSRI therapy , buspar and clonidine with good effect on his mood. He is interested in higher dose of BuSpar for better control of his anxiety .. Alcohol use disorder: He reports he has drastically reduced his drinking. --> seems he has started to drink again, (does smell of alcohol on his breath today in office). .. Tobacco dependency : still smokes a few cigs per day, has been expensive for and still is willing to quit smoking completely in near future. [facility] Medical History (Updated 02/13/24 @ 14:04 by Lucas Yao PA-C) Ileus Fracture of spinous process of cervical vertebra Silicosis Hyperkalemia Polycythemia Asthma Arthritis Smoker Cervical disc disease Lumbar disc disease Depression Alcohol dependence GERD (gastroesophageal reflux disease) HTN (hypertension) Right hand fracture Incisional hernia Peptic ulcer disease Anxiety Foreign body in stomach Perforated duodenal ulcer Surgical History History of lumbosacral spine surgery History of incision and drainage History of open reduction and internal fixation (ORIF) procedure History of endoscopy History of colonoscopy History of incisional hernia repair History of esophagogastroduodenoscopy (EGD) H/O Spinal surgery History of gastric surgery Family History Father CAD (coronary artery disease) NIDDY (non-insulin dependent diabetes mellitus in young) Hypertension Mother CAD (coronary artery disease) Hypertension Social History Household Members: Family Household Members Other:: 1 Housing: House Are you a primary managed care analyst to a significant other at home: No Do you presently have visiting nurse or other home services: No Alcohol intake: never Comment: rotted tooth loss with expectorating and spitting Patient Tobacco Use Status: Former Tobacco user Tobacco use type: Cigarette Cigarette Packs Per Day: 1 Years Smoked: 35 Packs Per Year: 35 e-Cigarette/Vaping Use: Never Used Second Hand Smoke Exposure: No Substance Use Type: Marijuana service: No Current occupational status: unemployed 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 Barney Dunlap, Adeola Hanley, Waldo Webb and colleagues, with an educational mukesh from [employer]. Review of Systems Const Denies headache(s) Eyes Denies loss of vision ENT Denies vertigo, Denies dizziness, Denies headache(s) and Denies sore throat Card Denies chest pain, Denies leg edema and Denies lightheadedness Resp Denies cough, Denies hemoptysis and Denies wheezing GI Denies abdominal pain, Denies melena, Reports bloating, Denies constipation, Reports GI cramping, Reports dyspepsia, Reports heartburn, Reports diarrhea and Reports vomiting Denies dysuria, Denies urinary frequency and Denies urinary urgency Musc Denies arthralgias, Denies joint swelling, Denies numbness and Denies tingling Neuro Denies Abnormal speech present, Denies behavioral changes, Denies vertigo, Denies dizziness, Denies headache(s), Denies loss of vision, Denies memory loss, Denies numbness and Denies tingling Psych Denies anxiety, Denies behavioral changes, Denies depression, Denies memory loss and Denies panic attacks Elton/Lymph Denies easy bleeding and Denies easy bruising Aller/Immun Denies wheezing Physical exam (Primary Care) Vital Signs: Last Vital Signs Pulse 78 02/13/24 09:37 BP 110/80 02/13/24 09:37 Pulse Ox 97 02/13/24 09:37 Oxygen Delivery Method Room Air 02/13/24 09:37 BMI result Body Mass Index 23.1 Tobacco/Smoking Status: Tobacco use Status Tobacco use date assessed 06/28/23 02/13/24 09:34 Patient Tobacco Use Status Former Tobacco user 02/13/24 09:34 Tobacco use type Cigarette 02/13/24 09:34 e-Cigarette/Vaping Use Never Used 02/13/24 09:34 Thrive Assessment: Date of Thrive Assessment Date Thrive assessed 06/28/23 02/13/24 09:34 Const General: healthy appearing, no acute distress, alert and awake Nutritional Appearance: well nourished Orientation/consciousness: oriented to person, oriented to place and oriented to time HENMT Ears: TM's normal bilaterally General nose exam: Normal nasal mucous membranes and turbinates present Eyes Conjunctivae: conjunctivae normal Sclerae: sclerae normal Pupils: Equal, round and reactive pupils present Neck Neck: Yes no lymphadenopathy and Yes no JVD Thyroid: Thyroid normal Carotids: no bruits Resp Effort & Inspection: normal respiratory effort and not tachypneic Auscultation: no crackles, no rales, no rhonchi and no wheezes Cardio Rate: regular rate Rhythm: regular rhythm Heart sounds: no murmurs and normal S1 and S2 GI Palpation (GI): Soft to palpation, nontender, no hepatomegaly and no splenomegaly Auscultation: normal bowel sounds Skin General skin exam: no rashes or lesions noted and dry skin Neuro General: oriented to person, oriented to place and oriented to time Cranial nerves: Yes Equal, round and reactive pupils present Speech: No Abnormal speech present Gait exam (Neuro): Normal gait present Motor exam (neuro): no tremor noted Extrem Right upper extremity: full ROM Left upper extremity: full ROM Right lower extremity: full ROM; no edema Left lower extremity: full ROM; no edema Psych Mental Status: mental status grossly normal Speech and movement: Normal speech and movement present Affect: normal affect Attitude: cooperative Thought process: Normal thought process present Assessment and Plan Assessment & Plan (1) Gastroenteritis: Code(s): K52.9 - Noninfective gastroenteritis and colitis, unspecified Plan: PATIENT'S SIGNS SYMPTOMS ARE CONCERNING FOR GASTROENTERITIS. WILL SEND FOR STOOL STUDIES IN URGENT LABS TO EVALUATE . ADVISED ON REST, FLUIDS AND WILL EMPIRICALLY TREAT FOR POSSIBLE BACTERIAL GASTROENTERITIS. (2) Cervical stenosis of spine: Comment: S/p C4/5, C5/6 ACDF Code(s): M48.02 - Spinal stenosis, cervical region Plan: As per HPI patient had underwent cervical spine surgery earlier this year. He continues to have upper cervical spine pain particularly with flexion and rotation of his cervical spine. Is cervical spine x-rays continue to show C1-C2 anterior retrolisthesis. He reports he will manage his pain as we are and will call if pain get worse. (3) Erosive esophagitis: Code(s): K22.10 - Ulcer of esophagus without bleeding Plan: He continues with PPI therapy, unfortunately still drinks and smokes and does understand that this can be caustic to his GI lining. (4) Alcohol dependence: Code(s): F10.20 - Alcohol dependence, uncomplicated Qualifiers: Substance use status: uncomplicated Qualified Code(s): F10.20 - Alcohol dependence, uncomplicated Plan: Does admit to drinking alcohol nearly daily. As per HPI discuss the need to completely stopped drinking as he has some pretty severe GI issues past. He does understand that continuing drinking will make his GI issues worse. Orders: Orders Basic Metabolic Panel Today K52.9 - Noninfective gastroenteritis and colitis, unspecified CDiff Gene PCR Today K52.9 - Noninfective gastroenteritis and colitis, unspecified, R19.7 - Diarrhea, unspecified Giardia Ag Stool EIA Today K52.9 - Noninfective gastroenteritis and colitis, unspecified Leukocytes Stool Qualitative Today K52.9 - Noninfective gastroenteritis and colitis, unspecified Complete Blood Count no Diff Today K52.9 - Noninfective gastroenteritis and colitis, unspecified Routine Culture w Gram Stain Today K52.9 - Noninfective gastroenteritis and colitis, unspecified Medications: New sulfamethoxazole-trimethoprim 800-160 mg (Bactrim DS) 1 tab PO BID 14 tabs 0RF 7 days K52.9 - Noninfective gastroenteritis and colitis, unspecified Changed From omeprazole 20 mg PO DAILY 14 caps 0RF K52.9 - Noninfective gastroenteritis and colitis, unspecified To omeprazole 20 mg PO DAILY 30 caps 1RF 30 days K52.9 - Noninfective gastroenteritis and colitis, unspecified Refilled ondansetron 8 mg (2 x 4 mg) PO Q6H PRN 40 tabs 3RF nausea and vomiting 5 days K52.9 - Noninfective gastroenteritis and colitis, unspecified Coding Level of Care Code Est Pt Level 4 (51106) Diagnoses Gastroenteritis K52.9 Cervical stenosis of spine M48.02 Erosive esophagitis K22.10 Uncomplicated alcohol dependence F10.20 Substance use status: uncomplicated
[2024-02-13 09:37] VITALS: BP 110/80; PULSE 78; O2SAT 97; BMI 23.1
== END 2024-02-13 10:01 | disposition home or self-care (01) ==
PROVIDERS: PCP Physician Assistant; Visit Provider Physician Assistant
DX: K52.9 Noninfective gastroenteritis and colitis, unspecified (principal); M48.02 Spinal stenosis, cervical region; K22.10 Ulcer of esophagus without bleeding; F10.20 Alcohol dependence, uncomplicated
CPT/HCPCS: 99214

== ENCOUNTER 2024-03-21 10:07 | Emergency (ER) | payer OTHER, SELFPAY ==
--- NOTE | ~2024-03-21 | CT_ITS ---
EXAMINATION: CT ABDOMEN AND PELVIS WITH CONTRAST CLINICAL INFORMATION: Abdominal pain. COMPARISON: Most recent MRCP dated 01/11/2024, renal ultrasound dated 07/28/2023, and CT abdomen/pelvis dated 12/31/2022. TECHNIQUE: Multidetector volumetric images were obtained from the superior aspect of the liver through the pubic symphysis following administration 85 mL of Omnipaque 350 intravenous contrast. Sagittal and coronal reformatted images were obtained on the technologist's workstation. Oral contrast: No This CT examination was performed using dose optimization techniques as appropriate, variously including the following: *Automated exposure control *Adjustment of mA and/or kV according to patient size (this includes techniques or standardized protocols for targeted exams where dose is matched to indication/reason for exam; i.e. extremities or head) *Use of iterative reconstruction technique DLP: 426 mGy-cm FINDINGS: LUNG BASES: The visualized lung bases are unremarkable. LIVER, GALLBLADDER, AND BILIARY TREE: The liver is normal in size, shape, and attenuation. No focal hepatic lesion or biliary ductal dilatation is present. The gallbladder is unremarkable with no evidence of radiopaque gallstones, gallbladder wall thickening, or obvious pericholecystic inflammatory changes. PANCREAS: Stable hypodensity measuring 0.3 cm within the pancreas, unchanged when compared to prior examinations. No new pancreatic parenchymal lesion or inflammatory change. No ductal dilatation. SPLEEN: Unremarkable. ADRENAL GLANDS: Unremarkable. KIDNEYS AND URETERS: The kidneys are normal in size, shape, and attenuation. No hydronephrosis, hydroureter, or calculi seen. Stable, simple left renal cyst. Findings are not clinically significant and no dedicated follow-up imaging is recommended. No new renal parenchymal lesion. No perinephric stranding. BLADDER: Partial distention of the urinary bladder with circumferential wall thickening. Findings are similar when compared to the prior examination. No new or increasing adjacent inflammatory change. No associated calcification. GASTROINTESTINAL TRACT: No small or large bowel obstruction. Small amount of oral contrast within the colon. No bowel wall thickening or inflammatory change. There are a few scattered colonic diverticula without evidence of acute diverticulitis. Appendix not identified, however, no right lower quadrant inflammatory change to suggest acute appendicitis. PERITONEAL CAVITY: No intra-abdominal free air or free fluid. No new intra-abdominal mass or organized fluid collection/abscess formation. ABDOMINAL WALL: Tiny, fat-containing hernia superior to the umbilicus, unchanged when compared to the prior examination. LYMPH NODES: No lymphadenopathy. VASCULAR: No abdominal aortic dilatation or dissection. Scattered atherosclerotic calcifications. Unremarkable IVC. PELVIC VISCERA: Small prostate calcifications are redemonstrated. OSSEOUS STRUCTURES: No acute osseous abnormality. Postsurgical change redemonstrated at L4-L5 without evidence of hardware complication. CT/CT abdomen pelvis w IV con IMPRESSION: 1. Partial distention of the urinary bladder with circumferential wall thickening, similar when compared to the prior examination. No new or increasing adjacent inflammatory change. No associated calcification. 2. No small or large bowel obstruction. No bowel wall thickening or inflammatory change. Minimal diverticulosis without evidence of acute diverticulitis. Appendix not identified, however, no right lower quadrant inflammatory change to suggest acute appendicitis. 3. No new intra-abdominal mass, lymphadenopathy, or ascites. 4. Additional chronic findings are unchanged. Fleischner guidelines were followed. Electronically signed by: Alberto Corley MD 03/21/2024 08:33 PM EDT
[2024-03-21 11:04] VITALS: BP 144/120; PULSE 89; RESP 16; TEMP 36.5; O2SAT 94; BMI 23.7
--- NOTE | 2024-03-21 11:04 | ED.NAVMDI ---
HPI - Nausea/Vomiting/Diarrhea General Chief complaint: Abdominal Pain Stated complaint: [id number] Time Seen by Provider: 03/21/24 15:36 Source: patient Mode of arrival: ambulatory Limitations: no limitations History of Present Illness ED Provider: Patricio ARIZMENDI_C HPI Narrative: 48-year-old male history of perforated abdomen due to perforated ulcer, alcohol dependence, in lumbar cervical spine fusion presents to ED for abdominal pain vomiting, and diarrhea for 1 week. Patient states last drink was last week and put denies withdrawal. Patient denies any blood in his stool or vomiting blood. Patient denies any new antibiotic, recent travel, or recent hospital admission Related Data Previous Rx's ?Medication ?Instructions ?Recorded sertraline 100 mg tablet 150 mg (1.5 x 100 mg) PO DAILY 90 08/14/23 days #135 tabs albuterol sulfate 90 mcg/actuation 1 inh inhalation QID PRN Shortness 10/16/23 aerosol inhaler (Ventolin HFA) Of Breath Or Wheezing #8.5 grams clonidine HCl 0.2 mg tablet 0.2 mg PO BID #60 tabs 11/27/23 tramadol 50 mg tablet 100 mg (2 x 50 mg) PO Q8H Pain 28 01/08/24 days #168 tabs buspirone 15 mg tablet 15 mg PO BID 30 days #60 tabs 02/06/24 omeprazole 20 mg capsule,delayed 20 mg PO DAILY 30 days #30 caps 02/13/24 release ondansetron 4 mg disintegrating 8 mg (2 x 4 mg) PO Q6H PRN nausea 02/13/24 tablet and vomiting 5 days #40 tabs sulfamethoxazole 800 1 tab PO BID 7 days #14 tabs 02/13/24 mg-trimethoprim 160 mg tablet (Bactrim DS) pregabalin 200 mg capsule 200 mg PO TID #90 caps 02/19/24 baclofen 20 mg tablet 20 mg PO DAILY 30 days #30 tabs 03/07/24 Allergies Allergy/AdvReac Type Severity Reaction Status Date / Time cat dander [cats] Allergy Unknown Unknown Verified 03/21/24 11:05 Review of Systems Review of Systems: Abdominal pain, vomiting, diarrhea Yes all other systems are reviewed and are negative PMFSH Past Medical History Medical History (Updated 03/21/24 @ 20:55 by CYRUS Fiore) Ileus Fracture of spinous process of cervical vertebra Silicosis Hyperkalemia Polycythemia Asthma Arthritis Smoker Cervical disc disease Lumbar disc disease Depression Alcohol dependence GERD (gastroesophageal reflux disease) HTN (hypertension) Right hand fracture Incisional hernia Peptic ulcer disease Anxiety Foreign body in stomach Perforated duodenal ulcer Surgical History History of lumbosacral spine surgery History of incision and drainage History of open reduction and internal fixation (ORIF) procedure History of endoscopy History of colonoscopy History of incisional hernia repair History of esophagogastroduodenoscopy (EGD) H/O Spinal surgery History of gastric surgery Family History Family History Father CAD (coronary artery disease) NIDDY (non-insulin dependent diabetes mellitus in young) Hypertension Mother CAD (coronary artery disease) Hypertension Social History Social History Household Members: Family Household Members Other:: 1 Housing: House Are you a primary healthcare prof to a significant other at home: No Do you presently have visiting nurse or other home services: No Alcohol intake: current Alcohol intake frequency: 3 or more drinks per day Alcohol type: beer Comment: rotted tooth loss with expectorating and spitting Patient Tobacco Use Status: Former Tobacco user Tobacco use type: Cigarette Cigarette Packs Per Day: 1 Years Smoked: 35 Smoked in Last 30 Days: Yes e-Cigarette/Vaping Use: Never Used Second Hand Smoke Exposure: No Use of substances other than those prescribed or required for medical reasons: No Substance Use Type: Marijuana Advance Directives: No Advance Directives Information Provided: No Do you have a plan to hurt others: No Plan service: No Current occupational status: unemployed 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, 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 Cognitive needs: No Hearing needs: No Vision needs: No Physical Exam Vital Signs: Vital Signs: Last Vital Signs Temp 98.5 F 03/21/24 20:26 Pulse 87 03/21/24 20:26 Resp 17 03/21/24 20:26 BP 140/97 H 03/21/24 20:26 Pulse Ox 95 03/21/24 20:26 O2 Del Method Room Air 03/21/24 20:26 BMI result Body Mass Index 23.7 Const: General: cooperative, healthy appearing, comfortable, no acute distress, well developed, alert, awake and Physically active Orientation/consciousness: patient oriented x3 HEENT: Head: Yes normal to inspection, Yes No palpable skull fracture present, Yes normocephalic and Yes atraumatic Eyes: General: appearance normal, both eyes and all related structures Neck: Neck: Yes normal visual inspection, Yes full ROM, Yes no lymphadenopathy, Yes no meningeal signs, Yes trachea midline, Yes supple, No anterior neck swelling and No tender Chest: Chest palpation & inspection: normal inspection of the chest and normal palpation of entire chest wall Resp: Effort & Inspection: normal respiratory effort and able to speak in complete sentences Auscultation: clear to auscultation bilaterally Cardio: Jugular venous distension: no JVD Heart sounds: S1 normal heart sound present and S2 normal heart sound present GI: Inspection: Yes normal to inspection Palpation (GI): Soft to palpation, not firm and Tenderness to palpation present (GI) (Diffuse tenderness on palpation) : General: No CVA tenderness and Yes no CVA tenderness Back/Spine/Pelvis: Back: no CVA tenderness, No CVA tenderness and No back tenderness Skin: General skin exam: no rashes or lesions noted, elasticity normal and turgor normal Neuro: General: patient oriented x3, gait normal, tone normal, moves all extremities, Normal light touch and pain sensation, no meningeal signs, no focal motor deficits, CN's II-XI intact bilaterally and normal sensation to monofilament Extrem: General: Yes normal to inspection, Yes full ROM and Yes capillary refill normal Psych: Appearance: grossly normal, well kempt and not disheveled Course Course Course Narrative: This is a Rapid Medical Examination (RME) performed by Reji Mccormack PA-C in triage. Full HPI, ROS, assessment and treatment plan per primary provider in the Main ED. 48 yo male with history of pancreatic mass, ETOH use, depression, HTN, anxiety, history of polycythemia getting phelbotomy who presents to the ER for evaluation of nausea, nonbloody vomiting and diarrhea for the last 1 week. He reports worsening symptoms the last 3 days. Unable to tolerate any PO. Reports diffuse abdominal pains. Last ETOH use was last week, denies going through withdrawal. Plan: labs, UA, imaging per primary provider Medications Administered Discontinued Medications Generic Name Dose Route Start Last Admin Trade Name Rosalioq PRN Reason Stop Dose Admin Al Hydroxide/Mg Hydroxide 30 ml 03/21/24 15:46 03/21/24 15:54 Magnesium Hydrox/Alum Hydrox 30 Ml Oral.Susp PO 03/21/24 15:47 30 ml ONCE ONE Administration Famotidine 20 mg 03/21/24 15:46 03/21/24 15:54 Famotidine/Pf 20 Mg/2 Ml Vial IVPUSH 03/21/24 15:47 20 mg ONCE ONE Administration Iohexol 85 ml 03/21/24 16:56 03/21/24 17:02 Iohexol 350 Mg/Ml 100 Ml Infus..Btl IV 03/21/24 16:57 85 ml ONCE ONE Administration Lidocaine HCl 15 ml 03/21/24 15:46 03/21/24 15:54 Lidocaine Hcl Viscous 2 % 15 Ml Solution MUCOUS MEM 03/21/24 15:47 15 ml ONCE ONE Administration Lorazepam 2 mg 03/21/24 16:10 03/21/24 16:21 Lorazepam 2 Mg/Ml Vial IVPUSH 03/21/24 16:11 2 mg ONCE ONE Administration Morphine Sulfate 4 mg 03/21/24 18:12 03/21/24 18:16 Morphine Sulfate 4 Mg/Ml Cartridge IVPUSH 03/21/24 18:13 4 mg ONCE ONE Administration Protocol Ondansetron HCl 4 mg 03/21/24 11:08 03/21/24 11:10 Ondansetron Odt 4 Mg Tab.Rapdis TRANSLINGU 03/21/24 11:09 4 mg ONCE ONE Administration Ondansetron HCl 4 mg 03/21/24 19:27 03/21/24 19:36 Ondansetron Hcl 4 Mg/2 Ml Vial IVPUSH 03/21/24 19:28 4 mg ONCE ONE Administration Medical Decision Making Medical Decision Making MDM Narrative: 48-year-old male with diffuse tender abdominal pain. Patient has mild tremors of upper extremities. Patient's blood pressure elevated most likely due to pain. History of last week last drink patient denies being withdrawal. Due to history of perforated abdomen also was sent for abdominal CT scan to rule out any perforation. Possible mild withdrawal will give Ativan and GI cocktail. 8;45pm; Abdominal CT came back normal. Troponin negative after having symptoms for 1 week. EKG negative STEMI. Tremors resolved Differential Diagnosis Differential Diagnoses: The differential diagnosis associated with the presentation includes (GERD, pancreatitis, cholecystitis) Admission/Observation Consideration of admission/observation: Escalation of care including admission/observation considered Lab Data MDM Lab Attestation statement: I reviewed the patient's lab results. 03/21/24 11:15 03/21/24 11:15 Labs: Lab Results 03/21/24 03/21/24 03/21/24 Range/Units 11:15 11:20 16:22 WBC 9.5 (4.8-10.8) X10*3/uL RBC 6.30 H D (4.60-5.80) X10*6/uL Hgb 16.3 D (14.0-18.0) g/dl Hct 48.7 D (42.0-52.0) % MCV 77.3 L (80.0-98.0) fL MCH 25.9 L (27.0-33.0) pg MCHC 33.5 (31.0-36.0) g/dl RDW 21.6 H (11.0-16.0) % Plt Count 385 D (160-400) X10*3/uL MPV 9.9 (9.4-12.4) fL Immature Gran % (Auto) 1.7 H (0.0-0.4) % Neut % (Auto) 73.1 H (45-73) % Lymph % (Auto) 12.3 L (20-40) % [place] % (Auto) 11.0 (2-11) % Eos % (Auto) 0.5 (0-4) % Baso % (Auto) 1.4 (0-2) % Lymph # (Auto) 1.2 (1.2-4.9) X10*3/uL [place] # (Auto) 1.0 (0.1-1.2) X10*3/uL Eos # (Auto) 0.1 (0.0-0.4) X10*3/uL Baso # (Auto) 0.1 (0.0-0.2) X10*3/uL Abs Immat Gran (auto) 0.16 H (0.00-0.03) X10*3/uL Absolute Neuts (auto) 6.9 (2.0-8.3) x10*3/uL Absolute Nucleated RBC 0.000 (0.0-0.012) X10*3/uL Nucleated RBC % (auto) 0.0 (0.0-0.2) /100WBC PT 10.3 L (10.9-12.4) SEC INR 0.9 (0.9-1.1) APTT 29.9 (26.0-36.8) SEC Sodium 138 (135-145) mmol/L Potassium 4.5 (3.3-5.1) mmol/L Chloride 98 (96-108) mmol/L Carbon Dioxide 26 (22-29) mmol/L Anion Gap 19 (12-20) BUN 4 L (9-16) mg/dL Creatinine 0.87 (0.5-1.4) mg/dL Estim Creat Clear Calc 111.4 Estimated GFR > 60 Random Glucose 116 H (60-115) mg/dL Calcium 10.6 H D (8.4-10.2) mg/dL Magnesium 1.9 (1.6-2.6) mg/dL Total Bilirubin 0.5 (0.0-1.0) mg/dL Direct Bilirubin 0.2 (0.0-0.5) mg/dL AST 61 H (5-37) U/L ALT 40 (0-40) U/L Alkaline Phosphatase 92 (39-117) U/L Troponin I High Sens < 2.7 (<3.5-35.0) ng/L Total Protein 8.6 H (6.5-8.0) g/dL Albumin 4.8 (3.5-5.0) g/dL Lipase 25 (8-78) U/L Urine Color Urine Appearance Urine pH (5.0-9.0) Ur Specific [place] (1.005-1.025) Urine Protein (Neg-Trace) mg/dL Urine Glucose (UA) (Negative) mg/dL Urine Ketones (Negative) mg/dL Urine Blood (Negative) Urine Nitrite (Negative) Ur Leukocyte Esterase (Negative) Urine RBC (0-2) /HPF Urine WBC (0-5) /HPF Ur Squamous Epith Cells (0-2) /HPF Urine Bacteria (None Seen) Hyaline Casts (0-2) /LPF Urine Opiates Screen (Not Detect) Ur Buprenorphine Scrn (Not Detect) ng/mL Ur Oxycodone Screen (Not Detect) ng/mL Urine Methadone Screen (Not Detect) ng/mL Urine Fentanyl Screen (Not Detect) Ur Barbiturates Screen (Not Detect) Ur Phencyclidine Scrn (Not Detect) Ur Amphetamines Screen (Not Detect) U Benzodiazepines Scrn (Not Detect) Urine Cocaine Screen (Not Detect) U Marijuana (THC) Screen (Not Detect) Ethyl Alcohol < 10 mg/dL Influenza Type A (PCR) NEGATIVE (Negative) Influenza Type B (PCR) NEGATIVE (Negative) RSV RNA Qual (PCR) NEGATIVE (Negative) SARS-CoV-2 RNA (RT-PCR) NEGATIVE (Negative) 03/21/24 Range/Units 18:44 WBC (4.8-10.8) X10*3/uL RBC (4.60-5.80) X10*6/uL Hgb (14.0-18.0) g/dl Hct (42.0-52.0) % MCV (80.0-98.0) fL MCH (27.0-33.0) pg MCHC (31.0-36.0) g/dl RDW (11.0-16.0) % Plt Count (160-400) X10*3/uL MPV (9.4-12.4) fL Immature Gran % (Auto) (0.0-0.4) % Neut % (Auto) (45-73) % Lymph % (Auto) (20-40) % [place] % (Auto) (2-11) % Eos % (Auto) (0-4) % Baso % (Auto) (0-2) % Lymph # (Auto) (1.2-4.9) X10*3/uL [place] # (Auto) (0.1-1.2) X10*3/uL Eos # (Auto) (0.0-0.4) X10*3/uL Baso # (Auto) (0.0-0.2) X10*3/uL Abs Immat Gran (auto) (0.00-0.03) X10*3/uL Absolute Neuts (auto) (2.0-8.3) x10*3/uL Absolute Nucleated RBC (0.0-0.012) X10*3/uL Nucleated RBC % (auto) (0.0-0.2) /100WBC PT (10.9-12.4) SEC INR (0.9-1.1) APTT (26.0-36.8) SEC Sodium (135-145) mmol/L Potassium (3.3-5.1) mmol/L Chloride (96-108) mmol/L Carbon Dioxide (22-29) mmol/L Anion Gap (12-20) BUN (9-16) mg/dL Creatinine (0.5-1.4) mg/dL Estim Creat Clear Calc Estimated GFR Random Glucose (60-115) mg/dL Calcium (8.4-10.2) mg/dL Magnesium (1.6-2.6) mg/dL Total Bilirubin (0.0-1.0) mg/dL Direct Bilirubin (0.0-0.5) mg/dL AST (5-37) U/L ALT (0-40) U/L Alkaline Phosphatase (39-117) U/L Troponin I High Sens (<3.5-35.0) ng/L Total Protein (6.5-8.0) g/dL Albumin (3.5-5.0) g/dL Lipase (8-78) U/L Urine Color Yellow Urine Appearance Clear Urine pH 7.0 (5.0-9.0) Ur Specific [place] >= 1.030 H (1.005-1.025) Urine Protein 30 (1+) H (Neg-Trace) mg/dL Urine Glucose (UA) Negative (Negative) mg/dL Urine Ketones 40 (Negative) mg/dL Urine Blood Negative (Negative) Urine Nitrite Negative (Negative) Ur Leukocyte Esterase Negative (Negative) Urine RBC 0-2 (0-2) /HPF Urine WBC 0-5 (0-5) /HPF Ur Squamous Epith Cells 0-2 (0-2) /HPF Urine Bacteria None Seen (None Seen) Hyaline Casts 0-2 (0-2) /LPF Urine Opiates Screen POSITIVE H (Not Detect) Ur Buprenorphine Scrn Not Detected (Not Detect) ng/mL Ur Oxycodone Screen Not Detected (Not Detect) ng/mL Urine Methadone Screen Not Detected (Not Detect) ng/mL Urine Fentanyl Screen Not Detected (Not Detect) Ur Barbiturates Screen Not Detected (Not Detect) Ur Phencyclidine Scrn Not Detected (Not Detect) Ur Amphetamines Screen Not Detected (Not Detect) U Benzodiazepines Scrn Not Detected (Not Detect) Urine Cocaine Screen Not Detected (Not Detect) U Marijuana (THC) Screen POSITIVE H (Not Detect) Ethyl Alcohol mg/dL Influenza Type A (PCR) (Negative) Influenza Type B (PCR) (Negative) RSV RNA Qual (PCR) (Negative) SARS-CoV-2 RNA (RT-PCR) (Negative) Independent Interpretation I performed an independent interpretation of an: CT Scan Radiology Impression Discussion of test interpretation with radiology: I have reviewed the radiologist's reading. Independent Historian Clinical information obtained from an independent historian. History obtained from or confirmed by: Other (Patient) External Record Review External record reviewed: Other (Prior visits) Prescription Management I considered prescription management with: Pain Medication Discharge Plan Discharge Clinical Impression: Abdominal pain, Gastroenteritis Patient Disposition: Home, Self-Care Instructions: Gastroenteritis (ED), Abdominal Pain (ED) Additional Instructions: Your blood work and CT scan imaging came back normal. Recommend follow-up with your primary care provider. Return to the ED immediately for any abdominal pain, blood in his stool, vomiting, fever, chills, inability tolerate solid food/liquid, or any other concerning symptoms. CT/CT abdomen pelvis w IV con IMPRESSION: 1. Partial distention of the urinary bladder with circumferential wall thickening, similar when compared to the prior examination. No new or increasing adjacent inflammatory change. No associated calcification. 2. No small or large bowel obstruction. No bowel wall thickening or inflammatory change. Minimal diverticulosis without evidence of acute diverticulitis. Appendix not identified, however, no right lower quadrant inflammatory change to suggest acute appendicitis. 3. No new intra-abdominal mass, lymphadenopathy, or ascites. 4. Additional chronic findings are unchanged. Fleischner guidelines were followed. Prescriptions: No Action sertraline 100 mg tablet 150 mg PO DAILY 90 Days Qty: 135 2RF albuterol sulfate [Ventolin HFA] 90 mcg/actuation HFA aerosol inhaler 1 inh inhalation QID PRN (Reason: Shortness Of Breath Or Wheezing) Qty: 8.5 3RF clonidine HCl 0.2 mg tablet 0.2 mg PO BID Qty: 60 6RF tramadol 50 mg tablet 100 mg PO Q8H 28 Days Qty: 168 2RF buspirone 15 mg tablet 15 mg PO BID 30 Days Qty: 60 3RF pregabalin 200 mg capsule 200 mg PO TID Qty: 90 3RF baclofen 20 mg tablet 20 mg PO DAILY 30 Days Qty: 30 3RF ondansetron 4 mg tablet,disintegrating 8 mg PO Q6H PRN (Reason: nausea and vomiting) 5 Days Qty: 40 3RF sulfamethoxazole-trimethoprim [Bactrim DS] 800-160 mg tablet 1 tab PO BID 7 Days Qty: 14 0RF omeprazole 20 mg capsule,delayed release(DR/EC) 20 mg PO DAILY 30 Days Qty: 30 1RF Stand Alone Forms: Work/School Release Print Language: Malay
[2024-03-21] MEDS: Ondansetron ODT 4 MG TAB.RAPDIS TRANSLINGU (11:10)
[2024-03-21 11:18] LABS: MANUAL DIFF FLAG NO
[2024-03-21 11:28] LABS: Basophils Absolute Auto 0.1 X10*3/uL (0.0-0.2); Basophils Percent Auto 1.4 % (0-2); Eosinophils Absolute Auto 0.1 X10*3/uL (0.0-0.4); Eosinophils Percent Auto 0.5 % (0-4); Hematocrit 48.7 % (42.0-52.0); Imm Gran Abs Auto 0.16 X10*3/uL (0.00-0.03); Imm Gran Pct Auto 1.7 % (0.0-0.4); Lymphocytes Absolute Auto 1.2 X10*3/uL (1.2-4.9); Lymphocytes Percent Auto 12.3 % (20-40); Mean Corpuscular HGB Conc 33.5 g/dl (31.0-36.0); Mean Corpuscular Hemoglobin 25.9 pg (27.0-33.0); Mean Corpuscular Volume 77.3 fL (80.0-98.0); Mean Platelet Volume 9.9 fL (9.4-12.4); Neutrophils Absolute Auto 6.9 x10*3/uL (2.0-8.3); Neutrophils Percent Auto 73.1 % (45-73); Platelet Count 385 X10*3/uL (160-400); Red Cell Distribution Width 21.6 % (11.0-16.0); White Blood Count 9.5 X10*3/uL (4.8-10.8)
[2024-03-21 11:29] LABS: Hemoglobin 16.3 g/dl (14.0-18.0)
[2024-03-21 11:42] LABS: Alanine Aminotransferase 40 U/L (0-40); Albumin Level 4.8 g/dL (3.5-5.0); Alkaline Phosphatase 92 U/L (39-117); Anion Gap 19 (12-20); Aspartate Amino Transferase 61 U/L (5-37); Bilirubin Direct 0.2 mg/dL (0.0-0.5); Bilirubin Total 0.5 mg/dL (0.0-1.0); Blood Urea Nitrogen 4 mg/dL (9-16); Calcium 10.6 mg/dL (8.4-10.2); Carbon Dioxide 26 mmol/L (22-29); Chloride 98 mmol/L (96-108); Creatinine Clr Calc Pharmacy 111.4; Estimated Glomerular Filt Rate > 60; Ethanol < 10 mg/dL; Glucose Random 116 mg/dL (60-115); Lipase 25 U/L (8-78); Magnesium 1.9 mg/dL (1.6-2.6); Potassium 4.5 mmol/L (3.3-5.1); Sodium 138 mmol/L (135-145); Total Protein 8.6 g/dL (6.5-8.0)
[2024-03-21 12:15] LABS: Influenza A PCR NEGATIVE (Negative); Influenza B PCR NEGATIVE (Negative); Resp Syncy Virus RNA Qual PCR NEGATIVE (Negative); SARS COV2 PCR INHOUSE NEGATIVE (Negative)
[2024-03-21 15:45] VITALS: BP 149/110; PULSE 80; RESP 19; TEMP 36.7; O2SAT 99
[2024-03-21] MEDS: Magnesium Hydrox/Alum Hydrox 30 ML ORAL.SUSP PO (15:54)
[2024-03-21] MEDS: Famotidine/PF 20 MG/2 ML VIAL IVPUSH (15:54)
[2024-03-21] MEDS: Lidocaine HCl Viscous 2 % 15 ML SOLUTION MUCOUS MEM (15:54)
--- NOTE | 2024-03-21 16:07 | ECG_ITS ---
Test Reason : abd pain Blood Pressure : / mmHG Vent. Rate : 076 BPM Atrial Rate : 076 BPM P-R Int : 152 ms QRS Dur : 086 ms QT Int : 396 ms P-R-T Axes : 057 065 062 degrees QTc Int : 445 ms Normal sinus rhythm Normal ECG When compared with ECG of 17-JUN-2023 16:09, No significant change was found Referred By: Patricio Horton Electronically Signed By:MAGDY RIOS
[2024-03-21] MEDS: LORazepam 2 MG/ML VIAL IVPUSH (16:21)
[2024-03-21 16:35] LABS: INTERNATIONAL NORM RATIO 0.9 (0.9-1.1); Prothrombin Time 10.3 SEC (10.9-12.4)
[2024-03-21 16:37] LABS: Partial Thromboplastin Time 29.9 SEC (26.0-36.8)
[2024-03-21 16:52] LABS: Troponin-I High Sensitivity < 2.7 ng/L (<3.5-35.0)
[2024-03-21] MEDS: iohexoL 350 MG/ML 100 ML INFUS..BTL 85 ML IV (17:02)
[2024-03-21] MEDS: Morphine Sulfate 4 MG/ML CARTRIDGE IVPUSH (18:16)
[2024-03-21 18:32] VITALS: BP 142/97; PULSE 106; RESP 19; TEMP 36.7; O2SAT 96
--- NOTE | 2024-03-21 18:42 | PC.NURSE ---
Ambulated to bathroom with steady gait, unable to provider stool specimen only urine
[2024-03-21 18:51] LABS: Appearance Urine Clear; Color Urine Yellow; Glucose Urine UA Negative (Negative); Leukocyte Esterase Urine Negative (Negative); Nitrite Urine Negative (Negative); Specific Gravity - Urine >= 1.030 (1.005-1.025); UMIC TRIGGER UACC YES; Urine Blood Negative (Negative); Urine Ketones 40 mg/dL (Negative); Urine Protein 30 (1+) mg/dL (Neg-Trace)
[2024-03-21 18:56] LABS: Bacteria Urine None Seen (None Seen); Hyaline Casts Urine 0-2 /LPF (0-2); RBC Urine 0-2 /HPF (0-2); Squamous Epithelial Cell Urine 0-2 /HPF (0-2); WBC Urine 0-5 /HPF (0-5)
[2024-03-21 19:01] LABS: Amphetamine Screen Urine Not Detected (Not Detect); Barbiturates, Urine Not Detected (Not Detect); Benzodiazepines Screen Urine Not Detected (Not Detect); Buprenorphine Scr Not Detected (Not Detect); Cannabinoid Screen Urine POSITIVE (Not Detect); Cocaine Screen Urine Not Detected (Not Detect); Fentanyl, urine Not Detected (Not Detect); Methadone Screen, Urine Not Detected (Not Detect); Opiate Screen Urine POSITIVE (Not Detect); Oxycodone Screen Urine Not Detected (Not Detect); Phencyclidine Screen Urine Not Detected (Not Detect)
--- NOTE | 2024-03-21 19:27 | PC.NURSE ---
Verbal read back order for Zofran 4mg IVP by provider Rudy
[2024-03-21] MEDS: ondansetron HCL 4 MG/2 ML VIAL IVPUSH ×2 (19:36→21:33)
[2024-03-21 20:26] VITALS: BP 140/97; PULSE 87; RESP 17; TEMP 36.9; O2SAT 95
[2024-03-21 21:38] VITALS: BP 140/97; PULSE 87; RESP 17; TEMP 36.9; O2SAT 95
== END 2024-03-21 21:47 | disposition home or self-care (01) ==
PROVIDERS: Physician Assistant; Emergency Provider Emergency Medicine; PCP Physician Assistant
DX: K52.9 Noninfective gastroenteritis and colitis, unspecified (principal); R11.2 Nausea with vomiting, unspecified; R50.9 Fever, unspecified; F10.20 Alcohol dependence, uncomplicated; Y90.0 Blood alcohol level of less than 20 mg/100 ml; Z03.818 Encounter for observation for suspected exposure to other biological agents ruled out; Z79.899 Other long term (current) drug therapy; Z87.891 Personal history of nicotine dependence
CPT/HCPCS: 0241U; 36415; 74177; 80048; 80076; 80307; 81001; 83690; 83735; 84484; 85025; 85610; 85730; 93005; 96374; 96375; 96376; 99284; J2060; J2270; J2405; Q9967

== ENCOUNTER → 2024-03-21 16:07 | Outpatient (BNV) | payer OTHER, SELFPAY | PROVIDERS: Emergency Provider Emergency Medicine; PCP Physician Assistant; Visit Provider Internal Medicine | DX: R10.9 Unspecified abdominal pain (principal) | CPT/HCPCS: 93010 ==

== ENCOUNTER 2024-04-02 08:50 | Outpatient (AMB) | payer OTHER, SELFPAY ==
--- NOTE | 2024-04-02 08:54 | A.OFFPC_ITS ---
Vital Signs 04/02/24 08:56 Height 5 ft 10 in Weight 179 lb 4 oz BMI 25.7 BP 132/78 Blood Pressure Location Lt brachial Position Sitting Pulse 76 Pulse Source Pulse Oximeter Pulse Oximetry (%) 98 Oxygen Delivery Method Room Air Intake Visit Reasons: PE Intake Note: Patient is here today for a physical. Pt decline flu shot today. Senior Enlisted Advisor Required: No Marketing Programs Manager: Not Required per policy Accompanied by: Self / Same As Patient Allergies cat dander [cats] Allergy (Unknown, Verified 04/02/24 09:22) Unknown Medication List - Last Reconciled 04/02/24 by Lucas Yao PA-C albuterol sulfate 90 mcg/actuation (Ventolin HFA) 1 inh inhalation QID PRN baclofen 20 mg PO DAILY 30 days buspirone 15 mg PO BID 30 days clonidine HCl 0.2 mg PO BID omeprazole 20 mg PO DAILY 30 days ondansetron 8 mg (2 x 4 mg) PO Q6H PRN 5 days ondansetron HCl 4 mg PO Q6H PRN 9 days pregabalin 200 mg PO TID sertraline 150 mg (1.5 x 100 mg) PO DAILY 90 days tramadol 100 mg (2 x 50 mg) PO Q8H 28 days Tobacco use date assessed: 04/02/24 Dental Screening Dental Screen Date: 06/28/23 HPI PE HPI Details Patient is a 48-year-old male here today for a annual physical. Patient has a past medical history significant for hypertension, lumbar and cervical disc disease, polycythemia, tobacco dependency, GERD with erosive esophagitis. Recently seen at the [facility] for acute abdominal pain vomiting and decreased appetite. While in the ER his workup was fairly benign. He did receive a CT of his abdomen did not show acute intracranial pathology. He reports he is doing much better now at pain in his able to keep down fluids and solids. He reports he has not been consistent with the use of his PPI therapy. He does admit to drinking a few beers per day and does understand he has somewhat of a problem with alcohol. He is considering an inpatient detox to help him be sober as some of his GI symptoms are most likely related to chronic alcohol use. .. --CHRONIC MEDICAL CONDITIONS----> Cervical disc disease/ Lumbar disc disease : Has underwent an ACDF of his cervical spine disc which went well. His neuropathic pains have generally resolved in his upper extremities. Did undergo a lumbar disc surgery on June 12 2023, remains in chronic pain particularly down left lower extremity thus followed up with pain management and is due for an injection. He has gotten repeat CT of his lumbar spine showing--> L5-S1: Nondiagnostic assessment of the spinal canal, noting osteophytic ridging extending into the bilateral neural foramina in conjunction with bilateral facet hypertrophy likely contributing to stable to increased severe neural foraminal stenosis with compression of the exiting L5 nerve roots ---> Pain management medication--> Miko nues with the use pregabalin 200 mg t.i.d., tramadol 100 mg t.i.d. and baclofen. 09/26/2023-- > unfortunately continues to have left posterior neck pain worse when rotating and flexing his neck. He reports he feels the hardware is neck is malaligned. Will send for x-ray of the cervical spine. We did discuss possibly starting physical therapy again though he declines at this time. Erosive esophagitis: Symptoms have been much better since reducing gluten in his diet. Also has been reducing his alcohol drinking. He has not had much abdominal discomfort as before. .. Polycythemia: Was recently found to have polycythemia at a recent hospital admission. Now seeing a sonoscope operator in getting therapeutic phlebotomies. NATHALY testing has been negative. Phlebotomies have been placed on hold as his hemoglobin dropped to anemic level. .. MDD: Continues on SSRI therapy , buspar and clonidine with good effect on his mood. He is interested in higher dose of BuSpar for better control of his anxiety .. Alcohol use disorder: He does admit to drinking a few beers per day per patient. He does admit to any has somewhat of a problem not drinking. He is considering inpatient detox .. Tobacco dependency : still smokes a few cigs per day, has been expensive for and still is willing to quit smoking completely in near future. Vaccines: Up-to-date with pneumonia vaccines, up-to-date and tetanus vaccine. Declines a flu vaccine and COVID vaccine Colonoscopy: Colonoscopy done in 2020, repeat 3 years due to tubular adenoma polyp found [facility] Medical History (Updated 04/02/24 @ 16:26 by Lucas Yao PA-C) Open fracture of fifth metacarpal bone of right hand Ileus Fracture of spinous process of cervical vertebra Silicosis Hyperkalemia Polycythemia Asthma Arthritis Smoker Cervical disc disease Lumbar disc disease Depression Alcohol dependence GERD (gastroesophageal reflux disease) HTN (hypertension) Right hand fracture Incisional hernia Peptic ulcer disease Anxiety Foreign body in stomach Perforated duodenal ulcer Surgical History History of lumbosacral spine surgery History of incision and drainage History of open reduction and internal fixation (ORIF) procedure History of endoscopy History of colonoscopy History of incisional hernia repair History of esophagogastroduodenoscopy (EGD) H/O Spinal surgery History of gastric surgery Family History Father CAD (coronary artery disease) NIDDY (non-insulin dependent diabetes mellitus in young) Hypertension Mother CAD (coronary artery disease) Hypertension Social History Household Members: Family Household Members Other:: 1 Housing: House Are you a primary home health care social worker to a significant other at home: No Do you presently have visiting nurse or other home services: No Alcohol intake: current Alcohol intake frequency: 3 or more drinks per day Alcohol type: beer Comment: rotted tooth loss with expectorating and spitting Patient Tobacco Use Status: Current everyday Tobacco user Tobacco use type: Cigarette Cigarette Packs Per Day: 0.5 Cigarettes Per Day: 10 Years Smoked: 35 e-Cigarette/Vaping Use: Never Used Second Hand Smoke Exposure: Yes Substance Use Type: Marijuana service: No Current occupational status: unemployed 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, 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 Cognitive needs: No Hearing needs: No Vision needs: No Questionnaire Thrive Questionnaire Date Thrive assessed: 06/28/23 I am a: Patient What is your living situation today?: I choose not to answer this question Within the past 12 months, did the food you bought not last and you didn't have the money to get more?: I choose not to answer this question Within the past 12 months, did you worry whether your food would run out before you got money to buy more?: I choose not to answer this question Do you have trouble paying for medicines?: I choose not to answer this question Do you have trouble getting transportation to medical appointments?: I choose not to answer this question Do you have trouble paying your heating and electricity bill?: I choose not to answer this question Do you have trouble taking care of your child, family member or friend?: I choose not to answer this question Do you have trouble with day-to-day activities such as bathing, preparing meals, shopping, managing finances, etc.?: I choose not to answer this question Are you currently unemployed and looking for a job?: I choose not to answer this question Are you interested in more education?: I choose not to answer this question Please select the resources that you would like help with: None Currently or been in a relationship where the following occur: I choose not to answer THRIVE Score: 0 AUDIT C Alcohol Use Questionnaire (AUDIT-C) 1. How often do you have a drink containing alcohol?: Never Total Score: 0 MAMIE-7 AMB Questionnaire MAMIE-7 Date MAMIE - 7 assessed: 04/02/24 Feeling nervous, anxious, or on edge: 1 = Several days Not being able to stop or control worryin = Several days Worrying too much about different things: 1 = Several days Trouble relaxin = Several days Being so restless that it is hard to sit still: 1 = Several days Becoming easily annoyed or irritable: 1 = Several days Feeling afraid as if something awful might happen: 1 = Several days Total MAMIE-7 score (0-4 normal; 5-9 mild; 10-14 moderate; 15-21 severe): 7 Source: Developed by Drs. Barney Dunlap, Adeola Hanley, Waldo Webb and colleagues, with an educational mukesh from [employer]. MAMIE-7 Assessment Billing MAMIE-7 Assessment Tool: MAMIE-7 Assessment 21256 Review of Systems Const Denies body aches, Denies chills, Denies excessive sweating, Denies fatigue, Denies fever(s) and Denies headache(s) Eyes Denies blurry vision ENT Denies dysphagia, Denies vertigo, Denies dizziness, Denies headache(s), Denies hearing loss and Denies tinnitus Card Denies chest pain, Denies chest pain with activity, Denies syncope, Denies irregular heart rhythm and Denies dyspnea Resp Denies chest congestion, Denies cough, Denies hemoptysis, Denies dyspnea and Denies wheezing GI Denies abdominal pain, Denies melena, Denies hematochezia, Denies coffee ground emesis, Denies dysphagia, Reports dyspepsia, Reports heartburn, Denies diarrhea, Reports nausea and Reports vomiting Denies difficulty urinating, Denies dysuria, Denies urinary frequency, Denies urinary hesitancy and Denies urinary urgency Musc Denies arthralgias, Denies limited range of motion, Denies muscle cramps and Denies muscle weakness Skin/Breast Denies rash and Denies skin ulcer Neuro Denies Abnormal speech present, Denies confusion, Denies vertigo, Denies dizziness, Denies syncope, Denies headache(s), Denies memory loss and Denies seizure-like activity Psych Denies anxiety, Denies confusion, Denies depression, Denies memory loss, Denies panic attacks and Denies paranoia Endo Denies excessive sweating, Denies fatigue, Denies flushing, Denies polydipsia and Denies polyuria Aller/Immun Denies wheezing Physical exam (Primary Care) Vital Signs: Last Vital Signs Pulse 76 04/02/24 08:56 BP 132/78 04/02/24 08:56 Pulse Ox 98 04/02/24 08:56 Oxygen Delivery Method Room Air 04/02/24 08:56 BMI result Body Mass Index 25.7 Tobacco/Smoking Status: Tobacco use Status Tobacco use date assessed 04/02/24 04/02/24 09:09 Patient Tobacco Use Status Current everyday Tobacco 04/02/24 09:09 Tobacco use type Cigarette 04/02/24 08:55 e-Cigarette/Vaping Use Never Used 04/02/24 08:55 Tobacco cessation counseling provided: No Relapse Prevention: discussed the importance of a supportive environment, discussed negative mood or depression after quitting, weight gain after smoking is common and discussed dietary, exercise and/or lifestyle changes Number of minutes spent counselin CPT code: 91645 - 4-10 Minutes Thrive Assessment: Date of Thrive Assessment Date Thrive assessed 06/28/23 04/02/24 08:55 Currently or been in a relationship where the following occur: I choose not to answer Const General: cooperative, comfortable, no acute distress, alert and awake; No confusion Orientation/consciousness: oriented to person, oriented to place, patient oriented x3 and No confusion HENMT Head: Yes normocephalic Ears: external ears normal and TM's normal bilaterally Face and sinus: No sinus tenderness Mouth: Normal oral and palatal mucosa present and tongue normal Teeth and gingiva: dentition normal and gingiva normal Throat: Yes posterior oropharynx normal, Yes tonsils normal and Yes uvula midline Eyes Conjunctivae: conjunctivae normal Sclerae: sclerae normal Pupils: Equal, round and reactive pupils present EOM: EOMs intact bilaterally Direct Ophthalmoscopy: No no photophobia Neck Neck: Yes no lymphadenopathy, No tender and Yes no JVD Thyroid: Thyroid normal Carotids: no bruits Chest Chest palpation & inspection: no tenderness Resp Effort & Inspection: normal respiratory effort, no audible wheezes, not labored and no stridor Auscultation: no crackles, no rales, no rhonchi and no wheezes Cardio Jugular venous distension: no JVD Rate: regular rate, not bradycardic and not tachycardic Rhythm: regular rhythm Bruits: no carotid bruits Peripheral pulses: Peripheral pulses 2+ throughout GI Inspection: Yes normal to inspection, No abdominal wall ecchymosis and No visible herniation Palpation (GI): Soft to palpation, nontender, no guarding, not rigid and No hepatosplenomegaly present Auscultation: normoactive bowel sounds General: Yes no CVA tenderness Back/Spine/Pelvis Back: no CVA tenderness and No back tenderness Cervical Spine: cervical ROM normal Thoracic/Lumbar Spine: thoracic and lumbar spine normal to inspection, straight leg raise negative bilaterally, No thoraco-lumbar ROM limited and No lumbar spinal tenderness Skin Lesions: no lesions Rashes: no rashes Wounds: no wounds Neuro General: oriented to person, oriented to place, patient oriented x3, CN's II-XI intact bilaterally and No confusion Cranial nerves: Yes Equal, round and reactive pupils present and Yes Normal accommodation reflex present Cognition (Neuro): normal cognition Speech: No Abnormal speech present Gait exam (Neuro): Normal gait present Motor exam (neuro): 5/5 motor strength present throughout Extrem Right upper extremity: full ROM; no cyanosis Left upper extremity: full ROM; no cyanosis Right lower extremity: no edema Left lower extremity: no edema Psych Appearance: grossly normal Mental Status: mental status grossly normal Affect: normal affect Attitude: cooperative Thought process: Normal thought process present Coding Level of Care Code Est Pt Prev Care 40-64y(44104) Diagnoses Annual physical exam Z00.00 Gastroenteritis K52.9 MDD (major depressive disorder), recurrent episode, moderate F33.1 Polycythemia D75.1 Cervical spondylosis with myelopathy and radiculopathy M47.12; M47.22 Uncomplicated alcohol dependence F10.20 Substance use status: uncomplicated Smoker F17.200 Additional Codes MAMIE-7 Assessment Billing - MAMIE-7 Assessment Tool: MAMIE-7 Assessment 73836 ([id number]) Vital Signs *Quality* - CPT code: 63917 - 4-10 Minutes ([id number]) Assessment & Plan Assessment & Plan (1) Annual physical exam: Code(s): Z00.00 - Encounter for general adult medical examination without abnormal findings Category: Medical Plan: As per HPI (2) Gastroenteritis: Code(s): K52.9 - Noninfective gastroenteritis and colitis, unspecified Category: Medical Plan: Patient seems to be suffering with intermittent gastritis. Advised to be more consistent with PPI therapy. Will supply patient with pantoprazole 40 mg. He will try to completely stopped drinking though we does mentioned he may need inpatient detox. Again will try to set him up with GI as he does need a another colonoscopy due to tubular adenoma polyps found in 2020. He would likely benefit from an endoscopy as well (3) MDD (major depressive disorder), recurrent episode, moderate: Code(s): F33.1 - Major depressive disorder, recurrent, moderate Category: Medical Plan: Patient reports his depression has been well controlled with current doses of his mental health medication. (4) Polycythemia: Code(s): D75.1 - Secondary polycythemia Category: Medical Plan: Most recent CBC showing hemoglobin at 16 in her red blood cell count at 6. He will be following up with his sonoscope operator to perhaps discuss another therapeutic phlebotomy. (5) Cervical spondylosis with myelopathy and radiculopathy: Code(s): M47.12 - Other spondylosis with myelopathy, cervical region; M47.22 - Other spondylosis with radiculopathy, cervical region Category: Medical Plan: Has had multiple neck surgeries. Continues to manage his pain with tramadol with good effect. He is interested in getting he possible license as he has not had the upper extremity strength to use a conventional bowel (6) Alcohol dependence: Code(s): F10.20 - Alcohol dependence, uncomplicated Category: Medical Qualifiers: Substance use status: uncomplicated Qualified Code(s): F10.20 - Alcohol dependence, uncomplicated Plan: Patient admits that he has somewhat of a drinking problem as he has been drinking several beers a day for quite awhile. We did discuss this is likely some of the reason he is having significant GI issues over the past few years. He does mentioned considering inpatient detox (7) Smoker: Code(s): F17.200 - Nicotine dependence, unspecified, uncomplicated Category: Social Hx Plan: Patient does understand he needs to quit smoking, have offered him nicotine replacement and medication though he declines at this time. Orders: Referrals Gastroenterology Referral K22.10 - Ulcer of esophagus without bleeding Medications: New pantoprazole 40 mg PO DAILY 90 days 90 tabs 1RF K21.00 - Gastro-esophageal reflux disease with esophagitis, without bleeding Changed From ondansetron HCl 4 mg PO Q6H 9 days PRN 36 tabs 0RF nausea and vomiting K21.00 - Gastro-esophageal reflux disease with esophagitis, without bleeding To ondansetron HCl 4 mg PO Q8H 15 days 45 tabs 1RF nausea and vomiting K21.00 - Gastro-esophageal reflux disease with esophagitis, without bleeding Refilled tramadol 100 mg (2 x 50 mg) PO Q8H 28 days 168 tabs 2RF Pain S12.9XXA - Fracture of neck, unspecified, initial encounter Discontinued ondansetron Discontinued Reason: Doctor's Order 8 mg (2 x 4 mg) PO Q6H 5 days PRN 40 tabs 3RF nausea and vomiting K52.9 - Noninfective gastroenteritis and colitis, unspecified omeprazole Discontinued Reason: Doctor's Order 20 mg PO DAILY 30 days 30 caps 1RF K52.9 - Noninfective gastroenteritis and colitis, unspecified
[2024-04-02 08:56] VITALS: BP 132/78; PULSE 76; O2SAT 98; BMI 25.7
== END 2024-04-02 09:53 | disposition home or self-care (01) ==
LOC: HO.HMCH 08:50
PROVIDERS: PCP Physician Assistant; Visit Provider Physician Assistant
DX: Z00.00 Encounter for general adult medical examination without abnormal findings (principal); K52.9 Noninfective gastroenteritis and colitis, unspecified; F33.1 Major depressive disorder, recurrent, moderate; F10.20 Alcohol dependence, uncomplicated; D75.1 Secondary polycythemia; M47.12 Other spondylosis with myelopathy, cervical region; M47.22 Other spondylosis with radiculopathy, cervical region; F17.200 Nicotine dependence, unspecified, uncomplicated

== ENCOUNTER → 2024-04-02 08:50 | Outpatient (BNVA) | payer OTHER, SELFPAY | PROVIDERS: PCP Physician Assistant; Visit Provider Physician Assistant | DX: Z00.01 Encounter for general adult medical examination with abnormal findings (principal); K52.9 Noninfective gastroenteritis and colitis, unspecified; F33.1 Major depressive disorder, recurrent, moderate; D75.1 Secondary polycythemia; M47.12 Other spondylosis with myelopathy, cervical region; M47.22 Other spondylosis with radiculopathy, cervical region; F10.20 Alcohol dependence, uncomplicated; F17.200 Nicotine dependence, unspecified, uncomplicated | CPT/HCPCS: 96127; 99396 ==

== ENCOUNTER 2024-10-14 11:00 | Outpatient (REF) | payer MEDICARE, MEDICAID, SELFPAY ==
[2024-10-14 11:11] LABS: MANUAL DIFF FLAG NO
[2024-10-14 11:12] LABS: Basophils Absolute Auto 0.1 X10*3/uL (0.0-0.2); Basophils Percent Auto 1.4 % (0-2); Eosinophils Absolute Auto 0.2 X10*3/uL (0.0-0.4); Eosinophils Percent Auto 2.6 % (0-4); Hematocrit 45.1 % (42.0-52.0); Hemoglobin 15.8 g/dl (14.0-18.0); Imm Gran Abs Auto 0.03 X10*3/uL (0.00-0.03); Imm Gran Pct Auto 0.5 % (0.0-0.4); Lymphocytes Absolute Auto 2.3 X10*3/uL (1.2-4.9); Lymphocytes Percent Auto 36.7 % (20-40); Mean Corpuscular Hemoglobin 31.5 pg (27.0-33.0); Monocytes Absolute Auto 1.1 X10*3/uL (0.1-1.2); Monocytes Percent Auto 17.6 % (2-11); Neutrophils Absolute Auto 2.6 x10*3/uL (2.0-8.3); Neutrophils Percent Auto 41.2 % (45-73); Platelet Count 206 X10*3/uL (160-400); Red Blood Count 5.01 X10*6/uL (4.60-5.80); Red Cell Distribution Width 16.3 % (11.0-16.0); White Blood Count 6.2 X10*3/uL (4.8-10.8)
[2024-10-14 12:33] LABS: Ferritin 55 ng/mL (20-250)
== END 2024-10-14 11:01 | disposition home or self-care (01) ==
LOC: HO.BBR 11:00
PROVIDERS: Visit Provider Internal Medicine
DX: D45 Polycythemia vera (principal)
CPT/HCPCS: 36415; 82728; 85014; 85018; 85025; 99195

== ENCOUNTER 2024-11-15 09:54 | Outpatient (REF) | payer MEDICARE, MEDICAID, SELFPAY ==
[2024-11-15 10:20] LABS: MANUAL DIFF FLAG NO
[2024-11-15 10:23] LABS: Basophils Absolute Auto 0.1 X10*3/uL (0.0-0.2); Basophils Percent Auto 1.4 % (0-2); Eosinophils Absolute Auto 0.2 X10*3/uL (0.0-0.4); Hematocrit 43.3 % (42.0-52.0); Hemoglobin 14.9 g/dl (14.0-18.0); Imm Gran Abs Auto 0.02 X10*3/uL (0.00-0.03); Imm Gran Pct Auto 0.3 % (0.0-0.4); Lymphocytes Absolute Auto 2.3 X10*3/uL (1.2-4.9); Lymphocytes Percent Auto 36.2 % (20-40); Mean Corpuscular HGB Conc 34.4 g/dl (31.0-36.0); Mean Corpuscular Hemoglobin 31.4 pg (27.0-33.0); Mean Corpuscular Volume 91.4 fL (80.0-98.0); Mean Platelet Volume 10.2 fL (9.4-12.4); Monocytes Absolute Auto 0.9 X10*3/uL (0.1-1.2); Monocytes Percent Auto 14.3 % (2-11); Neutrophils Absolute Auto 2.9 x10*3/uL (2.0-8.3); Neutrophils Percent Auto 44.8 % (45-73); Platelet Count 209 X10*3/uL (160-400); Red Blood Count 4.74 X10*6/uL (4.60-5.80); Red Cell Distribution Width 14.3 % (11.0-16.0); White Blood Count 6.4 X10*3/uL (4.8-10.8)
[2024-11-15 11:09] LABS: Ferritin 45 ng/mL (20-250)
== END 2024-11-15 09:55 | disposition home or self-care (01) ==
LOC: HO.BBR 09:54
PROVIDERS: PCP Physician Assistant; Visit Provider Internal Medicine
DX: D75.1 Secondary polycythemia (principal)
CPT/HCPCS: 36415; 82728; 85018; 85025; 99195

== ENCOUNTER 2024-11-25 09:54 | Outpatient (REF) | payer MEDICARE, MEDICAID, SELFPAY | END 2024-11-25 09:55 | disposition home or self-care (01) | LOC: HO.BBR 09:54 | PROVIDERS: PCP Physician Assistant; Visit Provider Internal Medicine | DX: D75.1 Secondary polycythemia (principal) | CPT/HCPCS: 85014; 85018; 99195 ==

== ENCOUNTER 2025-01-28 13:46 | Outpatient (REF) | payer MEDICARE, MEDICAID, SELFPAY ==
[2025-01-28 13:59] LABS: MANUAL DIFF FLAG NO
[2025-01-28 14:02] LABS: Hematocrit 40.5 % (42.0-52.0); Hemoglobin 13.6 g/dl (14.0-18.0); Imm Gran Abs Auto 0.03 X10*3/uL (0.00-0.03); Imm Gran Pct Auto 0.5 % (0.0-0.4); Lymphocytes Absolute Auto 2.9 X10*3/uL (1.2-4.9); Mean Corpuscular HGB Conc 33.6 g/dl (31.0-36.0); Mean Corpuscular Hemoglobin 28.2 pg (27.0-33.0); Mean Corpuscular Volume 84.0 fL (80.0-98.0); NRBC Abs Auto 0.000 X10*3/uL (0.0-0.012); NRBC Pct Auto 0.0 /100WBC (0.0-0.2); Platelet Count 246 X10*3/uL (160-400); Red Blood Count 4.82 X10*6/uL (4.60-5.80); White Blood Count 5.9 X10*3/uL (4.8-10.8)
[2025-01-28 14:35] LABS: Ferritin 41 ng/mL (20-250)
== END 2025-01-28 13:47 | disposition home or self-care (01) ==
LOC: HO.BBR 13:46
PROVIDERS: PCP Physician Assistant; Visit Provider Internal Medicine
DX: D75.1 Secondary polycythemia (principal)
CPT/HCPCS: 36415; 82728; 85018; 85025; 99195

== ENCOUNTER 2025-02-28 13:38 | Outpatient (REF) | payer MEDICARE, MEDICAID, SELFPAY ==
[2025-02-28 13:45] LABS: MANUAL DIFF FLAG NO
[2025-02-28 13:47] LABS: Hematocrit 34.9 % (42.0-52.0); Hemoglobin 11.7 g/dl (14.0-18.0); Imm Gran Abs Auto 0.05 X10*3/uL (0.00-0.03); Imm Gran Pct Auto 0.6 % (0.0-0.4); Lymphocytes Absolute Auto 2.2 X10*3/uL (1.2-4.9); Mean Corpuscular HGB Conc 33.5 g/dl (31.0-36.0); Mean Corpuscular Hemoglobin 27.5 pg (27.0-33.0); Mean Corpuscular Volume 82.1 fL (80.0-98.0); NRBC Abs Auto 0.000 X10*3/uL (0.0-0.012); NRBC Pct Auto 0.0 /100WBC (0.0-0.2); Platelet Count 231 X10*3/uL (160-400); Red Blood Count 4.25 X10*6/uL (4.60-5.80); White Blood Count 8.5 X10*3/uL (4.8-10.8)
[2025-02-28 15:22] LABS: Ferritin 22 ng/mL (20-250)
== END 2025-02-28 13:39 | disposition home or self-care (01) ==
LOC: HO.BBR 13:38
PROVIDERS: PCP Physician Assistant; Visit Provider Internal Medicine
DX: D75.1 Secondary polycythemia (principal)
CPT/HCPCS: 36415; 82728; 85014; 85018; 85025; 99195

== ENCOUNTER 2025-03-06 09:51 | Outpatient (AMB) | payer MEDICARE, MEDICAID, SELFPAY ==
[2025-03-06 09:53] VITALS: BP 146/104; PULSE 98; TEMP 36.2; O2SAT 98; BMI 22.0
--- NOTE | 2025-03-06 09:53 | MHC.PC.OV ---
Vital Signs 03/06/25 09:53 Height 6 ft Weight 162 lb 6 oz BMI 22.0 BP 146/104 H Blood Pressure Location Lt brachial Position Sitting Pulse 98 Pulse Source Pulse Oximeter Temp 97.1 F Temp Source Temporal Artery Scan Pulse Oximetry (%) 98 Oxygen Delivery Method Room Air Intake Visit Reasons: health concerns Allergies cat dander (cats) Allergy (Unknown, Verified 03/06/25 10:05) Unknown Medication List - Last Reconciled 03/06/25 by Lucas Yao PA-C albuterol sulfate 90 mcg/actuation (Ventolin HFA) 1 inh inhalation QID PRN baclofen 20 mg PO DAILY 30 days buspirone 15 mg PO BID 30 days clonidine HCl 0.2 mg PO BID ondansetron HCl 4 mg PO Q8H 15 days pantoprazole 40 mg PO DAILY 90 days sertraline 150 mg (1.5 x 100 mg) PO DAILY 90 days tramadol 100 mg (2 x 50 mg) PO Q8H 28 days Tobacco use date assessed: 03/06/25 Dental Screening Dental Screen Date: 03/06/25 Did you have a dental visit in the last 12 months?: Yes Did you have a dental problem in the last 6 months where you did not have access to dental care?: No Was dental information given to patient?: Patient has dentist HPI health concerns HPI Details Patient is a 49-year-old male here today for follow-up visit Patient has a past medical history significant for hypertension, lumbar and cervical disc disease, polycythemia, tobacco dependency, GERD with erosive esophagitis. Polycythemia: Followed by Hematology and most recent labs showing low hemoglobin. His therapeutic phlebotomy has been placed on hold. We did discuss possible causes of polycythemia we discussed his smoking and alcohol intake along with the possibility of having obstructive sleep apnea. Will send for PFTs in home sleep study. Cervical disc disease/ Lumbar disc disease : Has underwent an ACDF of his cervical spine disc which went well. His neuropathic pains have generally resolved in his upper extremities. Did undergo a lumbar disc surgery on June 12 2023, remains in chronic pain particularly down left lower extremity thus followed up with pain management and is due for an injection. He has gotten repeat CT of his lumbar spine showing--> L5-S1: Nondiagnostic assessment of the spinal canal, noting osteophytic ridging extending into the bilateral neural foramina in conjunction with bilateral facet hypertrophy likely contributing to stable to increased severe neural foraminal stenosis with compression of the exiting L5 nerve roots ---> Pain management medication--> Continues with the use pregabalin 200 mg t.i.d., tramadol 100 mg t.i.d. and baclofen. He reports he has not been able to a for pregabalin due to insurance on coverage. He would like to return back to gabapentin dosing. Erosive esophagitis: Symptoms have been much better since reducing gluten in his diet. Also has been reducing his alcohol drinking. He has not had much abdominal discomfort as before. .. Polycythemia: As above. Was recently found to have polycythemia at a recent hospital admission. Now seeing a patient centered care specialist in getting therapeutic phlebotomies. NATHALY testing has been negative. Phlebotomies have been placed on hold as his hemoglobin dropped to anemic level. .. MDD: Continues on SSRI therapy , buspar and clonidine with good effect on his mood. He is interested in higher dose of BuSpar for better control of his anxiety .. Alcohol use disorder: He does admit to drinking a few (4-6 beers) per day per patient. He does admit to any has somewhat of a problem not drinking. He is considering inpatient detox .. Tobacco dependency : still smokes a few cigs per day, has been expensive for and still is willing to quit smoking completely in near future. Laboratory Tests 08/08/20 12/04/20 05/13/21 09:38 07:14 10:38 WBC RBC Hgb Plt Count ESR INR Potassium 5.4 H 5.3 H Random Glucose Fasting Glucose AST 119 H ALT 54 H Ferritin Triglycerides 113 Lipase TSH Urine Opiates Scre en 10/15/21 12/31/22 01/05/23 11:51 11:17 08:38 WBC RBC 4.51 L Hgb Plt Count ESR 1 INR Potassium Random Glucose Fasting Glucose 111 H AST ALT Ferritin Triglycerides 200 Lipase TSH 1.25 Urine Opiates Scre en POSITIVE H 06/17/23 06/26/23 03/21/24 15:31 15:30 11:15 WBC 9.4 11.2 H RBC 4.93 D 4.76 Hgb Plt Count 277 D 684 H D ESR INR Potassium 4.5 Random Glucose 116 H Fasting Glucose AST 61 H ALT Ferritin Triglycerides Lipase 25 TSH Urine Opiates Scre en 03/21/24 01/28/25 02/28/25 16:22 13:57 13:44 WBC RBC 4.82 4.25 L Hgb 13.6 L 11.7 L Plt Count ESR INR 0.9 Potassium Random Glucose Fasting Glucose AST ALT Ferritin 41 22 Triglycerides Lipase TSH Urine Opiates Scre en [facility] Medical History (Reviewed 03/06/25 @ 09:56 by Janice Smart [facility] [address]) Open fracture of fifth metacarpal bone of right hand Ileus Fracture of spinous process of cervical vertebra Silicosis Hyperkalemia Polycythemia Asthma Arthritis Smoker Cervical disc disease Lumbar disc disease Depression Alcohol dependence GERD (gastroesophageal reflux disease) HTN (hypertension) Right hand fracture Incisional hernia Peptic ulcer disease Anxiety Foreign body in stomach Perforated duodenal ulcer Surgical History History of lumbosacral spine surgery History of incision and drainage History of open reduction and internal fixation (ORIF) procedure History of endoscopy History of colonoscopy History of incisional hernia repair History of esophagogastroduodenoscopy (EGD) H/O Spinal surgery History of gastric surgery Family History Father CAD (coronary artery disease) NIDDY (non-insulin dependent diabetes mellitus in young) Hypertension Mother CAD (coronary artery disease) Hypertension Social History Household Members: Family Household Members Other:: 1 Housing: House Are you a primary direct support professional caregiver to a significant other at home: No Do you presently have visiting nurse or other home services: No Alcohol intake: current Alcohol intake frequency: 3 or more drinks per day Alcohol type: beer Comment: rotted tooth loss with expectorating and spitting Patient Tobacco Use Status: Current everyday Tobacco user Tobacco use type: Cigarette Cigarette Packs Per Day: 0.5 Cigarettes Per Day: 10 Years Smoked: 35 e-Cigarette/Vaping Use: Never Used Second Hand Smoke Exposure: Yes Substance Use Type: Marijuana service: No Current occupational status: unemployed 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 1. Little interest or pleasure in doing things: nearly every day 2. Feeling down, depressed, or hopeless: not at all 3. Trouble falling or staying asleep, or sleeping too much: not at all 4. Feeling tired or having little energy: not at all 5. Poor appetite or overeating: not at all 6. Feeling bad about yourself - or that you are a failure or have let yourself or your family down: not at all 7. Trouble concentrating on things, such as reading the newspaper or watching television: not at all 8. Moving or speaking so slowly that other people could have noticed. Or the opposite - being so fidgety or restless that you have been moving around a lot more than usual: not at all 9. Thoughts that you would be better off or of hurting yourself in some way: not at all Total score: 3 Depression Screening Interpretation: Positive Depression Screening Follow-up: Existing condition Depression Screening Done: Yes 16852 - PHQ-9 Billing: Yes Source: Developed by Drs. Barney Dunlap, Adeola Hanley, Waldo Webb and colleagues, with an educational mukesh from [employer]. Thrive Questionnaire Date Thrive assessed: 03/06/25 I am a: Patient What is your living situation today?: I choose not to answer this question Within the past 12 months, did the food you bought not last and you didn't have the money to get more?: I choose not to answer this question Within the past 12 months, did you worry whether your food would run out before you got money to buy more?: I choose not to answer this question Do you have trouble paying for medicines?: I choose not to answer this question Do you have trouble getting transportation to medical appointments?: I choose not to answer this question Do you have trouble paying your heating and electricity bill?: I choose not to answer this question Do you have trouble taking care of your child, family member or friend?: I choose not to answer this question Do you have trouble with day-to-day activities such as bathing, preparing meals, shopping, managing finances, etc.?: I choose not to answer this question Are you currently unemployed and looking for a job?: I choose not to answer this question Are you interested in more education?: I choose not to answer this question Please select the resources that you would like help with: None Currently or been in a relationship where the following occur: I choose not to answer THRIVE Score: 0 AUDIT C Alcohol Use Questionnaire (AUDIT-C) 1. How often do you have a drink containing alcohol?: 2-3 times a week 2. How many drinks containing alcohol do you have on a typical day when you are drinking?: 3 or 4 3. How often do you have six or more drinks on one occasion?: Daily or almost daily Total Score: 8 MAMIE-7 AMB Questionnaire MAMIE-7 Date MAMIE - 7 assessed: 03/06/25 Feeling nervous, anxious, or on edge: 0 = Not at all Not being able to stop or control worryin = Not at all Worrying too much about different things: 0 = Not at all Trouble relaxin = Not at all Being so restless that it is hard to sit still: 0 = Not at all Becoming easily annoyed or irritable: 0 = Not at all Feeling afraid as if something awful might happen: 0 = Not at all Total MAMIE-7 score (0-4 normal; 5-9 mild; 10-14 moderate; 15-21 severe): 0 Source: Developed by Drs. Barney Dunlap, Adeola Hanley, Waldo Webb and colleagues, with an educational mukesh from [employer]. Review of Systems Const Reports fatigue and Reports headache(s) Eyes Denies loss of vision ENT Denies vertigo, Denies dizziness, Reports headache(s) and Denies sore throat Card Denies chest pain, Denies leg edema and Denies lightheadedness Resp Denies cough, Denies hemoptysis and Denies wheezing GI Denies abdominal pain, Denies melena, Denies constipation, Denies diarrhea and Denies vomiting Denies dysuria, Denies urinary frequency and Denies urinary urgency Musc Details: + neck pain Reports back pain, Reports arthralgias, Denies joint swelling, Denies numbness and Denies tingling Neuro Denies Abnormal speech present, Denies behavioral changes, Denies vertigo, Denies dizziness, Reports headache(s), Denies loss of vision, Denies memory loss, Denies numbness and Denies tingling Psych Denies anxiety, Denies behavioral changes, Denies depression, Denies memory loss and Denies panic attacks Endo Reports fatigue Elton/Lymph Denies easy bleeding and Denies easy bruising Aller/Immun Denies wheezing Physical exam (Primary Care) Vital Signs: Last Vital Signs Temp 97.1 F 03/06/25 09:53 Pulse 98 03/06/25 09:53 BP 146/104 H 03/06/25 09:53 Pulse Ox 98 03/06/25 09:53 Oxygen Delivery Method Room Air 03/06/25 09:53 BMI result Body Mass Index 22.0 Tobacco/Smoking Status: Tobacco use Status Tobacco use date assessed 03/06/25 03/06/25 09:58 Patient Tobacco Use Status Current everyday Tobacco 03/06/25 09:58 Tobacco use type Cigarette 03/06/25 09:58 e-Cigarette/Vaping Use Never Used 03/06/25 09:58 Are you ready to quit: No Tobacco cessation counseling provided: Yes Items discussed: Nicotine replacement Relapse Prevention: discussed the importance of a supportive environment, discussed negative mood or depression after quitting, weight gain after smoking is common and discussed dietary, exercise and/or lifestyle changes PHQ-9: PHQ-9 Score PHQ-9: Total score 3 03/06/25 10:07 Depression Screening Interpretation: Positive Depression Screening Follow-up: Existing condition Thrive Assessment: Date of Thrive Assessment Date Thrive assessed 03/06/25 03/06/25 09:58 Currently or been in a relationship where the following occur: I choose not to answer Const General: healthy appearing, no acute distress, alert and awake Nutritional Appearance: well nourished Orientation/consciousness: oriented to person, oriented to place and oriented to time HENMT Ears: TM's normal bilaterally General nose exam: Normal nasal mucous membranes and turbinates present Eyes Conjunctivae: conjunctivae normal Sclerae: sclerae normal Pupils: Equal, round and reactive pupils present Neck Neck: Yes no lymphadenopathy and Yes no JVD Thyroid: Thyroid normal Carotids: no bruits Resp Effort & Inspection: normal respiratory effort and not tachypneic Auscultation: no crackles, no rales, no rhonchi and no wheezes Cardio Rate: regular rate Rhythm: regular rhythm Heart sounds: no murmurs and normal S1 and S2 GI Palpation (GI): Soft to palpation, nontender, no hepatomegaly and no splenomegaly Auscultation: normal bowel sounds Skin General skin exam: no rashes or lesions noted and dry skin Neuro General: oriented to person, oriented to place and oriented to time Cranial nerves: Yes Equal, round and reactive pupils present Speech: No Abnormal speech present Gait exam (Neuro): Normal gait present Motor exam (neuro): no tremor noted Extrem Right upper extremity: full ROM Left upper extremity: full ROM Right lower extremity: full ROM; no edema Left lower extremity: full ROM; no edema Psych Mental Status: mental status grossly normal Speech and movement: Normal speech and movement present Affect: normal affect Attitude: cooperative Thought process: Normal thought process present Coding Level of Care Code Est Pt Level 4 (81090) Diagnoses Polycythemia D75.1 MDD (major depressive disorder), recurrent episode, moderate F33.1 Cervical spondylosis with myelopathy and radiculopathy M47.12; M47.22 Uncomplicated alcohol dependence F10.20 Substance use status: uncomplicated Smoker F17.200 Centrilobular emphysema J43.2 COPD type: emphysema Emphysema type: centrilobular Tubular adenoma of colon D12.6 Additional Codes PHQ-9 - 97535 - PHQ-9 Billing: Yes ([id number]) Assessment & Plan Assessment & Plan (1) Polycythemia: Code(s): D75.1 - Secondary polycythemia Category: Medical Plan: Most recent CBC showing hemoglobin at 11, his patient centered care specialist has held his therapeutic phlebotomies due to being anemic. He will continue multivitamin and advised on reducing his smoking and drinking. (2) MDD (major depressive disorder), recurrent episode, moderate: Code(s): F33.1 - Major depressive disorder, recurrent, moderate Category: Medical Plan: Patient reports his depression has been well controlled with current doses of his mental health medication. (3) Cervical spondylosis with myelopathy and radiculopathy: Code(s): M47.12 - Other spondylosis with myelopathy, cervical region; M47.22 - Other spondylosis with radiculopathy, cervical region Category: Medical Plan: Has had multiple neck surgeries. Continues to manage his pain with tramadol with good effect. He was using pregabalin 200 mg though reports insurance is not covering. He would like to return back to using gabapentin. (4) Alcohol dependence: Code(s): F10.20 - Alcohol dependence, uncomplicated Category: Medical Qualifiers: Substance use status: uncomplicated Qualified Code(s): F10.20 - Alcohol dependence, uncomplicated Plan: Patient admits that he has somewhat of a drinking problem (4-6 beers per day) . We did discuss this is likely some of the reason he is having significant GI issues over the past few years. (5) Smoker: Code(s): F17.200 - Nicotine dependence, unspecified, uncomplicated Category: Social Hx Plan: Patient does understand he needs to quit smoking, have offered him nicotine replacement and medication though he declines at this time. Will send for sleep study testing and pulmonary function testing to evaluate for COPD. (6) COPD (chronic obstructive pulmonary disease): Code(s): J44.9 - Chronic obstructive pulmonary disease, unspecified Category: Medical Qualifiers: COPD type: emphysema Emphysema type: centrilobular Qualified Code(s): J43.2 - Centrilobular emphysema Plan: Patient does admit to some shortness of breath and cough.. Do suspect patient does have COPD as he has had blebs on CT imaging on chest and he has been a smoker for quite some time. Send for pulmonary function testing to establish a diagnosis of COPD. (7) Tubular adenoma of colon: Code(s): D12.6 - Benign neoplasm of colon, unspecified Category: Medical Plan: Patient has a history of a tubular adenoma polyps on colonoscopy in 2020, need to repeat colonoscopy in 3 years. Will refer back to gastroenterology Orders: Orders Vitamin B12 and Folate Today D75.1 - Secondary polycythemia, E53.8 - Deficiency of other specified B group vitamins Vitamin D 25-OH Total Today D75.1 - Secondary polycythemia RT home sleep study Today D75.1 - Secondary polycythemia Vitamin A Today D75.1 - Secondary polycythemia Vitamin B1 Today D75.1 - Secondary polycythemia Vitamin C Today D75.1 - Secondary polycythemia Vitamin B5 (Pantothenic Acid) Today D75.1 - Secondary polycythemia Comprehensive [place]. Panel Fast Today I10 - Essential (primary) hypertension PFT pulmonary function test Today J43.2 - Centrilobular emphysema Ethanol Today F10.20 - Alcohol dependence, uncomplicated Referrals Gastroenterology Referral D12.6 - Benign neoplasm of colon, unspecified Medications: New gabapentin 800 mg PO BID 60 tabs 3RF 30 days M54.2 - Cervicalgia
== END 2025-03-06 10:32 | disposition home or self-care (01) ==
LOC: HO.HMCH 09:51
PROVIDERS: PCP Physician Assistant; Visit Provider Physician Assistant
DX: D75.1 Secondary polycythemia (principal); F33.1 Major depressive disorder, recurrent, moderate; F10.20 Alcohol dependence, uncomplicated; J43.2 Centrilobular emphysema; M47.22 Other spondylosis with radiculopathy, cervical region; M47.12 Other spondylosis with myelopathy, cervical region; F17.200 Nicotine dependence, unspecified, uncomplicated; D12.6 Benign neoplasm of colon, unspecified

== ENCOUNTER → 2025-03-06 09:51 | Outpatient (BNVA) | payer MEDICARE, MEDICAID, SELFPAY | PROVIDERS: PCP Physician Assistant; Visit Provider Physician Assistant | DX: I10 Essential (primary) hypertension (principal); K21.9 Gastro-esophageal reflux disease without esophagitis; D75.1 Secondary polycythemia; K22.10 Ulcer of esophagus without bleeding; F33.1 Major depressive disorder, recurrent, moderate; M47.12 Other spondylosis with myelopathy, cervical region; M47.22 Other spondylosis with radiculopathy, cervical region; F10.20 Alcohol dependence, uncomplicated; J43.2 Centrilobular emphysema; D12.6 Benign neoplasm of colon, unspecified; F17.210 Nicotine dependence, cigarettes, uncomplicated | CPT/HCPCS: 96127; 99212 ==

== ENCOUNTER 2025-03-18 13:48 | Emergency (ER) | payer MEDICARE, MEDICAID, SELFPAY ==
[2025-03-18 14:16] VITALS: BP 151/89; PULSE 99; RESP 18; TEMP 36.6; O2SAT 98; BMI 23.0
--- NOTE | 2025-03-18 14:17 | ED.GENADULT ---
HPI - General Adult General Chief complaint: General Medical Stated complaint: High BP Related Data Previous Rx's ?Medication ?Instructions ?Recorded clonidine HCl 0.2 mg tablet 0.2 mg PO BID #60 tabs 07/11/24 pantoprazole 40 mg tablet,delayed 40 mg PO DAILY 90 days #90 tabs 08/12/24 release albuterol sulfate 90 mcg/actuation 1 inh inhalation QID PRN Shortness 10/25/24 aerosol inhaler (Ventolin HFA) Of Breath Or Wheezing #8.5 grams baclofen 20 mg tablet 20 mg PO DAILY 30 days #30 tabs 10/29/24 tramadol 50 mg tablet 100 mg (2 x 50 mg) PO Q8H Pain 28 10/29/24 days #168 tabs ondansetron HCl 4 mg tablet 4 mg PO Q8H nausea and vomiting 15 12/13/24 days #45 tabs gabapentin 800 mg tablet 800 mg PO BID 30 days #60 tabs 03/06/25 buspirone 15 mg tablet 15 mg PO BID 30 days #60 tabs 03/10/25 sertraline 100 mg tablet 150 mg (1.5 x 100 mg) PO DAILY 90 03/10/25 days #135 tabs Allergies Allergy/AdvReac Type Severity Reaction Status Date / Time cat dander (cats) Allergy Unknown Unknown Verified 03/18/25 14:18 [facility] Past Medical History Medical History (Reviewed 03/06/25 @ 09:56 by Janice Smart [facility]) Open fracture of fifth metacarpal bone of right hand Ileus Fracture of spinous process of cervical vertebra Silicosis Hyperkalemia Polycythemia Asthma Arthritis Smoker Cervical disc disease Lumbar disc disease Depression Alcohol dependence GERD (gastroesophageal reflux disease) HTN (hypertension) Right hand fracture Incisional hernia Peptic ulcer disease Anxiety Foreign body in stomach Perforated duodenal ulcer Surgical History History of lumbosacral spine surgery History of incision and drainage History of open reduction and internal fixation (ORIF) procedure History of endoscopy History of colonoscopy History of incisional hernia repair History of esophagogastroduodenoscopy (EGD) H/O Spinal surgery History of gastric surgery Family History Family History Father CAD (coronary artery disease) NIDDY (non-insulin dependent diabetes mellitus in young) Hypertension Mother CAD (coronary artery disease) Hypertension Social History Social History Household Members: Family Household Members Other:: 1 Housing: House Are you a primary home care liaison to a significant other at home: No Do you presently have visiting nurse or other home services: No Alcohol intake: current Alcohol intake frequency: 3 or more drinks per day Alcohol type: beer Comment: rotted tooth loss with expectorating and spitting Patient Tobacco Use Status: Current everyday Tobacco user Tobacco use type: Cigarette Cigarette Packs Per Day: 0.5 Cigarettes Per Day: 10 Years Smoked: 35 e-Cigarette/Vaping Use: Never Used Second Hand Smoke Exposure: Yes Substance Use Type: Marijuana service: No Current occupational status: unemployed 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 Patient is a 49y/o M with hx of polycythemia, COPD, HTN, GERD, alcohol dependence presenting with complaint of elevated BP reading at home, R sided headache, palpitations, anxiety. Plan: EKG, labs Patient left the emergency department before myself or any of the other clinicians could review or explain physical exam findings, test results, need or lack there of for additional testing, treatment options, or a treatment plan. Medical Decision Making Lab Data 03/18/25 14:54 03/18/25 14:54 Labs: Lab Results 03/18/25 Range/Units 14:54 WBC 8.1 (4.8-10.8) X10*3/uL RBC 5.01 (4.60-5.80) X10*6/uL Hgb 13.1 L (14.0-18.0) g/dl Hct 40.3 L (42.0-52.0) % MCV 80.4 (80.0-98.0) fL MCH 26.1 L (27.0-33.0) pg MCHC 32.5 (31.0-36.0) g/dl RDW 17.6 H (11.0-16.0) % Plt Count 262 (160-400) X10*3/uL MPV 10.0 (9.4-12.4) fL Immature Gran % (Auto) 0.2 (0.0-0.4) % Neut % (Auto) 48.6 (45-73) % Lymph % (Auto) 34.9 (20-40) % Dane % (Auto) 13.4 H (2-11) % Eos % (Auto) 1.7 (0-4) % Baso % (Auto) 1.2 (0-2) % Lymph # (Auto) 2.8 (1.2-4.9) X10*3/uL Dane # (Auto) 1.1 (0.1-1.2) X10*3/uL Eos # (Auto) 0.1 (0.0-0.4) X10*3/uL Baso # (Auto) 0.1 (0.0-0.2) X10*3/uL Abs Immat Gran (auto) 0.02 (0.00-0.03) X10*3/uL Absolute Neuts (auto) 3.9 (2.0-8.3) x10*3/uL Absolute Nucleated RBC 0.000 (0.0-0.012) X10*3/uL Nucleated RBC % (auto) 0.0 (0.0-0.2) /100WBC PT 9.1 L (10.9-12.4) SEC INR 0.8 L (0.9-1.1) Sodium 135 (135-145) mmol/L Potassium 4.3 (3.3-5.1) mmol/L Chloride 101 (96-108) mmol/L Carbon Dioxide 24 (22-29) mmol/L Anion Gap 14 (12-20) BUN 4 L (9-16) mg/dL Creatinine 0.71 (0.5-1.4) mg/dL Estim Creat Clear Calc 130.3 Estimated GFR > 60 Random Glucose 87 (60-115) mg/dL Calcium 8.8 D (8.4-10.2) mg/dL Total Bilirubin 0.3 (0.0-1.0) mg/dL AST 70 H (5-37) U/L ALT 46 H (0-40) U/L Alkaline Phosphatase 71 (39-117) U/L Total Protein 7.3 (6.5-8.0) g/dL Albumin 4.2 (3.5-5.0) g/dL Discharge Plan Discharge Clinical Impression: Elevated blood pressure reading Patient Disposition: Left W/O Completing Treatment Prescriptions: No Action clonidine HCl 0.2 mg tablet 0.2 mg PO BID Qty: 60 6RF pantoprazole 40 mg tablet,delayed release (DR/EC) 40 mg PO DAILY 90 Days Qty: 90 1RF albuterol sulfate [Ventolin HFA] 90 mcg/actuation HFA aerosol inhaler 1 inh inhalation QID PRN (Reason: Shortness Of Breath Or Wheezing) Qty: 8.5 3RF baclofen 20 mg tablet 20 mg PO DAILY 30 Days Qty: 30 3RF tramadol 50 mg tablet 100 mg PO Q8H 28 Days Qty: 168 2RF ondansetron HCl 4 mg tablet 4 mg PO Q8H 15 Days Qty: 45 3RF buspirone 15 mg tablet 15 mg PO BID 30 Days Qty: 60 3RF sertraline 100 mg tablet 150 mg PO DAILY 90 Days Qty: 135 3RF gabapentin 800 mg tablet 800 mg PO BID 30 Days Qty: 60 3RF Discharge Date/Time: 03/18/25 20:15
--- NOTE | 2025-03-18 14:20 | ECG_ITS ---
Test Reason : palpitations Blood Pressure : */* mmHG Vent. Rate : 89 BPM Atrial Rate : 89 BPM P-R Int : 150 ms QRS Dur : 90 ms QT Int : 366 ms P-R-T Axes : 60 68 72 degrees QTcB Int : 445 ms Normal sinus rhythm Normal ECG When compared with ECG of 21-Mar-2024 16:05, No significant change was found Referred By: Shante Kimball Electronically Signed By: Chris Madsen
[2025-03-18 15:01] LABS: MANUAL DIFF FLAG NO
[2025-03-18 15:13] LABS: Hematocrit 40.3 % (42.0-52.0); Hemoglobin 13.1 g/dl (14.0-18.0); Imm Gran Abs Auto 0.02 X10*3/uL (0.00-0.03); Imm Gran Pct Auto 0.2 % (0.0-0.4); Lymphocytes Absolute Auto 2.8 X10*3/uL (1.2-4.9); Mean Corpuscular HGB Conc 32.5 g/dl (31.0-36.0); Mean Corpuscular Hemoglobin 26.1 pg (27.0-33.0); Mean Corpuscular Volume 80.4 fL (80.0-98.0); NRBC Abs Auto 0.000 X10*3/uL (0.0-0.012); NRBC Pct Auto 0.0 /100WBC (0.0-0.2); Platelet Count 262 X10*3/uL (160-400); Red Blood Count 5.01 X10*6/uL (4.60-5.80); White Blood Count 8.1 X10*3/uL (4.8-10.8)
[2025-03-18 15:20] LABS: INTERNATIONAL NORM RATIO 0.8 (0.9-1.1); Prothrombin Time 9.1 SEC (10.9-12.4)
[2025-03-18 17:46] LABS: Alanine Aminotransferase 46 U/L (0-40); Albumin Level 4.2 g/dL (3.5-5.0); Alkaline Phosphatase 71 U/L (39-117); Anion Gap 14 (12-20); Aspartate Amino Transferase 70 U/L (5-37); Blood Urea Nitrogen 4 mg/dL (9-16); Calcium 8.8 mg/dL (8.4-10.2); Carbon Dioxide 24 mmol/L (22-29); Chloride 101 mmol/L (96-108); Creatinine Clr Calc Pharmacy 130.3; Estimated Glomerular Filt Rate > 60; Potassium 4.3 mmol/L (3.3-5.1); Sodium 135 mmol/L (135-145); Total Protein 7.3 g/dL (6.5-8.0)
== END 2025-03-18 20:15 | disposition left against medical advice (07) ==
LOC: HO.ED 20:10
PROVIDERS: Registered Nurse Emergency; Emergency Provider Emergency Medicine; PCP Physician Assistant
DX: R51.9 Headache, unspecified (principal); I10 Essential (primary) hypertension; Z53.21 Procedure and treatment not carried out due to patient leaving prior to being seen by health care provider
CPT/HCPCS: 36415; 80053; 85025; 85610; 93005; 99283

== ENCOUNTER → 2025-03-18 14:20 | Outpatient (BNV) | payer MEDICARE, MEDICAID, SELFPAY | PROVIDERS: Emergency Provider Emergency Medicine; PCP Physician Assistant; Visit Provider Internal Medicine Cardiovascular Disease | DX: R00.2 Palpitations (principal) | CPT/HCPCS: 93010 ==

== ENCOUNTER 2025-04-03 08:47 | Outpatient (REF) | payer MEDICARE, MEDICAID, SELFPAY ==
--- NOTE | 2025-04-03 08:50 | PFT_ITS ---
Flows: FEV1: 37 % of predicted at 1.47 L FVC: 56 % of predicted at 2.84 L FEV1/FVC: 52 % Bronchodilator response: Positive Patient unable to perform lung volumes or diffusion capacity measurements secondary to poor effort and technique. Impression: Unreliable test results secondary to patient's poor effort and technique. Spirometry suggests severe obstruction with positive bronchodilator response. Patient was unable to perform lung volumes or diffusion capacity maneuvers MTDD
[2025-04-03 09:35] VITALS: PULSE 66
== END 2025-04-03 08:48 | disposition home or self-care (01) ==
LOC: HO.RESP 08:47
PROVIDERS: PCP Physician Assistant; Visit Provider Physician Assistant
DX: J43.2 Centrilobular emphysema (principal); F17.210 Nicotine dependence, cigarettes, uncomplicated
CPT/HCPCS: 94060; 94640

== ENCOUNTER → 2025-04-03 08:50 | Outpatient (BNV) | payer MEDICARE, MEDICAID, SELFPAY | PROVIDERS: PCP Physician Assistant; Visit Provider Internal Medicine Pulmonary Disease | DX: J43.2 Centrilobular emphysema (principal); Z91.198 Patient's noncompliance with other medical treatment and regimen for other reason | CPT/HCPCS: 94060 ==

== ENCOUNTER 2025-04-30 13:04 | Outpatient (REF) | payer MEDICARE, MEDICAID, SELFPAY | END 2025-04-30 13:05 | disposition home or self-care (01) | LOC: HO.BBR 13:04 | PROVIDERS: PCP Physician Assistant; Visit Provider Internal Medicine | DX: D75.1 Secondary polycythemia (principal) | CPT/HCPCS: 85018; 99195 ==